=== PATIENT | male | born 1965 | race Hispanic/Latino ===

== ENCOUNTER 2017-01-17 19:46 | Inpatient (IN) | payer BC ==
[2017-01-17 19:47] VITALS: BMI 33.0
--- NOTE | 2017-01-17 20:19 | C.PDOC ---
History Of Present Illness <Jagdish Huertas - Last Filed: 01/18/17 00:45> <Andrey Toure - Last Filed: 01/18/17 03:50> 51 y/o male BIBA for homicidal and suicidal ideation. Patient states he threatened to kill his family and was asking his son to come over to shoot him in the head. Patient notes he finished a 21 day rehab 1 week ago and reports he started drinking immediately after. Patient states he has been drinking ever since. Currently presents to ER intoxicated. Denies any other complaints on arrival. (Jagdish Huertas) History Per: Patient History/Exam Limitations: no limitations Onset/Duration Of Symptoms: Days Current Symptoms Are (Timing): Still Present Modifying Factor(s): Alcohol Associated Symptoms: Suicidal Thoughts <Jagdish Huertas - Last Filed: 01/18/17 00:45> <Andrey Toure - Last Filed: 01/18/17 03:50> Time Seen by Provider: 01/17/17 19:47 Chief Complaint (Nursing): Substance Abuse Past Medical History Reviewed: Historical Data, Nursing Documentation, Vital Signs - Medical History PMH: Anxiety, Depression, Diabetes, HTN, Hypercholesterolemia Surgical History: Tonsillectomy (as a child) Family History: States: Unknown Family Hx - Social History Hx Tobacco Use: Yes Hx Alcohol Use: Yes Hx Substance Use: No - Immunization History Hx Tetanus Toxoid Vaccination: No Hx Influenza Vaccination: No Hx Pneumococcal Vaccination: No <Jagdish Huertas - Last Filed: 01/18/17 00:45> Vital Signs: Last Vital Signs Temp 98 F 01/18/17 00:49 Pulse 83 01/18/17 00:49 Resp 20 01/18/17 00:49 BP 110/69 01/18/17 00:49 Pulse Ox 96 01/18/17 00:49 - [facility] Procedures ALCOHOL DETOXIFICATION (10/07/13) DETOXIFICATION SERVICES FOR SUBSTANCE ABUSE TREATMENT (11/20/16) GROUP PSYCHOTHERAPY (11/20/16) INDIVIDUAL PSYCHOTHERAPY, SUPPORTIVE (11/20/16) MEDICATION MANAGEMENT (11/20/16) Review Of Systems Except As Marked, All Systems Reviewed And Found Negative. Constitutional: Negative for: Fever, Chills Cardiovascular: Negative for: Chest Pain Respiratory: Negative for: Shortness of Breath Gastrointestinal: Negative for: Vomiting, Abdominal Pain Skin: Negative for: Rash Psych: Positive for: Suicidal ideation, Other (Homicidal Ideation) <Jagdish Huertas - Last Filed: 01/18/17 00:45> Physical Exam - Physical Exam Appears: Non-toxic, No Acute Distress Skin: Normal Color, Warm, Dry Head: Atraumatic, Normacephalic Chest: Symmetrical Cardiovascular: Rhythm Regular Respiratory: Normal Breath Sounds, No Rales, No Rhonchi, No Wheezing Gastrointestinal/Abdominal: Soft, No Tenderness Back: Normal Inspection Extremity: Normal ROM, Capillary Refill (< 2 sec.) Neurological/Psych: Oriented x3, Normal Speech, Normal Cognition <Jagdish Huertas - Last Filed: 01/18/17 00:45> ED Course And Treatment - Laboratory Results Result Diagrams: 01/17/17 20:35 01/17/17 20:35 O2 Sat by Pulse Oximetry: 93 Pulse Ox Interpretation: Normal <Jagdish Huertas - Last Filed: 01/18/17 00:45> - Laboratory Results Result Diagrams: 01/17/17 20:35 01/17/17 20:35 <Andrey Toure R - Last Filed: 01/18/17 03:50> Medical Decision Making <Jagdish Huertas - Last Filed: 01/18/17 00:45> <Andrey Toure R - Last Filed: 01/18/17 03:50> Medical Decision Making: Plan: * Labs * EKG * Crisis eval * Reassess Progress: EKG: sinus rhythm 88 bpm, rightward axis (Jagdish Huertas) Disposition - Disposition Disposition Time: 01:00 <Jagdish Huertas - Last Filed: 01/18/17 00:45> Discussed With : Faith Reed Doctor Will See Patient In The: Hospital Counseled Patient/Family Regarding: Diagnosis - Disposition Disposition Time: 03:49 <Andrey Toure - Last Filed: 01/18/17 03:50> - Disposition Disposition: HOSPITALIZED Condition: STABLE - Clinical Impression Clinical Impression: Alcohol intoxication, Major depressive disorder, Alcohol use disorder - Scribe Statement The provider has reviewed the documentation as recorded by the Scribe <Jagdish Huertas - Last Filed: 01/18/17 00:45> <Andrey Toure - Last Filed: 01/18/17 03:50> - Scribe Statement Jim Guerrier (Jagdish Huertas) Provider Attestation: Provider Scribe Attestation: All medical record entries made by the Scribe were at my direction and personally dictated by me. I have reviewed the chart and agree that the record accurately reflects my personal performance of the history, physical exam, medical decision making, and the department course for this patient. I have also personally directed, reviewed, and agree with the discharge instructions and disposition. (Jagdish Huertas) Physician Patient Turnover Patient Signed Over To: Andrey Toure Handoff Comments: pending sobriety and psych recs <Jagdish Huertas - Last Filed: 01/18/17 00:45>
[2017-01-17 20:44] LABS: BASO % 0.4 % (0.0-2.0); EOS % 0.4 % (0.0-4.0); HEMATOCRIT 42.1 % (35.0-51.0); LYMPH # 2.2 K/uL (1.0-4.3); LYMPH % 42.7 % (20.0-40.0); MEAN CELL VOLUME 89.6 fL (80.0-94.0); MEAN CORPUSCULAR HEMOGLOBIN 29.8 pg (27.0-31.0); MEAN CORPUSCULAR HGB CONC 33.3 g/dL (33.0-37.0); MEAN PLATELET VOLUME 7.1 fL (7.2-11.7); MONO # 0.4 K/uL (0.0-0.8); MONO % 7.9 % (0.0-10.0); NRBC % 0.1 % (0.0-2.0); RED CELL DISTRIBUTION WIDTH 15.8 % (11.5-14.5); WHITE BLOOD COUNT 5.2 K/uL (4.8-10.8)
[2017-01-17 20:46] LABS: URINE BILIRUBIN NEGATIVE (NEGATIVE); URINE BLOOD NEGATIVE (NEGATIVE); URINE COLOR Straw (YELLOW); URINE GLUCOSE (UA) NORMAL (Normal); URINE KETONE TRACE mg/dL (NEGATIVE); URINE LEUKOCYTE ESTERASE NEG Leu/uL (Negative); URINE PROTEIN NEGATIVE (NEGATIVE); URINE UROBILINOGEN NORMAL mg/dL (0.2-1.0); WBC URINE < 1 /hpf (0-5)
[2017-01-17 20:56] LABS: CHLORIDE 95 mmol/L (98-107)
[2017-01-17 20:57] LABS: POTASSIUM 3.7 mmol/L (3.6-5.2); SODIUM 142 mmol/L (132-148)
[2017-01-17 20:59] LABS: ALB/GLOB RATIO 1.7 (1.0-2.1); ALKALINE PHOSPHATASE 58 U/L (38-126); ALT/SGPT 57 U/L (21-72); AST/SGOT 48 U/L (17-59); BILIRUBIN,TOTAL 0.1 mg/dL (0.2-1.3); BLOOD UREA NITROGEN 10 mg/dL (9-20); CARBON DIOXIDE 30 mmol/L (22-30); GFR AFRICAN-AMERICAN > 60; GLUCOSE,RANDOM 166 mg/dL (75-110); TOTAL PROTEIN 6.8 g/dL (6.3-8.3)
[2017-01-17 21:00] LABS: ALCOHOL SERUM 296 mg/dl (0-10); CALCIUM 9.3 mg/dl (8.6-10.4)
[2017-01-18 00:50] VITALS: O2SAT 96
[2017-01-18] MEDS: Pantoprazole 40 mg EC Tab PO SCH (11:13)
--- NOTE | 2017-01-18 16:23 | CARD ---
APPROVED REPORT EKG Measurement Heart [id number] <Conclusion> Normal sinus rhythm Rightward axis Borderline ECG
--- NOTE | 2017-01-18 23:06 | PCM.PSYCH ---
Initial Psychiatric Evaluation - Initial Psychiatric Evaluation Type of Admission: Voluntary Legal Status: Capacity Chief Complaint (in patient's own words): "I feel depressed" History of Present Illness and Precipitating Events: The pt is seen, chart reviewed, case discussed. He is known by the engineering writer from his previous admission. This is a 51 yo WM, and domiciled with his , unemployed. He reports depressive sxs, no psychosis and no brit He admitted that he had felt suicidal but out of desperation and w/o plan Drinks 3 pints a day but only for the last 5 days as he was in another facility until recently. Denies drugs Past psych hx: ne admission Family psych hx: Unknown Medical hx: Overweight, HTN, high cholesterol, DM Current Medications: Active Medications Generic Name Dose Route Start Last Admin Trade Name Freq PRN Reason Stop Dose Admin Amlodipine Besylate 5 mg 01/18/17 10:00 01/18/17 11:13 Norvasc PO 5 mg DAILY JOSE Administration Chlordiazepoxide 25 mg 01/18/17 06:00 01/18/17 17:00 Librium PO 01/22/17 05:59 25 mg Q6 JOSE Administration Taper Chlordiazepoxide 25 mg 01/18/17 14:10 01/18/17 21:39 Librium PO 25 mg Q4H PRN Administration Alcohol Withdrawal Clonidine HCl 0.1 mg 01/18/17 14:10 Catapres PO Q4H PRN Symptoms of alcohol withdrawl Diphenhydramine HCl 50 mg 01/18/17 04:58 01/18/17 11:12 Benadryl PO 50 mg Q6 PRN Administration Allergy symptoms Escitalopram Oxalate 10 mg 01/18/17 10:00 01/18/17 11:13 Lexapro PO 10 mg DAILY JOSE Administration Folic Acid 1 mg 01/18/17 14:15 Folic Acid PO DAILY JOSE Glipizide 5 mg 01/19/17 07:30 Glucotrol PO ACB JOSE Ibuprofen 600 mg 01/18/17 14:11 Motrin Tab PO Q6H PRN Pain, moderate (4-7) Metformin HCl 1,000 mg 01/18/17 08:00 01/18/17 17:00 Glucophage PO 1,000 mg BIDCC JOSE Administration Multivitamins 1 tab 01/18/17 14:15 Hexavitamin PO DAILY JOSE Pantoprazole Sodium 40 mg 01/18/17 10:00 01/18/17 11:13 Protonix Ec Tab PO 40 mg DAILY JOSE Administration Quetiapine Fumarate 300 mg 01/18/17 22:00 01/18/17 21:39 Seroquel PO 300 mg HS JOSE Administration Rosuvastatin Calcium 5 mg 01/18/17 22:00 01/18/17 21:21 Crestor PO 5 mg HS JOSE Administration Thiamine HCl 100 mg 01/18/17 14:15 Vitamin B1 Tab PO DAILY JOSE Trazodone HCl 50 mg 01/18/17 04:39 Desyrel PO HS PRN Sleep Past Psychiatric History - Past Psychiatric History Previous Treatment History: Inpatient Pertinent Medical Hx (Current Medical&Sleep Prob, Allergies): Allergies Allergy/AdvReac Type Severity Reaction Status Date / Time No Known Allergies Allergy Verified 11/20/16 15:06 Amlodipine Besylate [Norvasc] 10 mg PO DAILY 03/10/15 MetFORMIN [glucOPHAGE] 1,000 mg PO BID 03/10/15 Omeprazole [PrilOSEC] 40 mg PO DAILY 03/10/15 Quetiapine Fumarate [Seroquel] 25 mg PO HS 03/10/15 Simvastatin 20 mg PO HS 03/10/15 Escitalopram [Lexapro] 10 mg PO DAILY #30 tab 11/25/16 hydrOXYzine HCl [Atarax] 50 mg PO Q6H PRN #60 tab 11/25/16 Review of Systems - Psychiatric Psychiatric: Abnormal Sleep Pattern, Anhedonia, Anxiety, Change in Libido, Depression, Mood Swings. absent: Hallucinations, Homicidal Ideation, Paranoia, Suicidal Ideation Mental Status Examination - Personal Presentation Personal Presentation: Looks older than stated age - Affect Affect: Constricted - Motor Activity Motor Activity: Psychomotor Agitation - Reliability in Providing Information Reliability in Providing Information: Poor, due to altered mood - Speech Speech: Tangential - Mood Mood: Depressed, Anxious - Formal Thought Process Formal Thought Process: Circumstantial - Cognitive Functions Orientation: Person, Place, Situation, Time Sensorium: Alert Attention/Concentration: Easily distracted Judgement: Intact, as evidence by: Insight regarding need for hospitalization Memory: Recent intact, as evidence by: Ability to recall events of the day, Remote intact, as evidenced by: Abilit to recall sig. life events - Risk Risk: Diminished functioning - Strength & Assets Inventory Strength & Assets Inventory: Cooperative DSM 5 DX - DSM 5 DSM 5 Diagnosis: Major depression - recurrent / severe, not psychotic Alcohol use d/o Alcohl withdrawal - Recommended/Plan of Treatment Treatment Recommendations and Plan of Treatment: Ativan detox Zoloft Support and psychoed [place] and CBt Attend groups and activities Refer to IOP in [place] 33 min
[2017-01-19] MEDS: Pantoprazole 40 mg EC Tab PO SCH (09:46)
[2017-01-19] MEDS: Multiple Vitamins Tab PO SCH (09:47)
--- NOTE | 2017-01-19 13:03 | PCM.PYCHPN ---
Psychiatric Progress Note - Psychiatric Progress Note Patient seen today, length of contact: 20 min Patient Chief Complaint: "I don't feel well" Problems Identified/Issues Discussed: The patient is seen, chart reviewed and case discussed. He is somewhat worse than yesterday because he feels more depressed and anxious. He agreed to add gabapentin even though he doesn't believe it works well but he said he will try again. He also agreed to add Inderal as he is tachycardic and very anxious. Denies suicidal ideation or plan but he states he doesn't feel safe outside. No side effects from medications Detox is ongoing without major problems but has some breakthrough symptoms. [place] used support given Medication Change: Yes (see hpi) Medical Record Reviewed: Yes Mental Status Examination - Cognitive Function Orientation: Person, Place, Situation, Time Memory: Impaired Attention: Poor Concentration: Poor Association: WNL Fund of Knowledge: WNL - Mood Mood: Depressed, Anxious - Affect Affect: Constricted - Speech Speech: Appropriate - Formal Thought Process Formal Thought Process: No Impairment - Suicidal Ideation Suicidal Ideation: No - Homicidal Ideation Homicidal Ideation: No Goal/Treatment Plan - Goal/Treatment Plan Need for Continued Stay: Severe depression anxiety, Discharge may exacerbated symptoms, Severe functional impairment Progress Toward Problem(s) and Goals/Treatment Plan: Ativan detox Zoloft now 75 mg, will up to 100+ mg Add inderal Add gabapentin Support and psychoed [place] and CBt Attend groups and activities Refer to IOP in [place] Estimated Date of D/C: 01/21/17 - Smoking Cessation Smoking Cessation Initiated: Yes
[2017-01-20] MEDS: Multiple Vitamins Tab PO SCH (10:12)
[2017-01-20] MEDS: Pantoprazole 40 mg EC Tab PO SCH (10:14)
[2017-01-20 11:42] VITALS: RESP 19
--- NOTE | 2017-01-20 11:52 | PCM.PYCHPN ---
Psychiatric Progress Note - Psychiatric Progress Note Patient seen today, length of contact: 18 min Patient Chief Complaint: "I am a little better today" Problems Identified/Issues Discussed: The patient is seen, chart reviewed and case discussed. No side effects from medications Detox is ongoing without major problems but has some breakthrough symptoms and gets PRN meds. Detox is supposed to end tomorrow. [place] used support given, CBT used. Still very anxious and depressed and only better than yesterday. He does NOT contract for safety outside but "OK here." No concrete plans but he feels like if he leaves he will relapse and will feel suicidal again. Ways to deal with this discussed. Agrees with med increase Plan is to go to an IOP in [place], [facility] and plan B is going back to Dr. Longoria Medication Change: Yes (increase lexapro and gabapentin) Medical Record Reviewed: Yes Mental Status Examination - Cognitive Function Orientation: Person, Place, Situation, Time Memory: Impaired Attention: Poor Concentration: Poor Association: WNL Fund of Knowledge: WNL - Mood Mood: Depressed, Anxious - Affect Affect: Constricted - Speech Speech: Appropriate - Formal Thought Process Formal Thought Process: No Impairment - Suicidal Ideation Suicidal Ideation: No - Homicidal Ideation Homicidal Ideation: No Goal/Treatment Plan - Goal/Treatment Plan Need for Continued Stay: Severe depression anxiety, Discharge may exacerbated symptoms, Severe functional impairment Progress Toward Problem(s) and Goals/Treatment Plan: Ativan detox Lexapro is now 20 mg Added inderal Increase gabapentin to 400 tid Continue seroquel 100+300 Support and psychoed [place] and CBt Attend groups and activities Refer to IOP in [place] Estimated Date of D/C: 01/21/17
[2017-01-21 09:13] VITALS: BP 116/75; PULSE 103; TEMP 97.3
--- NOTE | 2017-01-21 09:49 | PCM.PYCHDC ---
Mental Status Examination - Mental Status Examination Orientation: Person, Place, Situation, Time Memory: Intact Mood: Anxious Affect: Constricted Speech: Appropriate Attention: WNL Concentration: WNL Association: WNL Fund of Knowledge: WNL Formal Thought Process: No Impairment Suicidal Ideation: No Current Homicidal Ideation?: No Discharge Summary - Discharge Note Reason for Hospitalization: Suicidal ideation Psychiatric History (includes Medical, Family, Personal Hx): Previous admissions for depression and alcoholism Laboratory Data: Abnormal Lab Results 01/20/17 01/20/17 01/21/17 11:45 16:31 07:36 POC Glucose (mg/dL) 199 H 188 H 179 H Consultations:: List each consultation separately and include: 1. Reason for request. 2. Findings. 3. Follow-up Summary of Hospital Course include:: 1. Description of specific treatment plan utilized for patients during their course of treatmen. 2. Summarize the time- course for resolution of acute symptoms and/or regressed behaviors. 3. Describe issues identified and worked on during hospitalization. 4. Describe medication utilized. 5. Describe medical problems identified and treated. 6. Reassessment of suicide risk Summary of Hospital Course: The pt is seen, chart reviewed, case discussed. On admission: He is known by the conventional underwriter from his previous admission. This is a 51 yo WM, and domiciled with his , unemployed. He reports depressive sxs, no psychosis and no brit He admitted that he had felt suicidal but out of desperation and w/o plan Drinks 3 pints a day but only for the last 5 days as he was in another facility until recently. Denies drugs Past psych hx: ne admission Family psych hx: Unknown Medical hx: Overweight, HTN, high cholesterol, DM Hospital course: The pt was admitted and started on treatment with psychotherapy, support, psychoeducation and medications. MN and CBT used. The pt attended groups and activities, as well as milieu therapy. All the risks and benefits of medications are discussed and the patient understood and agreed. After care discussed with the patient. He first wanted to go back to Dr. Longoria , then IOP in [place] called [facility], but when he heard he has a co-pay he said he would go to intake but would likely end up attending [facility] - where ( at [facility]) his works, which he did not tell us until the last minute. He was overall, anxious and depressed, threatened suicide but improved quickly. He was no longer suicidal, but future-oriented upon d/c. - Final Diagnosis (DSM 5) Condition upon Discharge: STABLE DSM 5: MDD - recurrent, severe. not psychotic Alcohol withdrawal Alcohol use d/o - severe DM HTN Obese Disposition: HOME/ ROUTINE Follow-up Treatment Plan: Continue below medications after discharge. Follow after care plan as discussed above. Use relapse prevention skills Return to ER or call 911 if suicidal, homicidal or symptoms relapse. Stay away from stress, alcohol and drugs. Prescriptions/Medication Reconciliation: traZODone [Desyrel] 50 mg PO HS PRN #30 tab PRN Reason: Sleep GlipiZIDE [Glucotrol] 5 mg PO ACB #30 tab Escitalopram [Lexapro] 20 mg PO DAILY #30 tab Gabapentin [Neurontin] 400 mg PO TID #90 cap amLODIPine [Norvasc] 10 mg PO DAILY #30 tab Pantoprazole [Protonix EC Tab] 40 mg PO DAILY #30 ect QUEtiapine [Seroquel] 100 mg PO DAILY #30 tab QUEtiapine [Seroquel] 300 mg PO HS #30 tab Topiramate [Topamax] 50 mg PO DAILY #30 tab metFORMIN [glucOPHAGE] 1,000 mg PO BIDCC #60 tab - Smoking Cessation Smoking Cessation Medication prescribed: No - Antipsychotic Medications Pt discharged on 2 or more routine antipsychotic medications: No
[2017-01-21] MEDS: Multiple Vitamins Tab PO SCH (09:51)
== END 2017-01-21 11:00 | disposition home or self-care (01) | DRG 885 ==
LOC: C.ER 19:46 → C.5E 01-18 03:51
PROVIDERS: ADMIT Psychiatry & Neurology Psychiatry; ATTEND Psychiatry & Neurology Psychiatry
PROC: GZ3ZZZZ Medication Management (ICD-10-PCS; principal; 2017-01-18)
PROC: HZ2ZZZZ Detoxification Services for Substance Abuse Treatment (ICD-10-PCS; 2017-01-18)
PROC: GZHZZZZ Group Psychotherapy (ICD-10-PCS; 2017-01-18)
PROC: GZ56ZZZ Individual Psychotherapy, Supportive (ICD-10-PCS; 2017-01-18)
DX: F33.2 Major depressive disorder, recurrent severe without psychotic features (principal); F10.220 Alcohol dependence with intoxication, uncomplicated; F10.230 Alcohol dependence with withdrawal, uncomplicated; R45.851 Suicidal ideations; R45.850 Homicidal ideations; Y90.8 Blood alcohol level of 240 mg/100 ml or more; I10 Essential (primary) hypertension; E11.9 Type 2 diabetes mellitus without complications; F17.210 Nicotine dependence, cigarettes, uncomplicated; E78.00 Pure hypercholesterolemia, unspecified; E66.3 Overweight; Z79.84 Long term (current) use of oral hypoglycemic drugs

== ENCOUNTER 2017-02-05 16:12 | Observation (INO) | payer BC ==
[2017-02-05 16:13] VITALS: BMI 33.0
[2017-02-05 17:15] LABS: ABG ALLEN TEST PO; DRAW SITE RR
[2017-02-05] MEDS ORDERED: Sodium Chloride 0.9% 1,000 ML IV ONE (17:17)
[2017-02-05] MEDS ORDERED: cefTRIAXone IV 1 gm in Dextros 50 ML IV ONE (17:18)
[2017-02-05] MEDS ORDERED: Azithromycin 500 MG in Sodium Chloride 0.9% 250 ML IV STA (17:18)
[2017-02-05 17:20] LABS: HEMATOCRIT 40.3 % (35.0-51.0); LYMPH # 1.2 K/uL (1.0-4.3); LYMPH % 15.6 % (20.0-40.0); MEAN CELL VOLUME 90.9 fL (80.0-94.0); MEAN CORPUSCULAR HEMOGLOBIN 30.3 pg (27.0-31.0); MEAN CORPUSCULAR HGB CONC 33.3 g/dL (33.0-37.0); MEAN PLATELET VOLUME 7.4 fL (7.2-11.7); MONO # 0.5 K/uL (0.0-0.8); MONO % 7.2 % (0.0-10.0); NRBC % 0.2 % (0.0-2.0); RED CELL DISTRIBUTION WIDTH 15.4 % (11.5-14.5); WHITE BLOOD COUNT 7.5 K/uL (4.8-10.8)
--- NOTE | 2017-02-05 17:31 | RAD ---
HISTORY: hypoxic COMPARISON: No prior. FINDINGS: LUNGS: Slightly diminished lung volumes likely due to incomplete inspiration with crowded bronchovascular markings and mild bibasilar atelectasis. Developing infiltrates could be excluded followup radiographs. PLEURA: No significant pleural effusion identified, no pneumothorax apparent. CARDIOVASCULAR: Normal. OSSEOUS STRUCTURES: Minor multilevel degenerative spondylosis of the thoracic spine. . VISUALIZED UPPER ABDOMEN: Normal. OTHER FINDINGS: None. IMPRESSION: Slightly diminished lung volumes likely due to incomplete inspiration with crowded bronchovascular markings and mild bibasilar atelectasis. Developing infiltrates could be excluded followup radiographs.
[2017-02-05 17:52] LABS: CHLORIDE 88 mmol/L (98-107)
[2017-02-05 17:53] LABS: POTASSIUM 4.7 mmol/L (3.6-5.2); SODIUM 131 mmol/L (132-148)
[2017-02-05 17:55] LABS: ALB/GLOB RATIO 1.6 (1.0-2.1); ALKALINE PHOSPHATASE 76 U/L (38-126); ALT/SGPT 55 U/L (21-72); AST/SGOT 54 U/L (17-59); BILIRUBIN,TOTAL 0.3 mg/dL (0.2-1.3); BLOOD UREA NITROGEN 14 mg/dL (9-20); CARBON DIOXIDE 24 mmol/L (22-30); GFR AFRICAN-AMERICAN > 60; GLUCOSE,RANDOM 172 mg/dL (75-110); TOTAL PROTEIN 7.4 g/dL (6.3-8.3)
--- NOTE | 2017-02-05 17:55 | C.PDOC ---
History Of Present Illness The patient, a 51 y/o male whose PMHx includes alcohol abuse and depression, presents to the ED requesting alcohol detox. Patient also reports suicidal ideation and states he recently been drinking around 4 pints liquor/day. Patient denies homicidal ideation/plan at this time. Time Seen by Provider: 02/05/17 16:47 Chief Complaint (Nursing): Substance Abuse History Per: Patient History/Exam Limitations: intoxication Onset/Duration Of Symptoms: Hrs Current Symptoms Are (Timing): Still Present Suicide/Self Injury Attempted (Context): None Modifying Factor(s): Alcohol Associated Symptoms: Suicidal Thoughts. denies: Suicidal Plan Involuntary Hold By: None Recent travel outside of the [place]: No Additional History Per: Patient Past Medical History Reviewed: Historical Data, Nursing Documentation, Vital Signs Vital Signs: Last Vital Signs Temp 98.7 F 02/05/17 17:35 Pulse 95 H 02/05/17 19:13 Resp 16 02/05/17 19:13 BP 121/72 02/05/17 19:13 Pulse Ox 91 L 02/05/17 19:13 - Medical History PMH: Anxiety, Depression, Diabetes, HTN, Hypercholesterolemia, Seizures (ETOH related), Sleep Apnea (uses CPAP at home) Denies: Hepatitis, HIV, Chronic Kidney Disease, Sexually Transmitted Disease Surgical History: Tonsillectomy (as a child) - [facility] Procedures ALCOHOL DETOXIFICATION (10/07/13) DETOXIFICATION SERVICES FOR SUBSTANCE ABUSE TREATMENT (01/18/17) GROUP PSYCHOTHERAPY (01/18/17) INDIVIDUAL PSYCHOTHERAPY, SUPPORTIVE (01/18/17) MEDICATION MANAGEMENT (01/18/17) Family History: States: Unknown Family Hx - Social History Hx Tobacco Use: Yes Hx Alcohol Use: Yes (1-2 pints vodka daily) Hx Substance Use: Yes - Immunization History Hx Tetanus Toxoid Vaccination: No Hx Influenza Vaccination: No Hx Pneumococcal Vaccination: No Review Of Systems Except As Marked, All Systems Reviewed And Found Negative. Constitutional: Positive for: Other (+ETOH intoxication ) Psych: Positive for: Suicidal ideation, Other (request for alcohol detox ) Physical Exam - Physical Exam Appears: No Acute Distress, Other (visibly intoxicated, stuperous, obese) Skin: Normal Color, Warm, Dry Head: Atraumatic, Normacephalic Eye(s): bilateral: Normal Inspection Oral Mucosa: Moist, Other (alcohol on breath ) Neck: Supple Chest: Symmetrical, No Deformity, No Tenderness Cardiovascular: Rhythm Regular Respiratory: Normal Breath Sounds Back: Normal Inspection Extremity: Normal ROM, Capillary Refill (less than 2 seconds ) Neurological/Psych: Other (arousable to touch and verbal stimuli ) Gait: Unsteady ED Course And Treatment - Laboratory Results Result Diagrams: 02/05/17 17:14 02/05/17 17:40 Lab Interpretation: Abnormal (ab.22/58/45/25/82% on 2LNC) O2 Sat by Pulse Oximetry: 96 Pulse Ox Interpretation: Normal - Other Rad CXR X-Ray: Interpreted by Me, Viewed By Me, Read By Radiologist Interpretation: IMPRESSION: Slightly diminished lung volumes likely due to incomplete inspiration with crowded bronchovascular markings and mild bibasilar atelectasis. Developing infiltrates could be excluded followup radiographs. Progress Note: labs and CXR ordered and reviewed. Patient received Zithromax IV , Rocephin IV, and IV Fluids. Reevaluation Time: 19:02 Reassessment Condition: Improved (repeat ABG and trial off BiPaP ordered) - Physician Consult Information Outcome Of Conversation: 1899: d/w Dr. Janine Bingham- Medicine [employer]- ok to Tele obs. Critical Care Time - Critical Care Note Total Time (in mins): 90 Documented critical care: time excludes all time spent performing seperately billable procedures. Medical Decision Making Medical Decision Making: chronic alcoholism, COPD exacerbation with CO2 retention, improved with fluids and BiPaP Alcohol abuse probably decreased respiratory drive, now improved. h/o 1ppd, probably has baseline 50/50 O2/CO2 Though initially presented for ETOH detox- pt should be stabilized on Medicine Floor while concurrently starting CIWA protocol then transfer to detox when appropriate. 2000: second ABG shows improvement of oxygenation, but no sig decreased C02 Clinically pt much improved and A&Ox3 Disposition Doctor Will See Patient In The: Hospital Counseled Patient/Family Regarding: Studies Performed, Diagnosis - Disposition Disposition: HOSPITALIZED Disposition Time: 19:05 Condition: FAIR - Clinical Impression Clinical Impression: Alcohol dependence, COPD (chronic obstructive pulmonary disease) - Scribe Statement The provider has reviewed the documentation as recorded by the Scribe (Yvonne Khan) Provider Attestation: All medical record entries made by the Scribe were at my direction and personally dictated by me. I have reviewed the chart and agree that the record accurately reflects my personal performance of the history, physical exam, medical decision making, and the department course for this patient. I have also personally directed, reviewed, and agree with the discharge instructions and disposition.
[2017-02-05 17:56] LABS: ALCOHOL SERUM 200 mg/dl (0-10)
[2017-02-05] MEDS ORDERED: cefTRIAXone IV 1 gm in Dextros 50 ML IVPB ONE (18:24)
[2017-02-05] MEDS ORDERED: Azithromycin 500mg/250ML NS 250 ML IVPB ONE (18:25)
[2017-02-05] MEDS ORDERED: Sodium Chloride 0.9% 1,000 ML ONE (18:25)
[2017-02-05] MEDS ORDERED: Albuterol-Ipratrop 3 mg / 0.5 (3 ml) UD INH STA (19:00)
[2017-02-05] MEDS ORDERED: Albuterol-Ipratrop 3 mg / 0.5 (3 ml) UD ONE (19:16)
[2017-02-05 19:46] LABS: ABG ALLEN TEST POS; DRAW SITE RRADIAL
[2017-02-05 20:01] LABS: RBC URINE < 1 /hpf (0-3); URINE BACTERIA RARE (<OCC); URINE BILIRUBIN NEGATIVE (NEGATIVE); URINE BLOOD NEGATIVE (NEGATIVE); URINE COLOR Straw (YELLOW); URINE GLUCOSE (UA) NORMAL (Normal); URINE KETONE NEGATIVE (NEGATIVE); URINE LEUKOCYTE ESTERASE NEG Leu/uL (Negative); URINE PROTEIN NEGATIVE (NEGATIVE); URINE UROBILINOGEN NORMAL mg/dL (0.2-1.0); WBC URINE < 1 /hpf (0-5)
[2017-02-05 23:14] VITALS: RESP 20
[2017-02-05] MEDS: Azithromycin 500 MG in Sodium Chloride 0.9% 250 ML IVPB SCH (23:41)
[2017-02-06 07:05] LABS: CHLORIDE 92 mmol/L (98-107); POTASSIUM 4.1 mmol/L (3.6-5.2); SODIUM 135 mmol/L (132-148)
[2017-02-06 07:08] LABS: CARBON DIOXIDE 33 mmol/L (22-30); GFR AFRICAN-AMERICAN > 60
[2017-02-06 07:09] LABS: BLOOD UREA NITROGEN 11 mg/dL (9-20); CALCIUM 7.8 mg/dl (8.6-10.4); GLUCOSE,RANDOM 159 mg/dL (75-110); MAGNESIUM 1.7 mg/dL (1.6-2.3); PHOSPHOROUS 2.6 mg/dL (2.5-4.5)
[2017-02-06 07:13] LABS: BASO % 0.2 % (0.0-2.0); EOS % 0.2 % (0.0-4.0); HEMATOCRIT 39.4 % (35.0-51.0); LYMPH # 0.9 K/uL (1.0-4.3); LYMPH % 18.4 % (20.0-40.0); MEAN CELL VOLUME 90.9 fL (80.0-94.0); MEAN CORPUSCULAR HEMOGLOBIN 30.2 pg (27.0-31.0); MEAN CORPUSCULAR HGB CONC 33.2 g/dL (33.0-37.0); MEAN PLATELET VOLUME 7.5 fL (7.2-11.7); MONO # 0.6 K/uL (0.0-0.8); MONO % 11.9 % (0.0-10.0); NRBC % 0.4 % (0.0-2.0); RED CELL DISTRIBUTION WIDTH 15.6 % (11.5-14.5); WHITE BLOOD COUNT 4.8 K/uL (4.8-10.8)
[2017-02-06] MEDS: Albuterol-Ipratrop 3 mg / 0.5 (3 ml) UD INH SCH ×3 (07:52→19:17)
[2017-02-06] MEDS: (Novolin R) Insulin Human Regular 100 units/ml vial SC SCH ×4 (07:58→22:03)
[2017-02-06] MEDS: GlipiZIDE 2.5 mg Tab PO SCH ×2 (09:57→17:38)
[2017-02-06] MEDS: Pantoprazole 40 mg EC Tab PO SCH (09:59)
--- NOTE | 2017-02-06 11:22 | CP.PCM.HP ---
History of Present Illness - History of Present Illness History of Present Illness: coughing sob alcoholic smoker and wants detox deprsion Present on Admission - Present on Admission Any Indicators Present on Admission: Yes Review of Systems - Review of Systems Systems not reviewed;Unavailable: Acuity of Condition, Respiratory Distress, Intoxicated - Constitutional Constitutional: Fatigue, Snoring - EENT Eyes: As Per HPI Nose/Mouth/Throat: As Per HPI - Cardiovascular Cardiovascular: Dyspnea, Dyspnea on Exertion, Orthopnea - Respiratory Respiratory: Dyspnea, Dyspnea on Exertion - Gastrointestinal Gastrointestinal: Constipation - Genitourinary Genitourinary: Urinary Frequency - Reproductive: Male Reproductive:Male: As Per HPI - Musculoskeletal Musculoskeletal: As Per HPI - Integumentary Integumentary: As Per HPI - Neurological Neurological: Tremor - Psychiatric Psychiatric: Abnormal Sleep Pattern, Depression - Endocrine Endocrine: Polydipsia, Polyphagia - Hematologic/Lymphatic Hematologic: As Per HPI Past Patient History - Infectious Disease Hx of Infectious Diseases: None - Past Medical History & Family History Past Medical History?: Yes - Past Social History Smoking Status: Heavy Smoker > 10 Cigarettes Daily - CARDIAC Hx Cardiac Disorders: Yes Hx Hypercholesterolemia: Yes Hx Hypertension: Yes - PULMONARY Hx Respiratory Disorders: Yes Hx Pneumonia: Yes Hx Sleep Apnea: Yes (uses CPAP at home) - NEUROLOGICAL Hx Neurological Disorder: Yes Hx Seizures: Yes (ETOH related) Other/Comment: HEAD ANEURYSM - HEENT Hx HEENT Problems: Yes Other/Comment: HAD SEPTAL SURGERY DUE TO DEVIATION - RENAL Hx Chronic Kidney Disease: No - ENDOCRINE/METABOLIC Hx Endocrine Disorders: Yes Hx Diabetes Mellitus Type 2: Yes (non insulin dependent) - HEMATOLOGICAL/ONCOLOGICAL Hx Blood Disorders: No Hx Human Immunodeficiency Virus (HIV): No - INTEGUMENTARY Hx Dermatological Problems: No - MUSCULOSKELETAL/RHEUMATOLOGICAL Hx Falls: No - GASTROINTESTINAL Hx Gastrointestinal Disorders: Yes Hx Gastritis: Yes - GENITOURINARY/GYNECOLOGICAL Hx Genitourinary Disorders: No Hx Sexually Transmitted Disorders: No - PSYCHIATRIC Hx Substance Use: No - SURGICAL HISTORY Hx Surgeries: Yes Hx Tonsillectomy: Yes (as a child) Other/Comment: NASAL SEPTUM SURGERY - ANESTHESIA Hx Anesthesia: Yes Hx Anesthesia Reactions: No Hx Malignant Hyperthermia: No Meds Allergies/Adverse Reactions: Allergies Allergy/AdvReac Type Severity Reaction Status Date / Time No Known Allergies Allergy Verified 02/05/17 16:32 Physical Exam - Constitutional Appears: In Acute Distress - Head Exam Head Exam: ATRAUMATIC - Eye Exam Eye Exam: Normal appearance Pupil Exam: PERRL - ENT Exam ENT Exam: Mucous Membranes Moist - Neck Exam Neck exam: Positive for: Full Rom - Respiratory Exam Respiratory Exam: Decreased Breath Sounds, Respiratory Distress - Cardiovascular Exam Cardiovascular Exam: REGULAR RHYTHM - GI/Abdominal Exam GI & Abdominal Exam: Normal Bowel Sounds - Rectal Exam Rectal Exam: NORMAL INSPECTION - Exam Exam: NORMAL INSPECTION - Extremities Exam Extremities exam: Positive for: normal inspection - Back Exam Back exam: NORMAL INSPECTION - Neurological Exam Neurological exam: Oriented x3 - Psychiatric Exam Psychiatric exam: Anxious - Skin Skin Exam: Normal Color Results - Vital Signs Recent Vital Signs: Last Vital Signs Temp 98.9 F 02/06/17 08:30 Pulse 88 02/06/17 08:30 Resp 20 02/06/17 08:30 BP 124/79 02/06/17 08:30 Pulse Ox 95 02/06/17 08:30 - Labs Result Diagrams: 02/06/17 06:28 02/06/17 06:28 Labs: Laboratory Results - last 24 hr 02/05/17 02/05/17 02/06/17 19:35 19:48 06:02 WBC RBC Hgb Hct MCV MCH MCHC RDW Plt Count MPV Neut % (Auto) Lymph % (Auto) [place] % (Auto) Eos % (Auto) Baso % (Auto) Neut # Lymph # [place] # Eos # Baso # APTT Puncture Site Rradial pCO2 58 H pO2 70 L HCO3 22.6 ABG pH 7.25 L ABG Total CO2 27.2 ABG O2 Saturation 95.5 ABG Base Excess -2.8 L Faisal Test Pos ABG Potassium 4.7 A-a O2 Difference 214.0 Respiratory Index 3.1 Sodium 133.0 Chloride 100.0 Glucose 171 H Lactate 3.1 H FiO2 50.0 Inspiratory BiPAP 20 Expiratory BiPAP 6 Potassium Carbon Dioxide Anion Gap BUN Creatinine Est GFR ( Amer) Est GFR (Non-Af Amer) POC Glucose (mg/dL) 173 H Random Glucose Calcium Phosphorus Magnesium Arterial Blood Potassium 4.7 Urine Color Straw Urine Clarity Clear Urine pH 6.0 Ur Specific [place] 1.006 Urine Protein Negative Urine Glucose (UA) Normal Urine Ketones Negative Urine Blood Negative Urine Nitrate Negative Urine Bilirubin Negative Urine Urobilinogen Normal Ur Leukocyte Esterase Neg Urine WBC (Auto) < 1 Urine RBC (Auto) < 1 Urine Bacteria Rare Urine Opiates Screen Negative Urine Methadone Screen Negative Ur Barbiturates Screen Negative Ur Phencyclidine Scrn Negative Ur Amphetamines Screen Negative U Benzodiazepines Scrn Positive U Oth Cocaine Metabols Positive U Cannabinoids Screen Negative 02/06/17 06:28 WBC 4.8 RBC 4.34 L Hgb 13.1 Hct 39.4 MCV 90.9 MCH 30.2 MCHC 33.2 RDW 15.6 H Plt Count 164 MPV 7.5 Neut % (Auto) 69.3 Lymph % (Auto) 18.4 L [place] % (Auto) 11.9 H Eos % (Auto) 0.2 Baso % (Auto) 0.2 Neut # 3.3 Lymph # 0.9 L [place] # 0.6 Eos # 0.0 Baso # 0.0 APTT 22 Puncture Site pCO2 pO2 HCO3 ABG pH ABG Total CO2 ABG O2 Saturation ABG Base Excess Faisal Test ABG Potassium A-a O2 Difference Respiratory Index Sodium 135 Chloride 92 L Glucose Lactate FiO2 Inspiratory BiPAP Expiratory BiPAP Potassium 4.1 Carbon Dioxide 33 H Anion Gap 14 BUN 11 Creatinine 0.7 L Est GFR ( Amer) > 60 Est GFR (Non-Af Amer) > 60 POC Glucose (mg/dL) Random Glucose 159 H Calcium 7.8 L Phosphorus 2.6 Magnesium 1.7 Arterial Blood Potassium Urine Color Urine Clarity Urine pH Ur Specific [place] Urine Protein Urine Glucose (UA) Urine Ketones Urine Blood Urine Nitrate Urine Bilirubin Urine Urobilinogen Ur Leukocyte Esterase Urine WBC (Auto) Urine RBC (Auto) Urine Bacteria Urine Opiates Screen Urine Methadone Screen Ur Barbiturates Screen Ur Phencyclidine Scrn Ur Amphetamines Screen U Benzodiazepines Scrn U Oth Cocaine Metabols U Cannabinoids Screen Assessment & Plan - Assessment and Plan (Free Text) Assessment: ac ex ofCOPD DM SLY ALC ABUSE SMOKER DEPRESION Plan: PER ORDERS - Date & Time Date: 02/06/17 Time: 11:27
[2017-02-06] MEDS: Multiple Vitamins Tab PO SCH (17:38)
--- NOTE | 2017-02-06 17:47 | CON ---
DATE: 02/06/2017 CHIEF COMPLAINT AND REASON FOR CONSULTATION: The patient referred by Dr. Bingham as the patient has a history of depression as well as history of alcohol and cocaine dependence. HISTORY OF PRESENT ILLNESS: This is the case of a 51-year-old male who lives with his with known history of alcohol dependence since his teens as well as history of cocaine dependence since his 30s. The patient admitted here requesting detoxification. The patient however, was admitted to medicine as he has been having problems breathing. The patient is admitted for exacerbation of chronic obstructive pulmonary disease. He did admit that he has been drinking 3-4 pints of liquor daily and also has been using 2 bags of cocaine off and on. The patient states that his is trying to make an arrangement for him to go to rehabilitation after this detox. He is also noted to become very restless as the patient is asking for some medication to calm his nerves, as he states he drinks heavily. Reports his longest period of sobriety is about 6 months and has been in at least 10 detoxes and 10 rehabs in the past. The patient is unable to maintain long periods of sobriety. He said he was sober for a few months, then relapsed. He states that he has been seeing a doctor, a psychiatrist, Dr. Carl, who prescribes him with Lexapro 10 mg daily , Seroquel 600 mg at bedtime as well as he was taking trazodone in the past and Topamax. The patient has history of seizure, was alcohol related. The patient reports he has been taking his meds. He said he has trouble sleeping, but the patient has been able to maintain periods of sobriety and continues to relapse despite taking psych medications. PAST PSYCHIATRIC HISTORY: As stated, history of depression, anxiety, polysubstance dependence. PAST MEDICAL HISTORY: Diabetes, hypertension, history of sleep apnea, has CPAP at home. History of alcohol-related seizures. PAST PSYCHIATRIC HISTORY: As stated, history of depression, anxiety and cocaine dependence as well as alcohol dependence. ALLERGIES: No known allergies. DRUG AND ALCOHOL HISTORY: As stated, started using alcohol at age 19, started using cocaine at age 35, has been drinking 3-4 pints of liquor daily, last drink was on his day of admission. The patient has history of alcohol-related seizure. Also, denies any history of any recent or remote legal history related to he is drinking. He denies any use of other drugs. Stated he has been in 10 detoxes and 10 rehabs in the past. He stated he will be going for rehab on after he has his admission. PSYCHOSOCIAL HISTORY: He lives with his . He has 2 children and used to do construction in the past. CURRENT MEDICATIONS: Include azithromycin, DuoNeb, Glucotrol, Lexapro 10 mg daily. The patient his Librium, detox protocol as well as Librium p.r.n. 50 q. 4 p.r.n., Norvasc, Novolin, the patient is on Seroquel 600 mg at bedtime, Protonix, patient was taking trazodone at home as well as Topamax. The patient is on high doses of Librium at this time. VITAL SIGNS: Temperature is 98.9, pulse rate is 88, blood pressure 124/79, respirations 20, oxygen sats 95%. REVIEW OF SYSTEMS: The patient seen in his room. He is sleeping with his CPAP machine. GENERAL: The patient is alert and oriented x 3, complaining of anxiety and restlessness as said that he cannot sleep and wants his Seroquel 600 mg at bedtime. SKIN: No diaphoresis. HEENT: No headache, no dizziness. NECK: Supple. RESPIRATORY: Mild to moderate dyspnea secondary to chronic obstructive pulmonary disease. The patient did admit that he has been using cocaine, but denies history of IVDA. GASTROINTESTINAL: No nausea, vomiting. EXTREMITIES: The patient is ambulatory. MUSCULOSKELETAL: feels weak NEUROLOGIC: Alert, oriented x 3. GENITOURINARY: No dysuria. MENTAL STATUS EXAMINATION: A bright looking male who is about 5 feet 11 inches , weighs 242 pounds. The patient is 1:1. The patient was earlier reported to be suicidal, but the patient denies any. I will discontinue the 1:1 watch as patient will be going for inpatient drug rehab after this. He claims he is not suicidal. Speech spontaneous. Affect is reactive. Mood is calm. Thought process coherent. Thought content: The patient wants to go for inpatient drug rehabilitation as arranged by his . No paranoia, no suicidal or homicidal ideations. No hallucinations. Attention and memory seem to be fair. Insight and judgment limited. Impulse control is fair at this time. IMPRESSION: History of depression as well as history of polysubstance dependence, alcohol withdrawal, alcohol dependence, cocaine dependence. PLAN AND RECOMMENDATION: The patient seen, meds reviewed. We will continue his psych meds; however, will change the dose of the Seroquel from 300 to 600 mg at bedtime, we put him on standing Librium protocol, Librium 50 mg q. 6 hours for 1 day, Librium 50 mg q. 8 x 1 daily, Librium 50 mg q. 12 times 1 day, then Librium 50 mg p.o. daily x 1 day, then discontinue. May have Librium 50 q. 4 p.r.n. for alcohol withdrawal. The patient may have thiamine supplement 100 mg b.i.d. and also MVI. Continue antibiotics as ordered. Also, will discontinue the 1:1 watch. The patient is not suicidal. The patient is medically stable. The patient's has arranged for patient to go for inpatient alcohol and drug rehab. Note, the patient has been in rehab 10 times. The patient needs to work more on his sobriety as he has been in detox 10 times and in rehab 10 times. His longest period of sobriety is only as stated here was 6 months, but needs to work to get a longer period of sobriety. Prognosis is guarded at this time. Jorge Garcia MD cc: [phone] TT: 02/06/2017 17:46:30 Confirmation # [id number] Dictation # [id number] SHIRA
[2017-02-06] MEDS: Azithromycin 500 MG in Sodium Chloride 0.9% 250 ML IVPB SCH (21:48)
[2017-02-07] MEDS: Albuterol-Ipratrop 3 mg / 0.5 (3 ml) UD INH SCH ×4 (01:24→21:18)
[2017-02-07] MEDS: (Novolin R) Insulin Human Regular 100 units/ml vial SC SCH (08:27)
[2017-02-07] MEDS ORDERED: Pneumococcal 23-Valent Vaccine IM ONE (10:00)
[2017-02-07] MEDS: Multiple Vitamins Tab PO SCH (10:37)
[2017-02-07] MEDS: Pantoprazole 40 mg EC Tab PO SCH (10:37)
[2017-02-07] MEDS: GlipiZIDE 2.5 mg Tab PO SCH ×2 (10:37→17:35)
--- NOTE | 2017-02-07 10:39 | CP.PCM.PN ---
Subjective - Date & Time of Evaluation Date of Evaluation: 02/07/17 Time of Evaluation: 10:37 - Subjective Subjective: pt less sob c/o of back pain Objective - Vital Signs/Intake and Output Vital Signs (last 24 hours): Temp Pulse Resp BP Pulse Ox 976 F H 109 H 20 169/105 H 96 02/07/17 08:44 02/07/17 08:44 02/07/17 08:44 02/07/17 08:44 02/07/17 08:44 - Medications Medications: Current Medications Albuterol/Ipratropium (Duoneb 3 Mg/0.5 Mg (3 Ml) Ud) 3 ml INH RQ6 [facility] Last Admin: 02/07/17 08:39 Dose: 3 ml Amlodipine Besylate (Norvasc) 10 mg PO DAILY [facility] Last Admin: 02/06/17 09:58 Dose: 10 mg Chlordiazepoxide (Librium) 50 mg PO Q6H [facility] Last Admin: 02/07/17 08:27 Dose: 50 mg Chlordiazepoxide (Librium) 50 mg PO Q4H PRN PRN Reason: Anxiety Last Admin: 02/06/17 17:38 Dose: 50 mg Escitalopram Oxalate (Lexapro) 10 mg PO DAILY [facility] Last Admin: 02/06/17 09:58 Dose: 10 mg Glipizide (Glucotrol) 2.5 mg PO BID [facility] Last Admin: 02/06/17 17:38 Dose: 2.5 mg Heparin Sodium (Porcine) (Heparin) 5,000 units SC Q12 [facility] Last Admin: 02/06/17 21:48 Dose: 5,000 units Azithromycin 500 mg/ Sodium (Chloride) 250 mls @ 250 mls/hr IVPB Q24H [facility] Last Admin: 02/06/17 21:48 Dose: 250 mls/hr Ceftriaxone Sodium 1 gm/ (Sodium Chloride) 100 mls @ 100 mls/hr IVPB Q24H [facility] Last Admin: 02/06/17 20:47 Dose: 100 mls/hr Multivitamins (Hexavitamin) 1 tab PO DAILY [facility] Last Admin: 02/06/17 17:38 Dose: 1 tab Pantoprazole Sodium (Protonix Ec Tab) 40 mg PO DAILY [facility] Last Admin: 02/06/17 09:59 Dose: 40 mg Quetiapine Fumarate (Seroquel) 600 mg PO HS [facility] Last Admin: 02/06/17 21:48 Dose: 600 mg Thiamine HCl (Vitamin B1 Tab) 100 mg PO BID [facility] Last Admin: 02/06/17 17:38 Dose: 100 mg - Labs Labs: 02/06/17 06:28 02/06/17 06:28 APTT 22 SECONDS (21-34) 02/06/17 06:28 - Constitutional Appears: Non-toxic - Head Exam Head Exam: NORMAL INSPECTION - Eye Exam Eye Exam: Normal appearance Pupil Exam: NORMAL ACCOMODATION - ENT Exam ENT Exam: Normal Exam - Neck Exam Neck Exam: Full ROM - Respiratory Exam Respiratory Exam: Clear to Ausculation Bilateral - Cardiovascular Exam Cardiovascular Exam: REGULAR RHYTHM - GI/Abdominal Exam GI & Abdominal Exam: Normal Bowel Sounds - Rectal Exam Rectal Exam: NORMAL INSPECTION - Exam External exam: NORMAL EXTERNAL EXAM - Extremities Exam Extremities Exam: Normal Capillary Refill - Back Exam Back Exam: CVA tenderness (L) - Neurological Exam Neurological Exam: Alert, Oriented x3 - Psychiatric Exam Psychiatric exam: Normal Affect - Skin Skin Exam: Normal Color Assessment and Plan - Assessment and Plan (Free Text) Assessment: s/p alc intoxication COPD EX DM CONT PER ORDERS
--- NOTE | 2017-02-07 15:55 | PN ---
DATE: 02/07/2017 SUBJECTIVE: The patient is seen. The patient is doing a little better, but still short of breath. The patient is expressing the desire that he wants to leave by Wednesday or because he is going for inpatient rehab, but the patient is not medically cleared at this time. The patient is currently on Librium detox as well as psych meds. He says that he slept better last night. The patient is also on Seroquel 600 mg at bedtime as well as Lexapro 10 mg daily. VITAL SIGNS: Temperature is 97.6, pulse rate is 109, blood pressure 169/105, respirations 20, oxygen saturation is 96% with BiPAP. REVIEW OF SYSTEMS: GENERAL: The patient is alert, verbal, resting in his room, using his BiPAP, complaining of shortness of breath, but doing a little better with Librium detox. SKIN: No diaphoresis. HEENT: No headache, no dizziness. NECK: Supple. RESPIRATORY: Has [id number] dyspnea and using BiPAP. CARDIOVASCULAR: No chest pain. GASTROINTESTINAL: eating better, no nausea or vomiting. EXTREMITIES: The patient is ambulatory but as some mild tremors. NEUROLOGIC: Alert and oriented x 3. GENITOURINARY: No dysuria. MENTAL STATUS EXAMINATION: A burly looking male, looks stated age, lying in bed , using his BiPAP. Mood is calmer. Affect is reactive. Speech spontaneous. Thought process coherent. Thought content: No psychosis. No suicidal or homicidal ideation. The patient is looking forward to go for inpatient alcohol and drug rehab once he is medically cleared, but the patient does want to go until his breathing problem will resolve. As stated, no suicidal or homicidal ideation. No psychosis. Attention and memory seems to be fair. Insight and judgment limited. Impulse control is fair at this time. IMPRESSION: History of depression, polysubstance dependence, history of alcohol withdrawal, alcohol dependence, cocaine dependence. PLAN AND RECOMMENDATION: The patient is seen, meds reviewed. Continue Librium detox as ordered. Continue treatment plan as outlined. The patient, once medically cleared, will try to go for inpatient alcohol and drug rehab as arranged by his family. Jorge A Garcia MD cc: [phone] TT: 02/07/2017 15:54:51 Confirmation # [id number] Dictation # [id number] bubba SILVA
[2017-02-07] MEDS: Azithromycin 500 MG in Sodium Chloride 0.9% 250 ML IVPB SCH (18:57)
[2017-02-08] MEDS: Albuterol-Ipratrop 3 mg / 0.5 (3 ml) UD INH SCH ×3 (01:14→15:10)
--- NOTE | 2017-02-08 07:12 | CON ---
DATE: 02/06/2017 The patient is a 51-year-old male in the hospital with chief complaint of weakness, fatigue, tirednes s, coughing. The patient has a history of smoking, history of alcohol use . The patient has been smoking despite multiple attempts to stop and multiple advice by his primary care doctor to stop smoking. PHYSICAL EXAMINATION: GENERAL: The patient is awake, alert, oriented, short of breath at rest. VITAL SIGNS: Temperature 98, pulse 90. HEENT: Within normal limits. CHEST: Decreased air entry bilaterally, wheezing bilaterally. HEART: Regular, distant sounds. ABDOMEN: Soft. EXTREMITIES: No edema. The patient suffers from exacerbation of chronic obstructive pulmonary disease, bronchitis, sleep rand maker ea. At this time, patient will get bedrest, supportive care, bronchodilator, . Fátima Saldaña MD cc: [id number] TT: 02/07/2017 08:53:24 Confirmation # [id number] Dictation # [id number] en
--- NOTE | 2017-02-08 07:23 | PN ---
DATE: 02/07/2017 The patient sleeping on the BiPAP machine. Supportive care, bronchodilators. Prognosis is guarded. Fátima Saldaña MD cc: [phone] TT: 02/07/2017 15:50:00 Confirmation # [id number] Dictation # [id number] en
[2017-02-08] MEDS: GlipiZIDE 2.5 mg Tab PO SCH ×2 (09:40→17:00)
[2017-02-08] MEDS: Multiple Vitamins Tab PO SCH (09:41)
[2017-02-08] MEDS: Pantoprazole 40 mg EC Tab PO SCH (09:42)
--- NOTE | 2017-02-08 12:46 | CARD ---
APPROVED REPORT EKG Measurement Heart [id number] SD [id number] [id number] <Conclusion> Normal sinus rhythm Rightward axis Borderline ECG
--- NOTE | 2017-02-08 13:46 | PN ---
DATE: 02/08/2017 SUBJECTIVE: The patient is seen. The patient is feeling a little better. He said he is sleeping much better. 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 His breathing is much easier. VITAL SIGNS: Temperature is 98, pulse rate 74, blood pressure 128/81, respirations 20, oxygen saturation is 94%. The patient is still using BiPAP. REVIEW OF SYSTEMS: GENERAL: He is alert and oriented x 3, resting comfortably in bed. He said he is interested to go for inpatient alcohol and drug rehab. SKIN: No diaphoresis. HEENT: No headache, no dizziness. NECK: Supple. RESPIRATORY: Breathing much easier. CARDIOVASCULAR: No chest pain. GASTROINTESTINAL: Eating better. EXTREMITIES: The patient moving extremities, no tremors. MUSCULOSKELETAL: Weakness, improving. NEUROLOGIC: Alert and oriented x 3. GENITOURINARY: No urinary problems. MENTAL STATUS EXAMINATION: A burly looking male, who looks stated age. Alert, oriented x 3. Mood is calmer. Affect is reactive. Speech spontaneous. Thought process coherent. Thought content: No psychosis. No suicidal or homicidal ideation. The patient states he is interested to go for inpatient drug and alcohol rehab once medically cleared. Attention and memory seems to be fair. Insight and judgment improving. Impulse control is fair. No si or hi. no psychosis. No suicidal or homicidal ideation. IMPRESSION: History of depression and polysubstance dependence, history of alcohol withdrawal, alcohol dependence, cocaine dependence. PLAN AND RECOMMENDATIONS: The patient seen, meds reviewed. Continue present management as outlined. The patient is awaiting medical clearance to go for inpatient alcohol and drug rehab. Jorge Garcia MD cc: [phone] TT: 02/08/2017 13:45:57 Confirmation # [id number] Dictation # [id number] SILVA
[2017-02-08 16:14] VITALS: BP 143/92; PULSE 90; TEMP 97.7; O2SAT 97
--- NOTE | 2017-02-08 18:16 | CP.PCM.PN ---
Subjective - Date & Time of Evaluation Date of Evaluation: 02/08/17 Time of Evaluation: 18:12 - Subjective Subjective: pt feels beter no distress breathing beter ambulatory wants to go to diferent place he knew for rehab Objective - Vital Signs/Intake and Output Vital Signs (last 24 hours): Temp Pulse Resp BP Pulse Ox 97.7 F 90 20 143/92 H 97 02/08/17 15:10 02/08/17 16:00 02/08/17 15:10 02/08/17 15:10 02/08/17 15:10 - Medications Medications: Current Medications Albuterol/Ipratropium (Duoneb 3 Mg/0.5 Mg (3 Ml) Ud) 3 ml INH RQ6 [facility] Last Admin: 02/08/17 15:10 Dose: Not Given Amlodipine Besylate (Norvasc) 10 mg PO DAILY [facility] Last Admin: 02/08/17 09:41 Dose: 10 mg Chlordiazepoxide (Librium) 50 mg PO Q4H PRN PRN Reason: Anxiety Last Admin: 02/06/17 17:38 Dose: 50 mg Chlordiazepoxide (Librium) 50 mg PO Q8H [facility] Last Admin: 02/08/17 16:59 Dose: 50 mg Escitalopram Oxalate (Lexapro) 10 mg PO DAILY [facility] Last Admin: 02/08/17 09:42 Dose: 10 mg Glipizide (Glucotrol Xl) 5 mg PO DAILY [facility] Heparin Sodium (Porcine) (Heparin) 5,000 units SC Q12 [facility] Last Admin: 02/08/17 09:41 Dose: 5,000 units Azithromycin 500 mg/ Sodium (Chloride) 250 mls @ 250 mls/hr IVPB Q24H [facility] Last Admin: 02/07/17 18:57 Dose: 250 mls/hr Ceftriaxone Sodium 1 gm/ (Sodium Chloride) 100 mls @ 100 mls/hr IVPB Q24H [facility] Last Admin: 02/07/17 18:57 Dose: 100 mls/hr Ibuprofen (Motrin Tab) 800 mg PO BID [facility] Last Admin: 02/08/17 17:00 Dose: 800 mg Multivitamins (Hexavitamin) 1 tab PO DAILY [facility] Last Admin: 02/08/17 09:41 Dose: 1 tab Pantoprazole Sodium (Protonix Ec Tab) 40 mg PO DAILY [facility] Last Admin: 02/08/17 09:42 Dose: 40 mg Quetiapine Fumarate (Seroquel) 600 mg PO HS [facility] Last Admin: 02/07/17 21:45 Dose: 600 mg Thiamine HCl (Vitamin B1 Tab) 100 mg PO BID [facility] Last Admin: 02/08/17 17:00 Dose: 100 mg - Labs Labs: 02/06/17 06:28 02/06/17 06:28 APTT 22 SECONDS (21-34) 02/06/17 06:28 - Constitutional Appears: Non-toxic - Head Exam Head Exam: NORMAL INSPECTION - Eye Exam Eye Exam: Normal appearance Pupil Exam: NORMAL ACCOMODATION - ENT Exam ENT Exam: Mucous Membranes Moist - Neck Exam Neck Exam: Full ROM - Respiratory Exam Respiratory Exam: Clear to Ausculation Bilateral - Cardiovascular Exam Cardiovascular Exam: REGULAR RHYTHM - GI/Abdominal Exam GI & Abdominal Exam: Normal Bowel Sounds - Rectal Exam Rectal Exam: Deferred - Exam Exam: NORMAL INSPECTION External exam: NORMAL EXTERNAL EXAM - Extremities Exam Extremities Exam: Normal Inspection - Neurological Exam Neurological Exam: Alert, Normal Gait, Oriented x3 - Psychiatric Exam Psychiatric exam: Normal Affect - Skin Skin Exam: Normal Color Assessment and Plan - Assessment and Plan (Free Text) Assessment: ac exacerbation COPD ALC ABUSE ALC WITHDRAWAL SLY OBESITY Plan: DIACHARGE HOME THEN REHAB ORDER NEB MACHINE
[2017-02-09] MEDS ORDERED: Pantoprazole 40 mg EC Tab PO SCH (10:00)
[2017-02-09] MEDS ORDERED: GlipiZIDE 5 mg SR Tab PO SCH (10:00)
--- NOTE | 2017-02-12 14:17 | CARD ---
APPROVED REPORT EKG Measurement Heart [id number] <Conclusion> Normal sinus rhythm Rightward axis Borderline ECG
--- NOTE | 2017-02-16 13:07 | DS ---
A 51-year-old male who presented to the Emergency Room with alcohol abuse and he was also having a hi story of depression and reports suicidal ideas in the past. He was seen for psych as well as for det ox. He was a little bit anxious. He has diabetes, hypertension, hypercholesterolemia, seizure and s leep apnea. He was using alcohol until the night before he comes. His blood work showed he has no a nemia; his hemoglobin was 13.4/40. He has a blood sugar 172. History of COPD, so he started also on medication for COPD. He was getting nebulizer treatment. He was getting albuterol, and he was gett ing amlodipine and Librium for detox, Lexapro for depression, glipizide for his sugar and Zithromax a nd ceftriaxone for cough and possible infection and pantoprazole and the thiamine. He improved and h e was having no signs of withdrawal. He was continued to be on the medications. He was very stable and comfortable, alert, oriented and he was having arrangement to go to some other place for detox, s o he was discharged on 02/08 after being examined; he was given the medications until he goes to the d etox place he has to go. FINAL DIAGNOSES: Alcohol abuse, depression, chronic obstructive pulmonary disease and diabetes. Janine Bingham MD cc: [phone] TT: 02/16/2017 13:06:41 an
== END 2017-02-08 19:10 | disposition home or self-care (01) ==
LOC: C.ER 16:12 → C.9E 18:59 → C.6T 20:22 → UNDODISOB 02-06 14:47
PROVIDERS: ADMIT Internal Medicine; ATTEND Internal Medicine
DX: J44.1 Chronic obstructive pulmonary disease with (acute) exacerbation (principal); F10.120 Alcohol abuse with intoxication, uncomplicated; F14.10 Cocaine abuse, uncomplicated; Y90.7 Blood alcohol level of 200-239 mg/100 ml; F19.10 Other psychoactive substance abuse, uncomplicated; E66.9 Obesity, unspecified; G47.33 Obstructive sleep apnea (adult) (pediatric); E78.00 Pure hypercholesterolemia, unspecified; E11.9 Type 2 diabetes mellitus without complications; F17.200 Nicotine dependence, unspecified, uncomplicated; I10 Essential (primary) hypertension; Z68.33 Body mass index [BMI] 33.0-33.9, adult; Z23 Encounter for immunization
CPT/HCPCS: 36415; 36600; 71010; 80048; 80053; 81001; 82803; 82948; 83735; 84100; 85025; 85730; 87040; 90732; 93005; 94640; 94660; 96361; 96365; 96366; 96367; 96372; 96374; 96376; 97116; 97162; 99285; G0009; G0378; G0480; G8978; G8979; J0456; J0696; J1644; J7040; J7050

== ENCOUNTER 2017-05-07 02:23 | Inpatient (IN) | payer BC ==
[2017-05-07 02:23] VITALS: BMI 33.0
--- NOTE | 2017-05-07 03:07 | C.PDOC ---
History Of Present Illness 51 y/o male presents to ED for evaluation of depression, and suicidal ideation. Patient reports overdosing on his blood pressure medication, Lisinopril 2mg, in an effort to harm himself. Patient also admits to drinking alcohol today. Otherwise, denies any physical complaints at this time. Time Seen by Provider: 05/07/17 03:06 Chief Complaint (Nursing): Psychiatric Evaluation History Per: Patient History/Exam Limitations: no limitations Onset/Duration Of Symptoms: Gradual Current Symptoms Are (Timing): Still Present Suicide/Self Injury Attempted (Context): Ingestion Modifying Factor(s): Alcohol Severity: None Pain Scale Rating Of: 0 Associated Symptoms: Depression, Suicidal Thoughts Involuntary Hold By: None Recent travel outside of the [place]: No Additional History Per: Patient Past Medical History Reviewed: Historical Data, Nursing Documentation, Vital Signs Vital Signs: Last Vital Signs Temp 98.3 F 05/07/17 02:42 Pulse 109 H 05/07/17 05:39 Resp 20 05/07/17 05:39 BP 109/62 05/07/17 05:39 Pulse Ox 99 05/07/17 05:39 - Medical History PMH: Anxiety, Depression, Diabetes, Gastritis, HTN, Hypercholesterolemia, Pneumonia, Seizures (ETOH related), Sleep Apnea (uses CPAP at home) Denies: Hepatitis, HIV, Chronic Kidney Disease, Sexually Transmitted Disease Surgical History: Tonsillectomy (as a child) - [facility] Procedures ALCOHOL DETOXIFICATION (10/07/13) DETOXIFICATION SERVICES FOR SUBSTANCE ABUSE TREATMENT (01/18/17) GROUP PSYCHOTHERAPY (01/18/17) INDIVIDUAL PSYCHOTHERAPY, SUPPORTIVE (01/18/17) MEDICATION MANAGEMENT (01/18/17) Family History: States: Unknown Family Hx - Social History Hx Tobacco Use: Yes Hx Alcohol Use: Yes Hx Substance Use: No - Immunization History Hx Tetanus Toxoid Vaccination: No Hx Influenza Vaccination: No Hx Pneumococcal Vaccination: No Review Of Systems Except As Marked, All Systems Reviewed And Found Negative. Constitutional: Negative for: Fever, Chills Cardiovascular: Negative for: Chest Pain, Palpitations, Light Headedness Respiratory: Negative for: Cough, Shortness of Breath Gastrointestinal: Negative for: Nausea, Vomiting, Abdominal Pain Skin: Negative for: Rash, Bruising Neurological: Negative for: Headache, Dizziness Psych: Positive for: Depression, Suicidal ideation Physical Exam - Physical Exam Appears: Non-toxic, No Acute Distress, Other (EtOH on breath) Skin: Normal Color, Warm, Dry Head: Atraumatic, Normacephalic Neck: Normal ROM, Supple Chest: Symmetrical Cardiovascular: Rhythm Regular, No Murmur Respiratory: Normal Breath Sounds, No Rales, No Rhonchi, No Wheezing Gastrointestinal/Abdominal: Soft, No Tenderness Extremity: Bilateral: Atraumatic, Normal ROM Neurological/Psych: Oriented x3, Normal Speech ED Course And Treatment - Laboratory Results Result Diagrams: 05/07/17 03:38 05/07/17 03:38 ECG: Interpreted By Me, Viewed By Me ECG Interpretation: No Acute Changes Interpretation Of ECG: LPFB Rate From EC (bpm) O2 Sat by Pulse Oximetry: 97 (on RA) Pulse Ox Interpretation: Normal Progress Note: Blood work, urinalysis, EKG ordered and reviewed. Patient was given IV fluids. Poison control contacted. Disposition - Disposition Disposition: HOSPITALIZED Disposition Time: 05:42 Condition: GUARDED - Clinical Impression Clinical Impression: Intentional drug overdose - Scribe Statement The provider has reviewed the documentation as recorded by the Scribyohana Khan All medical record entries made by the Scribe were at my direction and personally dictated by me. I have reviewed the chart and agree that the record accurately reflects my personal performance of the history, physical exam, medical decision making, and the department course for this patient. I have also personally directed, reviewed, and agree with the discharge instructions and disposition.
[2017-05-07] MEDS ORDERED: Sodium Chloride 0.9% 1,000 ML IV ONE ×3 (03:34→06:45)
[2017-05-07 03:41] LABS: BASO % 0.1 % (0.0-2.0); EOS % 0.3 % (0.0-4.0); HEMOGLOBIN 14.8 g/dL (12.0-18.0); LYMPH # 1.9 K/uL (1.0-4.3); LYMPH % 21.4 % (20.0-40.0); MEAN CELL VOLUME 89.5 fL (80.0-94.0); MEAN CORPUSCULAR HEMOGLOBIN 29.7 pg (27.0-31.0); MEAN CORPUSCULAR HGB CONC 33.2 g/dL (33.0-37.0); MEAN PLATELET VOLUME 7.6 fL (7.2-11.7); MONO # 0.7 K/uL (0.0-0.8); MONO % 8.2 % (0.0-10.0); NEUT # 6.1 K/uL (1.8-7.0); RBC 4.98 Mil/uL (4.40-5.90); WHITE BLOOD COUNT 8.7 K/uL (4.8-10.8)
[2017-05-07 03:53] LABS: GFR AFRICAN-AMERICAN > 60; GFR NON-AFRICAN AMERICAN > 60
[2017-05-07 03:54] LABS: ALB/GLOB RATIO 1.5 (1.0-2.1); ALT/SGPT 43 U/L (21-72); AST/SGOT 21 U/L (17-59); BLOOD UREA NITROGEN 13 mg/dL (9-20); CALCIUM 7.8 mg/dl (8.6-10.4)
[2017-05-07 03:55] LABS: SALICYLATE < 1.0 mg/dL 1
[2017-05-07 03:56] LABS: ACETAMINOPHEN < 10.0 ug/mL (10.0-30.0)
[2017-05-07 07:01] LABS: URINE BILIRUBIN NEGATIVE (NEGATIVE); URINE BLOOD NEGATIVE (NEGATIVE); URINE CLARITY Clear (Clear); URINE COLOR Yellow (YELLOW); URINE GLUCOSE (UA) NORMAL (Normal); URINE LEUKOCYTE ESTERASE NEG Leu/uL (Negative); URINE NITRATE NEGATIVE (NEGATIVE); URINE PROTEIN 1+ mg/dL (NEGATIVE); URINE UROBILINOGEN NORMAL mg/dL (0.2-1.0)
[2017-05-07 07:12] LABS: BENZODIAZEPINES, UR POSITIVE (NEGATIVE)
[2017-05-07 07:13] LABS: BARBITURATES, UR POSITIVE (NEGATIVE)
[2017-05-07 07:15] LABS: OPIATES, UR NEGATIVE (NEGATIVE)
[2017-05-07 07:16] LABS: PHENCYCLIDINE, UR NEGATIVE (NEGATIVE)
--- NOTE | 2017-05-07 09:44 | CP.PCM.HP ---
Past Patient History - Infectious Disease Hx of Infectious Diseases: None - Past Medical History & Family History Past Medical History?: Yes - Past Social History Smoking Status: Heavy Smoker > 10 Cigarettes Daily - CARDIAC Hx Hypercholesterolemia: Yes Hx Hypertension: Yes - PULMONARY Hx Pneumonia: Yes Hx Sleep Apnea: Yes (uses CPAP at home) - NEUROLOGICAL Hx Seizures: Yes (ETOH related) - HEENT Hx HEENT Problems: Yes Other/Comment: HAD SEPTAL SURGERY DUE TO DEVIATION - RENAL Hx Chronic Kidney Disease: No - ENDOCRINE/METABOLIC Hx Diabetes Mellitus Type 2: Yes - HEMATOLOGICAL/ONCOLOGICAL Hx Human Immunodeficiency Virus (HIV): No - INTEGUMENTARY Hx Dermatological Problems: No - MUSCULOSKELETAL/RHEUMATOLOGICAL Hx Falls: Yes - GASTROINTESTINAL Hx Gastritis: Yes - GENITOURINARY/GYNECOLOGICAL Hx Sexually Transmitted Disorders: No - PSYCHIATRIC Hx Substance Use: Yes - SURGICAL HISTORY Hx Tonsillectomy: Yes (as a child) - ANESTHESIA Hx Anesthesia: Yes Hx Anesthesia Reactions: No Hx Malignant Hyperthermia: No Meds Allergies/Adverse Reactions: Allergies Allergy/AdvReac Type Severity Reaction Status Date / Time No Known Allergies Allergy Verified 05/07/17 08:26 Physical Exam - Constitutional Appears: Well - Head Exam Head Exam: ATRAUMATIC, NORMAL INSPECTION, NORMOCEPHALIC - Eye Exam Eye Exam: EOMI, Normal appearance, PERRL Pupil Exam: NORMAL ACCOMODATION, PERRL - ENT Exam ENT Exam: Mucous Membranes Moist, Normal Exam - Neck Exam Neck exam: Positive for: Normal Inspection - Respiratory Exam Respiratory Exam: Decreased Breath Sounds - Cardiovascular Exam Cardiovascular Exam: REGULAR RHYTHM, +S1, +S2 - GI/Abdominal Exam GI & Abdominal Exam: Diminished Bowel Sounds, Soft - Rectal Exam Rectal Exam: Deferred Results - Vital Signs Recent Vital Signs: Last Vital Signs Temp 98.1 F 05/07/17 08:10 Pulse 98 H 05/07/17 08:10 Resp 19 05/07/17 08:10 BP 120/76 05/07/17 08:04 Pulse Ox 95 05/07/17 08:20 - Labs Result Diagrams: 05/07/17 03:38 05/07/17 03:38 Labs: Laboratory Results - last 24 hr 05/07/17 05/07/17 05/07/17 06:56 06:56 07:43 POC Glucose (mg/dL) 133 H Urine Color Yellow Urine Clarity Clear Urine pH 5.0 Ur Specific [place] 1.019 Urine Protein 1+ H Urine Glucose (UA) Normal Urine Ketones Trace Urine Blood Negative Urine Nitrate Negative Urine Bilirubin Negative Urine Urobilinogen Normal Ur Leukocyte Esterase Neg Urine WBC (Auto) 2 Urine Opiates Screen Negative Urine Methadone Screen Negative Ur Barbiturates Screen Positive Ur Phencyclidine Scrn Negative Ur Amphetamines Screen Negative U Benzodiazepines Scrn Positive U Oth Cocaine Metabols Negative U Cannabinoids Screen Negative
[2017-05-07] MEDS: Pantoprazole 40 mg EC Tab PO SCH (10:25)
--- NOTE | 2017-05-07 16:37 | PCM.PSYCH ---
Initial Psychiatric Evaluation - Initial Psychiatric Evaluation Type of Admission: Voluntary Legal Status: Capacity Chief Complaint (in patient's own words): 'I am feeling suicidal' History of Present Illness and Precipitating Events: Patient is a 51-year-old male, who lives with his and son, was brought to the ER for attempted suicide by overdosing on blood pressure pills and drinking alcohol. We were consulted due to the attempted suicide, and his depressed mood. Patient states that he was feeling depressed and anxious yesterday so he started drinking alcohol and tried to overdose on blood pressure pills. He states that his depressed mood was due to his back pain. Patient reports of drinking 2 pints of alcohol daily, and he drank more than 2 pints yesterday. He reports of tremors, and withdrawal symptoms including sweating, anxiety and headaches. Patient denies abusing any other substances. Patient denies any hallucinations, and delusions. Patient reports depressed mood, feelings of hopelessness and helplessness and poor sleep. He denies any previous psychiatric hospitalizations, but states that he was hospitalized for alcohol detox "couple of weeks ago." Past medical history HTN, DM Current Medications: Active Medications Generic Name Dose Route Start Last Admin Trade Name Freq PRN Reason Stop Dose Admin Escitalopram Oxalate 10 mg 05/07/17 10:00 05/07/17 10:25 Lexapro PO 10 mg DAILY JOSE Administration Metformin HCl 1,000 mg 05/07/17 09:15 05/07/17 09:35 Glucophage PO 1,000 mg BIDCC JOSE Administration Pantoprazole Sodium 40 mg 05/07/17 10:00 05/07/17 10:25 Protonix Ec Tab PO 40 mg DAILY JOSE Administration Quetiapine Fumarate 100 mg 05/07/17 10:00 05/07/17 10:25 Seroquel PO 100 mg DAILY JOSE Administration Quetiapine Fumarate 300 mg 05/07/17 22:00 Seroquel PO HS JOSE Rosuvastatin Calcium 5 mg 05/07/17 22:00 Crestor PO HS JOSE Past Psychiatric History - Past Psychiatric History Previous Treatment History: Inpatient Pertinent Medical Hx (Current Medical&Sleep Prob, Allergies): Allergies Allergy/AdvReac Type Severity Reaction Status Date / Time No Known Allergies Allergy Verified 05/07/17 08:26 Amlodipine Besylate [Norvasc] 10 mg PO DAILY 03/10/15 MetFORMIN [glucOPHAGE] 1,000 mg PO BID 03/10/15 Omeprazole [PrilOSEC] 40 mg PO DAILY 03/10/15 Quetiapine Fumarate [Seroquel] 25 mg PO HS 03/10/15 Simvastatin 20 mg PO HS 03/10/15 Escitalopram [Lexapro] 10 mg PO DAILY #30 tab 11/25/16 hydrOXYzine HCl [Atarax] 50 mg PO Q6H PRN #60 tab 11/25/16 Escitalopram [Lexapro] 20 mg PO DAILY #30 tab 01/21/17 Gabapentin [Neurontin] 400 mg PO TID #90 cap 01/21/17 GlipiZIDE [Glucotrol] 5 mg PO ACB #30 tab 01/21/17 Pantoprazole [Protonix EC Tab] 40 mg PO DAILY #30 ect 01/21/17 QUEtiapine [Seroquel] 100 mg PO DAILY #30 tab 01/21/17 QUEtiapine [Seroquel] 300 mg PO HS #30 tab 01/21/17 Topiramate [Topamax] 50 mg PO DAILY #30 tab 01/21/17 amLODIPine [Norvasc] 10 mg PO DAILY #30 tab 01/21/17 metFORMIN [glucOPHAGE] 1,000 mg PO BIDCC #60 tab 01/21/17 traZODone [Desyrel] 50 mg PO HS PRN #30 tab 01/21/17 Review of Systems - Psychiatric Psychiatric: Anxiety, Depression, Hopelessness, Suicidal Ideation Mental Status Examination - Personal Presentation Personal Presentation: Looks stated age - Affect Affect: Constricted, Blunted - Motor Activity Motor Activity: Calm - Reliability in Providing Information Reliability in Providing Information: Poor, due to altered mood - Speech Speech: Relevant - Mood Mood: Depressed, Anxious - Formal Thought Process Formal Thought Process: No Impairment - Cognitive Functions Orientation: Person, Place, Situation, Time Sensorium: Alert Attention/Concentration: Attentive Estimate of Intelligence: Average Judgement: Imparied, as evidence by: Poor judgement, Imparied, as evidence by: Lack of insight into illness - Risk Risk: Suicidal, Withdrawal DSM 5 DX - DSM 5 DSM 5 Diagnosis: Alcohol use disorder severe Alcohol withdrawal uncomplicated Major depressive disorder recurrent severe without psychotic features - Recommended/Plan of Treatment Treatment Recommendations and Plan of Treatment: Alcohol use disorder severe CBT Psychoeducation Supportive therapy, individual therapy Use LA for abstinence Alcohol withdrawal uncomplicated CBT Psychoeducation Supportive therapy, individual therapy Librium when necessary Start Librium taper Start folic acid/thiamine/multivitamin Major depressive disorder recurrent severe without psychotic features CBT Psychoeducation Supportive therapy, group therapy, individual therapy Lexapro 10 mg po daily Seroquel 100 mg PO QHS Remeron 15 mg pO QHS Trazodone 50 mg by mouth daily at bedtime - Smoking Cessation Smoking Cessation Initiated: No
[2017-05-07] MEDS ORDERED: Aluminum Hydroxide/Magnesium Hydroxide Susp (30 mL) PO PRN (18:10)
[2017-05-08] MEDS: Multiple Vitamins Tab PO SCH (10:47)
[2017-05-08] MEDS: Pantoprazole 40 mg EC Tab PO SCH (10:47)
--- NOTE | 2017-05-08 14:49 | CP.PCM.PN ---
Subjective - Date & Time of Evaluation Date of Evaluation: 05/08/17 Time of Evaluation: 13:40 - Subjective Subjective: clinically same Objective - Vital Signs/Intake and Output Vital Signs (last 24 hours): Temp Pulse Resp BP Pulse Ox 97.3 F L 82 15 151/87 H 95 05/08/17 12:00 05/08/17 11:21 05/08/17 11:21 05/08/17 12:00 05/08/17 12:00 Intake and Output: 05/08/17 05/08/17 06:59 18:59 Intake Total 200 720 Output Total 830 621 Balance -630 99 - Medications Medications: Current Medications Al Hydrox/Mg Hydrox/Simethicone (Maalox 30 Ml) 30 ml PO TID PRN PRN Reason: Indigestion / Heartburn Chlordiazepoxide (Librium) 25 mg PO Q4H PRN PRN Reason: Alcohol Withdrawal Chlordiazepoxide (Librium) 25 mg PO Q4H [facility] PRN Reason: Taper Stop: 05/12/17 18:29 Last Admin: 05/08/17 10:47 Dose: 25 mg Clonidine HCl (Catapres) 0.1 mg PO Q4H PRN PRN Reason: Symptoms of alcohol withdrawl Escitalopram Oxalate (Lexapro) 10 mg PO DAILY [facility] Last Admin: 05/08/17 10:57 Dose: 10 mg Folic Acid (Folic Acid) 1 mg PO DAILY [facility] Last Admin: 05/08/17 10:47 Dose: 1 mg Loperamide HCl (Imodium) 2 mg PO Q8 PRN PRN Reason: Diarrhea Metformin HCl (Glucophage) 1,000 mg PO BIDCC [facility] Last Admin: 05/08/17 08:23 Dose: 1,000 mg Mirtazapine (Remeron) 15 mg PO HS [facility] Last Admin: 05/07/17 21:43 Dose: 15 mg Multivitamins (Hexavitamin) 1 tab PO DAILY [facility] Last Admin: 05/08/17 10:47 Dose: 1 tab Ondansetron HCl (Zofran Tab) 4 mg PO Q8H PRN PRN Reason: Nausea/Vomiting Pantoprazole Sodium (Protonix Ec Tab) 40 mg PO DAILY [facility] Last Admin: 05/08/17 10:47 Dose: 40 mg Quetiapine Fumarate (Seroquel) 100 mg PO HS [facility] Last Admin: 05/07/17 21:44 Dose: 100 mg Rosuvastatin Calcium (Crestor) 5 mg PO HS JOSE Last Admin: 05/07/17 21:43 Dose: 5 mg Thiamine HCl (Vitamin B1 Tab) 100 mg PO DAILY JOSE Last Admin: 05/08/17 10:47 Dose: 100 mg Trazodone HCl (Desyrel) 50 mg PO HS PRN PRN Reason: Insomnia Last Admin: 05/07/17 21:44 Dose: 50 mg
[2017-05-09] MEDS: Multiple Vitamins Tab PO SCH (10:48)
[2017-05-09] MEDS: Pantoprazole 40 mg EC Tab PO SCH (10:48)
--- NOTE | 2017-05-09 12:59 | PCM.PYCHPN ---
Psychiatric Progress Note - Psychiatric Progress Note Patient seen today, length of contact: 16 min Patient Chief Complaint: 'I am feeling better Problems Identified/Issues Discussed: Patient seen and evaluated, chart reviewed and discussed with the nurse. Patient reports improvement in his mood and improvement in the feelings of hopelessness and helplessness. As per the staff patient remained isolated and withdrawn. Patient also reports improvement in the withdrawal symptoms but still reports nausea, anxiety, and headaches. He is tolerating the withdrawal medications and denies any side effects. Supportive therapy and psychoeducation were given. Medication Change: Yes (librium taper) Medical Record Reviewed: Yes Mental Status Examination - Cognitive Function Orientation: Person, Place, Situation, Time Memory: Intact Attention: WNL Concentration: Poor Association: WNL Fund of Knowledge: Poor - Mood Mood: Depressed, Anxious - Affect Affect: Constricted, Blunted - Speech Speech: Soft - Formal Thought Process Formal Thought Process: No Impairment - Suicidal Ideation Suicidal Ideation: No - Homicidal Ideation Homicidal Ideation: No Goal/Treatment Plan - Goal/Treatment Plan Need for Continued Stay: Discharge may exacerbated symptoms, Severe functional impairment Progress Toward Problem(s) and Goals/Treatment Plan: Alcohol use disorder severe CBT Psychoeducation Supportive therapy, individual therapy Use LA for abstinence Alcohol withdrawal uncomplicated CBT Psychoeducation Supportive therapy, individual therapy Librium when necessary Librium taper Folic acid/thiamine/multivitamin Major depressive disorder recurrent severe without psychotic features CBT Psychoeducation Supportive therapy, group therapy, individual therapy Lexapro 10 mg po daily Seroquel 100 mg PO QHS Remeron 15 mg pO QHS Trazodone 50 mg by mouth daily at bedtime - Smoking Cessation Smoking Cessation Initiated: No
[2017-05-09] MEDS: Divalproex 250 mg DR Tab PO SCH ×2 (13:10→18:44)
--- NOTE | 2017-05-09 21:31 | CP.PCM.PN ---
Subjective - Date & Time of Evaluation Date of Evaluation: 05/09/17 Time of Evaluation: 09:30 - Subjective Subjective: clinically same Objective - Vital Signs/Intake and Output Vital Signs (last 24 hours): Temp Pulse Resp BP Pulse Ox 97.6 F 83 17 136/88 97 05/09/17 20:00 05/09/17 20:00 05/09/17 20:00 05/09/17 20:00 05/09/17 20:00 Intake and Output: 05/09/17 05/10/17 18:59 06:59 Intake Total 820 Output Total 1171 Balance -351 - Medications Medications: Current Medications Al Hydrox/Mg Hydrox/Simethicone (Maalox 30 Ml) 30 ml PO TID PRN PRN Reason: Indigestion / Heartburn Chlordiazepoxide (Librium) 25 mg PO Q4H PRN PRN Reason: Alcohol Withdrawal Last Admin: 05/08/17 19:53 Dose: 25 mg Chlordiazepoxide (Librium) 25 mg PO Q6 [facility] PRN Reason: Taper Stop: 05/12/17 18:29 Last Admin: 05/09/17 18:45 Dose: 25 mg Clonidine HCl (Catapres) 0.1 mg PO Q4H PRN PRN Reason: Symptoms of alcohol withdrawl Divalproex Sodium (Depakote Dr) 250 mg PO BID [facility] Last Admin: 05/09/17 18:44 Dose: 250 mg Escitalopram Oxalate (Lexapro) 10 mg PO DAILY [facility] Last Admin: 05/09/17 10:50 Dose: 10 mg Folic Acid (Folic Acid) 1 mg PO DAILY [facility] Last Admin: 05/09/17 10:49 Dose: 1 mg Loperamide HCl (Imodium) 2 mg PO Q8 PRN PRN Reason: Diarrhea Metformin HCl (Glucophage) 1,000 mg PO BIDCC [facility] Last Admin: 05/09/17 17:58 Dose: 1,000 mg Mirtazapine (Remeron) 15 mg PO HS [facility] Last Admin: 05/08/17 22:13 Dose: 15 mg Multivitamins (Hexavitamin) 1 tab PO DAILY [facility] Last Admin: 05/09/17 10:48 Dose: 1 tab Ondansetron HCl (Zofran Tab) 4 mg PO Q8H PRN PRN Reason: Nausea/Vomiting Pantoprazole Sodium (Protonix Ec Tab) 40 mg PO DAILY [facility] Last Admin: 05/09/17 10:48 Dose: 40 mg Quetiapine Fumarate (Seroquel) 100 mg PO HS [facility] Last Admin: 05/08/17 22:13 Dose: 100 mg Rosuvastatin Calcium (Crestor) 5 mg PO HS [facility] Last Admin: 05/08/17 22:11 Dose: 5 mg Thiamine HCl (Vitamin B1 Tab) 100 mg PO DAILY [facility] Last Admin: 05/09/17 10:48 Dose: 100 mg Trazodone HCl (Desyrel) 50 mg PO HS PRN PRN Reason: Insomnia Last Admin: 05/08/17 22:13 Dose: 50 mg
[2017-05-10 08:09] VITALS: BP 118/44; PULSE 98; RESP 20; TEMP 98
[2017-05-10 08:52] VITALS: O2SAT 95
[2017-05-10] MEDS: Multiple Vitamins Tab PO SCH (09:10)
[2017-05-10] MEDS: Pantoprazole 40 mg EC Tab PO SCH (09:10)
[2017-05-10] MEDS: Divalproex 250 mg DR Tab PO SCH (09:12)
--- NOTE | 2017-05-10 10:17 | CP.PCM.PN ---
Subjective - Date & Time of Evaluation Date of Evaluation: 05/10/17 Time of Evaluation: 10:05 - Subjective Subjective: PGY3 House Doctor Note Called because patient is requesting to sign out AMA. Per nursing, Dr. Ansley Khan was notified and said the patient can sign out AMA. Patient was admitted for lisinopril overdose, alcohol intolxication and depressiong with suicidal ideation. Patient was taken off 1:[address] Menchaca per nursing. Patient standing, walking around, fully dressed saying he wants to leave. Patient is AAOx3. Patient made aware that the recommendation by the doctors is to stay in the hospital. Patient made aware of risks including but not limited to another overdose, depression, suicide, chemical intoxication, trauma, . Patient says he is aware and is following up with his doctor today. Patient signed AMA form. Objective - Vital Signs/Intake and Output Vital Signs (last 24 hours): Temp Pulse Resp BP Pulse Ox 98 F 98 H 20 118/44 L 95 05/10/17 08:00 05/10/17 08:00 05/10/17 08:00 05/10/17 08:00 05/10/17 08:00 Intake and Output: 05/10/17 05/10/17 06:59 18:59 Intake Total 500 Output Total 500 Balance 0 - Medications Medications: Current Medications Al Hydrox/Mg Hydrox/Simethicone (Maalox 30 Ml) 30 ml PO TID PRN PRN Reason: Indigestion / Heartburn Chlordiazepoxide (Librium) 25 mg PO Q4H PRN PRN Reason: Alcohol Withdrawal Last Admin: 05/08/17 19:53 Dose: 25 mg Chlordiazepoxide (Librium) 25 mg PO Q6 [facility] PRN Reason: Taper Stop: 05/12/17 18:29 Last Admin: 05/10/17 06:22 Dose: 25 mg Clonidine HCl (Catapres) 0.1 mg PO Q4H PRN PRN Reason: Symptoms of alcohol withdrawl Divalproex Sodium (Depakote Dr) 250 mg PO BID [facility] Last Admin: 05/10/17 09:12 Dose: 250 mg Escitalopram Oxalate (Lexapro) 10 mg PO DAILY [facility] Last Admin: 05/10/17 09:10 Dose: 10 mg Folic Acid (Folic Acid) 1 mg PO DAILY [facility] Last Admin: 05/10/17 09:11 Dose: 1 mg Loperamide HCl (Imodium) 2 mg PO Q8 PRN PRN Reason: Diarrhea Metformin HCl (Glucophage) 1,000 mg PO BIDCC [facility] Last Admin: 05/10/17 08:07 Dose: 1,000 mg Mirtazapine (Remeron) 15 mg PO HS [facility] Last Admin: 05/09/17 21:32 Dose: 15 mg Multivitamins (Hexavitamin) 1 tab PO DAILY [facility] Last Admin: 05/10/17 09:10 Dose: 1 tab Ondansetron HCl (Zofran Tab) 4 mg PO Q8H PRN PRN Reason: Nausea/Vomiting Pantoprazole Sodium (Protonix Ec Tab) 40 mg PO DAILY [facility] Last Admin: 05/10/17 09:10 Dose: 40 mg Quetiapine Fumarate (Seroquel) 100 mg PO HS [facility] Last Admin: 05/09/17 21:32 Dose: 100 mg Rosuvastatin Calcium (Crestor) 5 mg PO HS [facility] Last Admin: 05/09/17 21:32 Dose: 5 mg Thiamine HCl (Vitamin B1 Tab) 100 mg PO DAILY [facility] Last Admin: 05/10/17 09:10 Dose: 100 mg Trazodone HCl (Desyrel) 50 mg PO HS PRN PRN Reason: Insomnia Last Admin: 05/08/17 22:13 Dose: 50 mg
--- NOTE | 2017-05-10 11:54 | CP.PCM.PN ---
Subjective - Date & Time of Evaluation Date of Evaluation: 05/10/17 Time of Evaluation: 15:20 - Subjective Subjective: clinically same Objective - Vital Signs/Intake and Output Vital Signs (last 24 hours): Temp Pulse Resp BP Pulse Ox 98 F 98 H 20 118/44 L 95 05/10/17 08:00 05/10/17 08:00 05/10/17 08:00 05/10/17 08:00 05/10/17 08:00 Intake and Output: 05/10/17 05/10/17 06:59 18:59 Intake Total 500 Output Total 500 Balance 0 - Medications Medications: Current Medications Al Hydrox/Mg Hydrox/Simethicone (Maalox 30 Ml) 30 ml PO TID PRN PRN Reason: Indigestion / Heartburn Chlordiazepoxide (Librium) 25 mg PO Q4H PRN PRN Reason: Alcohol Withdrawal Last Admin: 05/08/17 19:53 Dose: 25 mg Chlordiazepoxide (Librium) 25 mg PO Q6 [facility] PRN Reason: Taper Stop: 05/12/17 18:29 Last Admin: 05/10/17 06:22 Dose: 25 mg Clonidine HCl (Catapres) 0.1 mg PO Q4H PRN PRN Reason: Symptoms of alcohol withdrawl Divalproex Sodium (Depakote Dr) 250 mg PO BID [facility] Last Admin: 05/10/17 09:12 Dose: 250 mg Escitalopram Oxalate (Lexapro) 10 mg PO DAILY [facility] Last Admin: 05/10/17 09:10 Dose: 10 mg Folic Acid (Folic Acid) 1 mg PO DAILY [facility] Last Admin: 05/10/17 09:11 Dose: 1 mg Loperamide HCl (Imodium) 2 mg PO Q8 PRN PRN Reason: Diarrhea Metformin HCl (Glucophage) 1,000 mg PO BIDCC [facility] Last Admin: 05/10/17 08:07 Dose: 1,000 mg Mirtazapine (Remeron) 15 mg PO HS [facility] Last Admin: 05/09/17 21:32 Dose: 15 mg Multivitamins (Hexavitamin) 1 tab PO DAILY [facility] Last Admin: 05/10/17 09:10 Dose: 1 tab Ondansetron HCl (Zofran Tab) 4 mg PO Q8H PRN PRN Reason: Nausea/Vomiting Pantoprazole Sodium (Protonix Ec Tab) 40 mg PO DAILY [facility] Last Admin: 05/10/17 09:10 Dose: 40 mg Quetiapine Fumarate (Seroquel) 100 mg PO [facility] Last Admin: 05/09/17 21:32 Dose: 100 mg Rosuvastatin Calcium (Crestor) 5 mg PO HS [facility] Last Admin: 05/09/17 21:32 Dose: 5 mg Thiamine HCl (Vitamin B1 Tab) 100 mg PO DAILY [facility] Last Admin: 05/10/17 09:10 Dose: 100 mg Trazodone HCl (Desyrel) 50 mg PO HS PRN PRN Reason: Insomnia Last Admin: 05/08/17 22:13 Dose: 50 mg - Constitutional Appears: Well - Head Exam Head Exam: ATRAUMATIC, NORMAL INSPECTION, NORMOCEPHALIC - Eye Exam Eye Exam: EOMI, Normal appearance, PERRL Pupil Exam: NORMAL ACCOMODATION, PERRL - ENT Exam ENT Exam: Mucous Membranes Moist, Normal Exam - Neck Exam Neck Exam: Full ROM, Normal Inspection. absent: Lymphadenopathy - Respiratory Exam Respiratory Exam: Decreased Breath Sounds - Cardiovascular Exam Cardiovascular Exam: REGULAR RHYTHM, +S1, +S2 - GI/Abdominal Exam GI & Abdominal Exam: Soft, Diminished Bowel Sounds - Rectal Exam Rectal Exam: Deferred
--- NOTE | 2017-05-10 12:56 | CARD ---
APPROVED REPORT EKG Measurement Heart [id number] <Conclusion> Sinus tachycardia with fusion complexes Left posterior fascicular block Abnormal ECG
== END 2017-05-10 10:10 | disposition left against medical advice (07) | DRG 918 ==
LOC: C.ER 02:23 → C.9E 05:43 → C.9I 07:22
PROVIDERS: ADMIT Internal Medicine Nephrology; ATTEND Internal Medicine Nephrology
DX: T46.4X2A Poisoning by angiotensin-converting-enzyme inhibitors, intentional self-harm, initial encounter (principal); F33.2 Major depressive disorder, recurrent severe without psychotic features; F10.230 Alcohol dependence with withdrawal, uncomplicated; F17.210 Nicotine dependence, cigarettes, uncomplicated; I10 Essential (primary) hypertension; E11.9 Type 2 diabetes mellitus without complications; E78.00 Pure hypercholesterolemia, unspecified; G47.30 Sleep apnea, unspecified; Z79.84 Long term (current) use of oral hypoglycemic drugs; Y92.009 Unspecified place in unspecified non-institutional (private) residence as the place of occurrence of the external cause

== ENCOUNTER 2017-08-14 12:47 | Inpatient (IN) | payer BC ==
[2017-08-14 12:48] VITALS: BMI 33.0
[2017-08-14 13:36] LABS: BASO % 0.3 % (0.0-2.0); EOS % 0.5 % (0.0-4.0); HEMATOCRIT 44.1 % (35.0-51.0); LYMPH # 2.8 K/uL (1.0-4.3); LYMPH % 31.8 % (20.0-40.0); MEAN CORPUSCULAR HEMOGLOBIN 31.4 pg (27.0-31.0); MEAN CORPUSCULAR HGB CONC 34.1 g/dL (33.0-37.0); MEAN PLATELET VOLUME 7.7 fL (7.2-11.7); MONO # 0.7 K/uL (0.0-0.8); MONO % 8.2 % (0.0-10.0); NRBC % 0.1 % (0.0-2.0); RED CELL DISTRIBUTION WIDTH 16.2 % (11.5-14.5); WHITE BLOOD COUNT 8.9 K/uL (4.8-10.8)
[2017-08-14 13:45] LABS: CHLORIDE 97 mmol/L (98-107); SODIUM 136 mmol/L (132-148)
[2017-08-14 13:48] LABS: ALB/GLOB RATIO 2.3 (1.0-2.1); ALKALINE PHOSPHATASE 57 U/L (38-126); ALT/SGPT 44 U/L (21-72); AST/SGOT 48 U/L (17-59); BILIRUBIN,TOTAL 0.7 mg/dL (0.2-1.3); BLOOD UREA NITROGEN 25 mg/dL (9-20); CALCIUM 8.6 mg/dl (8.6-10.4); CARBON DIOXIDE 19 mmol/L (22-30); GFR AFRICAN-AMERICAN > 60; GLUCOSE,RANDOM 118 mg/dL (75-110)
[2017-08-14 13:49] LABS: ALCOHOL SERUM 286 mg/dl (0-10)
--- NOTE | 2017-08-14 14:44 | C.PDOC ---
History Of Present Illness Patient BIBA for evaluation of left sided chest pain [facility] (ambulance called by patient's friend). Patient states he has had intermittent left sided chest pain for the past 2-3 weeks. CP radiates down left arm, and is not associated with SOB or nausea/diaphoresis. Patient arrives to ED appearing intoxicated, admits to drinking two large doss goose bottles today. As per EMS, they thought patient has possible ST elevations in lateral leads, ASA 324mg PO given in the field. Time Seen by Provider: 08/14/17 12:53 Chief Complaint (Nursing): Chest Pain History Per: EMS History/Exam Limitations: intoxication Current Symptoms Are (Timing): Still Present Past Medical History Reviewed: Historical Data, Nursing Documentation, Vital Signs Vital Signs: Last Vital Signs Temp 97.6 F 08/15/17 15:07 Pulse 94 H 08/15/17 23:21 Resp 20 08/15/17 15:07 BP 127/83 08/15/17 15:07 Pulse Ox 96 08/15/17 15:07 - Medical History PMH: Anxiety, COPD, Depression, Diabetes, Gastritis, HTN, Hypercholesterolemia, Pneumonia, Seizures (ETOH related), Sleep Apnea (uses CPAP at home) Surgical History: Tonsillectomy (as a child) - [facility] Procedures ALCOHOL DETOXIFICATION (10/07/13) DETOXIFICATION SERVICES FOR SUBSTANCE ABUSE TREATMENT (01/18/17) GROUP PSYCHOTHERAPY (01/18/17) INDIVIDUAL PSYCHOTHERAPY, SUPPORTIVE (01/18/17) MEDICATION MANAGEMENT (01/18/17) Family History: States: No Known Family Hx - Social History Hx Tobacco Use: Yes Hx Alcohol Use: Yes Hx Substance Use: Yes - Immunization History Hx Tetanus Toxoid Vaccination: No Hx Influenza Vaccination: No Hx Pneumococcal Vaccination: No Review Of Systems Except As Marked, All Systems Reviewed And Found Negative. Cardiovascular: Positive for: Chest Pain Respiratory: Negative for: Cough, Shortness of Breath Gastrointestinal: Negative for: Nausea, Vomiting, Abdominal Pain Psych: Positive for: Other (alcohol intoxication) Physical Exam - Physical Exam Appears: Non-toxic, Other (awake, alert, smells of ETOH) Skin: Normal Color, Warm, Dry Oral Mucosa: Moist Cardiovascular: Rhythm Regular Respiratory: Normal Breath Sounds, No Rales, No Rhonchi, No Wheezing Gastrointestinal/Abdominal: Normal Exam, Bowel Sounds, Soft, No Tenderness, Other (obese) Extremity: Normal ROM, No Pedal Edema, No Calf Tenderness Neurological/Psych: Other (awake, alert, moving all 4 extremities spontaneously) ED Course And Treatment - Laboratory Results Result Diagrams: 08/14/17 13:25 08/14/17 13:25 ECG: Interpreted By Me, Viewed By Me (NSR 79 bpm, normal axis, QTc 493ms, normal axis, no acute ST/T wave changes) ECG Interpretation: No Acute Changes O2 Sat by Pulse Oximetry: 94 (RA) Pulse Ox Interpretation: Normal - Radiology CXR: Interpreted by Me, Viewed By Me CXR Interpretation: Yes: No Acute Disease, Other (no effusions). No: Infiltrates Progress Note: Blood work, CXR, EKG ordered and reviewed. 3:10pm- Patient admits to feeling depressed recently, states his is admitted currently at [facility]. He has been feeling sadness and his drinking has increased. He is currently on Buspar, but states "benzos do not work for me". Denies SI/ HI. Patient to be admitted medically for chest pain, with psych consult. Reevaluation Time: 15:35 Reassessment Condition: Improved (Patient sleeping comfortably, arousable to verbal stimuli, has no current chest manzanares.) - Physician Consult Information Physician Contacted: Ravin Loyd Outcome Of Conversation: Discussed patient with Dr. Loyd, he agrees with telemetry admission for chest pain, alcohol dependence, depression. Disposition - Disposition Disposition: HOSPITALIZED Disposition Time: 15:53 Condition: STABLE - Clinical Impression Clinical Impression: Chest pain, Alcohol use disorder, Depression Decision To Admit - Pt Status Changed To: Hospital Disposition Of: Inpatient - Admit Certification Admit to Inpatient:: After my assessment, the patient will require hospitalization for at least two midnights. This is because of the severity of symptoms shown, intensity of services needed, and/or the medical risk in this patient being treated as an outpatient. - InPatient: Physician Admission Certification: I certify that this patient requires 2 or more midnights of care for the following reason:: see notes - . Bed Request Type: Telemetry Admitting Physician: Ravin Loyd Patient Diagnosis: Chest pain, Alcohol use disorder, Depression
[2017-08-14] MEDS ORDERED: Multivitamin (MVI) 10 ML, Thiamine 100 MG, Folic Acid 1 MG in Sodium Chloride 0.9% 1,00... IV ONE (15:16)
[2017-08-14 15:54] LABS: RBC URINE < 1 /hpf (0-3); URINE BILIRUBIN NEGATIVE (NEGATIVE); URINE BLOOD NEGATIVE (NEGATIVE); URINE COLOR Yellow (YELLOW); URINE GLUCOSE (UA) NORMAL (Normal); URINE KETONE TRACE mg/dL (NEGATIVE); URINE LEUKOCYTE ESTERASE NEG Leu/uL (Negative); URINE PROTEIN NEGATIVE (NEGATIVE); URINE UROBILINOGEN NORMAL mg/dL (0.2-1.0); WBC URINE < 1 /hpf (0-5)
--- NOTE | 2017-08-14 17:57 | RAD ---
PROCEDURE: CHEST RADIOGRAPH, 1 VIEW HISTORY: cp COMPARISON: Comparison made with chest radiograph dated 02/05/2017 FINDINGS: LUNGS: Poor inspiration with low lung volumes, crowded bronchovascular markings and mild bibasilar atelectasis. PLEURA: No pneumothorax or pleural fluid seen. CARDIOVASCULAR: Cardiomegaly. OSSEOUS STRUCTURES: No significant abnormalities. VISUALIZED UPPER ABDOMEN: Normal. OTHER FINDINGS: None. IMPRESSION: Poor inspiration with low lung volumes, crowded bronchovascular markings and mild bibasilar atelectasis.
[2017-08-14] MEDS: (Novolog) Insulin Aspart, Recombinant 100 u/ml 10 ml vial SC SCH (22:02)
--- NOTE | 2017-08-14 22:56 | CP.PCM.HP ---
History of Present Illness - History of Present Illness History of Present Illness: CC: Chest pain HPI: Patient is a 51 year old white male, who is well known hypertensive, diabetic, alcoholic BIBA for evaluation of left sided chest pain [facility] (ambulance called by patient's friend). Patient states he has had intermittent left sided chest pain for the past 2-3 weeks. CP radiates down left arm, and is not associated with SOB or nausea/diaphoresis. Patient arrives to ED appearing intoxicated, admits to drinking two large doss goose bottles today. As per EMS , they thought patient has possible ST elevations in lateral leads, ASA 324mg PO given in the field.according to pt no association with diaphoresis, nausea, vomitting, pt said he is stressed due to his illness and he drink alcohol to cope, he is not able to give much details as he is toxic Present on Admission - Present on Admission Any Indicators Present on Admission: Yes Review of Systems - Review of Systems Systems not reviewed;Unavailable: Unstable Vital Signs - Constitutional Constitutional: Weakness - EENT Eyes: absent: As Per HPI, Blind Spots, Blurred Vision, Change in Vision, Decreased Night Vision, Diplopia, Discharge, Dry Eye, Exophthalmos, Floaters, Irritation, Itchy Eyes, Loss of Peripheral Vision, Pain, Photophobia, Requires Corrective Lenses, Sees Flashes, Spots in Vision, Tunnel Vision, Other Visual Disturbances, Loss of Vision, Other Ears: Dizziness Nose/Mouth/Throat: absent: As Per HPI, Epistaxis, Nasal Congestion, Nasal Discharge, Nasal Obstruction, Nasal Trauma, Nose Pain, Post Nasal Drip, Sinus Pain, Sinus Pressure, Bleeding Gums, Change in Voice, Dental Pain, Dry Mouth, Dysphagia, Halitosis, Hoarsness, Lip Swelling, Mouth Lesions, Mouth Pain, Odynophagia, Sore Throat, Throat Swelling, Tongue Swelling, Facial Pain, Neck Pain, Neck Mass, Other - Cardiovascular Cardiovascular: Chest Pain, Dyspnea, Irregular Heart Rhythm, Palpitations. absent: As Per HPI, Acrocyanosis, Chest Pain at Rest, Chest Pain with Activity, Claudication, Diaphoresis, Dyspnea on Exertion, Edema, Pain Radiating to Arm/ Neck/Jaw, Leg Edema, Leg Ulcers, Lightheadedness, Orthopnea, Paroxysmal Nocturnal Dyspnea, Pedal Edema, Radiating Pain, Rapid Heart Rate, Slow Heart Rate, Syncope, Other - Respiratory Respiratory: absent: As Per HPI, Cough, Dyspnea, Hemoptysis, Dyspnea on Exertion , Wheezing, Snoring, Stridor, Pain on Inspiration, Chest Congestion, Excessive Mucous Production, Change in Mucous Color, Pain with Coughing, Other - Gastrointestinal Gastrointestinal: Dyspepsia. absent: As Per HPI, Abdominal Pain, Belching, Bloating, Change in Bowel Habits, Change in Stool Character, Coffee Ground Emesis, Constipation, Cramping, Diarrhea, Dysphagia, Early Satiety, Excessive Flatus, Fecal Incontinence, Heartburn, Hematemesis, Hematochezia, Loose Stools, Melena, Nausea, Odynophagia, Temesmus, Vomiting, Other - Genitourinary Genitourinary: absent: As Per HPI, Change in Urinary Stream, Difficulty Urinating, Dysuria, Flank Pain, Hematuria, Pyuria, Nocturia, Urinary Incontinence, Urinary Frequency, Urinary Hesitance, Urinary Urgency, Voiding Freq/Small Amts, Freq UTI, Hx Renal/Bladder Calculi, Hx /Renal Surgery, Bladder Distension, Other - Neurological Neurological: Abnormal Gait, Confusion - Psychiatric Psychiatric: absent: As Per HPI, Abnormal Sleep Pattern, Anhedonia, Anxiety, Auditory Hallucinations, Behavioral Changes, Change in Appetite, Change in Libido, Confusion, Depression, Difficulty Concentrating, Hallucinations, Homicidal Ideation, Hopelessness, Irritability, Memory Loss, Mood Swings, Panic Attacks, Paranoia, Suicidal Ideation, Visual Hallucinations, Tactile Hallucinations, Other Past Patient History - Infectious Disease Hx of Infectious Diseases: None - Past Medical History & Family History Past Medical History?: Yes - Past Social History Smoking Status: Current Some Days Smoker - CARDIAC Hx Hypercholesterolemia: Yes Hx Hypertension: Yes - PULMONARY Hx Chronic Obstructive Pulmonary Disease (COPD): Yes Hx Pneumonia: Yes Hx Sleep Apnea: Yes (uses CPAP at home) - NEUROLOGICAL Hx Seizures: Yes (ETOH related) - HEENT Hx HEENT Problems: Yes Other/Comment: HAD SEPTAL SURGERY DUE TO DEVIATION - RENAL Hx Chronic Kidney Disease: No - ENDOCRINE/METABOLIC Hx Diabetes Mellitus Type 2: Yes - HEMATOLOGICAL/ONCOLOGICAL Hx Human Immunodeficiency Virus (HIV): No - INTEGUMENTARY Hx Dermatological Problems: No - MUSCULOSKELETAL/RHEUMATOLOGICAL Hx Falls: Yes - GASTROINTESTINAL Hx Gastritis: Yes - GENITOURINARY/GYNECOLOGICAL Hx Sexually Transmitted Disorders: No - PSYCHIATRIC Hx Anxiety: Yes Hx Depression: Yes Hx Substance Use: Yes (cocaine) - SURGICAL HISTORY Hx Tonsillectomy: Yes (as a child) - ANESTHESIA Hx Anesthesia: Yes Hx Anesthesia Reactions: No Hx Malignant Hyperthermia: No Meds Allergies/Adverse Reactions: Allergies Allergy/AdvReac Type Severity Reaction Status Date / Time No Known Allergies Allergy Verified 08/14/17 13:05 Physical Exam - Constitutional Appears: Toxic - Eye Exam Eye Exam: EOMI, Normal appearance, PERRL Pupil Exam: NORMAL ACCOMODATION, PERRL - Respiratory Exam Respiratory Exam: Clear to Auscultation Bilateral, NORMAL BREATHING PATTERN - Cardiovascular Exam Cardiovascular Exam: REGULAR RHYTHM, +S1, +S2 - GI/Abdominal Exam GI & Abdominal Exam: Normal Bowel Sounds, Soft. absent: Tenderness - Rectal Exam Rectal Exam: Deferred - Neurological Exam Neurological exam: Alert, CN II-XII Intact, Normal Gait, Oriented x3, Reflexes Normal Additional comments: positive tremors - Psychiatric Exam Psychiatric exam: Anxious - Skin Skin Exam: Dry, Intact, Normal Color, Warm Results - Vital Signs Recent Vital Signs: Last Vital Signs Temp 97.5 F L 08/14/17 17:32 Pulse 98 H 08/14/17 18:49 Resp 20 08/14/17 21:42 BP 101/61 08/14/17 17:32 Pulse Ox 96 08/14/17 17:32 - Labs Result Diagrams: 08/14/17 13:25 08/14/17 13:25 Labs: Laboratory Results - last 24 hr 08/14/17 08/14/17 08/14/17 13:25 13:25 15:46 WBC 8.9 RBC 4.80 Hgb 15.0 Hct 44.1 MCV 92.0 D MCH 31.4 H MCHC 34.1 RDW 16.2 H Plt Count 265 MPV 7.7 Neut % (Auto) 59.2 Lymph % (Auto) 31.8 Tama % (Auto) 8.2 Eos % (Auto) 0.5 Baso % (Auto) 0.3 Neut # 5.2 Lymph # 2.8 Tama # 0.7 Eos # 0.0 Baso # 0.0 Sodium 136 Potassium 4.0 Chloride 97 L Carbon Dioxide 19 L Anion Gap 24 H BUN 25 H Creatinine 0.9 Est GFR ( Amer) > 60 Est GFR (Non-Af Amer) > 60 POC Glucose (mg/dL) Random Glucose 118 H Calcium 8.6 Total Bilirubin 0.7 AST 48 ALT 44 Alkaline Phosphatase 57 Total Creatine Kinase 368 H CK-MB (Mass) 4.10 H Troponin I < 0.0120 Troponin I, Quant Total Protein 7.0 Albumin 4.9 Globulin 2.1 L Albumin/Globulin Ratio 2.3 H Urine Color Yellow Urine Clarity Clear Urine pH 5.0 Ur Specific [place] 1.012 Urine Protein Negative Urine Glucose (UA) Normal Urine Ketones Trace Urine Blood Negative Urine Nitrate Negative Urine Bilirubin Negative Urine Urobilinogen Normal Ur Leukocyte Esterase Neg Urine WBC (Auto) < 1 Urine RBC (Auto) < 1 Urine Opiates Screen Urine Methadone Screen Ur Barbiturates Screen Ur Phencyclidine Scrn Ur Amphetamines Screen U Benzodiazepines Scrn U Oth Cocaine Metabols U Cannabinoids Screen Alcohol, Quantitative 286 H 08/14/17 08/14/17 08/14/17 15:46 19:51 21:48 WBC RBC Hgb Hct MCV MCH MCHC RDW Plt Count MPV Neut % (Auto) Lymph % (Auto) [place] % (Auto) Eos % (Auto) Baso % (Auto) Neut # Lymph # [place]ama # Eos # Baso # Sodium Potassium Chloride Carbon Dioxide Anion Gap BUN Creatinine Est GFR ( Amer) Est GFR (Non-Af Amer) POC Glucose (mg/dL) 180 H Random Glucose Calcium Total Bilirubin AST ALT Alkaline Phosphatase Total Creatine Kinase 356 H CK-MB (Mass) 3.65 H Troponin I Troponin I, Quant < 0.0120 Total Protein Albumin Globulin Albumin/Globulin Ratio Urine Color Urine Clarity Urine pH Ur Specific [place] Urine Protein Urine Glucose (UA) Urine Ketones Urine Blood Urine Nitrate Urine Bilirubin Urine Urobilinogen Ur Leukocyte Esterase Urine WBC (Auto) Urine RBC (Auto) Urine Opiates Screen Negative Urine Methadone Screen Negative Ur Barbiturates Screen Negative Ur Phencyclidine Scrn Negative Ur Amphetamines Screen Negative U Benzodiazepines Scrn Positive U Oth Cocaine Metabols Positive U Cannabinoids Screen Negative Alcohol, Quantitative Assessment & Plan (1) Chest pain Assessment and Plan: admit, cardiac enzymes follow up Status: Acute (2) Alcohol abuse Status: Acute
[2017-08-15] MEDS: (Novolog) Insulin Aspart, Recombinant 100 u/ml 10 ml vial SC SCH ×4 (07:30→21:49)
[2017-08-15] MEDS: Enoxaparin 40 mg Syringe SC SCH (09:57)
[2017-08-15] MEDS: Multivitamin (MVI) 10 ML, Thiamine 100 MG, Folic Acid 1 MG in Sodium Chloride 0.9% 1,00... IV SCH (10:07)
--- NOTE | 2017-08-15 21:08 | CP.PCM.PN ---
Subjective - Date & Time of Evaluation Date of Evaluation: 08/15/17 Time of Evaluation: 17:15 - Subjective Subjective: Pt seen and evalauted at bedside, still delerious,. Cardiac enzym es x 3 neg shaking, tacycardic [place] has been ruled out, he is alcohol withdrawal Objective - Vital Signs/Intake and Output Vital Signs (last 24 hours): Temp Pulse Resp BP Pulse Ox 97.6 F 84 20 127/83 96 08/15/17 15:07 08/15/17 15:55 08/15/17 15:07 08/15/17 15:07 08/15/17 15:07 Intake and Output: 08/15/17 08/16/17 18:59 06:59 Intake Total 1120 Balance 1120 - Medications Medications: Current Medications Amlodipine Besylate (Norvasc) 10 mg PO DAILY [facility] Last Admin: 08/15/17 09:57 Dose: 10 mg Aspirin (Aspirin Chewable) 81 mg PO DAILY [facility] Last Admin: 08/15/17 09:56 Dose: 81 mg Chlordiazepoxide (Librium) 25 mg PO Q4 PRN PRN Reason: Agitation Last Admin: 08/15/17 09:56 Dose: 25 mg Enoxaparin Sodium (Lovenox) 40 mg SC DAILY [facility] Last Admin: 08/15/17 09:57 Dose: 40 mg Gabapentin (Neurontin) 400 mg PO TID [facility] Last Admin: 08/15/17 19:03 Dose: 400 mg Multivitamins/Vitamin C 10 ml/Thiamine HCl 100 mg/ Folic Acid 1 mg/ Sodium Chloride 1,011.2 mls @ 80 mls/hr IV DAILY [facility] Last Admin: 08/15/17 10:07 Dose: 80 mls/hr Insulin Aspart (Novolog) 0 unit SC ACHS [facility] PRN Reason: Protocol Last Admin: 08/15/17 17:35 Dose: 1 unit Metformin HCl (Glucophage) 1,000 mg PO BIDCC [facility] Last Admin: 08/15/17 17:34 Dose: 1,000 mg Quetiapine Fumarate (Seroquel) 300 mg PO Q12 [facility] Last Admin: 08/15/17 09:56 Dose: 300 mg Rosuvastatin Calcium (Crestor) 5 mg PO HS [facility] Last Admin: 08/14/17 21:38 Dose: 5 mg Topiramate (Topamax) 50 mg PO DAILY [facility] Last Admin: 08/15/17 09:57 Dose: 50 mg - Labs Labs: 08/14/17 13:25 08/14/17 13:25 - Constitutional Appears: Toxic, No Acute Distress - Head Exam Head Exam: ATRAUMATIC, NORMAL INSPECTION, NORMOCEPHALIC - Eye Exam Eye Exam: EOMI, Normal appearance, PERRL Pupil Exam: NORMAL ACCOMODATION, PERRL - Respiratory Exam Respiratory Exam: Clear to Ausculation Bilateral, NORMAL BREATHING PATTERN - Cardiovascular Exam Cardiovascular Exam: Tachycardia, +S1, +S2. absent: Murmur - GI/Abdominal Exam GI & Abdominal Exam: Soft, Normal Bowel Sounds. absent: Tenderness - Neurological Exam Neurological Exam: Alert, Awake, CN II-XII Intact, Normal Gait, Oriented x3 - Psychiatric Exam Psychiatric exam: Normal Affect, Normal Mood Assessment and Plan (1) Chest pain Status: Acute (2) Alcohol abuse Status: Acute
--- NOTE | 2017-08-15 21:10 | CP.PCM.CON ---
History of Present Illness - History of Present Illness History of Present Illness: CC: Chest Pain Patient presented for chest pain. Patient states he has had intermittent left sided chest pain for the past 2-3 weeks. CP radiates down left arm, and is not associated with SOB or nausea/diaphoresis. Patient arrives to ED appearing intoxicated, admits to drinking two large doss goose bottles today. As per EMS , they thought patient has possible ST elevations in lateral leads, ASA 324mg PO given in the field. Chief Complaint (Nursing): Chest Pain History Per: EMS History/Exam Limitations: intoxication Current Symptoms Are (Timing): Still Present Past Medical History Reviewed: Historical Data, Nursing Documentation, Vital Signs - Medical History PMH: Anxiety, COPD, Depression, Diabetes, Gastritis, HTN, Hypercholesterolemia, Pneumonia, Seizures (ETOH related), Sleep Apnea (uses CPAP at home) Surgical History: Tonsillectomy (as a child) - [facility] Procedures ALCOHOL DETOXIFICATION (10/07/13) DETOXIFICATION SERVICES FOR SUBSTANCE ABUSE TREATMENT (01/18/17) GROUP PSYCHOTHERAPY (01/18/17) INDIVIDUAL PSYCHOTHERAPY, SUPPORTIVE (01/18/17) MEDICATION MANAGEMENT (01/18/17) Family History: States: No Known Family Hx - Social History Hx Tobacco Use: Yes Hx Alcohol Use: Yes Hx Substance Use: Yes - Immunization History Hx Tetanus Toxoid Vaccination: No Hx Influenza Vaccination: No Hx Pneumococcal Vaccination: No Review Of Systems Except As Marked, All Systems Reviewed And Found Negative. Cardiovascular: Positive for: Chest Pain Respiratory: Negative for: Cough, Shortness of Breath Gastrointestinal: Negative for: Nausea, Vomiting, Abdominal Pain Psych: Positive for: Other (alcohol intoxication) Physical Exam - Physical Exam Appears: Non-toxic, Other (awake, alert, smells of ETOH) Skin: Normal Color, Warm, Dry Oral Mucosa: Moist Cardiovascular: Rhythm Regular Respiratory: Normal Breath Sounds, No Rales, No Rhonchi, No Wheezing Gastrointestinal/Abdominal: Normal Exam, Bowel Sounds, Soft, No Tenderness, Other (obese) Extremity: Normal ROM, No Pedal Edema, No Calf Tenderness Neurological/Psych: Other (awake, alert, moving all 4 extremities spontaneously) Past Patient History - Infectious Disease Hx of Infectious Diseases: None - Past Medical History & Family History Past Medical History?: Yes - Past Social History Smoking Status: Current Some Days Smoker - CARDIAC Hx Hypercholesterolemia: Yes Hx Hypertension: Yes - PULMONARY Hx Chronic Obstructive Pulmonary Disease (COPD): Yes Hx Pneumonia: Yes Hx Sleep Apnea: Yes (uses CPAP at home) - NEUROLOGICAL Hx Seizures: Yes (ETOH related) - HEENT Hx HEENT Problems: Yes Other/Comment: HAD SEPTAL SURGERY DUE TO DEVIATION - RENAL Hx Chronic Kidney Disease: No - ENDOCRINE/METABOLIC Hx Diabetes Mellitus Type 2: Yes - HEMATOLOGICAL/ONCOLOGICAL Hx Human Immunodeficiency Virus (HIV): No - INTEGUMENTARY Hx Dermatological Problems: No - MUSCULOSKELETAL/RHEUMATOLOGICAL Hx Falls: Yes - GASTROINTESTINAL Hx Gastritis: Yes - GENITOURINARY/GYNECOLOGICAL Hx Sexually Transmitted Disorders: No - PSYCHIATRIC Hx Anxiety: Yes Hx Depression: Yes Hx Substance Use: Yes (cocaine) - SURGICAL HISTORY Hx Tonsillectomy: Yes (as a child) - ANESTHESIA Hx Anesthesia: Yes Hx Anesthesia Reactions: No Hx Malignant Hyperthermia: No Meds Allergies/Adverse Reactions: Allergies Allergy/AdvReac Type Severity Reaction Status Date / Time No Known Allergies Allergy Verified 08/14/17 13:05 - Medications Medications: Current Medications Amlodipine Besylate (Norvasc) 10 mg PO DAILY [facility] Last Admin: 08/15/17 09:57 Dose: 10 mg Aspirin (Aspirin Chewable) 81 mg PO DAILY [facility] Last Admin: 08/15/17 09:56 Dose: 81 mg Chlordiazepoxide (Librium) 25 mg PO Q4 PRN PRN Reason: Agitation Last Admin: 08/15/17 09:56 Dose: 25 mg Enoxaparin Sodium (Lovenox) 40 mg SC DAILY [facility] Last Admin: 08/15/17 09:57 Dose: 40 mg Gabapentin (Neurontin) 400 mg PO TID [facility] Last Admin: 08/15/17 19:03 Dose: 400 mg Multivitamins/Vitamin C 10 ml/Thiamine HCl 100 mg/ Folic Acid 1 mg/ Sodium Chloride 1,011.2 mls @ 80 mls/hr IV DAILY [facility] Last Admin: 08/15/17 10:07 Dose: 80 mls/hr Insulin Aspart (Novolog) 0 unit SC ACHS [facility] PRN Reason: Protocol Last Admin: 08/15/17 17:35 Dose: 1 unit Metformin HCl (Glucophage) 1,000 mg PO BIDCC [facility] Last Admin: 08/15/17 17:34 Dose: 1,000 mg Quetiapine Fumarate (Seroquel) 300 mg PO Q12 [facility] Last Admin: 10/22/17 09:56 Dose: 300 mg Rosuvastatin Calcium (Crestor) 5 mg PO HS [facility] Last Admin: 08/14/17 21:38 Dose: 5 mg Topiramate (Topamax) 50 mg PO DAILY [facility] Last Admin: 08/15/17 09:57 Dose: 50 mg Results - Vital Signs Recent Vital Signs: Last Vital Signs Temp 97.6 F 08/15/17 15:07 Pulse 84 08/15/17 15:55 Resp 20 08/15/17 15:07 BP 127/83 08/15/17 15:07 Pulse Ox 96 08/15/17 15:07 - Labs Result Diagrams: 08/14/17 13:25 08/14/17 13:25 Labs: Laboratory Results - last 24 hr 08/14/17 08/15/17 08/15/17 21:48 00:51 06:20 POC Glucose (mg/dL) 180 H 113 H Total Creatine Kinase 287 H CK-MB (Mass) 3.27 Troponin I, Quant < 0.0120 08/15/17 08/15/17 11:38 16:38 POC Glucose (mg/dL) 183 H 187 H Total Creatine Kinase CK-MB (Mass) Troponin I, Quant Assessment & Plan - Assessment and Plan (Free Text) Assessment: Chest Pain Stress test in am ECHO Hypertension Losartan Diabetes mellitus Metformin COPD Advair 250/50 1 puff inhaled Q 12hours
[2017-08-16 07:27] LABS: HEMATOCRIT 40.9 % (35.0-51.0); MEAN CELL VOLUME 91.5 fL (80.0-94.0); MEAN CORPUSCULAR HEMOGLOBIN 31.2 pg (27.0-31.0); MEAN CORPUSCULAR HGB CONC 34.1 g/dL (33.0-37.0); MEAN PLATELET VOLUME 7.6 fL (7.2-11.7); RED CELL DISTRIBUTION WIDTH 15.7 % (11.5-14.5); WHITE BLOOD COUNT 4.6 K/uL (4.8-10.8)
[2017-08-16] MEDS ORDERED: Aminophylline 25 mg/ml Inj ONE (07:31)
[2017-08-16] MEDS: (Novolog) Insulin Aspart, Recombinant 100 u/ml 10 ml vial SC SCH ×4 (07:45→22:00)
[2017-08-16 08:20] LABS: CHLORIDE 99 mmol/L (98-107)
[2017-08-16 08:21] LABS: POTASSIUM 3.8 mmol/L (3.6-5.2); SODIUM 134 mmol/L (132-148)
[2017-08-16 08:24] LABS: ALKALINE PHOSPHATASE 69 U/L (38-126); ALT/SGPT 33 U/L (21-72); AST/SGOT 20 U/L (17-59); BILIRUBIN,TOTAL 0.6 mg/dL (0.2-1.3); BLOOD UREA NITROGEN 16 mg/dL (9-20); CALCIUM 8.5 mg/dl (8.6-10.4); CARBON DIOXIDE 25 mmol/L (22-30); GFR AFRICAN-AMERICAN > 60; GLUCOSE,RANDOM 162 mg/dL (75-110); TOTAL PROTEIN 5.9 g/dL (6.3-8.3)
--- NOTE | 2017-08-16 12:53 | CARD ---
APPROVED REPORT EKG Measurement Heart [id number] <Conclusion> Normal sinus rhythm Prolonged QT Abnormal ECG
[2017-08-16] MEDS: Multivitamin (MVI) 10 ML, Thiamine 100 MG, Folic Acid 1 MG in Sodium Chloride 0.9% 1,00... IV SCH (14:47)
[2017-08-16] MEDS: Enoxaparin 40 mg Syringe SC SCH (14:47)
[2017-08-16 15:49] VITALS: RESP 20
--- NOTE | 2017-08-16 22:24 | CARD ---
APPROVED REPORT Protocol: LEXISCAN Test Type: LEXISCAN STRESS Test Indications: CP Target HR: 169 bpm Resting ECG: normal Resting Heart Rate: 82 bpm Resting Blood Pressure: 148/80mmHg submaximum (85%): 144 bpm TEST SUMMARY [id number]/80.0. INFUSIONDOSE 100:300.00.01.084/.0. [id number]/80.0. PROCEDURE Pharmacologic stress testing was performed using 0.4mg per 5ml of regadenoson given intravenously over 7-10 seconds. POST EXERCISE Reason for Termination: Lexiscan protocol completed Target HR: No Max HR: 84 bpm 56% of Maximum Predicted HR: 169 bpm Exercise duration: 00:30 min:sec, 0 Stage Exercise capacity: 1.0METs Max Blood Pressure: 148/80mmHg Blood Pressure response to exercise: normal resting BP - appropriate response Heart Rate response to exercise: appropriate Chest Pain: No, none Angina index: 0 Arrhythmia: No, none ST Change: No, none Deviation: 0 mm INTERPRETATION Stress EKG Conclusion: Nuclear report to follow EXAM: Myocardial Perfusion REST/STRESS Imaging Protocol The imaging protocol used to acquire images was Rest Tc-99m/stress Tc-99m 1 day Rest Spect myocardial perfusion imaging was performed in supine position 40 minutes following the injection of 13.2 mCi of Tc-99 Myoview. Gated Stress Spect was performed 43 minutes after intravenous 32.7 mCi Tc-99 Myoview injection. The images were gated to evaluate regional wall motion and calculate ventricular ejection fraction.Images were reconstructed using backfilter projection method in short horizontal and verticle long axis. Spect slices were generated. RESTING DATA EDV56.06ryNQ5.70L/min ESV12.00mlMyocardial Mass98.00g Av. Heart Rate84.00bpm EF79.00% STRESS DATA EDV74.15knZY2.60L/min ESV24.00mlMyocardial Suwp411.00g EF68.00% Regional WT score at stress:0.00 Regional WM score at stress:0.00 Summed WT score at stress:6.00 Av. Heart Rate93.00bpmSummed WM score at stress:9.00 LV Perf. Quant 17 Seg. SSS1.00 17 Seg. SRS2.00 17 Seg. SDS1.00 Stress Defect Extent (% LAD)0.00Rest Defect Extent (% LAD)0.00Rev. Defect Extent (% LAD)0.00 Stress Defect Extent (% LCX)17.50Rest Defect Extent (% LCX)16.30Rev. Defect Extent (% LCX)6.30 Stress Defect Extent (% RCA)0.00Rest Defect Extent (% RCA)4.40Rev. Defect Extent (% RCA)0.00 Stress Defect Extent (% AMANDA)3.50Rest Defect Extent (% AMANDA)4.30Rev. Defect Extent (% AMANDA)1.50 Other Information Quality:Good IMPRESSION Normal Myocardial Perfusion exercise stress study Left Ventricle LV Function:Left ventricle systolic function is normal. The Ejection Fraction is >55%. Metabolism/Perfusion There are no perfusion/metabolism defects. Conclusion 1. Normal Lexiscan Nuclear stress test. Normal EF.
--- NOTE | 2017-08-16 22:27 | CP.PCM.PN ---
Subjective - Date & Time of Evaluation Date of Evaluation: 08/16/17 Time of Evaluation: 18:30 - Subjective Subjective: Patient s/p Stress test and ECHO Normal EF Normal stress test Medical management for HTN and DM 2 F/U Dr. Mittal for cardiology as out patient Objective - Vital Signs/Intake and Output Vital Signs (last 24 hours): Temp Pulse Resp BP Pulse Ox 97.8 F 80 20 155/90 H 97 08/16/17 15:48 08/16/17 15:48 08/16/17 15:48 08/16/17 15:48 08/16/17 15:48 Intake and Output: 08/16/17 08/17/17 18:59 06:59 Intake Total 560 Balance 560 - Medications Medications: Current Medications Amlodipine Besylate (Norvasc) 10 mg PO DAILY [facility] Last Admin: 08/16/17 14:46 Dose: 10 mg Aspirin (Aspirin Chewable) 81 mg PO DAILY [facility] Last Admin: 08/16/17 14:47 Dose: 81 mg Chlordiazepoxide (Librium) 25 mg PO Q4 PRN PRN Reason: Agitation Last Admin: 08/15/17 09:56 Dose: 25 mg Enoxaparin Sodium (Lovenox) 40 mg SC DAILY [facility] Last Admin: 08/16/17 14:47 Dose: 40 mg Gabapentin (Neurontin) 400 mg PO TID [facility] Last Admin: 08/16/17 17:31 Dose: 400 mg Multivitamins/Vitamin C 10 ml/Thiamine HCl 100 mg/ Folic Acid 1 mg/ Sodium Chloride 1,011.2 mls @ 80 mls/hr IV DAILY [facility] Last Admin: 08/16/17 14:47 Dose: 80 mls/hr Insulin Aspart (Novolog) 0 unit SC ACHS [facility] PRN Reason: Protocol Last Admin: 08/16/17 16:50 Dose: 2 unit Metformin HCl (Glucophage) 1,000 mg PO BIDCC [facility] Last Admin: 08/16/17 16:50 Dose: 1,000 mg Quetiapine Fumarate (Seroquel) 300 mg PO Q12 [facility] Last Admin: 08/16/17 21:04 Dose: 300 mg Rosuvastatin Calcium (Crestor) 5 mg PO HS [facility] Last Admin: 08/16/17 21:04 Dose: 5 mg Topiramate (Topamax) 50 mg PO DAILY [facility] Last Admin: 08/16/17 14:46 Dose: 50 mg - Labs Labs: 08/16/17 07:16 08/16/17 07:16
--- NOTE | 2017-08-16 22:44 | CARD ---
APPROVED REPORT EXAM: Two-dimensional and M-mode echocardiogram with Doppler and color Doppler. Other Information Quality : GoodRhythm : NSR INDICATION Chest Pain COPD M-Mode DIMENSIONS RVDd1.91 (2.1-3.2cm)Left Atrium (MM)3.79 (2.5-4.0cm) IVSd1.13 (0.7-1.1cm)Aortic Root3.36 (2.2-3.7cm) LVDd5.27 (4.0-5.6cm)Aortic Cusp Exc.2.07 (1.5-2.0cm) PWd1.21 (0.7-1.1cm)FS (%) 33 % LVDs3.55 (2.0-3.8cm)LVEF (%)61 (>50%) Aortic Valve AoV Peak Cffrumnn623.8cm/Kiera Peak GR.7mmHg Mitral Valve MV E Wnigplsw75.5cm/sMV A Jrmpxrmo01.7cm/sE/A ratio0.8 TDI E/Lateral E'0.0E/Medial E'0.0 Tricuspid Valve TR Peak Rfxznbzx464el/sTR Peak Gr.82bnGvBHVZ92luVp LEFT VENTRICLE The left ventricle is normal size. There is mild concentric left ventricular hypertrophy. Left ventricle systolic function is normal. The Ejection Fraction is 60-65%. There is normal LV segmental wall motion. Tissue Doppler imaging reveals abnormal left ventricular diastolic dysfunction. RIGHT VENTRICLE The right ventricle is normal size. There is normal right ventricular wall thickness. The right ventricular systolic function is normal. ATRIA The left atrium size is normal. The right atrium size is normal. The interatrial septum is intact with no evidence for an atrial septal defect. AORTIC VALVE The aortic valve is normal in structure. No aortic regurgitation is present. There is no aortic valvular stenosis. There is no aortic valvular vegetation. MITRAL VALVE The mitral valve is normal in structure. There is no evidence of mitral valve prolapse. There is no mitral valve stenosis. There is no mitral valve regurgitation noted. TRICUSPID VALVE The tricuspid valve is normal in structure. There is trace tricuspid regurgitation. Right ventricular systolic pressure is estimated at less than 30 mmHg. There is no pulmonary hypertension. PULMONIC VALVE The pulmonic valve is not well visualized. There is no pulmonic valvular regurgitation. GREAT VESSELS The aortic root is normal in size. PERICARDIAL EFFUSION There is no significant pericardial effusion. <Conclusion> Left ventricle systolic function is normal. The Ejection Fraction is 60-65%. Hypertensive heart disease. Diastolic dysfunction. No aortic regurgitation is present. There is no mitral valve regurgitation noted. There is trace tricuspid regurgitation. There is no pulmonary hypertension. There is no pulmonic valvular regurgitation.
--- NOTE | 2017-08-16 23:07 | CP.PCM.PN ---
Subjective - Date & Time of Evaluation Date of Evaluation: 08/16/17 Time of Evaluation: 19:20 - Subjective Subjective: PT SEEN & EXAMINED AT BEDSIDE Objective - Vital Signs/Intake and Output Vital Signs (last 24 hours): Temp Pulse Resp BP Pulse Ox 97.8 F 80 20 155/90 H 97 08/16/17 15:48 08/16/17 15:48 08/16/17 15:48 08/16/17 15:48 08/16/17 15:48 Intake and Output: 08/16/17 08/17/17 18:59 06:59 Intake Total 560 Balance 560 - Medications Medications: Current Medications Amlodipine Besylate (Norvasc) 10 mg PO DAILY [facility] Last Admin: 08/16/17 14:46 Dose: 10 mg Aspirin (Aspirin Chewable) 81 mg PO DAILY [facility] Last Admin: 08/16/17 14:47 Dose: 81 mg Chlordiazepoxide (Librium) 25 mg PO Q4 PRN PRN Reason: Agitation Last Admin: 08/15/17 09:56 Dose: 25 mg Enoxaparin Sodium (Lovenox) 40 mg SC DAILY [facility] Last Admin: 08/16/17 14:47 Dose: 40 mg Gabapentin (Neurontin) 400 mg PO TID [facility] Last Admin: 08/16/17 17:31 Dose: 400 mg Multivitamins/Vitamin C 10 ml/Thiamine HCl 100 mg/ Folic Acid 1 mg/ Sodium Chloride 1,011.2 mls @ 80 mls/hr IV DAILY [facility] Last Admin: 08/16/17 14:47 Dose: 80 mls/hr Insulin Aspart (Novolog) 0 unit SC ACHS [facility] PRN Reason: Protocol Last Admin: 08/16/17 16:50 Dose: 2 unit Metformin HCl (Glucophage) 1,000 mg PO BIDCC [facility] Last Admin: 08/16/17 16:50 Dose: 1,000 mg Quetiapine Fumarate (Seroquel) 300 mg PO Q12 [facility] Last Admin: 08/16/17 21:04 Dose: 300 mg Rosuvastatin Calcium (Crestor) 5 mg PO HS [facility] Last Admin: 08/16/17 21:04 Dose: 5 mg Topiramate (Topamax) 50 mg PO DAILY [facility] Last Admin: 08/16/17 14:46 Dose: 50 mg - Labs Labs: 08/16/17 07:16 08/16/17 07:16 Assessment and Plan (1) Chest pain Status: Acute (2) Alcohol abuse Status: Acute
[2017-08-17] MEDS: (Novolog) Insulin Aspart, Recombinant 100 u/ml 10 ml vial SC SCH (08:15)
[2017-08-17 08:18] VITALS: BP 124/79; TEMP 97.6; O2SAT 95
[2017-08-17] MEDS: Enoxaparin 40 mg Syringe SC SCH (09:08)
[2017-08-17 11:24] VITALS: PULSE 87
--- NOTE | 2017-08-17 11:27 | CP.PCM.PN ---
Subjective - Date & Time of Evaluation Date of Evaluation: 08/17/17 Time of Evaluation: 11:25 - Subjective Subjective: PT REQUESTING TO BE D/C EARLY AND PER HIM HE WAS TOLD HE WOULD BE D/C TODAY. BRASS BUFFER REVIEWED LABS AND CHART. PT WAS CLEARED BY DR. GARCIA LAST NIGHT FOR D/C AND WILL F/U WITH HIS RESP THER DR. LUIS WITHIN 1-[address] CASANOVAOD AWARE AND ALSO IN AGREEMENT WITH D/C. PT TO F/U WITH PMD IN 1 WEEK. RX FOR ASA 81 MG PO QD GIVEN. SEROQUEL ALSO ADJUSTED BASED ON RECS MADE WHILE IN HOSPITAL. DISCUSSED ALL D/C AND MEDS W PT AND HE IS IN AGREEMENT. NO FURTHER ORDERS. Objective - Vital Signs/Intake and Output Vital Signs (last 24 hours): Temp Pulse Resp BP Pulse Ox 97.6 F 87 20 124/79 95 08/17/17 07:10 08/17/17 08:00 08/17/17 07:10 08/17/17 07:10 08/17/17 07:10 Intake and Output: 08/17/17 08/17/17 06:59 18:59 Intake Total 990 Output Total 700 Balance 290 - Medications Medications: Current Medications Amlodipine Besylate (Norvasc) 10 mg PO DAILY [facility] Last Admin: 08/17/17 09:08 Dose: 10 mg Aspirin (Aspirin Chewable) 81 mg PO DAILY [facility] Last Admin: 08/17/17 09:08 Dose: 81 mg Chlordiazepoxide (Librium) 25 mg PO Q4 PRN PRN Reason: Agitation Last Admin: 08/15/17 09:56 Dose: 25 mg Enoxaparin Sodium (Lovenox) 40 mg SC DAILY [facility] Last Admin: 08/17/17 09:08 Dose: 40 mg Gabapentin (Neurontin) 400 mg PO TID [facility] Last Admin: 08/17/17 09:09 Dose: 400 mg Multivitamins/Vitamin C 10 ml/Thiamine HCl 100 mg/ Folic Acid 1 mg/ Sodium Chloride 1,011.2 mls @ 80 mls/hr IV DAILY [facility] Last Admin: 08/16/17 14:47 Dose: 80 mls/hr Insulin Aspart (Novolog) 0 unit SC ACHS [facility] PRN Reason: Protocol Last Admin: 08/17/17 08:15 Dose: 1 unit Metformin HCl (Glucophage) 1,000 mg PO BIDCC [facility] Last Admin: 08/17/17 08:14 Dose: 1,000 mg Quetiapine Fumarate (Seroquel) 300 mg PO Q12 [facility] Last Admin: 08/17/17 09:08 Dose: 300 mg Rosuvastatin Calcium (Crestor) 5 mg PO HS [facility] Last Admin: 08/16/17 21:04 Dose: 5 mg Topiramate (Topamax) 50 mg PO DAILY [facility] Last Admin: 08/17/17 09:09 Dose: 50 mg - Labs Labs: 08/16/17 07:16 08/16/17 07:16
--- NOTE | 2017-08-17 12:28 | CP.PCM.PCO ---
Physician Communication Note - Physician Communication Note Physician Communication Note: [employer] Sales Consultant was made aware today. Saw him briefly, cleared for d/c.
--- NOTE | 2017-08-17 22:58 | CP.PCM.DIS ---
Provider - Provider Date of Admission: 08/14/17 15:53 Attending physician: Ravin Loyd MD Time Spent in preparation of Discharge (in minutes): 34 Diagnosis - Discharge Diagnosis (1) Chest pain Status: Acute (2) Alcohol abuse Status: Acute Hospital Course - Lab Results Lab Results: Most Recent Lab Values WBC 4.6 K/uL (4.8-10.8) L 08/16/17 07:16 RBC 4.48 Mil/uL (4.40-5.90) 08/16/17 07:16 Hgb 14.0 g/dL (12.0-18.0) 08/16/17 07:16 Hct 40.9 % (35.0-51.0) 08/16/17 07:16 MCV 91.5 fL (80.0-94.0) 08/16/17 07:16 MCH 31.2 pg (27.0-31.0) H 08/16/17 07:16 MCHC 34.1 g/dL (33.0-37.0) 08/16/17 07:16 RDW 15.7 % (11.5-14.5) H 08/16/17 07:16 Plt Count 189 K/uL (130-400) 08/16/17 07:16 MPV 7.6 fL (7.2-11.7) 08/16/17 07:16 Neut % (Auto) 59.2 % (50.0-75.0) 08/14/17 13:25 Lymph % (Auto) 31.8 % (20.0-40.0) 08/14/17 13:25 [place] % (Auto) 8.2 % (0.0-10.0) 08/14/17 13:25 Eos % (Auto) 0.5 % (0.0-4.0) 08/14/17 13:25 Baso % (Auto) 0.3 % (0.0-2.0) 08/14/17 13:25 Neut # 5.2 K/uL (1.8-7.0) 08/14/17 13:25 Lymph # 2.8 K/uL (1.0-4.3) 08/14/17 13:25 [place] # 0.7 K/uL (0.0-0.8) 08/14/17 13:25 Eos # 0.0 K/uL (0.0-0.7) 08/14/17 13:25 Baso # 0.0 K/uL (0.0-0.2) 08/14/17 13:25 Sodium 134 mmol/L (132-148) 08/16/17 07:16 Potassium 3.8 mmol/L (3.6-5.2) 08/16/17 07:16 Chloride 99 mmol/L (98-107) 08/16/17 07:16 Carbon Dioxide 25 mmol/L (22-30) 08/16/17 07:16 Anion Gap 14 (10-20) 08/16/17 07:16 BUN 16 mg/dL (9-20) 08/16/17 07:16 Creatinine 0.9 mg/dL (0.8-1.5) 08/16/17 07:16 Est GFR ( Amer) > 60 08/16/17 07:16 Est GFR (Non-Af Amer) > 60 08/16/17 07:16 POC Glucose (mg/dL) 156 mg/dL (65-110) H 08/17/17 07:02 Random Glucose 162 mg/dL (75-110) H 08/16/17 07:16 Hemoglobin A1c 7.6 % (4.2-6.5) H 08/15/17 07:12 Calcium 8.5 mg/dl (8.6-10.4) L 08/16/17 07:16 Total Bilirubin 0.6 mg/dL (0.2-1.3) 08/16/17 07:16 AST 20 U/L (17-59) 08/16/17 07:16 ALT 33 U/L (21-72) 08/16/17 07:16 Alkaline Phosphatase 69 U/L (38-126) 08/16/17 07:16 Total Creatine Kinase 287 U/L (55-170) H 08/15/17 00:51 CK-MB (Mass) 3.27 ng/mL (0.0-3.38) 08/15/17 00:51 Troponin I < 0.0120 ng/mL (0.00-0.120) 08/14/17 13:25 Troponin I, Quant < 0.0120 ng/mL (0.00-0.120) 08/15/17 00:51 Total Protein 5.9 g/dL (6.3-8.3) L 08/16/17 07:16 Albumin 3.9 g/dL (3.5-5.0) 08/16/17 07:16 Globulin 2.0 gm/dL (2.2-3.9) L 08/16/17 07:16 Albumin/Globulin Ratio 2.0 (1.0-2.1) 08/16/17 07:16 Urine Color Yellow (YELLOW) 08/14/17 15:46 Urine Clarity Clear (Clear) 08/14/17 15:46 Urine pH 5.0 (5.0-8.0) 08/14/17 15:46 Ur Specific [place] 1.012 (1.003-1.030) 08/14/17 15:46 Urine Protein Negative mg/dL (NEGATIVE) 08/14/17 15:46 Urine Glucose (UA) Normal mg/dL (Normal) 08/14/17 15:46 Urine Ketones Trace mg/dL (NEGATIVE) 08/14/17 15:46 Urine Blood Negative (NEGATIVE) 08/14/17 15:46 Urine Nitrate Negative (NEGATIVE) 08/14/17 15:46 Urine Bilirubin Negative (NEGATIVE) 08/14/17 15:46 Urine Urobilinogen Normal mg/dL (0.2-1.0) 08/14/17 15:46 Ur Leukocyte Esterase Neg Bessy/uL (Negative) 08/14/17 15:46 Urine WBC (Auto) < 1 /hpf (0-5) 08/14/17 15:46 Urine RBC (Auto) < 1 /hpf (0-3) 08/14/17 15:46 Urine Opiates Screen Negative (NEGATIVE) 08/14/17 15:46 Urine Methadone Screen Negative (NEGATIVE) 08/14/17 15:46 Ur Barbiturates Screen Negative (NEGATIVE) 08/14/17 15:46 Ur Phencyclidine Scrn Negative (NEGATIVE) 08/14/17 15:46 Ur Amphetamines Screen Negative (NEGATIVE) 08/14/17 15:46 U Benzodiazepines Scrn Positive (NEGATIVE) 08/14/17 15:46 U Oth Cocaine Metabols Positive (NEGATIVE) 08/14/17 15:46 U Cannabinoids Screen Negative (NEGATIVE) 08/14/17 15:46 Alcohol, Quantitative 286 mg/dl (0-10) H 08/14/17 13:25 Discharge Exam - Head Exam Head Exam: ATRAUMATIC, NORMAL INSPECTION, NORMOCEPHALIC Discharge Plan - Discharge Medications Prescriptions: Aspirin [Aspirin Chewable] 81 mg PO DAILY #30 chew - Follow Up Plan Condition: STABLE Disposition: HOME/ ROUTINE Instructions: Aspirin (By mouth), Chest Pain (DC), Heart Healthy Diet (DC), Alcohol Intoxication (DC), Abuse of Alcohol (DC), Alcohol Withdrawal (DC) Additional Instructions: FOLLOW UP WITH YOUR PRIMARY DOCTOR IN THE OFFICE IN 1 WEEK. FOLLOW UP WITH DR. LUIS IN THE OFFICE IN 1-2 WEEKS. TAKE ALL MEDICATIONS AT HOME USUAL. MEDICATION CHANGES: SEROQUEL TAKE 300 MG BY MOUTH EVERY 12 HOURS (MORNING AND EVENING); ASPIRIN 81 MG BY MOUTH ONCE A DAY FOR YOUR HEART. FOR ANY OTHER QUESTIONS, CONTACT DR. JOHNSTON OR DR. LOYD. Referrals: Kirna Johnston MD [Staff Provider] - Alfnozo Luis MD [Staff Provider] - Ravin Loyd MD [Staff Provider] -
== END 2017-08-17 11:35 | disposition home or self-care (01) | DRG 313 ==
LOC: C.ER 12:47 → C.9E 15:53 → C.6T 16:22
PROVIDERS: ADMIT Internal Medicine; ATTEND Internal Medicine
DX: R07.89 Other chest pain (principal); F10.129 Alcohol abuse with intoxication, unspecified; I10 Essential (primary) hypertension; G47.30 Sleep apnea, unspecified; J44.9 Chronic obstructive pulmonary disease, unspecified; F32.9 Major depressive disorder, single episode, unspecified; F17.200 Nicotine dependence, unspecified, uncomplicated; E78.00 Pure hypercholesterolemia, unspecified; E11.9 Type 2 diabetes mellitus without complications; Z87.01 Personal history of pneumonia (recurrent); Z79.82 Long term (current) use of aspirin

== ENCOUNTER 2017-11-03 05:43 | Inpatient (IN) | payer BC ==
[2017-11-03 05:44] VITALS: BMI 33.5
--- NOTE | 2017-11-03 06:12 | C.PDOC ---
History Of Present Illness <Jagdish Huertas - Last Filed: 11/03/17 06:31> <Manuela Gutiérrez - Last Filed: 11/03/17 07:55> 52 y/o male presents to ED with c/o panic attack, chest pain, and suicidal ideation that started few hours ago tonight while watching TV. Denies any physical complaints. He admits to alcohol and cocaine intake this evening. States suicidal thought are recurrent and long standing. Although patient reports that he attempted suicide by over dose twice in the past, he states he has no plan this time. Chest pain is currently resolved. (Jagdish Huertas) History Per: Patient History/Exam Limitations: no limitations Onset/Duration Of Symptoms: Hrs Current Symptoms Are (Timing): Still Present Suicide/Self Injury Attempted (Context): None Modifying Factor(s): Alcohol, Cocaine Associated Symptoms: Suicidal Thoughts. denies: Suicidal Plan Involuntary Hold By: None Recent travel outside of the [place]: No <Jagdish Huertas - Last Filed: 11/03/17 06:31> <Manuela Gutiérrez - Last Filed: 11/03/17 07:55> Time Seen by Provider: 11/03/17 05:51 Chief Complaint (Nursing): Psychiatric Evaluation Past Medical History Reviewed: Historical Data, Nursing Documentation, Vital Signs - Medical History PMH: Anxiety, COPD, Depression, Diabetes, Gastritis, HTN, Hypercholesterolemia, Pneumonia, Seizures (ETOH related), Sleep Apnea (uses CPAP at home) Surgical History: Tonsillectomy (as a child) Family History: States: No Known Family Hx - Social History Hx Tobacco Use: Yes Hx Alcohol Use: Yes Hx Substance Use: Yes - Immunization History Hx Tetanus Toxoid Vaccination: No Hx Influenza Vaccination: No Hx Pneumococcal Vaccination: No <Jagdish Huertas - Last Filed: 11/03/17 06:31> Vital Signs: Last Vital Signs Temp 98.8 F 11/03/17 07:32 Pulse 75 11/03/17 07:32 Resp 16 11/03/17 07:32 BP 110/59 L 11/03/17 07:32 Pulse Ox 100 11/03/17 07:32 - [facility] ALCOHOL DETOXIFICATION (10/07/13) DETOXIFICATION SERVICES FOR SUBSTANCE ABUSE TREATMENT (10/01/17) EXCISION OF LARGE INTESTINE, ENDO, DIAGN (09/01/17) EXCISION OF SMALL INTESTINE, ENDO, DIAGN (09/01/17) GROUP PSYCHOTHERAPY (01/18/17) INDIVIDUAL PSYCHOTHERAPY, SUPPORTIVE (01/18/17) MEDICATION MANAGEMENT (01/18/17) Review Of Systems Constitutional: Negative for: Fever Cardiovascular: Positive for: Chest Pain Gastrointestinal: Negative for: Nausea, Vomiting, Abdominal Pain, Diarrhea Neurological: Negative for: Weakness, Numbness Psych: Positive for: Suicidal ideation, Other (Panic attack) <Jagdish Huertas - Last Filed: 11/03/17 06:31> Physical Exam - Physical Exam Appears: Well, Non-toxic, Other (Intoxicated) Skin: Warm, Dry Head: Atraumatic Eye(s): bilateral: Normal Inspection Oral Mucosa: Moist Neck: Supple Chest: Symmetrical, No Tenderness Cardiovascular: Rhythm Regular Respiratory: No Decreased Breath Sounds, No Accessory Muscle Use, No Rales, No Wheezing Gastrointestinal/Abdominal: Soft, No Tenderness, No Distention Neurological/Psych: Oriented x3, Other (no focal deficits) <Jagdish Huertas - Last Filed: 11/03/17 06:31> ED Course And Treatment O2 Sat by Pulse Oximetry: 95 (Room air) Pulse Ox Interpretation: Normal <Jagdish Huertas - Last Filed: 11/03/17 06:31> - Laboratory Results Result Diagrams: 11/03/17 06:34 11/03/17 06:34 <Manuela Gutiérrez - Last Filed: 11/03/17 07:55> Medical Decision Making <Jagdish Huertas - Last Filed: 11/03/17 06:31> <Manuela Gutiérrez - Last Filed: 11/03/17 07:55> Medical Decision Making: EKG: Sinus rhythm at 94bpm, normal axis, no acute ischemia. (Jagdish Huertas) Disposition - Disposition Disposition Time: 07:00 <Jagdish Huertas - Last Filed: 11/03/17 06:31> <Manuela Gutiérrez - Last Filed: 11/03/17 07:55> - Disposition Condition: STABLE Forms: [facility] (Monegasque) - Clinical Impression Clinical Impression: Chest pain, Depression, Alcohol abuse, Cocaine abuse - Scribe Statement The provider has reviewed the documentation as recorded by the Scribe <Jagdish Huertas - Last Filed: 11/03/17 06:31> <Manuela Gutiérrez - Last Filed: 11/03/17 07:55> - Scribe Statement Gail Lam All medical record entries made by the Scribe were at my direction and personally dictated by me. I have reviewed the chart and agree that the record accurately reflects my personal performance of the history, physical exam, medical decision making, and the department course for this patient. I have also personally directed, reviewed, and agree with the discharge instructions and disposition. (Jagdish Huertas) Physician Patient Turnover Patient Signed Over To: Manuela Gutiérrez Handoff Comments: pending wrkup, psych recs, dispo <Jagdish Huertas - Last Filed: 11/03/17 06:31> Addendum <Jagdish Huertas - Last Filed: 11/03/17 06:31> <Manuela Gutiérrez - Last Filed: 11/03/17 07:55> Addendum: 11/03/17 07:53 Patient endorsed to me by Dr. Huertas at the end of his shift. Patient c/o relapsing back on alcohol, feeling suicidal. Patient briefly c/o chest pin. EKG NSR, no ST elevations/depressions. On exam obease, chest clear, abdomen soft. Seen by crisis. Pending dispo. C/O feeling anxious. (Manuela Gutiérrez)
[2017-11-03 06:40] LABS: BASO % 0.3 % (0.0-2.0); EOS % 0.4 % (0.0-4.0); HEMOGLOBIN 13.8 g/dL (12.0-18.0); LYMPH # 1.2 K/uL (1.0-4.3); LYMPH % 15.9 % (20.0-40.0); MEAN CELL VOLUME 92.4 fL (80.0-94.0); MEAN CORPUSCULAR HEMOGLOBIN 31.7 pg (27.0-31.0); MEAN CORPUSCULAR HGB CONC 34.3 g/dL (33.0-37.0); MEAN PLATELET VOLUME 7.8 fL (7.2-11.7); MONO # 0.4 K/uL (0.0-0.8); MONO % 4.8 % (0.0-10.0); NEUT % 78.6 % (50.0-75.0); RBC 4.35 Mil/uL (4.40-5.90); RED CELL DISTRIBUTION WIDTH 13.8 % (11.5-14.5); WHITE BLOOD COUNT 7.7 K/uL (4.8-10.8)
[2017-11-03 06:50] LABS: SQUAMOUS EPITHIAL < 1 /hpf (0-5); URINE BILIRUBIN NEGATIVE (NEGATIVE); URINE BLOOD NEGATIVE (NEGATIVE); URINE CLARITY Clear (Clear); URINE COLOR Straw (YELLOW); URINE GLUCOSE (UA) NORMAL (Normal); URINE LEUKOCYTE ESTERASE NEG Leu/uL (Negative); URINE NITRATE NEGATIVE (NEGATIVE); URINE PROTEIN NEGATIVE (NEGATIVE); URINE UROBILINOGEN NORMAL mg/dL (0.2-1.0)
[2017-11-03 06:56] LABS: ALB/GLOB RATIO 1.5 (1.0-2.1); ALBUMIN 4.1 g/dL (3.5-5.0); ALT/SGPT 34 U/L (21-72); AST/SGOT 27 U/L (17-59); BLOOD UREA NITROGEN 15 mg/dL (9-20); CALCIUM 8.2 mg/dl (8.6-10.4); GFR AFRICAN-AMERICAN > 60; GFR NON-AFRICAN AMERICAN > 60
[2017-11-03 07:31] LABS: ACETAMINOPHEN < 10.0 ug/mL (10.0-30.0); SALICYLATE < 1.0 mg/dL 1
[2017-11-03 08:46] LABS: BARBITURATES, UR NEGATIVE (NEGATIVE); BENZODIAZEPINES, UR NEGATIVE (NEGATIVE); OPIATES, UR NEGATIVE (NEGATIVE); PHENCYCLIDINE, UR NEGATIVE (NEGATIVE)
[2017-11-03 09:40] VITALS: O2SAT 96
--- NOTE | 2017-11-03 10:25 | RAD ---
HISTORY: cp COMPARISON: Chest x-ray performed 08/14/17 TECHNIQUE: Chest, one view. FINDINGS: Examination limited by habitus and hypoinflation. LUNGS: No focal consolidation. Please note that chest x-ray has limited sensitivity for the detection of pulmonary masses. PLEURA: No significant pleural effusion identified. No definite pneumothorax . CARDIOVASCULAR: The cardiomediastinal silhouette appears within normal limits of size. OSSEOUS STRUCTURES: No acute osseous abnormality identified. VISUALIZED UPPER ABDOMEN: Unremarkable. OTHER FINDINGS: None. IMPRESSION: No focal consolidation, significant pleural effusion, or definite pneumothorax identified.
--- NOTE | 2017-11-03 11:44 | PCM.BM ---
<Marion Vang - Last Filed: 11/03/17 11:43> Treatment Plan Problems - Problems identified on initial assessmt Depression Date Initiated: 11/03/17 Time Initiated: 11:43 Assessment reference: NA Status: Active Suicidal Ideation Date Initiated: 11/03/17 Time Initiated: 11:44 Assessment reference: NA Status: Monitor Treatment assets and liabiliti Patient Assests: good support system, financial stabiity, cooperative, self- reliant, ADL independent Patient Liabilities: substance abuse - Milieu Protocol Maintain good personal hygiene: every shift Encourage regular showers, every shift Remind patient to perform daily oral care, every shift Assist patient to perform ADL's Maintain personal safety: every shift Educate patient to report safety concerns to staff, every shift Monitor environment for contraband/sharps Medication safety: Monitor for expected outcome, potential side effects: every shift, Assess barriers to learning: every shift, Assess readiness for medication education: every shift <Celia Griffin - Last Filed: 11/05/17 11:22> Family Contact Family involvement: Family/SO is involved Family contact: Patient agrees to contact Family contact name: Tasia Meza- Family contacted how many times per week?: 2 Family contact comment: "Brian needs to go to rehab." - Goals for Treatment Patient goals for treatment: "I want to go to [facility]." Patient's family/SO goals for treatment: "Brian needs to go to rehab." Discharge/Continuing Care - Education Needs Education Needs: Patient Medication, Patient Coping Skills, Patient Placement options, Patient Community resources - Discharge Discharge Criteria: Tolerates medication w/o severe side effects, Free of Suicidal thoughts, No longer exhibiting s/s of withdrawal, Reduction of target symptoms Discharge to:: Substance Abuse Rehab - Treatment Team Participation Discussed with Family/SO: Yes ("I agree with this plan.") Was Patient/Family/SO present at Treatment Team Meeting: No <Moisés Menchaca - Last Filed: 11/05/17 11:25> - Diagnosis (1) Manic bipolar I disorder Status: Acute Interventions: 11/05/17 11:24 * Assess/adjust medications daily and /or as needed * See patient on an individual basis 7x/week to assess level of manic behaviors and stability * Discuss risks, benefits, side effects and alternatives of medications * (2) Alcohol abuse Status: Acute Interventions: 11/05/17 11:25 * Assess 7x/week regarding severity of withdrawal * Educate regarding risks, benefits, side effects and alternatives of medications * Use Motivational Interviewing for abstinence * Use CBT for relapse prevention * Medication management for withdrawal symptoms * Encourage medication assisted treatment *
--- NOTE | 2017-11-03 13:50 | PCM.PSYCH ---
Initial Psychiatric Evaluation - Initial Psychiatric Evaluation Type of Admission: Voluntary Legal Status: Capacity Chief Complaint (in patient's own words): I ma feeling irritable and suicidal.' History of Present Illness and Precipitating Events: This is a 52 years old male, who lives with his , came to the ED with depression and suicidal ideation. Medical Records Director is familiar with this patient. Patient has a long history of drinking and bipolar disorder. Patient was just discharged from [facility] last month. As per the patient he remained sober from drinking, however he relapsed 4 days ago and started drinking 1-2 pints daily. He also mentions that he was partially compliant with his medications. Yesterday he consumed more than a pint , became increasingly depressed and developed suicidal ideation and so he came to the hospital to get help. He reports depressed mood, and feelings of hopelessness and helplessness. He also reports poor sleep and poor appetite. Patient reports withdrawal symptoms including nausea, sweating and anxiety. He also reports irritability, agitation and racing thoughts. However he denies any auditory or visual hallucinations or any delusions. Medical history HTN, Hypercholesterolemia, CAD, DM Current Medications: Active Medications Generic Name Dose Route Start Last Admin Trade Name Freq PRN Reason Stop Dose Admin Chlordiazepoxide 25 mg 11/03/17 13:45 Librium PO Q4H PRN Alcohol Withdrawal Clonidine HCl 0.1 mg 11/03/17 13:45 Catapres PO Q4H PRN Symptoms of alcohol withdrawl Folic Acid 1 mg 11/03/17 13:45 Folic Acid PO DAILY [facility] Multivitamins 1 tab 11/03/17 13:45 Hexavitamin PO DAILY JOSE Thiamine HCl 100 mg 11/03/17 13:45 Vitamin B1 Tab PO DAILY JOSE Trazodone HCl 50 mg 11/03/17 13:45 Desyrel PO HS PRN Insomnia Past Psychiatric History - Past Psychiatric History Previous Treatment History: Inpatient Pertinent Medical Hx (Current Medical&Sleep Prob, Allergies): Allergies Allergy/AdvReac Type Severity Reaction Status Date / Time No Known Allergies Allergy Verified 08/30/17 12:55 MetFORMIN [glucoPHAGE] 1,000 mg PO BID 03/10/15 Gabapentin [Neurontin] 400 mg PO TID #90 cap 01/21/17 Pantoprazole [Protonix EC Tab] 40 mg PO DAILY #30 ect 01/21/17 busPIRone [Buspar] 30 mg PO BID 08/16/17 Aspirin [Aspirin Chewable] 81 mg PO DAILY #30 chew 08/17/17 QUEtiapine [Seroquel] 300 mg PO Q12 tab 08/17/17 Atenolol 50 mg PO BID 08/30/17 GlipiZIDE [Glucotrol] 10 mg PO DAILY 08/30/17 Pristiq PO DAILY 08/30/17 Simvastatin 20 mg PO HS 08/30/17 Dicyclomine [Dicyclomine HCl] 10 mg PO BIDAC #14 cap 09/02/17 Hydrocortisone 2.5% (Rectal) [Anusol-HC] 30 applic MT BID #1 tube 09/02/17 Atenolol 50 mg PO BID 10/01/17 Buspar 30 mg PO DAILY 10/01/17 GlipiZIDE 10 mg PO DAILY 10/01/17 Lantus 30 unit SQ HS 10/01/17 Protonix 40 mg PO DAILY 10/01/17 Simvastatin 10 mg PO HS 10/01/17 metFORMIN 1 gm PO BID 10/01/17 Gabapentin [Neurontin] 400 mg PO TID #90 cap 10/04/17 QUEtiapine [Seroquel] 300 mg PO HS #30 tab 10/04/17 busPIRone [Buspar] 30 mg PO BID #60 tab 10/04/17 Review of Systems - Review of Systems All systems: reviewed and no additional remarkable complaints except - Psychiatric Psychiatric: Anxiety, Irritability, Mood Swings, Suicidal Ideation Mental Status Examination - Personal Presentation Personal Presentation: Looks stated age - Affect Affect: Broad - Motor Activity Motor Activity: Psychomotor Agitation - Reliability in Providing Information Reliability in Providing Information: Poor, due to altered mood - Speech Speech: Organized - Mood Mood: Anxious - Formal Thought Process Formal Thought Process: Flight of ideas - Obsessions/Compulsions Obsessions: No Compulsions: No - Cognitive Functions Orientation: Person, Place, Situation, Time Sensorium: Alert Attention/Concentration: Attentive Abstract Thinking: [place] Estimate of Intelligence: Below average Judgement: Imparied, as evidence by: Poor judgement, Imparied, as evidence by: Lack of insight into illness - Risk Risk: Suicidal, Withdrawal, Diminished functioning - Strength & Assets Inventory Strength & Assets Inventory: Family support DSM 5 DX - DSM 5 DSM 5 Diagnosis: Bipolar disorder most recent episode mixed severe without features Alcohol use disorder severe - Recommended/Plan of Treatment Treatment Recommendations and Plan of Treatment: Bipolar disorder most recent episode mixed severe without features -CBT -Psychoeducation -Supportive therapy, individual therapy -Start Neurontin 100 mg by mouth 3 times a day -Start Trazodone 50 mg PO Q HS -Seroquel 100 mg PO QHS Alcohol use disorder severe -CBT -Psychoeducation -Supportive therapy, individual therapy -Use [place] for abstinence -Librium when necessary DM -Continue prescribed medications -Monitor for signs and symptoms Hypertension -Continue prescribed medications -Monitor for signs and symptoms CAD -Continue prescribed medications -Monitor for signs and symptoms - Smoking Cessation Smoking Cessation Initiated: No
[2017-11-03] MEDS: Multiple Vitamins Tab PO SCH (20:21)
[2017-11-03] MEDS: (Lantus) Insulin Glargine, Recombinant SC SCH (21:25)
--- NOTE | 2017-11-04 01:20 | CARD ---
APPROVED REPORT EKG Measurement Heart [id number] <Conclusion> Normal sinus rhythm Prolonged QT Abnormal ECG
[2017-11-04] MEDS: Multiple Vitamins Tab PO SCH (10:24)
[2017-11-04] MEDS: (Lantus) Insulin Glargine, Recombinant SC SCH (21:33)
[2017-11-05] MEDS: Multiple Vitamins Tab PO SCH (09:54)
--- NOTE | 2017-11-05 11:21 | PCM.PYCHPN ---
Psychiatric Progress Note - Psychiatric Progress Note Patient seen today, length of contact: 15 min Patient Chief Complaint: I'm still feeling anxious.' Problems Identified/Issues Discussed: Patient seen and evaluated, chart reviewed and discussed with the nurse. Patient reports some improvement in his sleep but still reports racing thoughts , irritability and agitation. He remained isolated and withdrawn. He still pacing back and forth but denies any auditory or visual hallucinations. He is taking medications and denies any side effects. He needs more time for Stabilization. Supportive therapy and psychoeducation were given Medication Change: Yes (Increase Neurontin, start Prolixin) Medical Record Reviewed: Yes Mental Status Examination - Cognitive Function Orientation: Person, Place, Situation, Time Memory: Intact Attention: WNL Concentration: Poor Association: WNL Fund of Knowledge: Poor - Mood Mood: Anxious - Affect Affect: Broad - Speech Speech: Loud - Formal Thought Process Formal Thought Process: Circumstantial - Suicidal Ideation Suicidal Ideation: No - Homicidal Ideation Homicidal Ideation: No Goal/Treatment Plan - Goal/Treatment Plan Need for Continued Stay: Severe depression anxiety, Severe functional impairment Progress Toward Problem(s) and Goals/Treatment Plan: Bipolar disorder most recent episode mixed severe without features -CBT -Psychoeducation -Supportive therapy, individual therapy -Neurontin 300 mg by mouth 3 times a day -Trazodone 50 mg PO Q HS -Seroquel 100 mg PO QHS -Buspar 15 mg by mouth twice a day -Prolixin 5 mg by mouth twice a day Alcohol use disorder severe -CBT -Psychoeducation -Supportive therapy, individual therapy -Use [place] for abstinence -Librium when necessary DM -Continue prescribed medications -Monitor for signs and symptoms Hypertension -Continue prescribed medications -Monitor for signs and symptoms CAD -Continue prescribed medications -Monitor for signs and symptoms
--- NOTE | 2017-11-05 11:24 | PCM.PYCHPN ---
Psychiatric Progress Note - Psychiatric Progress Note Patient seen today, length of contact: 15 min Patient Chief Complaint: I'm still feeling anxious.' Problems Identified/Issues Discussed: Patient seen and evaluated, chart reviewed and discussed with the nurse. Patient reports irritability and agitation. He reports poor sleep and still reports racing thoughts. He remained isolated and withdrawn, however he denies any auditory or visual hallucinations. He is taking medications and denies any side effects. He is still circumstantial and complaining about a lot of anxiety and agitation. He needs more time for Stabilization. Supportive therapy and psychoeducation were given Medication Change: Yes (Start Buspar) Medical Record Reviewed: Yes Mental Status Examination - Cognitive Function Orientation: Person, Place, Situation, Time Memory: Intact Attention: WNL Concentration: Poor Association: WNL Fund of Knowledge: Poor - Mood Mood: Anxious - Affect Affect: Broad - Speech Speech: Loud - Formal Thought Process Formal Thought Process: Circumstantial - Suicidal Ideation Suicidal Ideation: No - Homicidal Ideation Homicidal Ideation: No Goal/Treatment Plan - Goal/Treatment Plan Need for Continued Stay: Severe depression anxiety, Severe functional impairment Progress Toward Problem(s) and Goals/Treatment Plan: Bipolar disorder most recent episode mixed severe without features -CBT -Psychoeducation -Supportive therapy, individual therapy -Neurontin 100 mg by mouth 3 times a day -Trazodone 50 mg PO Q HS -Seroquel 100 mg PO QHS -Buspar 15 mg by mouth twice a day Alcohol use disorder severe -CBT -Psychoeducation -Supportive therapy, individual therapy -Use [place] for abstinence -Librium when necessary DM -Continue prescribed medications -Monitor for signs and symptoms Hypertension -Continue prescribed medications -Monitor for signs and symptoms CAD -Continue prescribed medications -Monitor for signs and symptoms - Smoking Cessation Smoking Cessation Initiated: No
[2017-11-05] MEDS ORDERED: Home Med 1 UNIT (Metformin [Glucophage] 1,000 MG) PO SCH (11:30)
[2017-11-05] MEDS: (Lantus) Insulin Glargine, Recombinant SC SCH (21:31)
[2017-11-05] MEDS ORDERED: (Lantus) Insulin Glargine, Recombinant SC SCH (22:00)
[2017-11-06] MEDS: Multiple Vitamins Tab PO SCH (10:03)
[2017-11-06] MEDS: Pantoprazole 40 mg EC Tab PO SCH (10:04)
[2017-11-06] MEDS: (Lantus) Insulin Glargine, Recombinant SC SCH (22:07)
[2017-11-07] MEDS: Multiple Vitamins Tab PO SCH (10:17)
[2017-11-07] MEDS: Pantoprazole 40 mg EC Tab PO SCH (10:19)
--- NOTE | 2017-11-07 13:37 | PCM.PYCHPN ---
Psychiatric Progress Note - Psychiatric Progress Note Patient seen today, length of contact: 15 min Patient Chief Complaint: I'm feeling anxious.' Problems Identified/Issues Discussed: Patient seen and evaluated, chart reviewed and discussed with the nurse. Patient remained anxious and irritable. He still reporting irritability and agitation and still reports racing of thoughts. As per staff is calm and cooperative and easily redirectable. He remained isolated and withdrawn, however he denies any auditory or visual hallucinations. He is taking medications and denies any side effects. He needs more time for Stabilization. Supportive therapy and psychoeducation were given Medication Change: Yes (Increase Seroquel, increase Prolixin) Medical Record Reviewed: Yes Mental Status Examination - Cognitive Function Orientation: Person, Place, Situation, Time Memory: Intact Attention: WNL Concentration: Poor Association: WNL Fund of Knowledge: Poor - Mood Mood: Anxious - Affect Affect: Broad - Speech Speech: Appropriate - Formal Thought Process Formal Thought Process: Circumstantial - Suicidal Ideation Suicidal Ideation: No - Homicidal Ideation Homicidal Ideation: No Goal/Treatment Plan - Goal/Treatment Plan Need for Continued Stay: Severe depression anxiety, Severe functional impairment Progress Toward Problem(s) and Goals/Treatment Plan: Bipolar disorder most recent episode mixed severe without features -CBT -Psychoeducation -Supportive therapy, individual therapy -Neurontin 300 mg by mouth 3 times a day -Trazodone 50 mg PO Q HS -Seroquel 200 mg PO QHS -Buspar 15 mg by mouth twice a day -Prolixin 10 mg by mouth twice a day Alcohol use disorder severe -CBT -Psychoeducation -Supportive therapy, individual therapy -Use [place] for abstinence -Librium when necessary DM -Continue prescribed medications -Monitor for signs and symptoms Hypertension -Continue prescribed medications -Monitor for signs and symptoms CAD -Continue prescribed medications -Monitor for signs and symptoms - Smoking Cessation Smoking Cessation Initiated: No
--- NOTE | 2017-11-07 13:38 | PCM.PYCHPN ---
Psychiatric Progress Note - Psychiatric Progress Note Patient seen today, length of contact: 15 min Patient Chief Complaint: I'm feeling little better Problems Identified/Issues Discussed: Patient seen and evaluated, chart reviewed and discussed with the nurse. Patient reports some improvement in his irritability. He also reports some improvement in his sleep and appetite. However he is still complaining about agitation and racing thoughts. He remained isolative and withdrawn. However he is taking medications and denies any side effects. Symptoms are improving but he needs more time for Stabilization. Supportive therapy and psychoeducation were given Medication Change: Yes (increase Prolixin, increase [place]) Medical Record Reviewed: Yes Mental Status Examination - Cognitive Function Orientation: Person, Place, Situation, Time Memory: Intact Attention: WNL Concentration: Poor Association: WNL Fund of Knowledge: Poor - Mood Mood: Anxious - Affect Affect: Constricted - Speech Speech: Pressured - Formal Thought Process Formal Thought Process: Circumstantial - Suicidal Ideation Suicidal Ideation: No - Homicidal Ideation Homicidal Ideation: No Goal/Treatment Plan - Goal/Treatment Plan Need for Continued Stay: Remain at risks for inpatient hospitalization, Severe functional impairment Progress Toward Problem(s) and Goals/Treatment Plan: Bipolar disorder most recent episode mixed severe without features -CBT -Psychoeducation -Supportive therapy, individual therapy -Neurontin 300 mg by mouth 3 times a day -Trazodone 50 mg PO Q HS -Seroquel 200 mg PO QHS -Buspar 15 mg by mouth twice a day -Prolixin 10 mg by mouth twice a day -[place] 300 mg by mouth 3 times a day Alcohol use disorder severe -CBT -Psychoeducation -Supportive therapy, individual therapy -Use [place] for abstinence -Librium when necessary DM -Continue prescribed medications -Monitor for signs and symptoms Hypertension -Continue prescribed medications -Monitor for signs and symptoms CAD -Continue prescribed medications -Monitor for signs and symptoms
[2017-11-07] MEDS ORDERED: Magnesium Hydroxide Susp 30 ml UD PO PRN (15:07)
[2017-11-07] MEDS: (Lantus) Insulin Glargine, Recombinant SC SCH (21:40)
[2017-11-08 06:52] VITALS: RESP 18
[2017-11-08] MEDS: Multiple Vitamins Tab PO SCH (10:19)
[2017-11-08] MEDS: Pantoprazole 40 mg EC Tab PO SCH (10:19)
--- NOTE | 2017-11-08 10:22 | PCM.PYCHPN ---
Psychiatric Progress Note - Psychiatric Progress Note Patient seen today, length of contact: 15 min Patient Chief Complaint: I'm feeling little better Problems Identified/Issues Discussed: Patient seen and evaluated, chart reviewed and discussed with the nurse. Patient reports he is doing better than before and reports improvement in the anxiety, mood, and irritability. However, he remained isolative and withdrawn. He reports some improvement in his sleep and appetite. He is taking medications and denies any side effects. Symptoms are improving but he needs more time for Stabilization. Supportive therapy and psychoeducation were given Medication Change: Yes (increase Prolixin, increase [place]) Medical Record Reviewed: Yes Mental Status Examination - Cognitive Function Orientation: Person, Place, Situation, Time Memory: Intact Attention: WNL Concentration: Poor Association: WNL Fund of Knowledge: Poor - Mood Mood: Anxious - Affect Affect: Constricted - Speech Speech: Soft - Formal Thought Process Formal Thought Process: No Impairment - Suicidal Ideation Suicidal Ideation: No - Homicidal Ideation Homicidal Ideation: No Goal/Treatment Plan - Goal/Treatment Plan Need for Continued Stay: Remain at risks for inpatient hospitalization, Severe functional impairment Progress Toward Problem(s) and Goals/Treatment Plan: Bipolar disorder most recent episode mixed severe without features -CBT -Psychoeducation -Supportive therapy, individual therapy -Neurontin 300 mg by mouth 3 times a day -Trazodone 50 mg PO Q HS -Seroquel 200 mg PO QHS -Buspar 15 mg by mouth twice a day -Prolixin 10 mg by mouth twice a day -[place] 600 mg by mouth BID Alcohol use disorder severe -CBT -Psychoeducation -Supportive therapy, individual therapy -Use MD for abstinence -Librium when necessary DM -Continue prescribed medications -Monitor for signs and symptoms Hypertension -Continue prescribed medications -Monitor for signs and symptoms CAD -Continue prescribed medications -Monitor for signs and symptoms - Smoking Cessation Smoking Cessation Initiated: No
[2017-11-08] MEDS ORDERED: Magnesium Citrate Oral SOL (300 ml) PO PRN (16:30)
[2017-11-08] MEDS: (Lantus) Insulin Glargine, Recombinant SC SCH (21:20)
[2017-11-09 06:50] VITALS: BP 125/73; PULSE 68; TEMP 97.4
[2017-11-09] MEDS: Multiple Vitamins Tab PO SCH (09:40)
[2017-11-09] MEDS: Pantoprazole 40 mg EC Tab PO SCH (09:43)
--- NOTE | 2017-11-09 10:13 | PCM.PYCHDC ---
Mental Status Examination - Mental Status Examination Orientation: Person, Place, Situation, Time Memory: Intact Mood: Neutral Affect: Constricted Speech: Soft Attention: WNL Concentration: WNL Association: WNL Fund of Knowledge: WNL Formal Thought Process: No Impairment Description of patient's judgement and insight: good, fair Psychotic Thoughts and Behaviors: denies any AVH Suicidal Ideation: No Current Homicidal Ideation?: No Discharge Summary - Discharge Note Reason for Hospitalization: This is a 52 years old male, who lives with his , came to the ED with depression and suicidal ideation. Pelletizer Tender is familiar with this patient. Patient has a long history of drinking and bipolar disorder. Patient was just discharged from [facility] last month. As per the patient he remained sober from drinking, however he relapsed 4 days ago and started drinking 1-2 pints daily. He also mentions that he was partially compliant with his medications. Yesterday he consumed more than a pint , became increasingly depressed and developed suicidal ideation and so he came to the hospital to get help. He reports depressed mood, and feelings of hopelessness and helplessness. He also reports poor sleep and poor appetite. Patient reports withdrawal symptoms including nausea, sweating and anxiety. He also reports irritability, agitation and racing thoughts. However he denies any auditory or visual hallucinations or any delusions. Laboratory Data: Abnormal Lab Results 11/08/17 11/08/17 11/09/17 16:10 16:54 07:47 POC Glucose (mg/dL) 180 H 168 H [place] 0.4 L Consultations:: List each consultation separately and include: 1. Reason for request. 2. Findings. 3. Follow-up Summary of Hospital Course include:: 1. Description of specific treatment plan utilized for patients during their course of treatmen. 2. Summarize the time- course for resolution of acute symptoms and/or regressed behaviors. 3. Describe issues identified and worked on during hospitalization. 4. Describe medication utilized. 5. Describe medical problems identified and treated. 6. Reassessment of suicide risk Summary of Hospital Course: During the course of his stay, patient (pt) started progressively improving and he no longer remained irritable, depressed, paranoid and suicidal. His mood and anxiety symptoms were improved and he started attending groups and meetings and started socializing. Patient denied any feelings of hopelessness, helplessness, and worthlessness, denied any problem with the sleep or appetite, denied suicidal ideation or homicidal ideation. Pt denied any auditory or visual hallucinations. Some changes were made in his current medications and patient was discharged on following medications. He tolerated these medications very well and denied any side effects. Pt is to attend rehab at [facility] today. SW spoke to pt's , as well, as she is in agreement with this plan. - Diagnosis (1) Manic bipolar I disorder Status: Acute (2) Alcohol abuse Status: Acute - Final Diagnosis (DSM 5) Condition upon Discharge: STABLE DSM 5: Bipolar disorder most recent episode mixed severe without features Alcohol use disorder severe Disposition: HOME/ ROUTINE Follow-up Treatment Plan: Education: Pt was educated and counseled about the risks and benefits of taking and not taking medications. Pt was educated and counseled about the risks of drinking and abusing drugs. Pt was educated and counseled to go to the ER or call 911 if pt develop suicidal ideation or homicidal ideation, worsening of symptoms or severe side effects of the meds. Prescriptions/Medication Reconciliation: busPIRone [Buspar] 15 mg PO BID #60 tab fluPHENAZine [Prolixin] 10 mg PO BID #60 tab Gabapentin [Neurontin] 300 mg PO TID #90 cap [place] Carbonate [[place] Carbonate 300MG] 600 mg PO BID #60 cap QUEtiapine [SEROquel] 200 mg PO HS #30 tab traZODone [Desyrel] 50 mg PO HS PRN #30 tab PRN Reason: Insomnia - Smoking Cessation Smoking Cessation Medication prescribed: No - Antipsychotic Medications Pt discharged on 2 or more routine antipsychotic medications: No
== END 2017-11-09 11:30 | disposition home or self-care (01) | DRG 895 ==
LOC: C.ER 05:43 → C.5E 09:06
PROVIDERS: ADMIT Psychiatry & Neurology Psychiatry; ATTEND Psychiatry & Neurology Psychiatry
PROC: HZ2ZZZZ Detoxification Services for Substance Abuse Treatment (ICD-10-PCS; principal; 2017-11-03)
PROC: HZ52ZZZ Individual Psychotherapy for Substance Abuse Treatment, Cognitive-Behavioral (ICD-10-PCS; 2017-11-03)
PROC: HZ42ZZZ Group Counseling for Substance Abuse Treatment, Cognitive-Behavioral (ICD-10-PCS; 2017-11-03)
PROC: HZ59ZZZ Individual Psychotherapy for Substance Abuse Treatment, Supportive (ICD-10-PCS; 2017-11-03)
PROC: HZ56ZZZ Individual Psychotherapy for Substance Abuse Treatment, Psychoeducation (ICD-10-PCS; 2017-11-03)
PROC: HZ46ZZZ Group Counseling for Substance Abuse Treatment, Psychoeducation (ICD-10-PCS; 2017-11-03)
DX: F10.230 Alcohol dependence with withdrawal, uncomplicated (principal); R45.851 Suicidal ideations; F31.63 Bipolar disorder, current episode mixed, severe, without psychotic features; E11.9 Type 2 diabetes mellitus without complications; I10 Essential (primary) hypertension; Y90.5 Blood alcohol level of 100-119 mg/100 ml; I25.10 Atherosclerotic heart disease of native coronary artery without angina pectoris; F41.9 Anxiety disorder, unspecified

== ENCOUNTER → 2017-11-29 19:00 | Emergency (ER) | payer BC ==
[2017-11-29 19:01] VITALS: BMI 33.5
== END | disposition left against medical advice (07) ==
LOC: C.ER 19:00
DX: Z02.89 Encounter for other administrative examinations (principal); F10.10 Alcohol abuse, uncomplicated

== ENCOUNTER 2018-02-04 20:19 | Emergency (ER) | payer BC ==
[2018-02-04 20:20] VITALS: BMI 33.5
--- NOTE | 2018-02-04 20:43 | C.PDOC ---
History Of Present Illness Patient presents to ED with complaints of being depressed and alcohol abuse. Patient initially denies SI, HI. Crisis notified. Time Seen by Provider: 02/04/18 20:41 Chief Complaint (Nursing): Psychiatric Evaluation History Per: Patient History/Exam Limitations: no limitations Onset/Duration Of Symptoms: Hrs Current Symptoms Are (Timing): Still Present Suicide/Self Injury Attempted (Context): None Modifying Factor(s): Alcohol Associated Symptoms: Depression. denies: Suicidal Thoughts, Suicidal Plan Involuntary Hold By: None Recent travel outside of the [place]: No Past Medical History Reviewed: Historical Data, Nursing Documentation, Vital Signs Vital Signs: Last Vital Signs Temp 98.2 F 02/05/18 06:17 Pulse 80 02/05/18 06:17 Resp 20 02/05/18 06:17 BP 128/67 02/05/18 06:17 Pulse Ox 94 L 02/05/18 06:17 - Medical History PMH: Anxiety, COPD, Depression, Diabetes, Gastritis, HTN, Hypercholesterolemia, Pneumonia, Seizures (ETOH related), Sleep Apnea (uses CPAP at home) Surgical History: Tonsillectomy (as a child) - [facility] Procedures ALCOHOL DETOXIFICATION (10/07/13) DETOXIFICATION SERVICES FOR SUBSTANCE ABUSE TREATMENT (11/03/17) EXCISION OF LARGE INTESTINE, ENDO, DIAGN (09/01/17) EXCISION OF SMALL INTESTINE, ENDO, DIAGN (09/01/17) GROUP MORTGAGE LOAN SPECIALIST FOR SUBSTANCE ABUSE TREATMENT, PSYCHOEDUCATION (11/03/17) GROUP MORTGAGE LOAN SPECIALIST FOR SUBSTANCE ABUSE, COGNITIVE BEHAVIORAL (11/03/17) GROUP PSYCHOTHERAPY (01/18/17) INDIV PSYCHOTHERAPY FOR SUBSTANCE ABUSE TREATMENT, SUPPORT (11/03/17) INDIV PSYCHOTHERAPY FOR SUBSTANCE ABUSE, COGNITIV BEHAVIORAL (11/03/17) INDIV PSYCHOTHERAPY FOR SUBSTANCE ABUSE, PSYCHOEDUCATION (11/03/17) INDIVIDUAL PSYCHOTHERAPY, SUPPORTIVE (01/18/17) MEDICATION MANAGEMENT (01/18/17) Family History: States: No Known Family Hx - Social History Hx Tobacco Use: Yes Hx Alcohol Use: Yes ("every other day") Hx Substance Use: Yes - Immunization History Hx Tetanus Toxoid Vaccination: No Hx Influenza Vaccination: No Hx Pneumococcal Vaccination: No Review Of Systems Constitutional: Negative for: Fever, Chills Respiratory: Negative for: Shortness of Breath Gastrointestinal: Negative for: Nausea, Vomiting, Diarrhea Skin: Negative for: Rash Neurological: Negative for: Weakness, Numbness Psych: Positive for: Depression. Negative for: Suicidal ideation Physical Exam - Physical Exam Appears: Non-toxic, No Acute Distress Skin: Warm Head: Normacephalic Eye(s): bilateral: Normal Inspection Oral Mucosa: Moist Neck: Supple Chest: Symmetrical, No Tenderness Cardiovascular: Rhythm Regular Respiratory: No Decreased Breath Sounds, No Rales, No Rhonchi, No Wheezing Gastrointestinal/Abdominal: Soft, No Tenderness, No Distention Extremity: Normal ROM, No Deformity Extremity: Bilateral: Normal Color And Temperature, Normal ROM Neurological/Psych: Oriented x3 (Awake and alert), Normal Speech, Normal Cognition ED Course And Treatment - Laboratory Results Result Diagrams: 02/04/18 20:57 02/04/18 20:57 ECG: Interpreted By Me, Viewed By Me ECG Rhythm: Sinus Rhythm (86), Nonspecific Changes O2 Sat by Pulse Oximetry: 95 (RA) Pulse Ox Interpretation: Normal - Radiology CXR: Interpreted by Me, Viewed By Me CXR Interpretation: No: Infiltrates, Fracture, Pnemothorax Progress Note: Ordered blood work and urinalysis. Crisis notified. Pt is medically cleared for transfer . Disposition Counseled Patient/Family Regarding: Studies Performed, Diagnosis - Disposition Disposition Time: 20:41 Condition: FAIR Forms: [facility] (Welsh) - Clinical Impression Clinical Impression: Alcohol dependence, Alcohol intoxication, Depression, Cocaine abuse - Scribe Statement The provider has reviewed the documentation as recorded by the Scribe Gail Lam All medical record entries made by the Scribe were at my direction and personally dictated by me. I have reviewed the chart and agree that the record accurately reflects my personal performance of the history, physical exam, medical decision making, and the department course for this patient. I have also personally directed, reviewed, and agree with the discharge instructions and disposition. Physician Patient Turnover Patient Signed Over To: Martin Ervin Jr. Handoff Comments: peding transfer to [facility]
[2018-02-04 21:01] LABS: BASO % 0.3 % (0.0-2.0); HEMOGLOBIN 14.4 g/dL (12.0-18.0); LYMPH # 1.7 K/uL (1.0-4.3); LYMPH % 40.4 % (20.0-40.0); MEAN CELL VOLUME 91.4 fL (80.0-94.0); MEAN CORPUSCULAR HEMOGLOBIN 31.5 pg (27.0-31.0); MEAN CORPUSCULAR HGB CONC 34.5 g/dL (33.0-37.0); MEAN PLATELET VOLUME 6.9 fL (7.2-11.7); MONO # 0.5 K/uL (0.0-0.8); MONO % 13.2 % (0.0-10.0); NEUT # 1.9 K/uL (1.8-7.0); NEUT % 45.1 % (50.0-75.0); RBC 4.57 Mil/uL (4.40-5.90); RED CELL DISTRIBUTION WIDTH 14.9 % (11.5-14.5); WHITE BLOOD COUNT 4.2 K/uL (4.8-10.8)
[2018-02-04 21:04] LABS: URINE BILIRUBIN NEGATIVE (NEGATIVE); URINE BLOOD NEGATIVE (NEGATIVE); URINE CLARITY Clear (Clear); URINE COLOR Colorless (YELLOW); URINE GLUCOSE (UA) NORMAL (Normal); URINE LEUKOCYTE ESTERASE NEG Leu/uL (Negative); URINE PROTEIN NEGATIVE (NEGATIVE); URINE UROBILINOGEN NORMAL mg/dL (0.2-1.0)
[2018-02-04 21:34] LABS: ALB/GLOB RATIO 1.5 (1.0-2.1); ALBUMIN 4.2 g/dL (3.5-5.0); ALT/SGPT 39 U/L (21-72); AST/SGOT 27 U/L (17-59); BLOOD UREA NITROGEN 12 mg/dL (9-20); CALCIUM 9.1 mg/dl (8.6-10.4); GFR AFRICAN-AMERICAN > 60; GFR NON-AFRICAN AMERICAN > 60
[2018-02-04 21:44] LABS: BENZODIAZEPINES, UR NEGATIVE (NEGATIVE); OPIATES, UR NEGATIVE (NEGATIVE); PHENCYCLIDINE, UR NEGATIVE (NEGATIVE)
[2018-02-04 22:01] LABS: BARBITURATES, UR POSITIVE (NEGATIVE)
[2018-02-05 09:37] VITALS: RESP 20
[2018-02-05] MEDS ORDERED: Albuterol-Ipratrop 3 mg / 0.5 (3 ml) UD INH STA (11:32)
[2018-02-05] MEDS ORDERED: Albuterol-Ipratrop 3 mg / 0.5 (3 ml) UD ONE (11:49)
[2018-02-05 12:47] VITALS: BP 149/76; PULSE 82; TEMP 97.6; O2SAT 95
--- NOTE | 2018-02-05 15:09 | RAD ---
PROCEDURE: CHEST RADIOGRAPH, 1 VIEW HISTORY: psych clearance COMPARISON: Comparison is made to 11/03/2017 FINDINGS: LUNGS: No evidence of new infiltrate or consolidation in the lungs. PLEURA: No pneumothorax or pleural fluid seen. CARDIOVASCULAR: Normal. OSSEOUS STRUCTURES: No significant abnormalities. VISUALIZED UPPER ABDOMEN: Normal. OTHER FINDINGS: None. IMPRESSION: No active disease.
== END 2018-02-05 12:50 | disposition short-term general hospital (02) ==
LOC: C.ER 20:19
DX: F32.9 Major depressive disorder, single episode, unspecified (principal); F10.229 Alcohol dependence with intoxication, unspecified; F14.10 Cocaine abuse, uncomplicated; Y90.8 Blood alcohol level of 240 mg/100 ml or more
CPT/HCPCS: 71045; 80053; 81001; 82948; 85025; 99285; G0480

== ENCOUNTER 2018-05-20 19:08 | Inpatient (IN) | payer BC ==
[2018-05-20 19:09] VITALS: BMI 33.5
--- NOTE | 2018-05-20 20:23 | C.PDOC ---
History Of Present Illness Patient presents to the ER with a complaint of feeling depressed. Patient states he has a plan to overdose on pills but has not taken anything. Patient also reports he has stopped taking his meds. Denies physical complaints at this time. Time Seen by Provider: 05/20/18 19:57 Chief Complaint (Nursing): Psychiatric Evaluation History Per: Patient History/Exam Limitations: no limitations Onset/Duration Of Symptoms: Days Current Symptoms Are (Timing): Still Present Suicide/Self Injury Attempted (Context): None Severity: None Pain Scale Rating Of: 0 Associated Symptoms: Depression, Suicidal Thoughts Involuntary Hold By: None Recent travel outside of the [place]: No Past Medical History Reviewed: Historical Data, Nursing Documentation, Vital Signs Vital Signs: Last Vital Signs Temp 98 F 05/20/18 19:36 Pulse 76 05/20/18 19:36 Resp 14 05/20/18 19:36 BP 126/78 05/20/18 19:36 Pulse Ox 96 05/20/18 20:48 - Medical History PMH: Anxiety, Bipolar Disorder, COPD, Depression, Diabetes, Fractures (right great toe), Gastritis, HTN, Hypercholesterolemia, Pneumonia, Seizures (ETOH related), Sleep Apnea (uses CPAP at home) Denies: Hepatitis, HIV, Chronic Kidney Disease, Sexually Transmitted Disease Surgical History: Tonsillectomy (as a child) - [facility] Procedures ALCOHOL DETOXIFICATION (10/07/13) DETOXIFICATION SERVICES FOR SUBSTANCE ABUSE TREATMENT (11/03/17) EXCISION OF LARGE INTESTINE, ENDO, DIAGN (09/01/17) EXCISION OF SMALL INTESTINE, ENDO, DIAGN (09/01/17) GROUP LAUNDRY HOUSEKEEPER FOR SUBSTANCE ABUSE TREATMENT, PSYCHOEDUCATION (11/03/17) GROUP LAUNDRY HOUSEKEEPER FOR SUBSTANCE ABUSE, COGNITIVE BEHAVIORAL (11/03/17) GROUP PSYCHOTHERAPY (02/05/18) INDIV PSYCHOTHERAPY FOR SUBSTANCE ABUSE TREATMENT, SUPPORT (11/03/17) INDIV PSYCHOTHERAPY FOR SUBSTANCE ABUSE, COGNITIV BEHAVIORAL (11/03/17) INDIV PSYCHOTHERAPY FOR SUBSTANCE ABUSE, PSYCHOEDUCATION (02/05/18) INDIVIDUAL PSYCHOTHERAPY, SUPPORTIVE (01/18/17) MEDICATION MANAGEMENT (01/18/17) Family History: States: No Known Family Hx - Social History Hx Tobacco Use: Yes Hx Alcohol Use: Yes (Vodka, 2 pints daily) Hx Substance Use: Yes (cocaine) - Immunization History Hx Tetanus Toxoid Vaccination: No Hx Influenza Vaccination: No Hx Pneumococcal Vaccination: No Review Of Systems Constitutional: Negative for: Fever, Chills Cardiovascular: Negative for: Chest Pain, Palpitations Respiratory: Negative for: Cough, Shortness of Breath Gastrointestinal: Negative for: Nausea, Vomiting Psych: Positive for: Depression, Suicidal ideation Physical Exam - Physical Exam Appears: Non-toxic Skin: Warm, Dry Head: Normacephalic Oral Mucosa: Moist Chest: Symmetrical, No Tenderness Cardiovascular: Rhythm Regular Respiratory: No Rales, No Rhonchi, No Wheezing Gastrointestinal/Abdominal: Soft, No Tenderness, Other (Obese) Neurological/Psych: Oriented x3 ED Course And Treatment - Laboratory Results Result Diagrams: 05/20/18 20:23 05/20/18 20:23 ECG: Interpreted By Me, Viewed By Me ECG Rhythm: Sinus Rhythm (95), Nonspecific Changes O2 Sat by Pulse Oximetry: 96 Pulse Ox Interpretation: Normal - Radiology CXR: Interpreted by Me, Viewed By Me CXR Interpretation: Yes: Other (unchanged from 02/05/18). No: Infiltrates, Fracture, Pnemothorax Progress Note: EKG, blood work, CXR, and urinalysis ordered. Crisis notified. Disposition Discussed With : Rox Pacheco Comment: accepted the p ton her service and took over the care at 4:54 AM Doctor Will See Patient In The: Hospital Counseled Patient/Family Regarding: Studies Performed, Diagnosis - Disposition Disposition: HOSPITALIZED Disposition Time: 19:55 Condition: FAIR Forms: [facility] (Czech) - POA Present On Arrival: Poor Glycemic Control - Clinical Impression Clinical Impression: Alcohol abuse, Cocaine abuse, Depression - Scribe Statement The provider has reviewed the documentation as recorded by the Scribyohana Abdullahi All medical record entries made by the Everibyohana were at my direction and personally dictated by me. I have reviewed the chart and agree that the record accurately reflects my personal performance of the history, physical exam, medical decision making, and the department course for this patient. I have also personally directed, reviewed, and agree with the discharge instructions and disposition. Decision To Admit - Pt Status Changed To: Hospital Disposition Of: Inpatient - Admit Certification Admit to Inpatient:: After my assessment, the patient will require hospitalization for at least two midnights. This is because of the severity of symptoms shown, intensity of services needed, and/or the medical risk in this patient being treated as an outpatient. - InPatient: Physician Admission Certification: I certify that this patient requires 2 or more midnights of care for the following reason:: After my assessment, the patient will require hospitalization for at least two midnights. This is because of the severity of symptoms shown, intensity of services needed, and/or the medical risk in this patient being treated as an outpatient. - . Bed Request Type: Psychiatry Admitting Physician: Rox Pacheco Patient Diagnosis: Alcohol abuse, Cocaine abuse, Depression
[2018-05-20 20:29] LABS: LYMPH # 2.2 K/uL (1.0-4.3); MONO # 0.8 K/uL (0.0-0.8)
[2018-05-20 20:34] LABS: BASO % 0.2 % (0.0-2.0); EOS % 0.5 % (0.0-4.0); HEMOGLOBIN 15.1 g/dL (12.0-18.0); LYMPH % 21.5 % (20.0-40.0); MEAN CELL VOLUME 88.3 fL (80.0-94.0); MEAN CORPUSCULAR HEMOGLOBIN 30.6 pg (27.0-31.0); MEAN CORPUSCULAR HGB CONC 34.6 g/dL (33.0-37.0); MEAN PLATELET VOLUME 7.4 fL (7.2-11.7); NEUT % 69.8 % (50.0-75.0); NRBC % 0.2 % (0.0-2.0); RBC 4.94 Mil/uL (4.40-5.90); RED CELL DISTRIBUTION WIDTH 13.9 % (11.5-14.5); WHITE BLOOD COUNT 10.1 K/uL (4.8-10.8)
[2018-05-20 20:40] LABS: ALBUMIN 4.7 g/dL (3.5-5.0); ALT/SGPT 38 U/L (21-72); AST/SGOT 17 U/L (17-59); BLOOD UREA NITROGEN 15 mg/dL (9-20); CALCIUM 8.9 mg/dl (8.6-10.4); GFR AFRICAN-AMERICAN > 60; GFR NON-AFRICAN AMERICAN > 60
[2018-05-20 20:47] LABS: ACETAMINOPHEN < 10.0 ug/mL (10.0-30.0); SALICYLATE < 1.0 mg/dL 1
[2018-05-20 20:52] LABS: URINE BILIRUBIN NEGATIVE (NEGATIVE); URINE BLOOD NEGATIVE (NEGATIVE); URINE CLARITY Clear (Clear); URINE COLOR Colorless (YELLOW); URINE GLUCOSE (UA) NORMAL (Normal); URINE LEUKOCYTE ESTERASE NEG Leu/uL (Negative); URINE PROTEIN NEGATIVE (NEGATIVE); URINE UROBILINOGEN NORMAL mg/dL (0.2-1.0)
[2018-05-20 21:00] LABS: BARBITURATES, UR NEGATIVE (NEGATIVE); BENZODIAZEPINES, UR NEGATIVE (NEGATIVE); OPIATES, UR NEGATIVE (NEGATIVE); PHENCYCLIDINE, UR NEGATIVE (NEGATIVE)
[2018-05-21 05:17] VITALS: O2SAT 95
--- NOTE | 2018-05-21 05:25 | PCM.BM ---
<Rachele Rosario - Last Filed: 05/21/18 05:26> Treatment Plan Problems - Problems identified on initial assessmt Depression Date Initiated: 05/21/18 Time Initiated: 06:00 Date resolved: 05/21/18 Assessment reference: NA Status: Active Anxiety Date Initiated: 05/21/18 Time Initiated: 06:00 Date resolved: 05/21/18 Assessment reference: NA Status: Active Treatment assets and liabiliti Patient Assests: good support system, financial stabiity, cooperative, self- reliant, ADL independent Patient Liabilities: poor support system, substance abuse (alcohol and cocaine) - Milieu Protocol Maintain good personal hygiene: daily Encourage regular showers, every shift Remind patient to perform daily oral care, every shift Assist patient to perform ADL's Medication safety: Monitor for expected outcome, potential side effects: every shift, Assess barriers to learning: every shift, Assess readiness for medication education: every shift <Ruchi Lee - Last Filed: 05/23/18 16:05> Family Contact Family involvement: Family/SO is involved Family contact: Patient agrees to contact - Goals for Treatment Patient goals for treatment: "I do not know what type of treatment I want at this time." Discharge/Continuing Care - Education Needs Education Needs: Patient Medication, Patient Diagnosis/Disease Process, Patient Coping Skills, Patient Placement options, Patient Community resources - Discharge Discharge Criteria: Normal sleep pattern, Ability to care for self, No longer exhibiting s/s of withdrawal, Reduction of target symptoms Discharge to:: Home, With Family - Treatment Team Participation Discussed with Family/SO: No Was Patient/Family/SO present at Treatment Team Meeting: Yes
--- NOTE | 2018-05-21 08:31 | CT ---
Date of service: 05/20/2018 PROCEDURE: CT HEAD WITHOUT CONTRAST. HISTORY: headache COMPARISON: Comparison is made with 11/20/2016 TECHNIQUE: Axial computed tomography images were obtained through the head/brain without intravenous contrast. Radiation dose: Total exam DLP = 851.53 mGy-cm. This CT exam was performed using one or more of the following dose reduction techniques: Automated exposure control, adjustment of the mA and/or kV according to patient size, and/or use of iterative reconstruction technique. FINDINGS: HEMORRHAGE: No intracranial hemorrhage. BRAIN: No mass effect or edema. Again seen is hyperattenuation extra-axial dural base 1 x 0.6 centimeter lesion at the right temporal convexity likely represent meningioma. Mild volume loss is again noted. VENTRICLES: Unremarkable. No hydrocephalus. CALVARIUM: Unremarkable. PARANASAL SINUSES: Unremarkable as visualized. No significant inflammatory changes. MASTOID AIR CELLS: Unremarkable as visualized. No inflammatory changes. OTHER FINDINGS: None. IMPRESSION: No evidence of acute intracranial hemorrhage intracranial collection mass effect or midline shift. No significant interval change noted since the previous exam. Preliminary report was submitted by virtual Radiology.
[2018-05-21] MEDS: Multiple Vitamins Tab PO SCH (09:40)
--- NOTE | 2018-05-21 11:35 | RAD ---
Date of service: 05/20/2018 PROCEDURE: CHEST RADIOGRAPH, 1 VIEW HISTORY: Detox/Psy COMPARISON: Comparison is made with 02/05/2018 FINDINGS: LUNGS: No evidence of new infiltrate or consolidation in the lungs PLEURA: No pneumothorax or pleural fluid seen. CARDIOVASCULAR: Normal. OSSEOUS STRUCTURES: No significant abnormalities. VISUALIZED UPPER ABDOMEN: Normal. OTHER FINDINGS: None. IMPRESSION: No active disease.
--- NOTE | 2018-05-21 16:11 | PCM.PSYCH ---
Initial Psychiatric Evaluation - Initial Psychiatric Evaluation Type of Admission: Voluntary Legal Status: Capacity Chief Complaint (in patient's own words): "I have drinking alcohol problem." History of Present Illness and Precipitating Events: Pt is a 52 year old male admitted for worsening of depression and etoh drinking problem. Pt has psychiatric diagnosis of Bipolar disorder, ? dementia. Pt has medical history of COPD, sleep apnea, high cholesterol, gastritis, hx of pneumonia. However, he denied using CPAP machine. Pt has a significant history of psychiatric admissions to multiple facilities with last being at [facility] on their yong unit from 02/05/18-02/09/18 for depression, S/ I and alcohol abuse. Pt's BAL of 360. Pt is poor historian and minimize his etoh and substance abuse problem. Pt reports he is currently suicidal with a plan to overdose on pills. Pt reports three prior suicide attempts with most recent being an overdose. Pt's was concerned about pt's drinking habit. He stated that he drinks Vodka 2-3 pint daily for many days. +ve CAGE questionnaire. Pt stated he had alcohol withdrawal symptoms ranging from nausea , headache, hot and cold flashes, seizure, anxiety, denied AH, VH. Pt could not elaborate on the last time a seizure has occurred. In the ER he had thoughts of wanting to hurt himself with a plan. Pt reports to this leader writer having been very anxious and in order to alleviate his anxiety pt kept drinking. Pt reports having been to detox at [place] and [facility] and per [facility] notes pt also was in rehab at [facility]. Pt also postive for cocaine in which pt states last use being 2 days ago. Pt minimizes cocaine use stating he uses it "every now and then" and that his friend turned him onto it. Pt reports depressed mood, insomnia, low appetite. Per , pt was diagnosed with dementia a year ago and is concerned over his safety as he will leave the stove on. Pt also tends to answer questions with " I dont know". Pt denies current outpt tx but would like to f/u with psychiatrist Dr. Ellis. Pt has been compliant with meds: neurontin 400mg po tid, seroquel 300mg po hs and old prescription of prolixin 10mg po HS Current Medications: Active Medications Generic Name Dose Route Start Last Admin Trade Name Freq PRN Reason Stop Dose Admin Chlordiazepoxide 25 mg 05/21/18 05:12 05/21/18 13:17 Librium PO 25 mg Q4H PRN Administration Alcohol Withdrawal Clonidine HCl 0.1 mg 05/21/18 05:12 05/21/18 10:16 Catapres PO 0.1 mg Q4H PRN Administration Symptoms of alcohol withdrawl Folic Acid 1 mg 05/21/18 10:00 05/21/18 09:40 Folic Acid PO 1 mg DAILY JOSE Administration Metformin HCl 500 mg 05/21/18 18:00 Glucophage PO BID JOSE Multivitamins 1 tab 05/21/18 10:00 05/21/18 09:40 Hexavitamin PO 1 tab DAILY JOSE Administration Pneumococcal Polyvalent Vaccine 0.5 ml 05/23/18 10:00 Pneumovax 23 Vaccine IM 05/23/18 10:01 .ONCE ONE Quetiapine Fumarate 100 mg 05/21/18 13:30 05/21/18 14:30 Seroquel PO Not Given Q12 JOSE Thiamine HCl 100 mg 05/21/18 10:00 05/21/18 09:40 Vitamin B1 Tab PO 100 mg DAILY JOSE Administration Trazodone HCl 50 mg 05/21/18 05:12 Desyrel PO HS PRN Insomnia Past Psychiatric History - Past Psychiatric History Previous Treatment History: Inpatient At [facility]: [facility] Nature of Treatment: multiple admission Explanation of prior treatment: medication management History of Abuse: denied History of Family Illness: denied Pertinent Medical Hx (Current Medical&Sleep Prob, Allergies): Allergies Allergy/AdvReac Type Severity Reaction Status Date / Time No Known Allergies Allergy Verified 02/05/18 13:10 Review of Systems - Review of Systems All systems: reviewed and no additional remarkable complaints except (please see HPI) Mental Status Examination - Personal Presentation Personal Presentation: Looks stated age, Dressed appropriate to season - Affect Affect: Constricted - Motor Activity Motor Activity: Psychomotor Agitation - Reliability in Providing Information Reliability in Providing Information: Fair - Speech Speech: Organized - Mood Mood: Depressed, Anxious - Formal Thought Process Formal Thought Process: Paranoia - Hallucinations/Delusions Hallucinations: Other (denied) - Obsessions/Compulsions Obsessions: None Compulsions: None - Cognitive Functions Orientation: Person, Place, Situation, Time Sensorium: Alert Attention/Concentration: Easily distracted Abstract Thinking: [place] Estimate of Intelligence: Average Judgement: Imparied, as evidence by: Lack of insight into illness, Intact, as evidence by: Good judgement Memory: Recent intact, as evidence by: Ability to recall events of the day - Risk Risk: Suicidal, Withdrawal - Strength & Assets Inventory Strength & Assets Inventory: Family support, Cooperative - Limitations Limitations: Other (chronic mental illness and etoh drinking) DSM 5 DX - DSM 5 DSM 5 Diagnosis: Bipolar disorder mre depressed mood Alcohol use disorder, severe, dependence Alcohol withdrawal DM - Recommended/Plan of Treatment Treatment Recommendations and Plan of Treatment: Start Librium detox Start Prolixin 10 mg po HS Start prn meds Metformin for DM Multivitamin, folic acid, and Thiamine prn meds Supportive therapy Psychoeducation Individual and group therapy. Projected ELOS: 5-6 days Discharge Plan and Discharge Criteria: please see after care plan - Smoking Cessation Smoking Cessation Initiated: Yes
[2018-05-22] MEDS: Multiple Vitamins Tab PO SCH (09:35)
[2018-05-22] MEDS ORDERED: Glucagon Recombinant 1 mg Inj IM PRN (09:44)
[2018-05-22] MEDS ORDERED: Dextrose 50% SYRINGE Inj (50 ml) IV PRN (09:44)
--- NOTE | 2018-05-22 14:19 | PCM.PYCHPN ---
Psychiatric Progress Note - Psychiatric Progress Note Patient seen today, length of contact: 15 minutes Patient Chief Complaint: "I have etoh withdrawal symptoms" Problems Identified/Issues Discussed: Pt was seen and evaluated. Chart reviewed and nurse input received. Pt has medication seeking behavior. He stated that he had panic attacks and medication is not helping him and needs more medication. His symptoms are improving. However, he needs more time to stabilized. Pt is compliant with meds and denied s/e. He slept well and eating good. Medication Change: Yes Medical Record Reviewed: Yes Mental Status Examination - Cognitive Function Orientation: Person, Place, Situation, Time Decription of patient's judgement and insights: limited/limited - Mood Mood: Depressed, Anxious - Affect Affect: Constricted - Speech Speech: Appropriate, Loud - Formal Thought Process Formal Thought Process: Paranoia - Suicidal Ideation Suicidal Ideation: No Plan: denied - Homicidal Ideation Homicidal Ideation: No Plan: denied Goal/Treatment Plan - Goal/Treatment Plan Need for Continued Stay: Severe depression anxiety, Discharge may exacerbated symptoms Progress Toward Problem(s) and Goals/Treatment Plan: Continue Librium detox Prolixin 10 mg po HS prn meds Metformin for DM Multivitamin, folic acid, and Thiamine prn meds Supportive therapy Psychoeducation Individual and group therapy. - Smoking Cessation Smoking Cessation Initiated: Yes
[2018-05-22] MEDS: Pantoprazole 40 mg EC Tab PO SCH (16:43)
[2018-05-22] MEDS: (Lantus) Insulin Glargine, Recombinant SC SCH (21:08)
[2018-05-23] MEDS: Pantoprazole 40 mg EC Tab PO SCH (09:41)
[2018-05-23] MEDS: Multiple Vitamins Tab PO SCH (09:41)
[2018-05-23] MEDS ORDERED: Pneumococcal 23-Valent Vaccine IM ONE (10:00)
--- NOTE | 2018-05-23 14:22 | PCM.PYCHPN ---
Psychiatric Progress Note - Psychiatric Progress Note Patient seen today, length of contact: 15 minutes Patient Chief Complaint: " I feel anxious" Problems Identified/Issues Discussed: Patient seen and evaluated at bedside. Chart reviewed and case discussed with staff. Patient is compliant with medication with no adverse side effects. He states he still feels anxious. Symptoms are improving, however patient needs more time to stabilize. He is sleeping and eating well. As per nurse, patient only comes out of room for meals. Medication Change: Yes Medical Record Reviewed: Yes Mental Status Examination - Cognitive Function Orientation: Person, Place, Situation, Time - Mood Mood: Depressed, Anxious - Affect Affect: Constricted - Speech Speech: Appropriate, Loud - Formal Thought Process Formal Thought Process: No Impairment - Suicidal Ideation Suicidal Ideation: No Plan: denied - Homicidal Ideation Homicidal Ideation: No Goal/Treatment Plan - Goal/Treatment Plan Need for Continued Stay: Severe depression anxiety, Discharge may exacerbated symptoms Progress Toward Problem(s) and Goals/Treatment Plan: Bipolar disorder, depressed mood Atarax 25mg PO Q6 PRN Trazadone 50mg PO HS PRN Neurontin 300mg PO BID Alcohol use disorder Alcohol withdrawal Thiamine 100mg PO daily Multivitamin 1 tab PO daily Folic acid 1mg PO daily Librium 25mg PO Q6 Clonidine 0.1mg PO Q4 PRN DM Metformin 1000mg PO BID Lantus 40 units SC HS Case discussed with Dr. Nikolai Barragan, PGY1
[2018-05-23] MEDS ORDERED: Vitamins A & D Oint UD Foilpak TOP PRN (17:03)
[2018-05-23] MEDS: (Lantus) Insulin Glargine, Recombinant SC SCH (21:36)
[2018-05-24 06:37] VITALS: RESP 18
[2018-05-24] MEDS: Pantoprazole 40 mg EC Tab PO SCH (09:54)
[2018-05-24] MEDS: Multiple Vitamins Tab PO SCH (09:54)
--- NOTE | 2018-05-24 11:52 | PCM.PYCHPN ---
Psychiatric Progress Note - Psychiatric Progress Note Patient seen today, length of contact: 15 minutes Patient Chief Complaint: " I didn't sleep well last night" Problems Identified/Issues Discussed: Patient seen and evaluated at bedside. Chart reviewed and case discussed with staff. Patient is compliant with medication with no adverse side effects. He states he still feels anxious and depressed overall. He is unable to tell me what is making him anxious or depressed. He admits to having racing thoughts at [facility] about his life. He states he got very little sleep last night. He states he has a good appetite. He denies auditory or visual hallucinations. He denies current plan of harming self, but states he has had plans to harm himself in the past, including taking pills and jumping in front of a truck. He denies any plan to harm others. As per nursing staff, patient mostly remains in his room except for meals. Symptoms are improving, however patient needs more time to stabilize. Medication Change: Yes Medical Record Reviewed: Yes Mental Status Examination - Cognitive Function Orientation: Person, Place, Situation, Time - Mood Mood: Depressed, Anxious - Affect Affect: Constricted - Speech Speech: Appropriate, Loud - Formal Thought Process Formal Thought Process: No Impairment - Suicidal Ideation Suicidal Ideation: No Plan: has had plans in the past - by overdosing on pills and jumping in front of truck - Homicidal Ideation Homicidal Ideation: No Goal/Treatment Plan - Goal/Treatment Plan Need for Continued Stay: Severe depression anxiety, Discharge may exacerbated symptoms Progress Toward Problem(s) and Goals/Treatment Plan: Bipolar disorder, depressed mood Atarax 25mg PO Q6 PRN Trazadone 50mg PO HS PRN Neurontin 300mg PO BID Seroquel 100mg PO HS Alcohol use disorder Alcohol withdrawal Thiamine 100mg PO daily Multivitamin 1 tab PO daily Folic acid 1mg PO daily Librium 25mg PO Q8 JOSE Librium 25mg Q4 PRN Clonidine 0.1mg PO Q4 PRN DM Metformin 1000mg PO BID Lantus 40 units SC HS Case discussed with Dr. Nikolai Barragan, PGY1
--- NOTE | 2018-05-24 15:16 | CARD ---
APPROVED REPORT Date of service: 05/20/2018 EKG Measurement Heart [id number] <Conclusion> Normal sinus rhythm Inferior infarct, age undetermined Possible Anterior infarct, age undetermined Abnormal ECG
[2018-05-24] MEDS ORDERED: TRIFLUOPERAZINE 1 MG PO STA (20:53)
[2018-05-24] MEDS: (Lantus) Insulin Glargine, Recombinant SC SCH (21:26)
[2018-05-25] MEDS: Multiple Vitamins Tab PO SCH (10:09)
[2018-05-25] MEDS: Pantoprazole 40 mg EC Tab PO SCH (10:10)
--- NOTE | 2018-05-25 11:48 | PCM.PYCHPN ---
Psychiatric Progress Note - Psychiatric Progress Note Patient seen today, length of contact: 15 minutes Patient Chief Complaint: " I'm feeling a little better" Problems Identified/Issues Discussed: Patient seen and evaluated at bedside. Chart reviewed and case discussed with nursing staff. He states he still feels a little anxious and depressed. He states that he usually stays up until 10pm and then goes to bed. He states he has not slept well but has been eating well without any issues. Patient is compliant with medications, without adverse side effects. He denies hearing any voices or seeing strange things. He denies any thoughts of harming himself or harming others. He states he has taken Stelazine in the past, which has helped him. Patient was made aware that Stelazine was not available in the hospital. Patient 's symptoms continue to improve, however patient needs more time to stabilize. Medication Change: Yes Medical Record Reviewed: Yes Mental Status Examination - Cognitive Function Orientation: Person, Place, Situation, Time Memory: Intact Attention: WNL Concentration: WNL Association: WNL - Mood Mood: Depressed, Anxious - Affect Affect: Constricted - Speech Speech: Appropriate - Formal Thought Process Formal Thought Process: No Impairment - Suicidal Ideation Suicidal Ideation: No - Homicidal Ideation Homicidal Ideation: No Goal/Treatment Plan - Goal/Treatment Plan Need for Continued Stay: Severe depression anxiety, Discharge may exacerbated symptoms Progress Toward Problem(s) and Goals/Treatment Plan: Bipolar disorder, depressed mood Atarax 25mg PO Q6 PRN Trazadone 50mg PO HS PRN Neurontin 300mg PO BID Seroquel 100mg PO HS Prolixin 5mg PO BID Alcohol use disorder Alcohol withdrawal Thiamine 100mg PO daily Multivitamin 1 tab PO daily Folic acid 1mg PO daily Librium 25mg PO Q8 JOSE Librium 25mg Q4 PRN Clonidine 0.1mg PO Q4 PRN DM Metformin 1000mg PO BID Lantus 40 units SC HS Case discussed with Dr. Nikolai Barragan, PGY1
[2018-05-25] MEDS: (Lantus) Insulin Glargine, Recombinant SC SCH (22:07)
[2018-05-26] MEDS: Pantoprazole 40 mg EC Tab PO SCH (09:58)
[2018-05-26] MEDS: Multiple Vitamins Tab PO SCH (09:59)
--- NOTE | 2018-05-26 16:57 | CP.PCM.PCO ---
Physician Communication Note - Physician Communication Note Physician Communication Note: Pt POC today in AM was 412 mg/dl
[2018-05-26] MEDS: (Lantus) Insulin Glargine, Recombinant SC SCH (21:40)
--- NOTE | 2018-05-27 01:05 | PCM.PYCHPN ---
Psychiatric Progress Note - Psychiatric Progress Note Patient seen today, length of contact: 15 minutes Patient Chief Complaint: i m feeling little better Medication Change: Yes Medical Record Reviewed: Yes Mental Status Examination - Cognitive Function Orientation: Person, Place, Situation, Time Memory: Intact Attention: WNL Concentration: WNL Association: WNL - Mood Mood: Depressed, Anxious - Affect Affect: Constricted - Speech Speech: Appropriate - Formal Thought Process Formal Thought Process: No Impairment - Suicidal Ideation Suicidal Ideation: No - Homicidal Ideation Homicidal Ideation: No Goal/Treatment Plan - Goal/Treatment Plan Need for Continued Stay: Severe depression anxiety, Discharge may exacerbated symptoms
[2018-05-27 06:35] VITALS: BP 100/71; PULSE 81; TEMP 97.7
[2018-05-27] MEDS: Multiple Vitamins Tab PO SCH (09:45)
[2018-05-27] MEDS: Pantoprazole 40 mg EC Tab PO SCH (09:46)
--- NOTE | 2018-05-27 10:43 | PCM.PYCHDC ---
Mental Status Examination - Mental Status Examination Orientation: Person, Place, Situation, Time Memory: Intact Mood: Neutral Affect: Constricted Speech: Soft Attention: WNL Concentration: WNL Association: WNL Fund of Knowledge: WNL Formal Thought Process: No Impairment Description of patient's judgement and insight: good, fair Psychotic Thoughts and Behaviors: denies any AVH Suicidal Ideation: No Current Homicidal Ideation?: No Discharge Summary - Discharge Note Reason for Hospitalization: Pt is a 52 year old male admitted for worsening of depression and etoh drinking problem. Pt has psychiatric diagnosis of Bipolar disorder, ? dementia. Pt has medical history of COPD, sleep apnea, high cholesterol, gastritis, hx of pneumonia. However, he denied using CPAP machine. Pt has a significant history of psychiatric admissions to multiple facilities with last being at [facility] on their yong unit from 02/05/18-02/09/18 for depression, S/ I and alcohol abuse. Pt's BAL of 360. Pt is poor historian and minimize his etoh and substance abuse problem. Pt reports he is currently suicidal with a plan to overdose on pills. Pt reports three prior suicide attempts with most recent being an overdose. Pt's was concerned about pt's drinking habit. He stated that he drinks Vodka 2-3 pint daily for many days. +ve CAGE questionnaire. Pt stated he had alcohol withdrawal symptoms ranging from nausea , headache, hot and cold flashes, seizure, anxiety, denied AH, VH. Pt could not elaborate on the last time a seizure has occurred. In the ER he had thoughts of wanting to hurt himself with a plan. Pt reports to this bond underwriter having been very anxious and in order to alleviate his anxiety pt kept drinking. Pt reports having been to detox at [place] and [facility] and per [facility] notes pt also was in rehab at [facility]. Pt also postive for cocaine in which pt states last use being 2 days ago. Pt minimizes cocaine use stating he uses it "every now and then" and that his friend turned him onto it. Pt reports depressed mood, insomnia, low appetite. Per , pt was diagnosed with dementia a year ago and is concerned over his safety as he will leave the stove on. Pt also tends to answer questions with " I dont know". Pt denies current outpt tx but would like to f/u with psychiatrist Dr. Ellis. Pt has been compliant with meds: neurontin 400mg po tid, seroquel 300mg po hs and old prescription of prolixin 10mg po HS Psychiatric History (includes Medical, Family, Personal Hx): multiple admission Laboratory Data: Abnormal Lab Results 05/26/18 05/26/18 05/26/18 07:36 11:26 16:04 POC Glucose (mg/dL) 272 H 412 H* 231 H 05/26/18 05/27/18 20:03 07:36 POC Glucose (mg/dL) 332 H 378 H Consultations:: List each consultation separately and include: 1. Reason for request. 2. Findings. 3. Follow-up Summary of Hospital Course include:: 1. Description of specific treatment plan utilized for patients during their course of treatmen. 2. Summarize the time- course for resolution of acute symptoms and/or regressed behaviors. 3. Describe issues identified and worked on during hospitalization. 4. Describe medication utilized. 5. Describe medical problems identified and treated. 6. Reassessment of suicide risk - Final Diagnosis (DSM 5) Condition upon Discharge: FAIR DSM 5: Bipolar disorder mre depressed mood Alcohol use disorder, severe, dependence Alcohol withdrawal Disposition: HOME/ ROUTINE Prescriptions/Medication Reconciliation: Gabapentin [Neurontin] 300 mg PO BID #60 cap QUEtiapine [SEROquel] 200 mg PO HS #30 tab traZODone [Desyrel] 50 mg PO HS PRN #30 tab PRN Reason: Insomnia Ziprasidone [Geodon Cap] 40 mg PO BID #60 cap
== END 2018-05-27 12:10 | disposition home or self-care (01) | DRG 885 ==
LOC: C.ER 19:08 → C.5E 05-21 05:03 → UNDOADMIN 05-21 05:03
PROVIDERS: ADMIT Psychiatry & Neurology Psychiatry; ATTEND Psychiatry & Neurology Psychiatry
PROC: GZHZZZZ Group Psychotherapy (ICD-10-PCS; principal; 2018-05-21)
PROC: GZ56ZZZ Individual Psychotherapy, Supportive (ICD-10-PCS; 2018-05-21)
DX: F31.9 Bipolar disorder, unspecified (principal); F10.230 Alcohol dependence with withdrawal, uncomplicated; F10.220 Alcohol dependence with intoxication, uncomplicated; F14.10 Cocaine abuse, uncomplicated; Y90.8 Blood alcohol level of 240 mg/100 ml or more; F03.90 Unspecified dementia, unspecified severity, without behavioral disturbance, psychotic disturbance, mood disturbance, and anxiety; F17.200 Nicotine dependence, unspecified, uncomplicated; F41.0 Panic disorder [episodic paroxysmal anxiety]; G47.00 Insomnia, unspecified; G47.30 Sleep apnea, unspecified; E11.9 Type 2 diabetes mellitus without complications; I10 Essential (primary) hypertension; J44.9 Chronic obstructive pulmonary disease, unspecified; Z79.4 Long term (current) use of insulin

== ENCOUNTER 2018-07-19 21:36 | Emergency (ER) | payer BC ==
[2018-07-19 21:36] VITALS: BMI 33.5
--- NOTE | 2018-07-19 22:09 | C.PDOC ---
History Of Present Illness Patient presents to the ER stating he has been drinking all night and is requesting a place to spend the night. Patient now denies chest pain, palpitations, or SOB. Time Seen by Provider: 07/19/18 22:08 Chief Complaint (Nursing): Chest Pain History Per: Patient History/Exam Limitations: no limitations Onset/Duration Of Symptoms: Hrs Current Symptoms Are (Timing): Still Present Severity: None Pain Scale Rating Of: 0 Recent travel outside of the [place]: No Past Medical History Reviewed: Historical Data, Nursing Documentation, Vital Signs Vital Signs: Last Vital Signs Temp 98.3 F 07/19/18 21:48 Pulse 89 07/20/18 04:45 Resp 17 07/20/18 04:45 BP 118/66 07/20/18 04:45 Pulse Ox 96 07/20/18 04:45 - Medical History PMH: Anxiety, Bipolar Disorder, COPD, Depression, Diabetes, Fractures, Gastritis, HTN, Hypercholesterolemia, Pneumonia, Seizures (ETOH related), Sleep Apnea (uses CPAP at home) Denies: Hepatitis, HIV, Chronic Kidney Disease, Sexually Transmitted Disease Surgical History: Tonsillect[facility] (as a child) [facility] Procedures ALCOHOL DETOXIFICATION (10/07/13) DETOXIFICATION SERVICES FOR SUBSTANCE ABUSE TREATMENT (07/11/18) EXCISION OF LARGE INTESTINE, ENDO, DIAGN (09/01/17) EXCISION OF SMALL INTESTINE, ENDO, DIAGN (09/01/17) GROUP CERTIFIED COURT/MEDICAL INTERPRETER FOR SUBSTANCE ABUSE TREATMENT, PSYCHOEDUCATION (11/03/17) GROUP CERTIFIED COURT/MEDICAL INTERPRETER FOR SUBSTANCE ABUSE, COGNITIVE BEHAVIORAL (11/03/17) GROUP PSYCHOTHERAPY (05/21/18) INDIV PSYCHOTHERAPY FOR SUBSTANCE ABUSE TREATMENT, SUPPORT (11/03/17) INDIV PSYCHOTHERAPY FOR SUBSTANCE ABUSE, COGNITIV BEHAVIORAL (11/03/17) INDIV PSYCHOTHERAPY FOR SUBSTANCE ABUSE, PSYCHOEDUCATION (02/05/18) INDIVIDUAL PSYCHOTHERAPY, SUPPORTIVE (05/21/18) MEDICATION MANAGEMENT (01/18/17) Family History: States: No Known Family Hx - Social History Hx Tobacco Use: Yes Hx Alcohol Use: Yes (daily use of ETOH) Hx Substance Use: No - Immunization History Hx Tetanus Toxoid Vaccination: No Hx Influenza Vaccination: No Hx Pneumococcal Vaccination: No Review Of Systems Constitutional: Negative for: Fever, Chills Cardiovascular: Negative for: Chest Pain, Palpitations Respiratory: Negative for: Cough, Shortness of Breath Gastrointestinal: Negative for: Nausea, Vomiting Neurological: Negative for: Weakness, Numbness Physical Exam - Physical Exam Appears: Non-toxic, Other (Obese, no sign of injury) Skin: Warm, Dry Head: Normacephalic Oral Mucosa: Moist Chest: Symmetrical, No Tenderness Cardiovascular: Rhythm Regular Respiratory: No Rales, No Rhonchi, No Wheezing Gastrointestinal/Abdominal: Bowel Sounds (Active), Soft, No Tenderness Extremity: Other (Peeling skin to left leg) Neurological/Psych: Oriented x3 ED Course And Treatment O2 Sat by Pulse Oximetry: 98 (Room air) Pulse Ox Interpretation: Normal Reevaluation Time: 05:22 Reassessment Condition: Improved Disposition Counseled Patient/Family Regarding: Studies Performed, Diagnosis, Need For Followup - Disposition Referrals: Dewey Abdullahi MD [IM] - Disposition: HOME/ ROUTINE Disposition Time: 22:09 Condition: FAIR Instructions: Alcohol Abuse and Alcoholism (DC) Forms: [facility] [facility] (Romansh) - Clinical Impression Clinical Impression: Alcohol dependence, Alcohol intoxication - Scribe Statement The provider has reviewed the documentation as recorded by the Scribyohana Abdullahi All medical record entries made by the Scribe were at my direction and personally dictated by me. I have reviewed the chart and agree that the record accurately reflects my personal performance of the history, physical exam, medical decision making, and the department course for this patient. I have also personally directed, reviewed, and agree with the discharge instructions and disposition.
[2018-07-20 04:45] VITALS: RESP 17
[2018-07-20 05:40] VITALS: BP 107/69; PULSE 88; TEMP 98.1; O2SAT 96
--- NOTE | 2018-07-20 11:38 | CARD ---
APPROVED REPORT Date of service: 07/19/2018 EKG Measurement Heart [id number] <Conclusion> Normal sinus rhythm Cannot rule out Anterior infarct, age undetermined Abnormal ECG
== END 2018-07-20 05:49 | disposition home or self-care (01) ==
LOC: C.ER 21:36
DX: F10.229 Alcohol dependence with intoxication, unspecified (principal); Y90.9 Presence of alcohol in blood, level not specified

== ENCOUNTER 2018-07-27 11:11 | Inpatient (IN) | payer BC ==
[2018-07-27 11:11] VITALS: BMI 33.5
--- NOTE | 2018-07-27 11:39 | C.PDOC ---
History Of Present Illness 52-year-old male presents to the emergency department with complaints of feeling depressed and suicidal without specific plan. He also admits to drinking alcohol- drank half-pint of Vodka this morning. Patient denies any physical complaints. Time Seen by Provider: 07/27/18 11:21 Chief Complaint (Nursing): Psychiatric Evaluation History Per: Patient History/Exam Limitations: other (rambling, has difficulty focusing) Onset/Duration Of Symptoms: Unknown Modifying Factor(s): Alcohol Severity: Moderate Past Medical History Reviewed: Historical Data, Nursing Documentation, Vital Signs Vital Signs: Last Vital Signs Temp 98.5 F 07/27/18 11:14 Pulse 90 07/27/18 11:14 Resp 20 07/27/18 11:14 BP 112/72 07/27/18 11:14 Pulse Ox 98 07/27/18 11:14 - Medical History PMH: Anxiety, Bipolar Disorder, COPD, Depression, Diabetes, Fractures, Gastritis, HTN, Hypercholesterolemia, Pneumonia, Seizures (ETOH related), Sleep Apnea (uses CPAP at home) Denies: Sexually Transmitted Disease Surgical History: Tonsillectomy (as a child) - [facility] Procedures ALCOHOL DETOXIFICATION (10/07/13) DETOXIFICATION SERVICES FOR SUBSTANCE ABUSE TREATMENT (07/11/18) EXCISION OF LARGE INTESTINE, ENDO, DIAGN (09/01/17) EXCISION OF SMALL INTESTINE, ENDO, DIAGN (09/01/17) GROUP CONTROL SYSTEMS DESIGNER FOR SUBSTANCE ABUSE TREATMENT, PSYCHOEDUCATION (11/03/17) GROUP CONTROL SYSTEMS DESIGNER FOR SUBSTANCE ABUSE, COGNITIVE BEHAVIORAL (11/03/17) GROUP PSYCHOTHERAPY (05/21/18) INDIV PSYCHOTHERAPY FOR SUBSTANCE ABUSE TREATMENT, SUPPORT (11/03/17) INDIV PSYCHOTHERAPY FOR SUBSTANCE ABUSE, COGNITIV BEHAVIORAL (11/03/17) INDIV PSYCHOTHERAPY FOR SUBSTANCE ABUSE, PSYCHOEDUCATION (02/05/18) INDIVIDUAL PSYCHOTHERAPY, SUPPORTIVE (05/21/18) MEDICATION MANAGEMENT (01/18/17) Family History: States: No Known Family Hx - Social History Hx Tobacco Use: Yes Hx Alcohol Use: Yes (daily use of ETOH) Hx Substance Use: No - Immunization History Hx Tetanus Toxoid Vaccination: No Hx Influenza Vaccination: No Hx Pneumococcal Vaccination: No Review Of Systems Constitutional: Negative for: Fever, Chills Cardiovascular: Negative for: Chest Pain Respiratory: Negative for: Shortness of Breath Gastrointestinal: Negative for: Nausea, Vomiting, Abdominal Pain Psych: Positive for: Depression, Suicidal ideation, Other (alcohol intoxication). Negative for: Psychosis Physical Exam - Physical Exam Appears: Well, Non-toxic, Other (appears intoxicarted, mildly agitated, difficulty focusing) Skin: Normal Color, Warm, Dry, No Rash Head: Atraumatic, Normacephalic Eye(s): bilateral: Normal Inspection Oral Mucosa: Moist Cardiovascular: Rhythm Regular Respiratory: Normal Breath Sounds, No Rales, No Rhonchi, No Wheezing Gastrointestinal/Abdominal: Normal Exam, Bowel Sounds, Soft, No Tenderness Extremity: Normal ROM Neurological/Psych: Other (intoxicated, moving all 4 extremities spontaneously) ED Course And Treatment - Laboratory Results Result Diagrams: 07/27/18 11:57 07/27/18 11:57 O2 Sat by Pulse Oximetry: 98 (RA) Pulse Ox Interpretation: Normal Progress Note: Bloodwork , UA, UDS ordered and reviewed. ETOH 206 at 11:57. Patient pending sobriety. Disposition - Disposition Disposition: HOME/ ROUTINE Disposition Time: 13:00 Condition: STABLE Forms: [employer] [facility] (Japanese) - Clinical Impression Clinical Impression: Depression, Alcohol intoxication - Scribe Statement The provider has reviewed the documentation as recorded by the Scribe (Asad Berry) All medical record entries made by the Scribe were at my direction and personally dictated by me. I have reviewed the chart and agree that the record accurately reflects my personal performance of the history, physical exam, medical decision making, and the department course for this patient. I have also personally directed, reviewed, and agree with the discharge instructions and disposition. Physician Patient Turnover Patient Signed Over To: Lala Sepulveda Handoff Comments: pending sobriety, crisis eval
[2018-07-27 12:02] LABS: BASO % 0.4 % (0.0-2.0); EOS # 0.1 K/uL (0.0-0.7); EOS % 0.7 % (0.0-4.0); HEMOGLOBIN 14.9 g/dL (12.0-18.0); LYMPH # 1.7 K/uL (1.0-4.3); LYMPH % 24.7 % (20.0-40.0); MEAN CELL VOLUME 91.5 fL (80.0-94.0); MEAN CORPUSCULAR HEMOGLOBIN 30.9 pg (27.0-31.0); MEAN CORPUSCULAR HGB CONC 33.8 g/dL (33.0-37.0); MEAN PLATELET VOLUME 8.3 fL (7.2-11.7); MONO # 0.7 K/uL (0.0-0.8); MONO % 9.7 % (0.0-10.0); NEUT # 4.5 K/uL (1.8-7.0); NEUT % 64.5 % (50.0-75.0); RBC 4.82 Mil/uL (4.40-5.90); RED CELL DISTRIBUTION WIDTH 15.4 % (11.5-14.5); WHITE BLOOD COUNT 6.9 K/uL (4.8-10.8)
[2018-07-27 12:18] LABS: URINE BILIRUBIN NEGATIVE (NEGATIVE); URINE BLOOD NEGATIVE (NEGATIVE); URINE CLARITY Clear (Clear); URINE COLOR Colorless (YELLOW); URINE GLUCOSE (UA) NORMAL (Normal); URINE LEUKOCYTE ESTERASE NEG Leu/uL (Negative); URINE PROTEIN NEGATIVE (NEGATIVE); URINE UROBILINOGEN NORMAL mg/dL (0.2-1.0)
[2018-07-27 12:21] LABS: ALB/GLOB RATIO 1.7 (1.0-2.1); ALBUMIN 4.5 g/dL (3.5-5.0); ALT/SGPT 87 U/L (21-72); AST/SGOT 54 U/L (17-59); BLOOD UREA NITROGEN 15 mg/dL (9-20); CALCIUM 9.9 mg/dl (8.6-10.4); GFR NON-AFRICAN AMERICAN > 60
[2018-07-27 12:40] LABS: BARBITURATES, UR NEGATIVE (NEGATIVE); BENZODIAZEPINES, UR NEGATIVE (NEGATIVE); OPIATES, UR NEGATIVE (NEGATIVE); PHENCYCLIDINE, UR NEGATIVE (NEGATIVE)
[2018-07-27] MEDS ORDERED: Aluminum Hydroxide/Magnesium Hydroxide Susp (30 mL) PO STA (17:38)
[2018-07-27] MEDS ORDERED: Aluminum Hydroxide/Magnesium Hydroxide Susp (30 mL) ONE (17:43)
--- NOTE | 2018-07-27 17:53 | PCM.BM ---
<Sav Nguyễn - Last Filed: 07/27/18 17:51> Treatment Plan Problems - Problems identified on initial assessmt Depression Date Initiated: 07/27/18 Time Initiated: 17:51 Assessment reference: NA Status: Active Substance Abuse Date Initiated: 07/27/18 Time Initiated: 17:51 Assessment reference: NA Status: Active Treatment assets and liabiliti Patient Assests: good support system, financial stabiity, cooperative, self- reliant, ADL independent Patient Liabilities: dietary restrictions (HTN, Diabetic), substance abuse (Alcohol, Cocaine), medical problems (HTN, Diabetes), imparied memory (Dementia) - Milieu Protocol Maintain good personal hygiene: daily Encourage regular showers, daily Remind patient to perform daily oral care, every shift Assist patient to perform ADL's Conduct patient checks and document Observation sheet: Q15 minutes (For safety) Maintain personal safety: every shift Educate patient to report safety concerns to staff, every shift Monitor environment for contraband/sharps Medication safety: Monitor for expected outcome, potential side effects: every shift, Assess barriers to learning: every shift, Assess readiness for medication education: every shift <Moisés Menchaca - Last Filed: 07/29/18 11:10> - Diagnosis (1) Schizo affective schizophrenia Status: Acute Interventions: 07/29/18 11:10 * Assess/adjust medications daily and /or as needed * See patient on an individual basis 7x/week to assess level of manic behaviors and stability * Discuss risks, benefits, side effects and alternatives of medications * (2) Alcohol dependence Status: Acute Interventions: 07/29/18 11:10 * Assess 7x/week regarding severity of withdrawal * Educate regarding risks, benefits, side effects and alternatives of medication s * Use Motivational Interviewing for abstinence * Use CBT for relapse prevention * Medication management for withdrawal symptoms * Encourage medication assisted treatment * <Ruchi Lee - Last Filed: 07/29/18 15:23> Family Contact Family involvement: Family/SO is involved Family contact: Patient agrees to contact, Family has been contacted by patient - Goals for Treatment Patient goals for treatment: "I want to go to [facility] for ECT." Discharge/Continuing Care - Education Needs Education Needs: Patient Medication, Patient Diagnosis/Disease Process, Patient Coping Skills, Patient Placement options, Patient Community resources - Discharge Discharge Criteria: Free of Suicidal thoughts, Free of agitation, Normal sleep pattern, Ability to care for self, No longer exhibiting s/s of withdrawal, Reduction of target symptoms Discharge to:: Home, With Family - Treatment Team Participation Discussed with Family/SO: No Was Patient/Family/SO present at Treatment Team Meeting: Yes
[2018-07-27] MEDS: (Lantus) Insulin Glargine, Recombinant SC SCH (21:36)
[2018-07-28 06:54] VITALS: O2SAT 95
--- NOTE | 2018-07-28 14:34 | PCM.PSYCH ---
Addendum entered and electronically signed by Moisés Menchaca MD 07/29/18 06:34: Pt seen and evaluated. Agree with the findings of the resident. Dx: Schizoaffective disorder Bipolar type Original Note: Initial Psychiatric Evaluation - Initial Psychiatric Evaluation Type of Admission: Voluntary Legal Status: Capacity Chief Complaint (in patient's own words): "I need this program." History of Present Illness and Precipitating Events: Patient seen, chart reviewed, case discussed. He is well known us from previous admissions. Patient is a 52 year old male who presented to [facility] today for an intentional OD of taking his Atenolol pills and drinking 2 pts of vodka in his home today. Pt reported of being dx with depression and anxiety and takes Seroquel 300mg and another psych med he does not know. Pt has a hx of S/I and has a hx of being admitted for inpatient psych. As per [place] [facility], "Pt has medical and psych hx with us, he was admitted last year March for Alcohol and Cocaine induced with Schizoaffective Bipolar, he was admitted in January 2018 for S/I through mobile crisis, he was referred by his and JC, he was displaying aggressive behavior towards his and stated he wanted to punch the marble coper in his face, he had a long dye box operator knife by the kitchen table, he has a hx of depression; pt was admitted invol also in January of this year and was d/c in February, he was admitted again in March for the same presenting problems and admitted again later in March through mobile crisis; pt was then seen in our ER for medical. Pt reported of currently having suicidal thoughts. Pt denied H/I and AVT hallucinations. Pt reported of not going to his OP appointments and stated he will call to see him. Pt reported of drinking 1 to 2 pts of vodka on a daily, pt denies any other substances. Pt has a hx of seizures, alcohol induced. Pt reported of having HTN, diabetes and high cholesterol, pt reported of taking his meds and seeing his PCP on a regular, pt does not remember the name of his meds. Pt denies any hx of abuse and reported his dad being an alcoholic. Pt reported of his son being his support system. Pt was cooperative; affect was appropriate and was alert. Current Medications: Active Medications Generic Name Dose Route Start Last Admin Trade Name Freq PRN Reason Stop Dose Admin Chlordiazepoxide 50 mg 07/27/18 20:26 Librium PO Q6 PRN Symptoms of alcohol withdrawl Gabapentin 300 mg 07/28/18 10:00 07/28/18 11:23 Neurontin PO 300 mg BID JOSE Administration Glipizide 10 mg 07/28/18 10:00 07/28/18 11:21 Glucotrol PO 10 mg DAILY JOSE Administration Influenza Virus Vaccine 60 mcg 07/29/18 10:00 Fluzone Quad [id number] IM 07/29/18 10:01 .ONCE ONE Insulin Glargine 40 unit 07/27/18 22:00 07/27/18 21:36 Lantus SC 40 units HS JOSE Administration Metformin HCl 1,000 mg 07/28/18 10:00 07/28/18 11:21 Glucophage PO 1,000 mg BID JOSE Administration Quetiapine Fumarate 300 mg 07/27/18 22:00 07/27/18 21:36 Seroquel PO 300 mg HS JOSE Administration Past Psychiatric History - Past Psychiatric History Pertinent Medical Hx (Current Medical&Sleep Prob, Allergies): Allergies Allergy/AdvReac Type Severity Reaction Status Date / Time No Known Allergies Allergy Verified 07/27/18 11:15 Atenolol 10 mg PO BID 07/11/18 Lantus 45 units SQ DAILY 07/11/18 MetFORMIN 1,000 mg PO BID 07/11/18 Simvastatin 40 mg PO DAILY 07/11/18 QUEtiapine [Seroquel] 300 mg PO HS #30 tab 07/15/18 Ziprasidone [Geodon Cap] 80 mg PO BID #60 cap 07/15/18 Review of Systems - Psychiatric Psychiatric: Abnormal Sleep Pattern, Confusion, Depression, Hopelessness, Paranoia, Suicidal Ideation. absent: Auditory Hallucinations, Hallucinations, Homicidal Ideation, Visual Hallucinations Mental Status Examination - Personal Presentation Personal Presentation: Looks older than stated age - Affect Affect: Constricted, Blunted - Motor Activity Motor Activity: Calm - Reliability in Providing Information Reliability in Providing Information: Fair - Speech Speech: Disorganized - Mood Mood: Depressed, Anxious - Formal Thought Process Formal Thought Process: No Impairment - Cognitive Functions Orientation: Person, Place, Situation, Time Sensorium: Alert Attention/Concentration: Easily distracted Abstract Thinking: [place]in Estimate of Intelligence: Average Judgement: Intact, as evidence by: Insight regarding need for hospitalization Memory: Recent impaired, as evidence by: Inability to recall events of the day, Remote impaired as evidenced by: Inability to recall sig life events - Risk Risk: Suicidal, Withdrawal DSM 5 DX - DSM 5 DSM 5 Diagnosis: Bipolar disorder, depressive type Alcohol use disorder - severe Alcohol withdrawal - Recommended/Plan of Treatment Treatment Recommendations and Plan of Treatment: Librium detox Seroquel Start prn meds Metformin for DM Multivitamin, folic acid, and Thiamine Supportive therapy Psychoeducation Individual and group therapy. 34 min Projected ELOS: 5 days - Smoking Cessation Smoking Cessation Initiated: No
[2018-07-28] MEDS: Pantoprazole 40 mg EC Tab PO SCH (19:16)
[2018-07-28] MEDS: (Lantus) Insulin Glargine, Recombinant SC SCH (21:48)
[2018-07-29] MEDS ORDERED: Influenza Vaccine 60 MCG/0.5 ML SYR (3 yr & up) IM ONE (10:00)
[2018-07-29] MEDS ORDERED: Pneumococcal 23-Valent Vaccine IM ONE (10:00)
[2018-07-29] MEDS: Pantoprazole 40 mg EC Tab PO SCH (10:27)
[2018-07-29] MEDS: Multiple Vitamins Tab PO SCH (10:34)
--- NOTE | 2018-07-29 11:09 | PCM.PYCHPN ---
Psychiatric Progress Note - Psychiatric Progress Note Patient seen today, length of contact: 15 min Patient Chief Complaint: I am feeling depressed.' Problems Identified/Issues Discussed: Patient seen and evaluated, chart reviewed and discussed with the nurse. Pt reports depressed mood, and reports feelings of hopelessness and helplessness. He still reports irritability and agitation. Pt remained disorganized and internally preoccupied. He remained isolated and withdrawn, and confined to his room. He reports auditory hallucinations, and paranoia. Patient is compliant with medications and denies any side effects. Symptoms are improving but pt needs more time to stabilize. Support and psychoeducation given. Medication Change: Yes Medical Record Reviewed: Yes Mental Status Examination - Cognitive Function Orientation: Person, Place, Situation, Time Memory: Intact Attention: WNL Concentration: Poor Association: WNL Fund of Knowledge: Poor - Mood Mood: Depressed, Anxious - Affect Affect: Constricted, Blunted - Speech Speech: Soft - Formal Thought Process Formal Thought Process: No Impairment - Suicidal Ideation Suicidal Ideation: No - Homicidal Ideation Homicidal Ideation: No Goal/Treatment Plan - Goal/Treatment Plan Need for Continued Stay: Severe depression anxiety, Severe functional impairment Progress Toward Problem(s) and Goals/Treatment Plan: Bipolar disorder, depressive type Alcohol use disorder - severe Alcohol withdrawal Librium detox Seroquel Start prn meds Metformin for DM Multivitamin, folic acid, and Thiamine Supportive therapy Psychoeducation Individual and group therapy. - Smoking Cessation Smoking Cessation Initiated: No
[2018-07-29] MEDS: (Lantus) Insulin Glargine, Recombinant SC SCH (21:05)
[2018-07-30] MEDS: Pantoprazole 40 mg EC Tab PO SCH (09:51)
[2018-07-30] MEDS: Multiple Vitamins Tab PO SCH (09:51)
[2018-07-30] MEDS: (Lantus) Insulin Glargine, Recombinant SC SCH (21:55)
[2018-07-31] MEDS: Pantoprazole 40 mg EC Tab PO SCH (10:26)
[2018-07-31] MEDS: Multiple Vitamins Tab PO SCH (10:26)
[2018-07-31] MEDS: (Lantus) Insulin Glargine, Recombinant SC SCH (22:27)
[2018-08-01] MEDS: Multiple Vitamins Tab PO SCH (10:32)
[2018-08-01] MEDS: Pantoprazole 40 mg EC Tab PO SCH (10:32)
--- NOTE | 2018-08-01 21:38 | PCM.PYCHPN ---
Psychiatric Progress Note - Psychiatric Progress Note Patient seen today, length of contact: 15 min Patient Chief Complaint: I am feeling depressed.' Problems Identified/Issues Discussed: Patient seen and evaluated, chart reviewed and discussed with the nurse. Pt repo rts depressed mood, and reports feelings of hopelessness and helplessness. He still reports irritability and agitation. Pt remained disorganized and internally preoccupied. He remained isolated and withdrawn, and confined to his room. Patient reports of withdrawal symptoms including abdominal cramps, anxiety, headaches and sweating. He reports auditory hallucinations, and paranoia. Patient is compliant with medications and denies any side effects. Symptoms are improving but pt needs more time to stabilize. Support and psychoeducation given. Medication Change: Yes Medical Record Reviewed: Yes Mental Status Examination - Cognitive Function Orientation: Person, Place, Situation, Time Memory: Intact Attention: WNL Concentration: Poor Association: WNL Fund of Knowledge: Poor - Mood Mood: Depressed, Anxious - Affect Affect: Constricted, Blunted - Speech Speech: Soft - Formal Thought Process Formal Thought Process: No Impairment - Suicidal Ideation Suicidal Ideation: No - Homicidal Ideation Homicidal Ideation: No Goal/Treatment Plan - Goal/Treatment Plan Need for Continued Stay: Severe depression anxiety, Severe functional impairment Progress Toward Problem(s) and Goals/Treatment Plan: Bipolar disorder, depressive type Alcohol use disorder - severe Alcohol withdrawal Ativan detox Seroquel Start Geodon prn meds Metformin for DM Multivitamin, folic acid, and Thiamine Supportive therapy Psychoeducation Individual and group therapy. - Smoking Cessation Smoking Cessation Initiated: No
--- NOTE | 2018-08-01 21:40 | PCM.PYCHPN ---
Psychiatric Progress Note - Psychiatric Progress Note Patient seen today, length of contact: 15 min Patient Chief Complaint: I am feeling depressed.' Problems Identified/Issues Discussed: Patient seen and evaluated, chart reviewed and discussed with the nurse. Per staff, he reports irritability and agitation. He appears somewhat more organized but remained internally preoccupied. He reports depressed mood, and reports feelings of hopelessness and helplessness. He remained isolated and withdrawn, and confined to his room. Patient reports of withdrawal symptoms including abdominal cramps, anxiety, headaches and sweating. He reports auditory hallucinations, and paranoia. Patient is compliant with medications and denies any side effects. Symptoms are improving but pt needs more time to stabilize. Support and psychoeducation given. Medication Change: Yes Medical Record Reviewed: Yes Mental Status Examination - Cognitive Function Orientation: Person, Place, Situation, Time Memory: Intact Attention: WNL Concentration: Poor Association: WNL Fund of Knowledge: Poor - Mood Mood: Depressed, Anxious - Affect Affect: Constricted, Blunted - Speech Speech: Soft - Formal Thought Process Formal Thought Process: No Impairment - Suicidal Ideation Suicidal Ideation: No - Homicidal Ideation Homicidal Ideation: No Goal/Treatment Plan - Goal/Treatment Plan Need for Continued Stay: Severe depression anxiety, Severe functional impairment Progress Toward Problem(s) and Goals/Treatment Plan: Bipolar disorder, depressive type Alcohol use disorder - severe Alcohol withdrawal Ativan detox Seroquel Start Geodon prn meds Metformin for DM Multivitamin, folic acid, and Thiamine Supportive therapy Psychoeducation Individual and group therapy.
[2018-08-01] MEDS: (Lantus) Insulin Glargine, Recombinant SC SCH (22:17)
--- NOTE | 2018-08-01 22:22 | PCM.PYCHPN ---
Psychiatric Progress Note - Psychiatric Progress Note Patient seen today, length of contact: 15 min Patient Chief Complaint: I am not feeling much better. I tried many treatments but failed. I want to go for ECT. Problems Identified/Issues Discussed: Patient seen, chart reviewed, case discussed with the staff. Issues related to illness and treatment were discussed with the patient and staff. Reported compliant with treatment with no adverse affects. Tolerating treatment very well. Patient reported feeling little better with the treatment.Patient reported he tried many treatments in the past but none worked for him. Patient wants to go for ECT this time. Discussed with patient about benefits and adverse effects of ECT including memory problems. Patient understood but still wants to go for ECT even it can cause memory problems. According to patient he is aware of all these things related to ECT but still he wants to have ECT. Calm and cooperative. Awake, alert and oriented 3. No psychomotor activity, good eye contact, memory intact. Aftercare discussed with the patient. Denied any delusions, auditory or visual hallucinations, suicidal ideations or homicidal ideations at the time of evaluation. Medical Problems: Diabetes mellitus Hypercholesterolemia Diagnostic Results: Reviewed DSM 5 Symptoms Update: Little improvement with treatment Medication Change: No Medical Record Reviewed: Yes Mental Status Examination - Cognitive Function Orientation: Person, Place, Situation, Time Memory: Intact Attention: WNL Concentration: WNL Association: WNL Fund of Knowledge: [facility] Decription of patient's judgement and insights: Fair - Mood Mood: Depressed - Affect Affect: Depressed - Speech Speech: Appropriate - Formal Thought Process Formal Thought Process: No Impairment Psychotic Thoughts and Behaviors: None - Suicidal Ideation Suicidal Ideation: No - Homicidal Ideation Homicidal Ideation: No Goal/Treatment Plan - Goal/Treatment Plan Need for Continued Stay: Remain at risks for inpatient hospitalization, Discharge may exacerbated symptoms, Severe functional impairment Progress Toward Problem(s) and Goals/Treatment Plan: Patient education. Supportive therapy. Continue treatment as before. Will refer for ECT. Estimated Date of D/C: 08/03/18 - Smoking Cessation Smoking Cessation Initiated: No
[2018-08-02 08:46] LABS: FREE T4 0.9 ng/dL (0.78-2.19)
[2018-08-02] MEDS: Multiple Vitamins Tab PO SCH (09:20)
[2018-08-02] MEDS: Pantoprazole 40 mg EC Tab PO SCH (09:20)
--- NOTE | 2018-08-02 14:40 | PCM.PYCHPN ---
Psychiatric Progress Note - Psychiatric Progress Note Patient seen today, length of contact: 15 min Patient Chief Complaint: I'm feeling better. Problems Identified/Issues Discussed: Patient seen, chart reviewed, case discussed with the staff. Issues related to illness and treatment were discussed with the patient and staff. Reported compliant with treatment with no adverse affects. Tolerating treatment very well. Patient reported feeling little better with the treatment. We will send necessary papers required for approval for ECT. Calm and cooperative. Awake, alert and oriented 3. No psychomotor activity, good eye contact, memory intact. Aftercare discussed with the patient. Denied any delusions, auditory or visual hallucinations, suicidal ideations or homicidal ideations at the time of evaluation. Medical Problems: Diabetes mellitus Hypercholesterolemia Diagnostic Results: Reviewed DSM 5 Symptoms Update: Feeling little better Medication Change: No Medical Record Reviewed: Yes Mental Status Examination - Cognitive Function Orientation: Person, Place, Situation, Time Memory: Intact Attention: WNL Concentration: WNL Association: WN Fund of Knowledge: [facility] Decription of patient's judgement and insights: Fair - Mood Mood: Depressed - Affect Affect: Depressed - Speech Speech: Appropriate - Formal Thought Process Formal Thought Process: No Impairment Psychotic Thoughts and Behaviors: None - Suicidal Ideation Suicidal Ideation: No - Homicidal Ideation Homicidal Ideation: No Goal/Treatment Plan - Goal/Treatment Plan Need for Continued Stay: Remain at risks for inpatient hospitalization, Discharge may exacerbated symptoms, Severe functional impairment Progress Toward Problem(s) and Goals/Treatment Plan: Patient education. Supportive therapy. Continue treatment as before. Will refer for ECT. Estimated Date of D/C: 08/03/18 - Smoking Cessation Smoking Cessation Initiated: No
[2018-08-02] MEDS: (Lantus) Insulin Glargine, Recombinant SC SCH (21:41)
[2018-08-03 06:44] VITALS: BP 117/76; PULSE 74; RESP 18; TEMP 97.8
[2018-08-03] MEDS: Multiple Vitamins Tab PO SCH (09:00)
[2018-08-03] MEDS: Pantoprazole 40 mg EC Tab PO SCH (09:00)
--- NOTE | 2018-08-03 16:23 | CARD ---
APPROVED REPORT Date of service: 08/02/2018 EKG Measurement Heart [id number] <Conclusion> Normal sinus rhythm Low voltage in precordial leads Borderline EKG
--- NOTE | 2018-08-03 18:26 | PCM.PYCHDC ---
Mental Status Examination - Mental Status Examination Orientation: Person, Place, Situation, Time Memory: Intact Mood: Neutral Affect: Other (Appropriate) Speech: Appropriate Attention: WNL Concentration: WNL Association: WNL Fund of Knowledge: WNL Formal Thought Process: No Impairment Description of patient's judgement and insight: Fair Psychotic Thoughts and Behaviors: None Suicidal Ideation: No Current Homicidal Ideation?: No Discharge Summary - Discharge Note Reason for Hospitalization: Bipolar 1 disorder depressed Alcohol use disorder severe Laboratory Data: Abnormal Lab Results 08/02/18 08/03/18 20:03 07:22 POC Glucose (mg/dL) 259 H 220 H Consultations:: List each consultation separately and include: 1. Reason for request. 2. Findings. 3. Follow-up Summary of Hospital Course include:: 1. Description of specific treatment plan utilized for patients during their course of treatmen. 2. Summarize the time- course for resolution of acute symptoms and/or regressed behaviors. 3. Describe issues identified and worked on during hospitalization. 4. Describe medication utilized. 5. Describe medical problems identified and treated. 6. Reassessment of suicide risk Summary of Hospital Course: Patient seen, chart reviewed, case discussed. He is well known us from previous admissions. Patient is a 52 year old male who presented to [facility] today for an intentional OD of taking his Atenolol pills and drinking 2 pts of vodka in his home today. Pt reported of being dx with depression and anxiety and takes Seroquel 300mg and another psych med he does not know. Pt has a hx of S/I and has a hx of being admitted for inpatient psych. As per Marimar [place] [facility] [place] stating, "Pt has medical and psych hx with us, he was admitted last year March for Alcohol and Cocaine induced with Schizoaffective Bipolar, he was admitted in January 2018 for S/I through mobile crisis, he was referred by his and JC, he was displaying aggressive behavior towards his and stated he wanted to punch the flight engineer helicopter in his face, he had a long internet systems administrator knife by the kitchen table, he has a hx of depression; pt was admitted invol also in January of this year and was d/c in February, he was admitted again in March for the same presenting problems and admitted again later in March through mobile crisis; pt was then seen in our ER for medical. Pt reported of currently having suicidal thoughts. Pt denied H/I and AVT hallucinations. Pt reported of not going to his OP appointments and stated he will call to see him. Pt reported of drinking 1 to 2 pts of vodka on a daily, pt denies any other substances. Pt has a hx of seizures, alcohol induced. Pt reported of having HTN, diabetes and high cholesterol, pt reported of taking his meds and seeing his PCP on a regular, pt does not remember the name of his meds. Pt denies any hx of abuse and reported his dad being an alcoholic. Pt reported of his son being his support system. Pt was cooperative; affect was appropriate and was alert. During his stay in the hospital patient was treated with Ativan for alcohol withdrawal symptoms he was also started on Seroquel and gabapentin plus medication for his diabetes and hypertension. Patient was also started on other when necessary medications. With the above treatment patient started feeling little better. Patient wants to go for ECT due to frequent failed treatment attempts with antidepressive. Risk and benefits of ECT were discussed with the patient including memory issues. Patient understood and agreed but still wants to go for ECT. All the necessity papers were sent for approval for ECT. Patient was stable. Was discharged from the hospital and will have follow-up for ECT. Next History came for evaluation and discharge, patient was awake alert oriented 3, was calm and cooperative, had no delusions, no auditory or visual hallucinations, no suicidal ideations or homicidal ideations. Patient was discharged in stable condition. Patient was also educated to control his diabetes. - Final Diagnosis (DSM 5) Condition upon Discharge: STABLE Disposition: HOME/ ROUTINE Follow-up Treatment Plan: Will refer for ECT at [facility]. Prescriptions/Medication Reconciliation: Gabapentin [Neurontin] 300 mg PO BID #60 cap QUEtiapine [Seroquel] 300 mg PO HS #30 tab - Smoking Cessation Smoking Cessation Medication prescribed: No - Antipsychotic Medications Pt discharged on 2 or more routine antipsychotic medications: No
== END 2018-08-03 12:00 | disposition home or self-care (01) | DRG 918 ==
LOC: C.ER 11:11 → C.5E 17:15
PROVIDERS: ADMIT Psychiatry & Neurology Psychiatry; ATTEND Psychiatry & Neurology Psychiatry
PROC: GZHZZZZ Group Psychotherapy (ICD-10-PCS; principal; 2018-07-27)
PROC: GZ56ZZZ Individual Psychotherapy, Supportive (ICD-10-PCS; 2018-07-27)
DX: T44.7X2A Poisoning by beta-adrenoreceptor antagonists, intentional self-harm, initial encounter (principal); F10.230 Alcohol dependence with withdrawal, uncomplicated; Y90.7 Blood alcohol level of 200-239 mg/100 ml; F25.0 Schizoaffective disorder, bipolar type; F41.9 Anxiety disorder, unspecified; G47.30 Sleep apnea, unspecified; I10 Essential (primary) hypertension; J44.9 Chronic obstructive pulmonary disease, unspecified; Z87.891 Personal history of nicotine dependence; Y92.009 Unspecified place in unspecified non-institutional (private) residence as the place of occurrence of the external cause; E78.00 Pure hypercholesterolemia, unspecified; E11.9 Type 2 diabetes mellitus without complications; F10.220 Alcohol dependence with intoxication, uncomplicated

== ENCOUNTER 2018-10-17 15:25 | Inpatient (IN) | payer BC ==
[2018-10-17 15:39] VITALS: BMI 33.2
--- NOTE | 2018-10-17 16:13 | C.PDOC ---
History Of Present Illness 53 year old male with PMHx of alcohol abuse, drug abuse, COPD, diabetes, schizophrenia and HTN presents to the ED complaining of suicidal ideation and being unable to sleep for one week. Reports he has 3 panic attacks each day associated with hallucination and suicidal ideation with no specific plan. He attempted to commit suicide previously with his HTN medications. Reports he was in rehabilitation for alcohol for 10 days a few weeks ago and he has been drinking alcohol since he was released. Complains of abdominal pain due to increased alcohol intake. Denies any nausea, vomiting, diarrhea, constipation, urinary symptoms, chest pain, SOB, fever, or chills. Time Seen by Provider: 10/17/18 15:31 Chief Complaint (Nursing): Psychiatric Evaluation History Per: Patient History/Exam Limitations: no limitations Onset/Duration Of Symptoms: Days Current Symptoms Are (Timing): Still Present Suicide/Self Injury Attempted (Context): Ingestion Modifying Factor(s): Alcohol Associated Symptoms: Anxiety, Suicidal Thoughts. denies: Suicidal Plan Additional History Per: Prior Records Past Medical History Reviewed: Historical Data, Nursing Documentation, Vital Signs Vital Signs: Last Vital Signs Temp 98.0 F 10/17/18 15:31 Pulse 96 H 10/17/18 15:31 Resp 19 10/17/18 15:31 BP 132/90 10/17/18 15:31 Pulse Ox 96 10/17/18 15:31 - Medical History PMH: Anxiety, Bipolar Disorder, COPD, Depression, Diabetes, Fractures, Gastrit is, HTN, Hypercholesterolemia, Pneumonia, Seizures (ETOH related), Sleep Apnea (uses CPAP at home) Denies: Hepatitis (Patient denied), HIV (Patient denied), Chronic Kidney Disease, Sexually Transmitted Disease Surgical History: Tonsillectomy (as a child) - [facility] Procedures ALCOHOL DETOXIFICATION (10/07/13) DETOXIFICATION SERVICES FOR SUBSTANCE ABUSE TREATMENT (07/11/18) EXCISION OF LARGE INTESTINE, ENDO, DIAGN (09/01/17) EXCISION OF SMALL INTESTINE, ENDO, DIAGN (09/01/17) GROUP TERRITORY ACCOUNT REPRESENTATIVE FOR SUBSTANCE ABUSE TREATMENT, PSYCHOEDUCATION (11/03/17) GROUP TERRITORY ACCOUNT REPRESENTATIVE FOR SUBSTANCE ABUSE, COGNITIVE BEHAVIORAL (11/03/17) GROUP PSYCHOTHERAPY (07/27/18) INDIV PSYCHOTHERAPY FOR SUBSTANCE ABUSE TREATMENT, SUPPORT (11/03/17) INDIV PSYCHOTHERAPY FOR SUBSTANCE ABUSE, COGNITIV BEHAVIORAL (11/03/17) INDIV PSYCHOTHERAPY FOR SUBSTANCE ABUSE, PSYCHOEDUCATION (02/05/18) INDIVIDUAL PSYCHOTHERAPY, SUPPORTIVE (07/27/18) MEDICATION MANAGEMENT (01/18/17) OTHER ELECTROCONVULSIVE THERAPY (08/09/18) Family History: States: No Known Family Hx - Social History Hx Tobacco Use: Yes Hx Alcohol Use: Yes Hx Substance Use: Yes - Immunization History Hx Tetanus Toxoid Vaccination: No Hx Influenza Vaccination: Yes Hx Pneumococcal Vaccination: Yes Review Of Systems Except As Marked, All Systems Reviewed And Found Negative. Constitutional: Positive for: Fever, Chills Cardiovascular: Negative for: Chest Pain Respiratory: Negative for: Shortness of Breath Gastrointestinal: Positive for: Nausea, Vomiting, Abdominal Pain, Diarrhea Genitourinary: Negative for: Dysuria, Hematuria Psych: Positive for: Anxiety, Suicidal ideation, Other (panic attacks, hallucinations ) Physical Exam - Physical Exam Additional Physical Exam Comments: General- Well appearing, Non-toxic, No acute distress Head- Normocephalic, Atraumatic Eyes- PERRL, EOMI, Conjunctiva clear Mucosa- Dry Chest- Symmetrical Cardiovascular: Rhythm Regular, No murmur, Other (Normal S1, S2) Resp- no wheezing, rales, or rhonchi, Good air movement, Lungs CTA bilaterally Abd- Soft. Nontender. No distension. No guarding, no rebound. Obese Ext: Bilateral (atraumatic, normal color and temperature, no cyanosis or edema) DP pulses 2+ Neuro: alert, awake, does not have depressed affect, speech pressured. Gait: steady ED Course And Treatment - Laboratory Results Result Diagrams: 10/17/18 16:24 10/17/18 19:28 O2 Sat by Pulse Oximetry: 96 (RA) Pulse Ox Interpretation: Normal Medical Decision Making Medical Decision Making: Plan - Bloodwork - UA - Crisis Eval - 1:1 Observation - Insulin - IV fluids 1950 Patient is medically cleared for detoxification. 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 No response. 2049 Spoke with Crisis. Patient will be admitted under Dr. eMnchaca's service for alcohol abuse and depression. Disposition Counseled Patient/Family Regarding: Studies Performed, Diagnosis - Disposition Disposition: HOSPITALIZED Disposition Time: 21:10 Condition: STABLE - Clinical Impression Clinical Impression: Alcohol abuse, Alcohol use disorder, Alcohol intoxication, Depression - Scribe Statement The provider has reviewed the documentation as recorded by the Scribe Daphney Annaeque All medical record entries made by the Everibyohana were at my direction and personally dictated by me. I have reviewed the chart and agree that the record accurately reflects my personal performance of the history, physical exam, medical decision making, and the department course for this patient. I have also personally directed, reviewed, and agree with the discharge instructions and disposition.
[2018-10-17 16:27] LABS: BASO # 0.1 K/uL (0.0-0.2); BASO % 0.8 % (0.0-2.0); EOS % 0.6 % (0.0-4.0); HEMOGLOBIN 15.5 g/dL (12.0-18.0); LYMPH % 27.1 % (20.0-40.0); MEAN CORPUSCULAR HGB CONC 33.3 g/dL (33.0-37.0); MEAN PLATELET VOLUME 7.2 fL (7.2-11.7); MONO # 0.4 K/uL (0.0-0.8); MONO % 5.4 % (0.0-10.0); NEUT # 4.8 K/uL (1.8-7.0); NEUT % 66.1 % (50.0-75.0); NRBC % 0.2 % (0.0-2.0); RED CELL DISTRIBUTION WIDTH 15.8 % (11.5-14.5); WHITE BLOOD COUNT 7.3 K/uL (4.8-10.8)
[2018-10-17 16:42] LABS: ACETAMINOPHEN < 10.0 ug/mL (10.0-30.0); ALB/GLOB RATIO 1.8 (1.0-2.1); ALBUMIN 4.7 g/dL (3.5-5.0); ALT/SGPT 51 U/L (21-72); AST/SGOT 41 U/L (17-59); BLOOD UREA NITROGEN 10 mg/dL (9-20); GFR NON-AFRICAN AMERICAN > 60; SALICYLATE < 1.0 mg/dL 1
[2018-10-17 17:36] LABS: SQUAMOUS EPITHIAL < 1 /hpf (0-5); URINE BILIRUBIN NEGATIVE (NEGATIVE); URINE BLOOD NEGATIVE (NEGATIVE); URINE CLARITY Clear (Clear); URINE COLOR Yellow (YELLOW); URINE GLUCOSE (UA) 1+ mg/dL (Normal); URINE LEUKOCYTE ESTERASE NEG Leu/uL (Negative); URINE PROTEIN 2+ mg/dL (NEGATIVE); URINE UROBILINOGEN NORMAL mg/dL (0.2-1.0)
[2018-10-17] MEDS ORDERED: Sodium Chloride 0.9% 1,000 ML IV ONE (17:39)
[2018-10-17] MEDS ORDERED: (Novolin R) Insulin Human Regular 100 units/ml vial IVP ONE (17:39)
[2018-10-17] MEDS ORDERED: (Novolin R) Insulin Human Regular 100 units/ml vial ONE (17:45)
[2018-10-17] MEDS ORDERED: Sodium Chloride 0.9% 1,000 ML ONE (17:45)
[2018-10-17 17:47] LABS: BARBITURATES, UR NEGATIVE (NEGATIVE); OPIATES, UR NEGATIVE (NEGATIVE); PHENCYCLIDINE, UR NEGATIVE (NEGATIVE)
[2018-10-17 17:55] LABS: BENZODIAZEPINES, UR POSITIVE (NEGATIVE)
[2018-10-17 19:46] LABS: BLOOD UREA NITROGEN 10 mg/dL (9-20); CALCIUM 8.7 mg/dl (8.6-10.4); GFR NON-AFRICAN AMERICAN > 60
[2018-10-17] MEDS ORDERED: guaiFENesin DM 200 mg-20 mg/10 ml UD PO STA (20:44)
[2018-10-17] MEDS ORDERED: guaiFENesin DM 200 mg-20 mg/10 ml UD ONE (20:50)
[2018-10-17] MEDS ORDERED: Albuterol HFA 90 mcg/actuation (8 g) INH PRN (22:18)
[2018-10-17] MEDS ORDERED: Glucagon Recombinant 1 mg Inj IM PRN (22:18)
[2018-10-17] MEDS ORDERED: Dextrose 50% SYRINGE Inj (50 ml) IV PRN (22:18)
[2018-10-17] MEDS ORDERED: Pantoprazole 40 mg EC Tab PO ONE (22:46)
[2018-10-17] MEDS: Fluticasone-Vilanterol 200/25mcg Diskus INH SCH (22:56)
--- NOTE | 2018-10-18 00:06 | PCM.BM ---
<Elise Marinelli - Last Filed: 10/18/18 00:05> Treatment Plan Problems - Problems identified on initial assessmt Depression Date Initiated: 10/17/18 Time Initiated: 21:45 Assessment reference: NA Status: Active Alcohol Abuse Date Initiated: 10/17/18 Time Initiated: 21:45 Assessment reference: NA Status: Active Treatment assets and liabiliti Patient Assests: good support system, financial stabiity, cognitively intact, cooperative, self-reliant, ADL independent Patient Liabilities: poor support system, substance abuse (Alcohol, ), medical problems - Milieu Protocol Maintain good personal hygiene: daily Encourage regular showers, daily Remind patient to perform daily oral care, every shift Assist patient to perform ADL's Conduct patient checks and document Observation sheet: Q15 minutes Maintain personal safety: every shift Educate patient to report safety concerns to staff, every shift Monitor environment for contraband/sharps Medication safety: Monitor for expected outcome, potential side effects: every shift, Assess barriers to learning: every shift, Assess readiness for medication education: every shift <Moisés Menchaca - Last Filed: 10/19/18 10:57> - Diagnosis (1) Schizo affective schizophrenia Status: Acute Interventions: 10/19/18 10:57 * Assess/adjust medications daily and /or as needed * See patient on an individual basis 7x/week to assess status of hallucinations * Discuss risks, benefits, side effects and alternatives of medications * (2) Alcohol use disorder Status: Acute Interventions: 10/19/18 10:58 * Assess 7x/week regarding severity of withdrawal * Educate regarding risks, benefits, side effects and alternatives of medications * Use Motivational Interviewing for abstinence * Use CBT for relapse prevention * Medication management for withdrawal symptoms * Encourage medication assisted treatment * <Ruchi Lee - Last Filed: 10/19/18 11:30> Family Contact Family involvement: Family/SO is involved Family contact: Patient agrees to contact, Family has been contacted by patient - Goals for Treatment Patient goals for treatment: " I do not know what I want." Discharge/Continuing Care - Education Needs Education Needs: Patient Medication, Patient Diagnosis/Disease Process, Patient Coping Skills, Patient Placement options, Patient Community resources - Discharge Discharge Criteria: Free of Suicidal thoughts, Normal sleep pattern, Ability to care for self, No longer exhibiting s/s of withdrawal, Reduction of target symptoms Discharge to:: Home, With Family - Treatment Team Participation Discussed with Family/SO: No Was Patient/Family/SO present at Treatment Team Meeting: Yes
[2018-10-18] MEDS: Fluticasone-Vilanterol 200/25mcg Diskus INH SCH (08:16)
[2018-10-18] MEDS: Multiple Vitamins Tab PO SCH (09:20)
[2018-10-18] MEDS: Pantoprazole 40 mg EC Tab PO SCH (09:20)
--- NOTE | 2018-10-18 11:14 | PCM.PSYCH ---
Initial Psychiatric Evaluation - Initial Psychiatric Evaluation Type of Admission: Voluntary Legal Status: Capacity Chief Complaint (in patient's own words): I was feeling anxious and suicidal History of Present Illness and Precipitating Events: This is a 53 years old male, , unemployed to the ED with depressed and anxious mood, panic attacks and suicidal ideation with plan to overdose on medications. Patient has a long history of schizoaffective disorder. He has been admitted to psychiatric hospitals multiple times. He was last discharged from [facility] more than 2 months ago. As per the patient, he relapsed on drinking and started consuming increasing amount of liquor and beer. He reports that he has panic attacks and only drinking can reduce the panic attacks. Yesterday he developed panic attacks and suicidal ideation so he came to the hospital to get help. Patient appeared disorganized and internally preoccupied. He remained a poor historian. He reports that he is receiving ECT therapy from [facility]. He reports that he was feeling little better but then he relapsed on drinking and started becoming anxious and depressed. Patient reports depressed mood, at times feelings of hopelessness and helplessness, poor sleep and poor appetite. He also reports anxiety and panic attacks. He reports at times irritability, agitation and racing thoughts. He appears paranoid and delusional. However he denies any auditory or visual hallucinations. He reports withdrawal symptoms from drinking including anxiety, sweating, headaches, shakes. Past medical history Hypertension, diabetes mellitus. Current Medications: Active Medications Generic Name Dose Route Start Last Admin Trade Name Freq PRN Reason Stop Dose Admin Albuterol 1 puff 10/17/18 22:18 Ventolin Hfa 90 Mcg/Actuation (8 G) INH RQ6 PRN Shortness of Breath Atenolol 50 mg 10/18/18 10:00 10/18/18 09:20 Tenormin PO 50 mg BID JOSE Administration Chlordiazepoxide 25 mg 10/18/18 00:00 10/18/18 06:55 Librium PO 10/21/18 23:59 Not Given Q6 JOSE Taper Chlordiazepoxide 25 mg 10/17/18 22:17 10/18/18 09:14 Librium PO 25 mg Q6H PRN Administration alcohol withdrawal Dextrose 0 ml 10/17/18 22:18 Dextrose 50% Inj IV STAT PRN Hypoglycemia Protocol Protocol Dextrose 0 gm 10/17/18 22:18 Glutose 15 PO ONCE PRN Hypoglycemia Protocol Protocol Fluticasone/Vilanterol 1 puff 10/18/18 08:00 10/18/18 08:16 Breo Ellipta 200-25 Mcg Inh INH 1 puff RQD JOSE Administration Folic Acid 1 mg 10/18/18 10:00 10/18/18 09:20 Folic Acid PO 1 mg DAILY JOSE Administration Glipizide 10 mg 10/18/18 07:30 10/18/18 08:17 Glucotrol PO 10 mg ACB JOSE Administration Glucagon 0 mg 10/17/18 22:18 Glucagen Diagnostic Kit IM STAT PRN Hypoglycemia Protocol Protocol Hydroxyzine HCl 25 mg 10/18/18 03:16 Atarax PO Q6H PRN Anxiety Dextrose 1,000 mls @ 0 mls/hr 10/17/18 22:18 Dextrose 5% In Water 1000 Ml IV .Q0M PRN Hypoglycemia Protocol Protocol Per Protocol Influenza Virus Vaccine 60 mcg 10/20/18 10:00 Fluzone Quad [id number] IM 10/20/18 10:01 .ONCE ONE Insulin Glargine 40 unit 10/18/18 22:00 Lantus SC HS JOSE Metformin HCl 1,000 mg 10/17/18 22:30 10/18/18 09:14 Glucophage PO 1,000 mg BID JOSE Administration Multivitamins 1 tab 10/18/18 10:00 10/18/18 09:20 Hexavitamin PO 1 tab DAILY JOSE Administration Pantoprazole Sodium 40 mg 10/18/18 10:00 10/18/18 09:20 Protonix Ec Tab PO 40 mg DAILY JOSE Administration Quetiapine Fumarate 200 mg 10/17/18 22:30 10/17/18 23:00 Seroquel PO 200 mg HS JOSE Administration Thiamine HCl 50 mg 10/18/18 10:00 10/18/18 09:20 Vitamin B1 Tab PO 50 mg DAILY JOSE Administration Ziprasidone 20 mg 10/17/18 22:30 10/17/18 22:58 Geodon Cap PO 20 mg HS JOSE Administration Past Psychiatric History - Past Psychiatric History Previous Treatment History: Inpatient Pertinent Medical Hx (Current Medical&Sleep Prob, Allergies): Allergies Allergy/AdvReac Type Severity Reaction Status Date / Time amitriptyline [From [facility]] AdvReac ITCHING Verified 10/17/18 15:29 Simvastatin 40 mg PO DAILY 07/11/18 Insulin Glargine, Recombina [Lantus] 40 unit SC HS unit 08/03/18 Pantoprazole [Protonix EC Tab] 40 mg PO DAILY ect 08/03/18 QUEtiapine [Seroquel] 300 mg PO HS #30 tab 08/03/18 metFORMIN [glucOPHAGE] 1,000 mg PO BID tab 08/03/18 Atenolol [Tenormin] 50 mg PO DAILY #7 tab 08/24/18 Fluticasone/Salmeterol 500/50 [Advair Diskus 500/50] 1 puff INH Q12 #1 puff 08/24/18 Gabapentin [Neurontin] 600 mg PO TID #45 tab 08/24/18 GlipiZIDE [Glucotrol] 10 mg PO DAILY #7 tab 08/24/18 Multivitamin Therapeutic Tab [Thera Tab] 1 tab PO 0800 #14 tab 08/24/18 Zaleplon [Sonata] 10 mg PO HS #14 cap 08/24/18 traZODone [Desyrel] 200 mg PO HS #30 tab 08/24/18 Januvia 10/17/18 Review of Systems - Review of Systems All systems: reviewed and no additional remarkable complaints except - Psychiatric Psychiatric: Anxiety, Irritability, Suicidal Ideation Mental Status Examination - Personal Presentation Personal Presentation: Looks stated age - Affect Affect: Broad - Motor Activity Motor Activity: Psychomotor Agitation - Reliability in Providing Information Reliability in Providing Information: Good - Speech Speech: Disorganized - Mood Mood: Depressed, Anxious - Formal Thought Process Formal Thought Process: Paranoia - Obsessions/Compulsions Obsessions: No Compulsions: No - Cognitive Functions Orientation: Person, Place, Situation, Time Sensorium: Alert Attention/Concentration: Attentive Abstract Thinking: Buna Estimate of Intelligence: Below average Judgement: Imparied, as evidence by: Poor judgement, Imparied, as evidence by: Lack of insight into illness DSM 5 DX - DSM 5 DSM 5 Diagnosis: Schizoaffective disorder bipolar type Alcohol use disorder severe Alcohol withdrawal - Recommended/Plan of Treatment Treatment Recommendations and Plan of Treatment: Schizoaffective disorder bipolar type Alcohol use disorder severe Alcohol withdrawal CBT Psychoeducation supportive therapy Medical therapy Seroquel 200 mg p.o. nightly Geodon 20 mg p.o. twice daily Hydroxyzine 25 mg p.o. every 6 hours as needed Librium taper - Smoking Cessation Smoking Cessation Initiated: No
[2018-10-18] MEDS: (Lantus) Insulin Glargine, Recombinant SC SCH (21:43)
[2018-10-18] MEDS ORDERED: Pantoprazole 40 mg EC Tab PO ONE (22:32)
[2018-10-19] MEDS ORDERED: QUEtiapine 200 mg XR Tab PO SCH (02:25)
[2018-10-19] MEDS: Fluticasone-Vilanterol 200/25mcg Diskus INH SCH (09:56)
--- NOTE | 2018-10-19 10:03 | PCM.PYCHPN ---
Psychiatric Progress Note - Psychiatric Progress Note Patient seen today, length of contact: 15 min Patient Chief Complaint: I m feeling depressed and anxious Problems Identified/Issues Discussed: Patient was seen in neurology, chart reviewed and discussed with the staff. Patient reports anxiety, panic attacks and agitation. He reports that his eyes are tearing and itchy. History reports depressed mood, feelings of hopelessness and helplessness and suicidal ideation. He appears paranoid and delusional denies any auditory hallucinations. He is loud and have pressured speech. He is taking medication but denies any side effects. Supportive therapy was given Medication Change: Yes Medical Record Reviewed: Yes Mental Status Examination - Cognitive Function Orientation: Person, Place, Situation, Time Memory: Intact Attention: WNL Concentration: Poor Association: WNL Fund of Knowledge: Poor - Mood Mood: Depressed, Anxious - Affect Affect: Broad - Speech Speech: Soft - Formal Thought Process Formal Thought Process: Delusions, Paranoia, Loosening of associations - Suicidal Ideation Suicidal Ideation: No - Homicidal Ideation Homicidal Ideation: No Goal/Treatment Plan - Goal/Treatment Plan Need for Continued Stay: Severe functional impairment Progress Toward Problem(s) and Goals/Treatment Plan: Schizoaffective disorder bipolar type Alcohol use disorder severe Alcohol withdrawal CBT Psychoeducation supportive therapy Medical therapy Seroquel 200 mg p.o. nightly Geodon 20 mg p.o. twice daily Hydroxyzine 25 mg p.o. every 6 hours as needed Librium taper Prolixin 5 mg p.o. twice daily - Smoking Cessation Smoking Cessation Initiated: No
[2018-10-19] MEDS: Multiple Vitamins Tab PO SCH (10:08)
[2018-10-19] MEDS: Pantoprazole 40 mg EC Tab PO SCH (10:09)
[2018-10-19] MEDS: Aritificial Tears (15ml) OU PRN (17:18)
[2018-10-19] MEDS: (Lantus) Insulin Glargine, Recombinant SC SCH (21:40)
[2018-10-20] MEDS: Fluticasone-Vilanterol 200/25mcg Diskus INH SCH (09:31)
[2018-10-20] MEDS: Multiple Vitamins Tab PO SCH (09:38)
[2018-10-20] MEDS ORDERED: Pneumococcal 23-Valent Vaccine IM ONE (10:00)
[2018-10-20] MEDS ORDERED: Influenza Vaccine 60 MCG/0.5 ML SYR (3 yr & up) IM ONE (10:00)
[2018-10-20] MEDS: Aritificial Tears (15ml) OU PRN (10:19)
[2018-10-20] MEDS: Pantoprazole 40 mg EC Tab PO SCH (11:00)
[2018-10-20] MEDS ORDERED: Magnesium Hydroxide Susp 30 ml UD PO ONE (19:33)
[2018-10-20] MEDS: (Lantus) Insulin Glargine, Recombinant SC SCH (21:42)
[2018-10-21] MEDS: Fluticasone-Vilanterol 200/25mcg Diskus INH SCH (08:37)
[2018-10-21] MEDS: Pantoprazole 40 mg EC Tab PO SCH (10:03)
[2018-10-21] MEDS: Multiple Vitamins Tab PO SCH (10:04)
[2018-10-21] MEDS ORDERED: Magnesium Hydroxide Susp 30 ml UD PO PRN (11:37)
[2018-10-21] MEDS: (Lantus) Insulin Glargine, Recombinant SC SCH (21:33)
[2018-10-22] MEDS: Fluticasone-Vilanterol 200/25mcg Diskus INH SCH (08:03)
[2018-10-22 09:09] VITALS: RESP 20
[2018-10-22] MEDS: Pantoprazole 40 mg EC Tab PO SCH (09:34)
[2018-10-22] MEDS: Multiple Vitamins Tab PO SCH (09:34)
[2018-10-22] MEDS: Aritificial Tears (15ml) OU PRN (12:01)
[2018-10-22] MEDS: Naphazoline-Pheniramine Ophth Soln OP PRN (17:05)
[2018-10-22] MEDS: (Lantus) Insulin Glargine, Recombinant SC SCH (21:24)
[2018-10-23 06:34] VITALS: TEMP 97.4; O2SAT 97
[2018-10-23] MEDS: Fluticasone-Vilanterol 200/25mcg Diskus INH SCH (08:12)
[2018-10-23] MEDS: Naphazoline-Pheniramine Ophth Soln OP PRN ×3 (08:12→19:48)
[2018-10-23] MEDS: Multiple Vitamins Tab PO SCH (09:49)
[2018-10-23] MEDS: Pantoprazole 40 mg EC Tab PO SCH (09:50)
[2018-10-23 15:45] VITALS: PULSE 70
[2018-10-23] MEDS: (Lantus) Insulin Glargine, Recombinant SC SCH (21:24)
[2018-10-24 06:33] VITALS: BP 134/78
[2018-10-24] MEDS: Fluticasone-Vilanterol 200/25mcg Diskus INH SCH (07:57)
[2018-10-24] MEDS: Multiple Vitamins Tab PO SCH (10:00)
[2018-10-24] MEDS: Pantoprazole 40 mg EC Tab PO SCH (10:00)
[2018-10-24] MEDS: Aritificial Tears (15ml) OU PRN (10:05)
--- NOTE | 2018-10-24 10:45 | PCM.PYCHDC ---
Mental Status Examination - Mental Status Examination Orientation: Person, Place, Situation, Time Memory: Intact Mood: Neutral Affect: Constricted Speech: Soft Attention: WNL Concentration: WNL Association: WNL Fund of Knowledge: WNL Formal Thought Process: No Impairment Description of patient's judgement and insight: good, fair Psychotic Thoughts and Behaviors: denies any AVH Suicidal Ideation: No Current Homicidal Ideation?: No Discharge Summary - Discharge Note Reason for Hospitalization: This is a 53 years old male, , unemployed to the ED with depressed and anxious mood, panic attacks and suicidal ideation with plan to overdose on medications. Patient has a long history of schizoaffective disorder. He has been admitted to psychiatric hospitals multiple times. He was last discharged from [facility] more than 2 months ago. As per the patient, he relapsed on drinking and started consuming increasing amount of liquor and beer. He reports that he has panic attacks and only drinking can reduce the panic attacks. Yesterday he developed panic attacks and suicidal ideation so he came to the hospital to get help. Patient appeared disorganized and internally preoccupied. He remained a poor historian. He reports that he is receiving ECT therapy from [facility]. He reports that he was feeling little better but then he relapsed on drinking and started becoming anxious and depressed. Patient reports depressed mood, at times feelings of hopelessness and helplessness, poor sleep and poor appetite. He also reports anxiety and panic attacks. He reports at times irritability, agitation and racing thoughts. He appears paranoid and delusional. However he denies any auditory or visual hallucinations. He reports withdrawal symptoms from drinking including anxiety, sweating, headaches, shakes. Laboratory Data: Abnormal Lab Results 10/23/18 10/23/18 10/23/18 11:28 16:53 19:51 POC Glucose (mg/dL) 250 H 163 H 259 H 10/24/18 07:31 POC Glucose (mg/dL) 215 H Consultations:: List each consultation separately and include: 1. Reason for request. 2. Findings. 3. Follow-up Summary of Hospital Course include:: 1. Description of specific treatment plan utilized for patients during their course of treatmen. 2. Summarize the time- course for resolution of acute symptoms and/or regressed behaviors. 3. Describe issues identified and worked on during hospitalization. 4. Describe medication utilized. 5. Describe medical problems identified and treated. 6. Reassessment of suicide risk Summary of Hospital Course: This is a 53 years old male, , unemployed to the ED with depressed and anxious mood, panic attacks and suicidal ideation with plan to overdose on medications. Patient has a long history of schizoaffective disorder. He has been admitted to psychiatric hospitals multiple times. He was last discharged from [facility] more than 2 months ago. As per the patient, he relapsed on drinking and started consuming increasing amount of liquor and beer. He reports that he has panic attacks and only drinking can reduce the panic attacks. Yesterday he developed panic attacks and suicidal ideation so he came to the hospital to get help. Patient appeared disorganized and internally preoccupied. He remained a poor historian. He reports that he is receiving ECT therapy from [facility]. He reports that he was feeling little better but then he relapsed on drinking and started becoming anxious and depressed. Patient reports depressed mood, at times feelings of hopelessness and helplessness, poor sleep and poor appetite. He also reports anxiety and panic attacks. He reports at times irritability, agitation and racing thoughts. He appears paranoid and delusional. However he denies any auditory or visual hallucinations. He reports withdrawal symptoms from drinking including anxiety, sweating, headaches, shakes. Past medical history Hypertension, diabetes mellitus. - Diagnosis (1) Schizo affective schizophrenia Current Visit: No Status: Acute (2) Alcohol use disorder Current Visit: Yes Status: Acute - Final Diagnosis (DSM 5) Condition upon Discharge: STABLE DSM 5: Schizoaffective disorder bipolar type Alcohol use disorder severe Alcohol withdrawal Disposition: HOME/ ROUTINE Prescriptions/Medication Reconciliation: fluPHENAZine [Prolixin] 5 mg PO Q12 #60 tab hydrOXYzine HCl [Atarax] 25 mg PO BID PRN #60 tab PRN Reason: Anxiety QUEtiapine [SEROquel] 200 mg PO HS #30 tab Ziprasidone [Geodon Cap] 40 mg PO Q12 #60 cap - Smoking Cessation Smoking Cessation Medication prescribed: No - Antipsychotic Medications Pt discharged on 2 or more routine antipsychotic medications: No
== END 2018-10-24 11:15 | disposition home or self-care (01) | DRG 885 ==
LOC: C.ER 15:25 → C.5E 21:12
PROVIDERS: ADMIT Psychiatry & Neurology Psychiatry; ATTEND Psychiatry & Neurology Psychiatry
PROC: GZ3ZZZZ Medication Management (ICD-10-PCS; principal; 2018-10-17)
PROC: GZHZZZZ Group Psychotherapy (ICD-10-PCS; 2018-10-17)
PROC: GZ56ZZZ Individual Psychotherapy, Supportive (ICD-10-PCS; 2018-10-17)
PROC: HZ2ZZZZ Detoxification Services for Substance Abuse Treatment (ICD-10-PCS; 2018-10-17)
DX: F25.0 Schizoaffective disorder, bipolar type (principal); R45.851 Suicidal ideations; F10.239 Alcohol dependence with withdrawal, unspecified; F10.229 Alcohol dependence with intoxication, unspecified; F41.0 Panic disorder [episodic paroxysmal anxiety]; F17.210 Nicotine dependence, cigarettes, uncomplicated; E11.9 Type 2 diabetes mellitus without complications; I10 Essential (primary) hypertension; J44.9 Chronic obstructive pulmonary disease, unspecified; G47.30 Sleep apnea, unspecified; E78.00 Pure hypercholesterolemia, unspecified

== ENCOUNTER 2018-11-17 20:03 | Inpatient (IN) | payer BC ==
[2018-11-17 20:03] VITALS: BMI 33.5
[2018-11-17] MEDS ORDERED: Albuterol-Ipratrop 3 mg / 0.5 (3 ml) UD ONE ×2 (20:19→20:32)
--- NOTE | 2018-11-17 20:27 | C.PDOC ---
History Of Present Illness 53yo male, with history of COPD, HTN, HCH, DM, not on home O2 here with complaints of shortness of breath. Patient states this presentation is similar to his prior episodes of COPD exacerbation. He also admits to drinking beer and states he has suicidal ideation and plan to overdose on his medications. He notes he did not overdose on his medications today. Patient otherwise denies any fever, chills, night sweats, chest pain, abdominal pain, weakness or numbness. He denies any falls or trauma. Time Seen by Provider: 11/17/18 20:23 Chief Complaint (Nursing): Shortness Of Breath History Per: Patient History/Exam Limitations: no limitations Current Symptoms Are (Timing): Still Present Associated Symptoms: denies: Fever, Chills, Sweating, Chest Pain Past Medical History Reviewed: Historical Data, Nursing Documentation, Vital Signs Vital Signs: Last Vital Signs Temp 98.3 F 11/17/18 20:10 Pulse 110 H 11/17/18 20:10 Resp 18 11/17/18 20:10 BP 127/80 11/17/18 20:10 Pulse Ox 92 L 11/17/18 20:10 - Medical History PMH: Anxiety, Bipolar Disorder, COPD, Depression, Diabetes, Fractures, Gastritis, HTN, Hypercholesterolemia, Pneumonia, Seizures (ETOH related), Sleep Apnea (uses CPAP at home) Denies: Hepatitis (Patient denied), HIV (Patient denied), Chronic Kidney Disease, Sexually Transmitted Disease Surgical History: Tonsillectomy (as a child) - [facility] ALCOHOL DETOXIFICATION (10/07/13) DETOXIFICATION SERVICES FOR SUBSTANCE ABUSE TREATMENT (10/17/18) EXCISION OF LARGE INTESTINE, ENDO, DIAGN (09/01/17) EXCISION OF SMALL INTESTINE, ENDO, DIAGN (09/01/17) GROUP CURATORIAL SPECIALIST FOR SUBSTANCE ABUSE TREATMENT, PSYCHOEDUCATION (11/03/17) GROUP CURATORIAL SPECIALIST FOR SUBSTANCE ABUSE, COGNITIVE BEHAVIORAL (11/03/17) GROUP PSYCHOTHERAPY (10/17/18) INDIV PSYCHOTHERAPY FOR SUBSTANCE ABUSE TREATMENT, SUPPORT (11/03/17) INDIV PSYCHOTHERAPY FOR SUBSTANCE ABUSE, COGNITIV BEHAVIORAL (11/03/17) INDIV PSYCHOTHERAPY FOR SUBSTANCE ABUSE, PSYCHOEDUCATION (02/05/18) INDIVIDUAL PSYCHOTHERAPY, SUPPORTIVE (10/17/18) MEDICATION MANAGEMENT (10/17/18) OTHER ELECTROCONVULSIVE THERAPY (08/09/18) Family History: States: Unknown Family Hx - Social History Hx Tobacco Use: Yes Hx Alcohol Use: Yes Hx Substance Use: Yes - Immunization History Hx Tetanus Toxoid Vaccination: No Hx Influenza Vaccination: Yes Hx Pneumococcal Vaccination: Yes Review Of Systems Except As Marked, All Systems Reviewed And Found Negative. Constitutional: Negative for: Fever, Chills, Sweats Eyes: Negative for: Pain, Vision Change ENT: Negative for: Ear Pain, Ear Discharge, Nose Congestion Cardiovascular: Negative for: Chest Pain, Palpitations, Orthopnea, Edema Respiratory: Positive for: Shortness of Breath. Negative for: Cough Gastrointestinal: Negative for: Nausea, Vomiting, Abdominal Pain, Constipation, Melena Genitourinary: Negative for: Dysuria, Frequency, Hematuria Musculoskeletal: Negative for: Neck Pain, Shoulder Pain Skin: Negative for: Rash Neurological: Negative for: Weakness, Numbness Physical Exam - Physical Exam Appears: Non-toxic, No Acute Distress Skin: Normal Color Head: Atraumatic, Normacephalic Eye(s): bilateral: Normal Inspection Neck: Supple Chest: Symmetrical Cardiovascular: Rhythm Regular Respiratory: Wheezing (diffuse), Other (speaking in full sentences; no retractions) Gastrointestinal/Abdominal: Normal Exam, Soft Back: Normal Inspection Extremity: Normal ROM, No Pedal Edema Neurological/Psych: Oriented x3 ED Course And Treatment - Laboratory Results Result Diagrams: 11/17/18 20:39 11/17/18 20:39 ECG: Interpreted By Me, Viewed By Me ECG Rhythm: Sinus Tachycardia Interpretation Of ECG: no STEMI Rate From EC O2 Sat by Pulse Oximetry: 92 Medical Decision Making Medical Decision Makinyo male with history of COPD, comes in complaining of shortness of breath Patient also reporting suicidal ideation with a plan to OD. Did not OD today. No meningeal signs on exam. Normal neuro exam. Diffuse wheezes on exam. No fever noted. Likely COPD exacerbation w/ SI. (+) Smoker EKG 107, sinus tachy, no stemi Plan: -- Labs -- CXR -- Duoneb 3ml INH x 3 -- Solumedrol 125mg IVP -- Urinalysis -- crisis evaluation 1240 labs resulted: largely unremarkable. Xray largely unremarkable. Lungs improved: mild wheezes, pt speaking in full sentences. pt in NAD, agreeable to plan. appreciate consult w/ Dr. Liberty Khan: to admit to his service. Disposition - Disposition Referrals: Dewey Abdullahi MD [Primary Care Provider] - Disposition Time: 00:38 Condition: GOOD Forms: [facility] (Indonesian) - Clinical Impression Clinical Impression: COPD (chronic obstructive pulmonary disease), Suicidal ideation - Scribe Statement The provider has reviewed the documentation as recorded by the Ridge Mcpherson Provider Attestation: All medical record entries made by the Everibyohana were at my direction and personally dictated by me. I have reviewed the chart and agree that the record accurately reflects my personal performance of the history, physical exam, medical decision making, and the department course for this patient. I have also personally directed, reviewed, and agree with the discharge instructions and disposition.
[2018-11-17] MEDS ORDERED: Albuterol-Ipratrop 3 mg / 0.5 (3 ml) UD INH STA (20:44)
[2018-11-17 20:45] LABS: BASO # 0.1 K/uL (0.0-0.2); BASO % 1.7 % (0.0-2.0); EOS # 0.2 K/uL (0.0-0.7); EOS % 2.9 % (0.0-4.0); LYMPH # 0.7 K/uL (1.0-4.3); LYMPH % 13.5 % (20.0-40.0); MEAN CELL VOLUME 93.1 fL (80.0-94.0); MEAN CORPUSCULAR HEMOGLOBIN 31.3 pg (27.0-31.0); MEAN CORPUSCULAR HGB CONC 33.6 g/dL (33.0-37.0); MEAN PLATELET VOLUME 7.6 fL (7.2-11.7); MONO # 0.6 K/uL (0.0-0.8); MONO % 10.6 % (0.0-10.0); NEUT % 71.3 % (50.0-75.0); NRBC % 0.3 % (0.0-2.0); RBC 4.49 Mil/uL (4.40-5.90); RED CELL DISTRIBUTION WIDTH 15.8 % (11.5-14.5); WHITE BLOOD COUNT 5.5 K/uL (4.8-10.8)
[2018-11-17] MEDS ORDERED: MethylPREDNISolone 40 mg Vial IVP STA (20:45)
[2018-11-17 20:53] LABS: ACETAMINOPHEN < 10.0 ug/mL (10.0-30.0); SALICYLATE < 1.0 mg/dL 1
[2018-11-17 20:55] LABS: ALB/GLOB RATIO 2.1 (1.0-2.1); ALBUMIN 4.8 g/dL (3.5-5.0); ALT/SGPT 64 U/L (21-72); AST/SGOT 75 U/L (17-59); BLOOD UREA NITROGEN 9 mg/dL (9-20); CALCIUM 8.5 mg/dl (8.6-10.4); GFR NON-AFRICAN AMERICAN > 60
[2018-11-17 22:27] LABS: SQUAMOUS EPITHIAL < 1 /hpf (0-5); URINE BILIRUBIN NEGATIVE (NEGATIVE); URINE BLOOD NEGATIVE (NEGATIVE); URINE CLARITY Clear (Clear); URINE COLOR Yellow (YELLOW); URINE GLUCOSE (UA) 1+ mg/dL (Normal); URINE LEUKOCYTE ESTERASE NEG Leu/uL (Negative); URINE PROTEIN 2+ mg/dL (NEGATIVE); URINE UROBILINOGEN NORMAL mg/dL (0.2-1.0)
[2018-11-17 22:33] LABS: BARBITURATES, UR NEGATIVE (NEGATIVE); OPIATES, UR NEGATIVE (NEGATIVE); PHENCYCLIDINE, UR NEGATIVE (NEGATIVE)
[2018-11-17 22:44] LABS: BENZODIAZEPINES, UR POSITIVE (NEGATIVE)
[2018-11-18] MEDS ORDERED: Fluticasone-Vilanterol 200/25mcg Diskus INH SCH (08:00)
--- NOTE | 2018-11-18 08:53 | RAD ---
HISTORY: Detox/Psy COMPARISON: Chest x-ray performed 07/11/18 TECHNIQUE: Chest PA and lateral FINDINGS: LUNGS: No focal consolidation. Please note that chest x-ray has limited sensitivity for the detection of pulmonary masses. PLEURA: No significant pleural effusion identified. No definite pneumothorax . CARDIOVASCULAR: Cardiomegaly. No atherosclerotic calcification present. OSSEOUS STRUCTURES: Degenerative changes including confluent anterior osteophyte formation.. VISUALIZED UPPER ABDOMEN: Unremarkable. OTHER FINDINGS: None. IMPRESSION: No focal consolidation. Cardiomegaly.
[2018-11-18] MEDS ORDERED: (Novolog) Insulin Aspart, Recombinant 100 u/ml 10 ml vial ONE ×2 (09:08→12:51)
[2018-11-18] MEDS ORDERED: Enoxaparin 40 mg Syringe ONE (09:13)
[2018-11-18] MEDS ORDERED: Pantoprazole 40 mg EC Tab PO ONE (09:14)
[2018-11-18] MEDS: Albuterol-Ipratrop 3 mg / 0.5 (3 ml) UD INH SCH (09:15)
[2018-11-18] MEDS: (Novolog) Insulin Aspart, Recombinant 100 u/ml 10 ml vial SC SCH ×4 (09:26→22:03)
[2018-11-18] MEDS: Pantoprazole 40 mg EC Tab PO SCH (09:27)
[2018-11-18] MEDS: Enoxaparin 40 mg Syringe SC SCH (09:27)
[2018-11-18] MEDS ORDERED: Multivitamin (MVI) 10 ML, Thiamine 100 MG, Folic Acid 1 MG in Sodium Chloride 0.9% 1,00... IV ONE (10:00)
[2018-11-18] MEDS ORDERED: Albuterol-Ipratrop 3 mg / 0.5 (3 ml) UD ONE (10:07)
[2018-11-18] MEDS: Azithromycin 500 MG in Sodium Chloride 0.9% 250 ML IVPB SCH (10:27)
[2018-11-18] MEDS ORDERED: Azithromycin 500mg/250ML NS 500 MG/250 ML BAG IVPB ONE (10:29)
[2018-11-18] MEDS ORDERED: MethylPREDNISolone 40 mg Vial ONE (12:53)
[2018-11-18] MEDS: MethylPREDNISolone 40 mg Vial IV SCH ×2 (13:24→21:24)
--- NOTE | 2018-11-18 17:57 | CP.PCM.PN ---
Subjective - Date & Time of Evaluation Date of Evaluation: 11/18/18 Time of Evaluation: 17:53 - Subjective Subjective: 53yo male, with history of COPD, HTN, HCH, DM, not on home O2 here with complaints of shortness of breath. Patient states this presentation is similar to his prior episodes of COPD exacerbation. He also admits to drinking beer and states he has suicidal ideation and plan to overdose on his medications. He notes he did not overdose on his medications today. Patient otherwise denies any fever, chills, night sweats, chest pain, abdominal pain, weakness or numbness. He denies any falls or trauma. Objective - Vital Signs/Intake and Output Vital Signs (last 24 hours): Temp Pulse Resp BP Pulse Ox 97.4 F L 87 20 149/89 95 11/18/18 15:02 11/18/18 16:00 11/18/18 15:02 11/18/18 15:02 11/18/18 15:02 Intake and Output: 11/18/18 11/18/18 06:59 18:59 Intake Total 300 Balance 300 - Medications Medications: Current Medications Albuterol/Ipratropium (Duoneb 3 Mg/0.5 Mg (3 Ml) Ud) 3 ml INH RQ6 [facility] Last Admin: 11/18/18 09:15 Dose: 3 ml Chlordiazepoxide (Librium) 25 mg PO Q8 PRN PRN Reason: Other Last Admin: 11/18/18 10:28 Dose: 25 mg Enoxaparin Sodium (Lovenox) 40 mg SC DAILY [facility] Last Admin: 11/18/18 09:27 Dose: 40 mg Fluphenazine HCl (Prolixin) 5 mg PO Q12 [facility] Last Admin: 11/18/18 10:27 Dose: 5 mg Fluticasone/Vilanterol (Breo Ellipta 200-25 Mcg Inh) 1 puff INH RQ24 [facility] Last Admin: 11/18/18 11:02 Dose: Not Given Gabapentin (Neurontin) 600 mg PO TID [facility] Last Admin: 11/18/18 17:09 Dose: 600 mg Glipizide (Glucotrol) 10 mg PO BRK [facility] Last Admin: 11/18/18 09:26 Dose: 10 mg Hydroxyzine HCl (Atarax) 25 mg PO BID PRN PRN Reason: Anxiety Azithromycin 500 mg/ Sodium (Chloride) 250 mls @ 250 mls/hr IVPB DAILY [facility]; Protocol Last Admin: 11/18/18 10:27 Dose: 250 mls/hr Multivitamins/Vitamin C 10 ml/Thiamine HCl 100 mg/ Folic Acid 1 mg/ Sodium Chloride 1,011.2 mls @ 50 mls/hr IV Q24H ONE Stop: 11/19/18 06:13 Last Admin: 11/18/18 10:27 Dose: 50 mls/hr Ceftriaxone Sodium 1 gm/ (Sodium Chloride) 100 mls @ 100 mls/hr IVPB 0900 [facility]; Protocol Insulin Aspart (Novolog) 0 unit SC ACHS [facility]; Protocol Last Admin: 11/18/18 17:08 Dose: 4 unit Insulin Glargine (Lantus) 40 unit SC HS [facility] Metformin HCl (Glucophage) 1,000 mg PO BIDCC [facility] Last Admin: 11/18/18 17:08 Dose: 1,000 mg Methylprednisolone (Solu-Medrol) 40 mg IV Q8 [facility] Last Admin: 11/18/18 13:24 Dose: 40 mg Montelukast Sodium (Singulair) 10 mg PO HS JOSE Pantoprazole Sodium (Protonix Ec Tab) 40 mg PO DAILY [facility] Last Admin: 11/18/18 09:27 Dose: 40 mg Quetiapine Fumarate (Seroquel) 300 mg PO HS JOSE Rosuvastatin Calcium (Crestor) 10 mg PO HS JOSE Temazepam (Restoril) 15 mg PO HS PRN PRN Reason: Insomnia Ziprasidone (Geodon Cap) 40 mg PO Q12 [facility] - Labs Labs: 11/17/18 20:39 11/17/18 20:39 - Head Exam Head Exam: NORMAL INSPECTION - Eye Exam Eye Exam: Normal appearance - ENT Exam ENT Exam: Mucous Membranes Moist - Respiratory Exam Respiratory Exam: Prolonged Expiratory Phase, Wheezes - Cardiovascular Exam Cardiovascular Exam: REGULAR RHYTHM, +S1, +S2 - GI/Abdominal Exam GI & Abdominal Exam: Soft, Normal Bowel Sounds - Extremities Exam Extremities Exam: Normal Inspection - Neurological Exam Neurological Exam: Alert - Psychiatric Exam Psychiatric exam: Normal Affect, Normal Mood - Skin Skin Exam: Normal Color Assessment and Plan (1) Suicidal ideation Status: Acute (2) COPD (chronic obstructive pulmonary disease) Status: Chronic (3) Alcohol abuse Status: Acute (4) DM2 (diabetes mellitus, type 2) Status: Chronic (5) HTN (hypertension) Status: Chronic - Assessment and Plan (Free Text) Plan: Continue Solumedrol for now Breo Ellipta Bronchodilators Singulair Observe for alcohol withdrawal In 1:1 observation due to suicidal ideation O2 supplementation Accucheck Insulin coverage DVT/GI prophalaxis
--- NOTE | 2018-11-18 18:46 | CP.PCM.CON ---
History of Present Illness - History of Present Illness History of Present Illness: 53 y/o presents with worsening SOB and usual COPD exacerbation sx's No Angina No volume overload suspicious for CHF NO LE edema, fevers, chills N/V/D PMHX: Heavy ETOH abuse, + smoker, hx of cocaine 1 year ago, COPD, HTN chronic labile, DM uncontrolled, Lipids chronic, Depression/anxiety Review of Systems - Review of Systems All systems: reviewed and no additional remarkable complaints except Past Patient History - Infectious Disease Hx of Infectious Diseases: None - Past Medical History & Family History Past Medical History?: Yes - Past Social History Smoking Status: Heavy Smoker > 10 Cigarettes Daily - CARDIAC Hx Hypercholesterolemia: Yes Hx Hypertension: Yes - PULMONARY Hx Chronic Obstructive Pulmonary Disease (COPD): Yes Hx Pneumonia: Yes Hx Sleep Apnea: Yes (uses CPAP at home) - NEUROLOGICAL Hx Seizures: Yes (ETOH related) - HEENT Hx HEENT Problems: Yes Other/Comment: HAD SEPTAL SURGERY DUE TO DEVIATION - RENAL Hx Chronic Kidney Disease: No - ENDOCRINE/METABOLIC Hx Endocrine Disorders: Yes Hx Diabetes Mellitus Type 2: Yes - HEMATOLOGICAL/ONCOLOGICAL Hx Human Immunodeficiency Virus (HIV): No (Patient denied) - INTEGUMENTARY Hx Dermatological Problems: No - MUSCULOSKELETAL/RHEUMATOLOGICAL Hx Falls: Yes - GASTROINTESTINAL Hx Gastritis: Yes - GENITOURINARY/GYNECOLOGICAL Hx Sexually Transmitted Disorders: No - PSYCHIATRIC Hx Substance Use: No - SURGICAL HISTORY Hx Tonsillectomy: Yes (as a child) - ANESTHESIA Hx Anesthesia: Yes Hx Anesthesia Reactions: No Hx Malignant Hyperthermia: No Meds Allergies/Adverse Reactions: Allergies Allergy/AdvReac Type Severity Reaction Status Date / Time amitriptyline [From [facility]] AdvReac ITCHING Verified 11/17/18 20:09 - Medications Medications: Current Medications Albuterol/Ipratropium (Duoneb 3 Mg/0.5 Mg (3 Ml) Ud) 3 ml INH RQ6 [facility] Last Admin: 11/18/18 09:15 Dose: 3 ml Chlordiazepoxide (Librium) 25 mg PO Q8 PRN PRN Reason: Other Last Admin: 11/18/18 10:28 Dose: 25 mg Enoxaparin Sodium (Lovenox) 40 mg SC DAILY [facility] Last Admin: 11/18/18 09:27 Dose: 40 mg Fluphenazine HCl (Prolixin) 5 mg PO Q12 [facility] Last Admin: 11/18/18 10:27 Dose: 5 mg Fluticasone/Vilanterol (Breo Ellipta 200-25 Mcg Inh) 1 puff INH RQ24 [facility] Last Admin: 11/18/18 11:02 Dose: Not Given Gabapentin (Neurontin) 600 mg PO TID [facility] Last Admin: 11/18/18 17:09 Dose: 600 mg Glipizide (Glucotrol) 10 mg PO BRK [facility] Last Admin: 11/18/18 09:26 Dose: 10 mg Hydroxyzine HCl (Atarax) 25 mg PO BID PRN PRN Reason: Anxiety Azithromycin 500 mg/ Sodium (Chloride) 250 mls @ 250 mls/hr IVPB DAILY [facility]; Protocol Last Admin: 11/18/18 10:27 Dose: 250 mls/hr Multivitamins/Vitamin C 10 ml/Thiamine HCl 100 mg/ Folic Acid 1 mg/ Sodium Chloride 1,011.2 mls @ 50 mls/hr IV Q24H ONE Stop: 11/19/18 06:13 Last Admin: 11/18/18 10:27 Dose: 50 mls/hr Ceftriaxone Sodium 1 gm/ (Sodium Chloride) 100 mls @ 100 mls/hr IVPB 0900 [facility]; Protocol Insulin Aspart (Novolog) 0 unit SC ACHS [facility]; Protocol Last Admin: 11/18/18 17:08 Dose: 4 unit Insulin Glargine (Lantus) 40 unit SC HS [facility] Metformin HCl (Glucophage) 1,000 mg PO BIDCC [facility] Last Admin: 11/18/18 17:08 Dose: 1,000 mg Methylprednisolone (Solu-Medrol) 40 mg IV Q8 [facility] Last Admin: 11/18/18 13:24 Dose: 40 mg Montelukast Sodium (Singulair) 10 mg PO HS JOSE Pantoprazole Sodium (Protonix Ec Tab) 40 mg PO DAILY [facility] Last Admin: 11/18/18 09:27 Dose: 40 mg Quetiapine Fumarate (Seroquel) 300 mg PO HS JOSE Rosuvastatin Calcium (Crestor) 10 mg PO HS JOSE Temazepam (Restoril) 15 mg PO HS PRN PRN Reason: Insomnia Ziprasidone (Geodon Cap) 40 mg PO Q12 [facility] Physical Exam - Constitutional Appears: No Acute Distress - Head Exam Head Exam: ATRAUMATIC, NORMAL INSPECTION, NORMOCEPHALIC - Eye Exam Eye Exam: EOMI, Normal appearance. absent: Scleral icterus - ENT Exam ENT Exam: Mucous Membranes Moist, Normal Exam - Neck Exam Neck exam: Positive for: Normal Inspection - Respiratory Exam Respiratory Exam: Wheezes, NORMAL BREATHING PATTERN. absent: Rales, Rhonchi - Cardiovascular Exam Cardiovascular Exam: REGULAR RHYTHM, +S1, +S2. absent: Systolic Murmur - GI/Abdominal Exam GI & Abdominal Exam: Normal Bowel Sounds, Soft. absent: Tenderness - Extremities Exam Extremities exam: Positive for: normal inspection. Negative for: calf tender ness, pedal edema - Neurological Exam Neurological exam: Alert, CN II-XII Intact, Oriented x3 - Psychiatric Exam Psychiatric exam: Normal Affect, Normal Mood - Skin Skin Exam: Intact, Normal Color, Warm Results - Vital Signs Recent Vital Signs: Last Vital Signs Temp 97.4 F L 11/18/18 15:02 Pulse 87 11/18/18 16:00 Resp 20 11/18/18 15:02 BP 149/89 11/18/18 15:02 Pulse Ox 95 11/18/18 15:02 - Labs Result Diagrams: 11/17/18 20:39 11/17/18 20:39 Labs: Laboratory Results - last 24 hr 11/17/18 11/17/18 11/17/18 20:39 20:39 20:39 WBC 5.5 RBC 4.49 Hgb 14.0 Hct 41.8 MCV 93.1 MCH 31.3 H MCHC 33.6 RDW 15.8 H Plt Count 195 D MPV 7.6 Neut % (Auto) 71.3 Lymph % (Auto) 13.5 L [place] % (Auto) 10.6 H Eos % (Auto) 2.9 Baso % (Auto) 1.7 Neut # (Auto) 4.0 Lymph # (Auto) 0.7 L [place] # (Auto) 0.6 Eos # (Auto) 0.2 Baso # (Auto) 0.1 Sodium 139 Potassium 4.2 Chloride 100 Carbon Dioxide 23 Anion Gap 20 BUN 9 Creatinine 0.8 Est GFR ( Amer) > 60 Est GFR (Non-Af Amer) > 60 POC Glucose (mg/dL) Random Glucose 227 H D Calcium 8.5 L Phosphorus 3.3 Magnesium 1.5 L Total Bilirubin 0.3 AST 75 H D ALT 64 Alkaline Phosphatase 76 Troponin I < 0.0120 Total Protein 7.1 Albumin 4.8 Globulin 2.3 Albumin/Globulin Ratio 2.1 Urine Color Urine Clarity Urine pH Ur Specific [place] Urine Protein Urine Glucose (UA) Urine Ketones Urine Blood Urine Nitrate Urine Bilirubin Urine Urobilinogen Ur Leukocyte Esterase Urine WBC (Auto) Urine RBC (Auto) Ur Squamous Epith Cells Hyaline Casts Salicylates < 1.0 Urine Opiates Screen Urine Methadone Screen Acetaminophen < 10.0 L Ur Barbiturates Screen Ur Phencyclidine Scrn Ur Amphetamines Screen U Benzodiazepines Scrn U Oth Cocaine Metabols U Cannabinoids Screen Alcohol, Quantitative 241 H 11/17/18 11/17/18 11/18/18 22:03 22:03 07:12 WBC RBC Hgb Hct MCV MCH MCHC RDW Plt Count MPV Neut % (Auto) Lymph % (Auto) [place] % (Auto) Eos % (Auto) Baso % (Auto) Neut # (Auto) Lymph # (Auto) [place] # (Auto) Eos # (Auto) Baso # (Auto) Sodium Potassium Chloride Carbon Dioxide Anion Gap BUN Creatinine Est GFR ( Amer) Est GFR (Non-Af Amer) POC Glucose (mg/dL) 334 H Random Glucose Calcium Phosphorus Magnesium Total Bilirubin AST ALT Alkaline Phosphatase Troponin I Total Protein Albumin Globulin Albumin/Globulin Ratio Urine Color Yellow Urine Clarity Clear Urine pH 5.0 Ur Specific [place] 1.023 Urine Protein 2+ H Urine Glucose (UA) 1+ H Urine Ketones 1+ H Urine Blood Negative Urine Nitrate Negative Urine Bilirubin Negative Urine Urobilinogen Normal Ur Leukocyte Esterase Neg Urine WBC (Auto) < 1 Urine RBC (Auto) < 1 Ur Squamous Epith Cells < 1 Hyaline Casts 3-5 H Salicylates Urine Opiates Screen Negative Urine Methadone Screen Negative Acetaminophen Ur Barbiturates Screen Negative Ur Phencyclidine Scrn Negative Ur Amphetamines Screen Negative U Benzodiazepines Scrn Positive U Oth Cocaine Metabols Negative U Cannabinoids Screen Negative Alcohol, Quantitative 11/18/18 11/18/18 11:05 16:44 WBC RBC Hgb Hct MCV MCH MCHC RDW Plt Count MPV Neut % (Auto) Lymph % (Auto) [place] % (Auto) Eos % (Auto) Baso % (Auto) Neut # (Auto) Lymph # (Auto) [place] # (Auto) Eos # (Auto) Baso # (Auto) Sodium Potassium Chloride Carbon Dioxide Anion Gap BUN Creatinine Est GFR ( Amer) Est GFR (Non-Af Amer) POC Glucose (mg/dL) 319 H 326 H Random Glucose Calcium Phosphorus Magnesium Total Bilirubin AST ALT Alkaline Phosphatase Troponin I Total Protein Albumin Globulin Albumin/Globulin Ratio Urine Color Urine Clarity Urine pH Ur Specific [place] Urine Protein Urine Glucose (UA) Urine Ketones Urine Blood Urine Nitrate Urine Bilirubin Urine Urobilinogen Ur Leukocyte Esterase Urine WBC (Auto) Urine RBC (Auto) Ur Squamous Epith Cells Hyaline Casts Salicylates Urine Opiates Screen Urine Methadone Screen Acetaminophen Ur Barbiturates Screen Ur Phencyclidine Scrn Ur Amphetamines Screen U Benzodiazepines Scrn U Oth Cocaine Metabols U Cannabinoids Screen Alcohol, Quantitative - EKG Data EKG Interpreted by: Myself (NSR, Left post fascicular block, no acute ischemic changes) Assessment & Plan - Assessment and Plan (Free Text) Assessment: 53 old man admitted for shortness of breath. The following images were directly visualized by me: EKG, x-ray EKG Other than mild sinus tachycardiaDoes not show any acute ischemic changes Chest x-ray is without focal consolidation, Effusion or infiltrate Problems: COPD There's no suspicion For decompensated CHF Symptoms are consistent with COPD exacerbation Continue supportive care Smoking cessation has been advised Hypertension Suggest Norvasc 5 mg or lisinopril 10 low salt diet + protein- urine Lipids agree with crestor 10 daily AST/ALT is mild : c/w hx of etoh DM Uncontrolled DM diet, weight loss and adjust RX to optimize control Anxiety/depression + ETOH levels increased Suggest DT precautions Vitamins and supportive care CAD risk factors Currently the patient does not show any signs of decompensated CHF or advanced coronary artery disease Continue medical therapy There are no high-risk findings to suggest any additional cardiovascular testing at present Suggest outpatient follow-up with us
--- NOTE | 2018-11-18 20:13 | CP.PCM.HP ---
Past Patient History - Infectious Disease Hx of Infectious Diseases: None - Past Medical History & Family History Past Medical History?: Yes - Past Social History Smoking Status: Heavy Smoker > 10 Cigarettes Daily - CARDIAC Hx Hypercholesterolemia: Yes Hx Hypertension: Yes - PULMONARY Hx Chronic Obstructive Pulmonary Disease (COPD): Yes Hx Pneumonia: Yes Hx Sleep Apnea: Yes (uses CPAP at home) - NEUROLOGICAL Hx Seizures: Yes (ETOH related) - HEENT Hx HEENT Problems: Yes Other/Comment: HAD SEPTAL SURGERY DUE TO DEVIATION - RENAL Hx Chronic Kidney Disease: No - ENDOCRINE/METABOLIC Hx Endocrine Disorders: Yes Hx Diabetes Mellitus Type 2: Yes - HEMATOLOGICAL/ONCOLOGICAL Hx Human Immunodeficiency Virus (HIV): No (Patient denied) - INTEGUMENTARY Hx Dermatological Problems: No - MUSCULOSKELETAL/RHEUMATOLOGICAL Hx Falls: Yes - GASTROINTESTINAL Hx Gastritis: Yes - GENITOURINARY/GYNECOLOGICAL Hx Sexually Transmitted Disorders: No - PSYCHIATRIC Hx Substance Use: No - SURGICAL HISTORY Hx Tonsillectomy: Yes (as a child) - ANESTHESIA Hx Anesthesia: Yes Hx Anesthesia Reactions: No Hx Malignant Hyperthermia: No Meds Allergies/Adverse Reactions: Allergies Allergy/AdvReac Type Severity Reaction Status Date / Time amitriptyline [From Elavil] AdvReac ITCHING Verified 11/17/18 20:09 Physical Exam - Constitutional Appears: Well - Head Exam Head Exam: ATRAUMATIC, NORMAL INSPECTION, NORMOCEPHALIC - Eye Exam Eye Exam: EOMI, Normal appearance, PERRL Pupil Exam: NORMAL ACCOMODATION, PERRL - ENT Exam ENT Exam: Mucous Membranes Moist, Normal Exam - Neck Exam Neck exam: Positive for: Normal Inspection - Respiratory Exam Respiratory Exam: Decreased Breath Sounds - Cardiovascular Exam Cardiovascular Exam: REGULAR RHYTHM, +S1, +S2 - GI/Abdominal Exam GI & Abdominal Exam: Diminished Bowel Sounds, Soft - Rectal Exam Rectal Exam: Deferred Results - Vital Signs Recent Vital Signs: Last Vital Signs Temp 97.4 F L 11/18/18 15:02 Pulse 87 11/18/18 16:00 Resp 20 11/18/18 15:02 BP 149/89 11/18/18 15:02 Pulse Ox 95 11/18/18 15:02 - Labs Result Diagrams: 11/17/18 20:39 11/17/18 20:39 Labs: Laboratory Results - last 24 hr 11/17/18 11/17/18 11/17/18 20:39 20:39 20:39 WBC 5.5 RBC 4.49 Hgb 14.0 Hct 41.8 MCV 93.1 MCH 31.3 H MCHC 33.6 RDW 15.8 H Plt Count 195 D MPV 7.6 Neut % (Auto) 71.3 Lymph % (Auto) 13.5 L [place] % (Auto) 10.6 H Eos % (Auto) 2.9 Baso % (Auto) 1.7 Neut # (Auto) 4.0 Lymph # (Auto) 0.7 L [place] # (Auto) 0.6 Eos # (Auto) 0.2 Baso # (Auto) 0.1 Sodium 139 Potassium 4.2 Chloride 100 Carbon Dioxide 23 Anion Gap 20 BUN 9 Creatinine 0.8 Est GFR ( Amer) > 60 Est GFR (Non-Af Amer) > 60 POC Glucose (mg/dL) Random Glucose 227 H D Calcium 8.5 L Phosphorus 3.3 Magnesium 1.5 L Total Bilirubin 0.3 AST 75 H D ALT 64 Alkaline Phosphatase 76 Troponin I < 0.0120 Total Protein 7.1 Albumin 4.8 Globulin 2.3 Albumin/Globulin Ratio 2.1 Urine Color Urine Clarity Urine pH Ur Specific [place] Urine Protein Urine Glucose (UA) Urine Ketones Urine Blood Urine Nitrate Urine Bilirubin Urine Urobilinogen Ur Leukocyte Esterase Urine WBC (Auto) Urine RBC (Auto) Ur Squamous Epith Cells Hyaline Casts Salicylates < 1.0 Urine Opiates Screen Urine Methadone Screen Acetaminophen < 10.0 L Ur Barbiturates Screen Ur Phencyclidine Scrn Ur Amphetamines Screen U Benzodiazepines Scrn U Oth Cocaine Metabols U Cannabinoids Screen Alcohol, Quantitative 241 H 11/17/18 11/17/18 11/18/18 22:03 22:03 07:12 WBC RBC Hgb Hct MCV MCH MCHC RDW Plt Count MPV Neut % (Auto) Lymph % (Auto) [place] % (Auto) Eos % (Auto) Baso % (Auto) Neut # (Auto) Lymph # (Auto) [place] # (Auto) Eos # (Auto) Baso # (Auto) Sodium Potassium Chloride Carbon Dioxide Anion Gap BUN Creatinine Est GFR ( Amer) Est GFR (Non-Af Amer) POC Glucose (mg/dL) 334 H Random Glucose Calcium Phosphorus Magnesium Total Bilirubin AST ALT Alkaline Phosphatase Troponin I Total Protein Albumin Globulin Albumin/Globulin Ratio Urine Color Yellow Urine Clarity Clear Urine pH 5.0 Ur Specific [place] 1.023 Urine Protein 2+ H Urine Glucose (UA) 1+ H Urine Ketones 1+ H Urine Blood Negative Urine Nitrate Negative Urine Bilirubin Negative Urine Urobilinogen Normal Ur Leukocyte Esterase Neg Urine WBC (Auto) < 1 Urine RBC (Auto) < 1 Ur Squamous Epith Cells < 1 Hyaline Casts 3-5 H Salicylates Urine Opiates Screen Negative Urine Methadone Screen Negative Acetaminophen Ur Barbiturates Screen Negative Ur Phencyclidine Scrn Negative Ur Amphetamines Screen Negative U Benzodiazepines Scrn Positive U Oth Cocaine Metabols Negative U Cannabinoids Screen Negative Alcohol, Quantitative 11/18/18 11/18/18 11:05 16:44 WBC RBC Hgb Hct MCV MCH MCHC RDW Plt Count MPV Neut % (Auto) Lymph % (Auto) [place] % (Auto) Eos % (Auto) Baso % (Auto) Neut # (Auto) Lymph # (Auto) [place] # (Auto) Eos # (Auto) Baso # (Auto) Sodium Potassium Chloride Carbon Dioxide Anion Gap BUN Creatinine Est GFR ( Amer) Est GFR (Non-Af Amer) POC Glucose (mg/dL) 319 H 326 H Random Glucose Calcium Phosphorus Magnesium Total Bilirubin AST ALT Alkaline Phosphatase Troponin I Total Protein Albumin Globulin Albumin/Globulin Ratio Urine Color Urine Clarity Urine pH Ur Specific [place] Urine Protein Urine Glucose (UA) Urine Ketones Urine Blood Urine Nitrate Urine Bilirubin Urine Urobilinogen Ur Leukocyte Esterase Urine WBC (Auto) Urine RBC (Auto) Ur Squamous Epith Cells Hyaline Casts Salicylates Urine Opiates Screen Urine Methadone Screen Acetaminophen Ur Barbiturates Screen Ur Phencyclidine Scrn Ur Amphetamines Screen U Benzodiazepines Scrn U Oth Cocaine Metabols U Cannabinoids Screen Alcohol, Quantitative
[2018-11-18] MEDS: (Lantus) Insulin Glargine, Recombinant SC SCH (21:25)
--- NOTE | 2018-11-19 00:23 | PCM.PSYCH ---
Initial Psychiatric Evaluation - Initial Psychiatric Evaluation Type of Admission: Voluntary Legal Status: Capacity Chief Complaint (in patient's own words): I relapsed on drinking History of Present Illness and Precipitating Events: 53yo male, with history of COPD, HTN, HCH, DM, not on home O2 here with complaints of shortness of breath. Today patient was consulted by psychiatry Campus Security Officer is familiar with this patient. Patient has history of multiple inpatient psychiatric hospitalizations. He was just discharged from [facility] 5 E. last month. As per the patient he is taking medications and is compliant with follow-up however he relapsed on drinking and started drinking again amount of liquor. His reporting withdrawal symptoms including cramps, joint pains, nausea, shakes, anxiety and sweating. He reports anxiety irritability and agitation however he denies any suicidal ideation or any homicidal ideation. He reports paranoia, voices but denies any visual hallucinations. Current Medications: Active Medications Generic Name Dose Route Start Last Admin Trade Name Freq PRN Reason Stop Dose Admin Albuterol/Ipratropium 3 ml 11/18/18 08:00 11/18/18 09:15 Duoneb 3 Mg/0.5 Mg (3 Ml) Ud INH 3 ml RQ6 JOSE Administration Chlordiazepoxide 25 mg 11/18/18 09:46 11/18/18 10:28 Librium PO 25 mg Q8 PRN Administration Other Enoxaparin Sodium 40 mg 11/18/18 10:00 11/18/18 09:27 Lovenox SC 40 mg DAILY JOSE Administration Fluphenazine HCl 5 mg 11/18/18 10:00 11/18/18 21:26 Prolixin PO 5 mg Q12 JOSE Administration Fluticasone/Vilanterol 1 puff 11/18/18 08:00 11/18/18 11:02 Breo Ellipta 200-25 Mcg Inh INH Not Given RQ24 JOSE Gabapentin 600 mg 11/18/18 10:00 11/18/18 17:09 Neurontin PO 600 mg TID JOSE Administration Glipizide 10 mg 11/18/18 08:00 11/18/18 09:26 Glucotrol PO 10 mg BRK JOSE Administration Hydroxyzine HCl 25 mg 11/18/18 07:28 Atarax PO BID PRN Anxiety Azithromycin 500 mg/ Sodium 250 mls @ 250 mls/hr 11/18/18 10:00 11/18/18 10:27 Chloride IVPB 250 mls/hr DAILY JOSE Administration Protocol Multivitamins/Vitamin C 10 ml/ 1,011.2 mls @ 50 mls/hr 11/18/18 10:00 11/18/18 10:27 Thiamine HCl 100 mg/ Folic IV 11/19/18 06:13 50 mls/hr Acid 1 mg/ Sodium Chloride Q24H ONE Administration Ceftriaxone Sodium 1 gm/ 100 mls @ 100 mls/hr 11/19/18 09:00 Sodium Chloride IVPB 0900 JOSE Protocol Insulin Aspart 0 unit 11/18/18 07:30 11/18/18 22:03 Novolog SC 2 unit ACHS JSOE Administration Protocol Insulin Glargine 40 unit 11/18/18 22:00 11/18/18 21:25 Lantus SC 40 units HS JOSE Administration Metformin HCl 1,000 mg 11/18/18 10:00 11/18/18 17:08 Glucophage PO 1,000 mg BIDCC JOSE Administration Methylprednisolone 40 mg 11/18/18 14:00 11/18/18 21:24 Solu-Medrol IV 40 mg Q8 JOSE Administration Montelukast Sodium 10 mg 11/18/18 22:00 11/18/18 21:25 Singulair PO 10 mg HS JOSE Administration Pantoprazole Sodium 40 mg 11/18/18 10:00 11/18/18 09:27 Protonix Ec Tab PO 40 mg DAILY JOSE Administration Quetiapine Fumarate 300 mg 11/18/18 22:00 11/18/18 21:25 Seroquel PO 300 mg HS JOSE Administration Rosuvastatin Calcium 10 mg 11/18/18 22:00 11/18/18 21:25 Crestor PO 10 mg HS JOSE Administration Temazepam 15 mg 11/18/18 22:00 Restoril PO HS PRN Insomnia Ziprasidone 40 mg 11/18/18 22:00 11/18/18 21:25 Geodon Cap PO 40 mg Q12 JOSE Administration Past Psychiatric History - Past Psychiatric History Previous Treatment History: Inpatient Pertinent Medical Hx (Current Medical&Sleep Prob, Allergies): Allergies Allergy/AdvReac Type Severity Reaction Status Date / Time amitriptyline [From Elavil] AdvReac ITCHING Verified 11/17/18 20:09 Simvastatin 40 mg PO DAILY 07/11/18 Insulin Glargine, Recombina [Lantus] 40 unit SC HS unit 08/03/18 Pantoprazole [Protonix EC Tab] 40 mg PO DAILY ect 08/03/18 QUEtiapine [Seroquel] 300 mg PO HS #30 tab 08/03/18 metFORMIN [glucOPHAGE] 1,000 mg PO BID tab 08/03/18 Atenolol [Tenormin] 50 mg PO DAILY #7 tab 08/24/18 Fluticasone/Salmeterol 500/50 [Advair Diskus 500/50] 1 puff INH Q12 #1 puff 08/24/18 Gabapentin [Neurontin] 600 mg PO TID #45 tab 08/24/18 GlipiZIDE [Glucotrol] 10 mg PO DAILY #7 tab 08/24/18 Zaleplon [Sonata] 10 mg PO HS #14 cap 08/24/18 Ziprasidone [Geodon Cap] 40 mg PO Q12 #60 cap 10/24/18 fluPHENAZine [Prolixin] 5 mg PO Q12 #60 tab 10/24/18 hydrOXYzine HCl [Atarax] 25 mg PO BID PRN #60 tab 10/24/18 Review of Systems - Review of Systems All systems: reviewed and no additional remarkable complaints except - Psychiatric Psychiatric: Anxiety, Auditory Hallucinations, Depression, Hopelessness, Irritability Mental Status Examination - Personal Presentation Personal Presentation: Looks stated age - Affect Affect: Broad - Motor Activity Motor Activity: Psychomotor Agitation - Reliability in Providing Information Reliability in Providing Information: Poor, due to alteration in thoughts, Poor, due to altered mood - Speech Speech: Disorganized - Mood Mood: Anxious - Formal Thought Process Formal Thought Process: Hallucinations, Delusions, Paranoia, Loosening of associations - Hallucinations/Delusions Hallucinations: Auditory Delusions: Persecution - Obsessions/Compulsions Obsessions: No Compulsions: No - Cognitive Functions Orientation: Person, Place, Situation, Time Sensorium: Alert Attention/Concentration: Attentive Abstract Thinking: [place] Estimate of Intelligence: Below average Judgement: Imparied, as evidence by: Poor judgement, Imparied, as evidence by: Lack of insight into illness - Risk Risk: Withdrawal, Diminished functioning - Strength & Assets Inventory Strength & Assets Inventory: Family support DSM 5 DX - DSM 5 DSM 5 Diagnosis: Schizoaffective disorder bipolar type Alcohol use disorder severe Alcohol withdrawal - Recommended/Plan of Treatment Treatment Recommendations and Plan of Treatment: Pt to admit to psych after medical clearance. - Smoking Cessation Smoking Cessation Initiated: No
[2018-11-19] MEDS: Albuterol-Ipratrop 3 mg / 0.5 (3 ml) UD INH SCH ×4 (02:00→19:45)
[2018-11-19] MEDS: MethylPREDNISolone 40 mg Vial IV SCH ×3 (05:45→21:49)
--- NOTE | 2018-11-19 08:33 | CP.PCM.PN ---
Subjective - Date & Time of Evaluation Date of Evaluation: 11/19/18 Time of Evaluation: 08:31 - Subjective Subjective: Events reviewed. Objective - Vital Signs/Intake and Output Vital Signs (last 24 hours): Temp Pulse Resp BP Pulse Ox 97.4 F L 82 20 127/78 95 11/19/18 07:30 11/19/18 07:30 11/19/18 07:30 11/19/18 07:30 11/19/18 07:30 Intake and Output: 11/19/18 11/19/18 06:59 18:59 Intake Total 880 Output Total 800 Balance 80 - Medications Medications: Current Medications Albuterol/Ipratropium (Duoneb 3 Mg/0.5 Mg (3 Ml) Ud) 3 ml INH RQ6 [facility] Last Admin: 11/19/18 07:51 Dose: Not Given Chlordiazepoxide (Librium) 25 mg PO Q8 PRN PRN Reason: Other Last Admin: 11/18/18 10:28 Dose: 25 mg Chlordiazepoxide (Librium) 25 mg PO Q6 [facility]; Taper Stop: 11/23/18 05:59 Last Admin: 11/19/18 05:46 Dose: 25 mg Clonidine HCl (Catapres) 0.1 mg PO Q4H PRN PRN Reason: Symptoms of alcohol withdrawl Enoxaparin Sodium (Lovenox) 40 mg SC DAILY [facility] Last Admin: 11/18/18 09:27 Dose: 40 mg Fluphenazine HCl (Prolixin) 5 mg PO Q12 [facility] Last Admin: 11/18/18 21:26 Dose: 5 mg Fluticasone/Vilanterol (Breo Ellipta 200-25 Mcg Inh) 1 puff INH RQ24 [facility] Last Admin: 11/18/18 11:02 Dose: Not Given Folic Acid (Folic Acid) 1 mg PO DAILY [facility] Gabapentin (Neurontin) 600 mg PO TID [facility] Last Admin: 11/18/18 17:09 Dose: 600 mg Glipizide (Glucotrol) 10 mg PO BRK [facility] Last Admin: 11/18/18 09:26 Dose: 10 mg Hydroxyzine HCl (Atarax) 25 mg PO BID PRN PRN Reason: Anxiety Azithromycin 500 mg/ Sodium (Chloride) 250 mls @ 250 mls/hr IVPB DAILY [facility]; Protocol Last Admin: 11/18/18 10:27 Dose: 250 mls/hr Ceftriaxone Sodium 1 gm/ (Sodium Chloride) 100 mls @ 100 mls/hr IVPB 0900 [facility]; Protocol Insulin Aspart (Novolog) 0 unit SC ACHS [facility]; Protocol Last Admin: 11/18/18 22:03 Dose: 2 unit Insulin Glargine (Lantus) 40 unit SC HS [facility] Last Admin: 11/18/18 21:25 Dose: 40 units Metformin HCl (Glucophage) 1,000 mg PO BIDCC [facility] Last Admin: 11/18/18 17:08 Dose: 1,000 mg Methylprednisolone (Solu-Medrol) 40 mg IV Q8 [facility] Last Admin: 11/19/18 05:45 Dose: 40 mg Montelukast Sodium (Singulair) 10 mg PO HS [facility] Last Admin: 11/18/18 21:25 Dose: 10 mg Multivitamins (Hexavitamin) 1 tab PO DAILY [facility] Pantoprazole Sodium (Protonix Ec Tab) 40 mg PO DAILY [facility] Last Admin: 11/18/18 09:27 Dose: 40 mg Quetiapine Fumarate (Seroquel) 300 mg PO HS [facility] Last Admin: 11/18/18 21:25 Dose: 300 mg Rosuvastatin Calcium (Crestor) 10 mg PO HS [facility] Last Admin: 11/18/18 21:25 Dose: 10 mg Temazepam (Restoril) 15 mg PO HS PRN PRN Reason: Insomnia Thiamine HCl (Vitamin B1 Tab) 100 mg PO DAILY [facility] Ziprasidone (Geodon Cap) 40 mg PO Q12 [facility] Last Admin: 11/18/18 21:25 Dose: 40 mg - Labs Labs: 11/17/18 20:39 11/17/18 20:39 Assessment and Plan - Assessment and Plan (Free Text) Assessment: Physical Exam - Constitutional Appears: No Acute Distress - Head Exam Head Exam: ATRAUMATIC, NORMAL INSPECTION, NORMOCEPHALIC - Eye Exam Eye Exam: EOMI, Normal appearance. absent: Scleral icterus - ENT Exam ENT Exam: Mucous Membranes Moist, Normal Exam - Neck Exam Neck exam: Positive for: Normal Inspection - Respiratory Exam Respiratory Exam: Wheezes, NORMAL BREATHING PATTERN. absent: Rales, Rhonchi - Cardiovascular Exam Cardiovascular Exam: REGULAR RHYTHM, +S1, +S2. absent: Systolic Murmur - GI/Abdominal Exam GI & Abdominal Exam: Normal Bowel Sounds, Soft. absent: Tenderness - Extremities Exam Extremities exam: Positive for: normal inspection. Negative for: calf tenderness, pedal edema - Neurological Exam Neurological exam: Alert, CN II-XII Intact, Oriented x3 - Psychiatric Exam Psychiatric exam: Normal Affect, Normal Mood - Skin Skin Exam: Intact, Normal Color, Warm - EKG Data EKG Interpreted by: Myself (NSR, Left post fascicular block, no acute ischemic changes) Assessment & Plan - Assessment and Plan (Free Text) Assessment: 53 old man admitted for shortness of breath. The following images were directly visualized by me: EKG, x-ray EKG Other than mild sinus tachycardia Does not show any acute ischemic changes Chest x-ray is without focal consolidation, Effusion or infiltrate Problems: COPD There's no suspicion For decompensated CHF Symptoms are consistent with COPD exacerbation Continue supportive care Smoking cessation has been advised Hypertension Chronic and stable on clonidine Lipids Chronic and stable on crestor DM Chronic Uncontrolled Insulin sliding scale Anxiety/depression + ETOH levels increased Suggest DT precautions Vitamins and supportive care CAD risk factors Currently the patient does not show any signs of decompensated CHF or advanced coronary artery disease Continue medical therapy There are no high-risk findings to suggest any additional cardiovascular testing at present Suggest outpatient follow-up with us
[2018-11-19] MEDS: (Novolog) Insulin Aspart, Recombinant 100 u/ml 10 ml vial SC SCH ×6 (08:45→21:50)
[2018-11-19] MEDS: Enoxaparin 40 mg Syringe SC SCH (10:37)
[2018-11-19] MEDS: Multiple Vitamins Tab PO SCH (10:38)
[2018-11-19] MEDS: Pantoprazole 40 mg EC Tab PO SCH (10:38)
[2018-11-19 11:13] LABS: BASO % 0.1 % (0.0-2.0); HEMOGLOBIN 14.2 g/dL (12.0-18.0); LYMPH # 0.5 K/uL (1.0-4.3); LYMPH % 7.2 % (20.0-40.0); MEAN CELL VOLUME 93.4 fL (80.0-94.0); MEAN CORPUSCULAR HEMOGLOBIN 31.2 pg (27.0-31.0); MEAN CORPUSCULAR HGB CONC 33.5 g/dL (33.0-37.0); MONO # 0.2 K/uL (0.0-0.8); MONO % 2.9 % (0.0-10.0); NEUT # 5.6 K/uL (1.8-7.0); NEUT % 89.8 % (50.0-75.0); PLATELET COUNT 209 K/uL (130-400); RBC 4.55 Mil/uL (4.40-5.90); RED CELL DISTRIBUTION WIDTH 16.1 % (11.5-14.5); WHITE BLOOD COUNT 6.2 K/uL (4.8-10.8)
[2018-11-19 11:23] LABS: ALB/GLOB RATIO 1.8 (1.0-2.1); ALBUMIN 4.5 g/dL (3.5-5.0); ALT/SGPT 50 U/L (21-72); AST/SGOT 28 U/L (17-59); BLOOD UREA NITROGEN 20 mg/dL (9-20); CALCIUM 9.5 mg/dl (8.6-10.4); GFR NON-AFRICAN AMERICAN > 60
[2018-11-19 11:42] LABS: ANISOCYTOSIS SLIGHT; LYMPHOCYTE 7 % (20-40); MONOCYTE 5 % (0-10); NEUTROPHIL 88 % (50-75); PLATELET ESTIMATE NORMAL (NORMAL); TOTAL CELLS COUNTED 100
[2018-11-19 11:43] LABS: POLYCHROMIC SLIGHT
[2018-11-19] MEDS: Azithromycin 500 MG in Sodium Chloride 0.9% 250 ML IVPB SCH (12:37)
--- NOTE | 2018-11-19 19:34 | CP.PCM.PN ---
Subjective - Date & Time of Evaluation Date of Evaluation: 11/19/18 Time of Evaluation: 19:33 - Subjective Subjective: Patient is seen and examined Reports improved dyspnea Objective - Vital Signs/Intake and Output Vital Signs (last 24 hours): Temp Pulse Resp BP Pulse Ox 97.4 F L 82 20 127/78 95 11/19/18 07:30 11/19/18 07:30 11/19/18 07:30 11/19/18 07:30 11/19/18 07:30 - Medications Medications: Current Medications Albuterol/Ipratropium (Duoneb 3 Mg/0.5 Mg (3 Ml) Ud) 3 ml INH RQ6 [facility] Last Admin: 11/19/18 13:29 Dose: 3 ml Chlordiazepoxide (Librium) 25 mg PO Q8 PRN PRN Reason: Other Last Admin: 11/18/18 10:28 Dose: 25 mg Chlordiazepoxide (Librium) 25 mg PO Q6 [facility]; Taper Stop: 11/23/18 05:59 Last Admin: 11/19/18 17:28 Dose: 25 mg Clonidine HCl (Catapres) 0.1 mg PO Q4H PRN PRN Reason: Symptoms of alcohol withdrawl Enoxaparin Sodium (Lovenox) 40 mg SC DAILY [facility] Last Admin: 11/19/18 10:37 Dose: 40 mg Fluphenazine HCl (Prolixin) 5 mg PO Q12 [facility] Last Admin: 11/19/18 11:34 Dose: 5 mg Fluticasone/Vilanterol (Breo Ellipta 200-25 Mcg Inh) 1 puff INH RQ24 [facility] Last Admin: 11/18/18 11:02 Dose: Not Given Folic Acid (Folic Acid) 1 mg PO DAILY [facility] Last Admin: 11/19/18 10:39 Dose: 1 mg Gabapentin (Neurontin) 600 mg PO TID [facility] Last Admin: 11/19/18 17:28 Dose: 600 mg Glipizide (Glucotrol) 10 mg PO BRK [facility] Last Admin: 11/19/18 08:46 Dose: 10 mg Hydroxyzine HCl (Atarax) 25 mg PO BID PRN PRN Reason: Anxiety Azithromycin 500 mg/ Sodium (Chloride) 250 mls @ 250 mls/hr IVPB DAILY [facility]; Protocol Last Admin: 11/19/18 12:37 Dose: 250 mls/hr Ceftriaxone Sodium 1 gm/ (Sodium Chloride) 100 mls @ 100 mls/hr IVPB 0900 [facility]; Protocol Last Admin: 11/19/18 10:46 Dose: 100 mls/hr Insulin Aspart (Novolog) 0 unit SC [facility]; Protocol Last Admin: 11/19/18 17:26 Dose: 5 unit Insulin Aspart (Novolog) [address] [facility]; Protocol Last Admin: 11/19/18 17:29 Dose: Not Given Insulin Glargine (Lantus) 40 unit SC [facility] Last Admin: 11/18/18 21:25 Dose: 40 units Metformin HCl (Glucophage) 1,000 mg PO BIDCC [facility] Last Admin: 11/19/18 17:27 Dose: 1,000 mg Methylprednisolone (Solu-Medrol) 40 mg IV Q8 [facility] Last Admin: 11/19/18 14:01 Dose: 40 mg Montelukast Sodium (Singulair) 10 mg PO [facility] Last Admin: 11/18/18 21:25 Dose: 10 mg Multivitamins (Hexavitamin) 1 tab PO DAILY [facility] Last Admin: 11/19/18 10:38 Dose: 1 tab Pantoprazole Sodium (Protonix Ec Tab) 40 mg PO DAILY [facility] Last Admin: 11/19/18 10:38 Dose: 40 mg Quetiapine Fumarate (Seroquel) 300 mg PO [facility] Last Admin: 11/18/18 21:25 Dose: 300 mg Rosuvastatin Calcium (Crestor) 10 mg PO HS [facility] Last Admin: 11/18/18 21:25 Dose: 10 mg Temazepam (Restoril) 15 mg PO HS PRN PRN Reason: Insomnia Thiamine HCl (Vitamin B1 Tab) 100 mg PO DAILY [facility] Last Admin: 11/19/18 10:38 Dose: 100 mg Ziprasidone (Geodon Cap) 40 mg PO Q12 [facility] Last Admin: 11/19/18 10:38 Dose: 40 mg - Labs Labs: 11/19/18 10:56 11/19/18 10:56 - Head Exam Head Exam: NORMAL INSPECTION - Eye Exam Eye Exam: Normal appearance - ENT Exam ENT Exam: Mucous Membranes Moist - Respiratory Exam Respiratory Exam: Decreased Breath Sounds - Cardiovascular Exam Cardiovascular Exam: REGULAR RHYTHM, +S1, +S2 - GI/Abdominal Exam GI & Abdominal Exam: Soft, Normal Bowel Sounds - Extremities Exam Extremities Exam: Normal Inspection - Neurological Exam Neurological Exam: Alert, Oriented x3 - Psychiatric Exam Psychiatric exam: Normal Affect, Normal Mood Assessment and Plan (1) Suicidal ideation Status: Acute (2) COPD (chronic obstructive pulmonary disease) Status: Chronic (3) Alcohol abuse Status: Acute (4) DM2 (diabetes mellitus, type 2) Status: Chronic (5) HTN (hypertension) Status: Chronic - Assessment and Plan (Free Text) Plan: Taper Solu-Medrol off Breo Ellipta Bronchodilators Singulair Observe for alcohol withdrawal O2 supplementation Accucheck Insulin coverage DVT/GI prophalaxis
--- NOTE | 2018-11-19 20:59 | CP.PCM.PN ---
Subjective - Date & Time of Evaluation Date of Evaluation: 11/19/18 Time of Evaluation: 10:30 - Subjective Subjective: clinically same Objective - Vital Signs/Intake and Output Vital Signs (last 24 hours): Temp Pulse Resp BP Pulse Ox 97.4 F L 82 20 127/78 95 11/19/18 07:30 11/19/18 07:30 11/19/18 07:30 11/19/18 07:30 11/19/18 07:30 - Medications Medications: Current Medications Albuterol/Ipratropium (Duoneb 3 Mg/0.5 Mg (3 Ml) Ud) 3 ml INH RQ6 [facility] Last Admin: 11/19/18 19:45 Dose: 3 ml Chlordiazepoxide (Librium) 25 mg PO Q8 PRN PRN Reason: Other Last Admin: 11/18/18 10:28 Dose: 25 mg Chlordiazepoxide (Librium) 25 mg PO Q6 [facility]; Taper Stop: 11/23/18 05:59 Last Admin: 11/19/18 17:28 Dose: 25 mg Clonidine HCl (Catapres) 0.1 mg PO Q4H PRN PRN Reason: Symptoms of alcohol withdrawl Enoxaparin Sodium (Lovenox) 40 mg SC DAILY [facility] Last Admin: 11/19/18 10:37 Dose: 40 mg Fluphenazine HCl (Prolixin) 5 mg PO Q12 [facility] Last Admin: 11/19/18 11:34 Dose: 5 mg Fluticasone/Vilanterol (Breo Ellipta 200-25 Mcg Inh) 1 puff INH RQ24 [facility] Last Admin: 11/18/18 11:02 Dose: Not Given Folic Acid (Folic Acid) 1 mg PO DAILY [facility] Last Admin: 11/19/18 10:39 Dose: 1 mg Gabapentin (Neurontin) 600 mg PO TID [facility] Last Admin: 11/19/18 17:28 Dose: 600 mg Glipizide (Glucotrol) 10 mg PO BRK [facility] Last Admin: 11/19/18 08:46 Dose: 10 mg Hydroxyzine HCl (Atarax) 25 mg PO BID PRN PRN Reason: Anxiety Azithromycin 500 mg/ Sodium (Chloride) 250 mls @ 250 mls/hr IVPB DAILY [facility]; Protocol Last Admin: 11/19/18 12:37 Dose: 250 mls/hr Ceftriaxone Sodium 1 gm/ (Sodium Chloride) 100 mls @ 100 mls/hr IVPB 0900 [facility]; Protocol Last Admin: 11/19/18 10:46 Dose: 100 mls/hr Insulin Aspart (Novolog) 0 unit SC [facility]; Protocol Last Admin: 11/19/18 17:26 Dose: 5 unit Insulin Aspart (Novolog) 0 unit SC [facility]; Protocol Last Admin: 11/19/18 17:29 Dose: Not Given Insulin Glargine (Lantus) 40 unit SC [facility] Last Admin: 11/18/18 21:25 Dose: 40 units Metformin HCl (Glucophage) 1,000 mg PO BIDCC [facility] Last Admin: 11/19/18 17:27 Dose: 1,000 mg Methylprednisolone (Solu-Medrol) 40 mg IV Q8 [facility] Last Admin: 11/19/18 14:01 Dose: 40 mg Montelukast Sodium (Singulair) 10 mg PO [facility] Last Admin: 11/18/18 21:25 Dose: 10 mg Multivitamins (Hexavitamin) 1 tab PO DAILY [facility] Last Admin: 11/19/18 10:38 Dose: 1 tab Pantoprazole Sodium (Protonix Ec Tab) 40 mg PO DAILY [facility] Last Admin: 11/19/18 10:38 Dose: 40 mg Quetiapine Fumarate (Seroquel) 300 mg PO HS [facility] Last Admin: 11/18/18 21:25 Dose: 300 mg Rosuvastatin Calcium (Crestor) 10 mg PO HS [facility] Last Admin: 11/18/18 21:25 Dose: 10 mg Temazepam (Restoril) 15 mg PO HS PRN PRN Reason: Insomnia Thiamine HCl (Vitamin B1 Tab) 100 mg PO DAILY [facility] Last Admin: 11/19/18 10:38 Dose: 100 mg Ziprasidone (Geodon Cap) 40 mg PO Q12 [facility] Last Admin: 11/19/18 10:38 Dose: 40 mg - Labs Labs: 11/19/18 10:56 11/19/18 10:56 - Constitutional Appears: Well - Head Exam Head Exam: ATRAUMATIC, NORMAL INSPECTION, NORMOCEPHALIC - Eye Exam Eye Exam: EOMI, Normal appearance, PERRL Pupil Exam: NORMAL ACCOMODATION, PERRL - ENT Exam ENT Exam: Mucous Membranes Moist, Normal Exam - Neck Exam Neck Exam: Full ROM, Normal Inspection. absent: Lymphadenopathy - Respiratory Exam Respiratory Exam: Decreased Breath Sounds - Cardiovascular Exam Cardiovascular Exam: REGULAR RHYTHM, +S1, +S2 - GI/Abdominal Exam GI & Abdominal Exam: Soft, Diminished Bowel Sounds - Rectal Exam Rectal Exam: Deferred
[2018-11-19] MEDS: (Lantus) Insulin Glargine, Recombinant SC SCH (21:48)
[2018-11-20] MEDS: Albuterol-Ipratrop 3 mg / 0.5 (3 ml) UD INH SCH ×4 (01:05→19:43)
[2018-11-20] MEDS: MethylPREDNISolone 40 mg Vial IV SCH ×3 (05:05→22:00)
[2018-11-20] MEDS: (Novolog) Insulin Aspart, Recombinant 100 u/ml 10 ml vial SC SCH ×4 (08:57→21:59)
[2018-11-20] MEDS: Enoxaparin 40 mg Syringe SC SCH (09:01)
[2018-11-20] MEDS: Pantoprazole 40 mg EC Tab PO SCH (09:04)
[2018-11-20] MEDS: Multiple Vitamins Tab PO SCH (09:05)
[2018-11-20] MEDS: Azithromycin 500 MG in Sodium Chloride 0.9% 250 ML IVPB SCH (10:33)
--- NOTE | 2018-11-20 14:16 | CP.PCM.PN ---
Subjective - Date & Time of Evaluation Date of Evaluation: 11/20/18 Time of Evaluation: 10:15 - Subjective Subjective: clinically same Objective - Vital Signs/Intake and Output Vital Signs (last 24 hours): Temp Pulse Resp BP Pulse Ox 98.0 F 84 20 155/90 H 94 L 11/20/18 07:25 11/20/18 07:25 11/20/18 07:25 11/20/18 07:25 11/20/18 07:25 - Medications Medications: Current Medications Albuterol/Ipratropium (Duoneb 3 Mg/0.5 Mg (3 Ml) Ud) 3 ml INH RQ6 [facility] Last Admin: 11/20/18 14:11 Dose: 3 ml Chlordiazepoxide (Librium) 25 mg PO Q8 PRN PRN Reason: Other Last Admin: 11/18/18 10:28 Dose: 25 mg Chlordiazepoxide (Librium) 25 mg PO TID [facility]; Taper Stop: 11/23/18 05:59 Last Admin: 11/20/18 09:06 Dose: 25 mg Clonidine HCl (Catapres) 0.1 mg PO Q4H PRN PRN Reason: Symptoms of alcohol withdrawl Enoxaparin Sodium (Lovenox) 40 mg SC DAILY [facility] Last Admin: 11/20/18 09:01 Dose: 40 mg Fluphenazine HCl (Prolixin) 5 mg PO Q12 [facility] Last Admin: 11/20/18 11:12 Dose: 5 mg Fluticasone/Vilanterol (Breo Ellipta 200-25 Mcg Inh) 1 puff INH RQ24 [facility] Last Admin: 11/18/18 11:02 Dose: Not Given Folic Acid (Folic Acid) 1 mg PO DAILY [facility] Last Admin: 11/20/18 09:04 Dose: 1 mg Gabapentin (Neurontin) 600 mg PO TID [facility] Last Admin: 11/20/18 13:29 Dose: 600 mg Glipizide (Glucotrol) 10 mg PO BRK [facility] Last Admin: 11/20/18 08:53 Dose: 10 mg Hydroxyzine HCl (Atarax) 25 mg PO BID PRN PRN Reason: Anxiety Azithromycin 500 mg/ Sodium (Chloride) 250 mls @ 250 mls/hr IVPB DAILY [facility]; Protocol Last Admin: 11/20/18 10:33 Dose: 250 mls/hr Ceftriaxone Sodium 1 gm/ (Sodium Chloride) 100 mls @ 100 mls/hr IVPB 0900 [facility]; Protocol Last Admin: 11/20/18 08:55 Dose: 100 mls/hr Insulin Aspart (Novolog) 0 unit SC [facility]; Protocol Last Admin: 11/19/18 21:47 Dose: 4 unit Insulin Aspart (Novolog) 0 unit SC [facility]; Protocol Last Admin: 11/20/18 12:46 Dose: 8 units Insulin Glargine (Lantus) 40 unit SC [facility] Last Admin: 11/19/18 21:48 Dose: 40 units Metformin HCl (Glucophage) 1,000 mg PO BIDCC [facility] Last Admin: 11/20/18 08:52 Dose: 1,000 mg Methylprednisolone (Solu-Medrol) 40 mg IV Q8 [facility] Last Admin: 11/20/18 13:29 Dose: 40 mg Montelukast Sodium (Singulair) 10 mg PO [facility] Last Admin: 11/19/18 21:49 Dose: 10 mg Multivitamins (Hexavitamin) 1 tab PO DAILY [facility] Last Admin: 11/20/18 09:05 Dose: 1 tab Pantoprazole Sodium (Protonix Ec Tab) 40 mg PO DAILY [facility] Last Admin: 11/20/18 09:04 Dose: 40 mg Quetiapine Fumarate (Seroquel) 300 mg PO [facility] Last Admin: 11/19/18 21:49 Dose: 300 mg Rosuvastatin Calcium (Crestor) 10 mg PO HS [facility] Last Admin: 11/19/18 21:49 Dose: 10 mg Temazepam (Restoril) 15 mg PO HS PRN PRN Reason: Insomnia Thiamine HCl (Vitamin B1 Tab) 100 mg PO DAILY [facility] Last Admin: 11/20/18 09:05 Dose: 100 mg Ziprasidone (Geodon Cap) 40 mg PO Q12 [facility] Last Admin: 11/20/18 11:11 Dose: 40 mg - Labs Labs: 11/19/18 10:56 11/19/18 10:56 - Constitutional Appears: Well - Head Exam Head Exam: ATRAUMATIC, NORMAL INSPECTION, NORMOCEPHALIC - Eye Exam Eye Exam: EOMI, Normal appearance, PERRL Pupil Exam: NORMAL ACCOMODATION, PERRL - ENT Exam ENT Exam: Mucous Membranes Moist, Normal Exam - Neck Exam Neck Exam: Full ROM, Normal Inspection. absent: Lymphadenopathy - Respiratory Exam Respiratory Exam: Decreased Breath Sounds - Cardiovascular Exam Cardiovascular Exam: REGULAR RHYTHM, +S1, +S2 - GI/Abdominal Exam GI & Abdominal Exam: Soft, Diminished Bowel Sounds - Rectal Exam Rectal Exam: Deferred
[2018-11-20] MEDS: (Lantus) Insulin Glargine, Recombinant SC SCH (21:59)
[2018-11-21] MEDS: Albuterol-Ipratrop 3 mg / 0.5 (3 ml) UD INH SCH ×4 (01:58→19:34)
[2018-11-21] MEDS: (Novolog) Insulin Aspart, Recombinant 100 u/ml 10 ml vial SC SCH ×5 (02:26→21:24)
[2018-11-21] MEDS: MethylPREDNISolone 40 mg Vial IV SCH ×3 (05:16→21:26)
[2018-11-21] MEDS: Enoxaparin 40 mg Syringe SC SCH (10:10)
[2018-11-21] MEDS: Multiple Vitamins Tab PO SCH (10:12)
[2018-11-21] MEDS: Pantoprazole 40 mg EC Tab PO SCH (10:14)
[2018-11-21] MEDS: Azithromycin 500 MG in Sodium Chloride 0.9% 250 ML IVPB SCH (10:16)
[2018-11-21 16:23] VITALS: RESP 20
--- NOTE | 2018-11-21 18:11 | CP.PCM.PN ---
Subjective - Date & Time of Evaluation Date of Evaluation: 11/21/18 Time of Evaluation: 10:00 - Subjective Subjective: clinically same Objective - Vital Signs/Intake and Output Vital Signs (last 24 hours): Temp Pulse Resp BP Pulse Ox 97.1 F L 82 20 171/103 H 99 11/21/18 15:21 11/21/18 15:21 11/21/18 15:21 11/21/18 15:21 11/21/18 15:21 - Medications Medications: Current Medications Albuterol/Ipratropium (Duoneb 3 Mg/0.5 Mg (3 Ml) Ud) 3 ml INH RQ6 [facility] Last Admin: 11/21/18 13:26 Dose: Not Given Chlordiazepoxide (Librium) 25 mg PO Q8 PRN PRN Reason: Other Last Admin: 11/18/18 10:28 Dose: 25 mg Chlordiazepoxide (Librium) 25 mg PO BID [facility]; Taper Stop: 11/23/18 05:59 Last Admin: 11/21/18 17:29 Dose: 25 mg Clonidine HCl (Catapres) 0.1 mg PO Q4H PRN PRN Reason: Symptoms of alcohol withdrawl Enoxaparin Sodium (Lovenox) 40 mg SC DAILY [facility] Last Admin: 11/21/18 10:10 Dose: 40 mg Fluphenazine HCl (Prolixin) 5 mg PO Q12 [facility] Last Admin: 11/21/18 12:17 Dose: 5 mg Fluticasone/Vilanterol (Breo Ellipta 200-25 Mcg Inh) 1 puff INH RQ24 [facility] Last Admin: 11/18/18 11:02 Dose: Not Given Folic Acid (Folic Acid) 1 mg PO DAILY [facility] Last Admin: 11/21/18 10:15 Dose: 1 mg Gabapentin (Neurontin) 600 mg PO TID [facility] Last Admin: 11/21/18 17:29 Dose: 600 mg Glipizide (Glucotrol) 10 mg PO BRK [facility] Last Admin: 11/21/18 10:14 Dose: 10 mg Hydroxyzine HCl (Atarax) 25 mg PO BID PRN PRN Reason: Anxiety Azithromycin 500 mg/ Sodium (Chloride) 250 mls @ 250 mls/hr IVPB DAILY [facility]; Protocol Last Admin: 11/21/18 10:16 Dose: 250 mls/hr Ceftriaxone Sodium 1 gm/ (Sodium Chloride) 100 mls @ 100 mls/hr IVPB 0900 [facility]; Protocol Last Admin: 11/21/18 12:16 Dose: 100 mls/hr Insulin Aspart (Novolog) 0 unit SC [facility]; Protocol Last Admin: 11/19/18 21:47 Dose: 4 unit Insulin Aspart (Novolog) 0 unit SC [facility]; Protocol Last Admin: 11/21/18 17:27 Dose: 6 units Insulin Glargine (Lantus) [address] [facility] Last Admin: 11/20/18 21:59 Dose: 40 units Metformin HCl (Glucophage) 1,000 mg PO BIDCC [facility] Last Admin: 11/21/18 17:29 Dose: 1,000 mg Methylprednisolone (Solu-Medrol) 40 mg IV Q8 [facility] Last Admin: 11/21/18 14:24 Dose: 40 mg Montelukast Sodium (Singulair) 10 mg PO HS [facility] Last Admin: 11/20/18 22:06 Dose: 10 mg Multivitamins (Hexavitamin) 1 tab PO DAILY [facility] Last Admin: 11/21/18 10:12 Dose: 1 tab Pantoprazole Sodium (Protonix Ec Tab) 40 mg PO DAILY [facility] Last Admin: 11/21/18 10:14 Dose: 40 mg Quetiapine Fumarate (Seroquel) 300 mg PO HS [facility] Last Admin: 11/20/18 21:57 Dose: 300 mg Rosuvastatin Calcium (Crestor) 10 mg PO HS [facility] Last Admin: 11/20/18 21:57 Dose: 10 mg Temazepam (Restoril) 15 mg PO HS PRN PRN Reason: Insomnia Last Admin: 11/20/18 21:57 Dose: 15 mg Thiamine HCl (Vitamin B1 Tab) 100 mg PO DAILY [facility] Last Admin: 11/21/18 10:12 Dose: 100 mg Ziprasidone (Geodon Cap) 40 mg PO Q12 [facility] Last Admin: 11/21/18 10:13 Dose: 40 mg - Labs Labs: 11/19/18 10:56 11/19/18 10:56
--- NOTE | 2018-11-21 18:31 | CP.PCM.PN ---
Subjective - Date & Time of Evaluation Date of Evaluation: 11/21/18 Time of Evaluation: 18:31 - Subjective Subjective: Patient is seen and examined No events overnight Objective - Vital Signs/Intake and Output Vital Signs (last 24 hours): Temp Pulse Resp BP Pulse Ox 97.1 F L 82 20 171/103 H 99 11/21/18 15:21 11/21/18 15:21 11/21/18 15:21 11/21/18 15:21 11/21/18 15:21 - Medications Medications: Current Medications Albuterol/Ipratropium (Duoneb 3 Mg/0.5 Mg (3 Ml) Ud) 3 ml INH RQ6 [facility] Last Admin: 11/21/18 13:26 Dose: Not Given Chlordiazepoxide (Librium) 25 mg PO Q8 PRN PRN Reason: Other Last Admin: 11/18/18 10:28 Dose: 25 mg Chlordiazepoxide (Librium) 25 mg PO BID JOSE; Taper Stop: 11/23/18 05:59 Last Admin: 11/21/18 17:29 Dose: 25 mg Clonidine HCl (Catapres) 0.1 mg PO Q4H PRN PRN Reason: Symptoms of alcohol withdrawl Enoxaparin Sodium (Lovenox) 40 mg SC DAILY [facility] Last Admin: 11/21/18 10:10 Dose: 40 mg Fluphenazine HCl (Prolixin) 5 mg PO Q12 [facility] Last Admin: 11/21/18 12:17 Dose: 5 mg Fluticasone/Vilanterol (Breo Ellipta 200-25 Mcg Inh) 1 puff INH RQ24 [facility] Last Admin: 11/18/18 11:02 Dose: Not Given Folic Acid (Folic Acid) 1 mg PO DAILY [facility] Last Admin: 11/21/18 10:15 Dose: 1 mg Gabapentin (Neurontin) 600 mg PO TID [facility] Last Admin: 11/21/18 17:29 Dose: 600 mg Glipizide (Glucotrol) 10 mg PO BRK [facility] Last Admin: 11/21/18 10:14 Dose: 10 mg Hydroxyzine HCl (Atarax) 25 mg PO BID PRN PRN Reason: Anxiety Azithromycin 500 mg/ Sodium (Chloride) 250 mls @ 250 mls/hr IVPB DAILY JOSE; P rotocol Last Admin: 11/21/18 10:16 Dose: 250 mls/hr Ceftriaxone Sodium 1 gm/ (Sodium Chloride) 100 mls @ 100 mls/hr IVPB 0900 [facility]; Protocol Last Admin: 11/21/18 12:16 Dose: 100 mls/hr Insulin Aspart (Novolog) 0 unit SC [facility]; Protocol Last Admin: 11/19/18 21:47 Dose: 4 unit Insulin Aspart (Novolog) 0 unit SC [facility]; Protocol Last Admin: 11/21/18 17:27 Dose: 6 units Insulin Glargine (Lantus) 40 unit SC [facility] Last Admin: 11/20/18 21:59 Dose: 40 units Metformin HCl (Glucophage) 1,000 mg PO BIDCC [facility] Last Admin: 11/21/18 17:29 Dose: 1,000 mg Methylprednisolone (Solu-Medrol) 40 mg IV Q8 [facility] Last Admin: 11/21/18 14:24 Dose: 40 mg Montelukast Sodium (Singulair) 10 mg PO [facility] Last Admin: 11/20/18 22:06 Dose: 10 mg Multivitamins (Hexavitamin) 1 tab PO DAILY [facility] Last Admin: 11/21/18 10:12 Dose: 1 tab Pantoprazole Sodium (Protonix Ec Tab) 40 mg PO DAILY [facility] Last Admin: 11/21/18 10:14 Dose: 40 mg Quetiapine Fumarate (Seroquel) 300 mg PO HS [facility] Last Admin: 11/20/18 21:57 Dose: 300 mg Rosuvastatin Calcium (Crestor) 10 mg PO HS [facility] Last Admin: 11/20/18 21:57 Dose: 10 mg Temazepam (Restoril) 15 mg PO HS PRN PRN Reason: Insomnia Last Admin: 11/20/18 21:57 Dose: 15 mg Thiamine HCl (Vitamin B1 Tab) 100 mg PO DAILY [facility] Last Admin: 11/21/18 10:12 Dose: 100 mg Ziprasidone (Geodon Cap) 40 mg PO Q12 [facility] Last Admin: 11/21/18 10:13 Dose: 40 mg - Labs Labs: 11/19/18 10:56 11/19/18 10:56 - Head Exam Head Exam: NORMAL INSPECTION - Eye Exam Eye Exam: Normal appearance - ENT Exam ENT Exam: Mucous Membranes Moist - Respiratory Exam Respiratory Exam: Decreased Breath Sounds - Cardiovascular Exam Cardiovascular Exam: REGULAR RHYTHM, +S1, +S2 - GI/Abdominal Exam GI & Abdominal Exam: Soft, Normal Bowel Sounds - Extremities Exam Extremities Exam: Normal Inspection Assessment and Plan (1) Suicidal ideation Status: Acute (2) COPD (chronic obstructive pulmonary disease) Status: Chronic (3) Alcohol abuse Status: Acute (4) DM2 (diabetes mellitus, type 2) Status: Chronic (5) HTN (hypertension) Status: Chronic - Assessment and Plan (Free Text) Plan: Taper steroids off Breo Ellipta Bronchodilators Singulair DVT/GI prophalaxis
[2018-11-21] MEDS: (Lantus) Insulin Glargine, Recombinant SC SCH (21:25)
[2018-11-22] MEDS: Albuterol-Ipratrop 3 mg / 0.5 (3 ml) UD INH SCH ×2 (01:31→07:42)
[2018-11-22] MEDS: MethylPREDNISolone 40 mg Vial IV SCH (05:30)
[2018-11-22 08:04] VITALS: BP 160/95; TEMP 97.3; O2SAT 95
[2018-11-22] MEDS: (Novolog) Insulin Aspart, Recombinant 100 u/ml 10 ml vial SC SCH ×4 (08:15→12:49)
[2018-11-22] MEDS: Multiple Vitamins Tab PO SCH (08:15)
[2018-11-22] MEDS: Azithromycin 500 MG in Sodium Chloride 0.9% 250 ML IVPB SCH (10:12)
[2018-11-22] MEDS: Pantoprazole 40 mg EC Tab PO SCH (10:16)
[2018-11-22] MEDS: Enoxaparin 40 mg Syringe SC SCH (10:17)
--- NOTE | 2018-11-22 13:52 | CP.PCM.PN ---
Subjective - Date & Time of Evaluation Date of Evaluation: 11/22/18 Time of Evaluation: 13:52 Objective - Vital Signs/Intake and Output Vital Signs (last 24 hours): Temp Pulse Resp BP Pulse Ox 97.3 F L 94 H 20 160/95 H 95 11/22/18 07:00 11/22/18 07:00 11/22/18 07:00 11/22/18 07:00 11/22/18 07:00 - Medications Medications: Current Medications Albuterol/Ipratropium (Duoneb 3 Mg/0.5 Mg (3 Ml) Ud) 3 ml INH RQ6 [facility] Last Admin: 11/22/18 07:42 Dose: 3 ml Chlordiazepoxide (Librium) 25 mg PO Q8 PRN PRN Reason: Other Last Admin: 11/18/18 10:28 Dose: 25 mg Chlordiazepoxide (Librium) 25 mg PO DAILY [facility]; Taper Stop: 11/23/18 05:59 Last Admin: 11/22/18 10:16 Dose: 25 mg Clonidine HCl (Catapres) 0.1 mg PO Q4H PRN PRN Reason: Symptoms of alcohol withdrawl Enoxaparin Sodium (Lovenox) 40 mg SC DAILY [facility] Last Admin: 11/22/18 10:17 Dose: 40 mg Fluphenazine HCl (Prolixin) 5 mg PO Q12 [facility] Last Admin: 11/22/18 08:16 Dose: 5 mg Fluticasone/Vilanterol (Breo Ellipta 200-25 Mcg Inh) 1 puff INH RQ24 [facility] Last Admin: 11/18/18 11:02 Dose: Not Given Folic Acid (Folic Acid) 1 mg PO DAILY [facility] Last Admin: 11/22/18 10:16 Dose: 1 mg Gabapentin (Neurontin) 600 mg PO TID [facility] Last Admin: 11/22/18 10:16 Dose: 600 mg Glipizide (Glucotrol) 10 mg PO BRK [facility] Last Admin: 11/22/18 08:15 Dose: 10 mg Hydroxyzine HCl (Atarax) 25 mg PO BID PRN PRN Reason: Anxiety Azithromycin 500 mg/ Sodium (Chloride) 250 mls @ 250 mls/hr IVPB DAILY [facility]; Protocol Last Admin: 11/22/18 10:12 Dose: 250 mls/hr Ceftriaxone Sodium 1 gm/ (Sodium Chloride) 100 mls @ 100 mls/hr IVPB 0900 [facility]; Protocol Last Admin: 11/22/18 08:14 Dose: 100 mls/hr Insulin Aspart (Novolog) 0 unit SC [facility]; Protocol Last Admin: 11/22/18 12:49 Dose: Not Given Insulin Aspart (Novolog) 0 unit SC [facility]; Protocol Last Admin: 11/22/18 12:49 Dose: 8 units Insulin Glargine (Lantus) 40 unit SC [facility] Last Admin: 11/21/18 21:25 Dose: 40 units Metformin HCl (Glucophage) 1,000 mg PO BIDCC [facility] Last Admin: 11/22/18 08:14 Dose: 1,000 mg Methylprednisolone (Solu-Medrol) 40 mg IV Q8 [facility] Last Admin: 11/22/18 05:30 Dose: 40 mg Montelukast Sodium (Singulair) 10 mg PO HS [facility] Last Admin: 11/21/18 21:26 Dose: 10 mg Multivitamins (Hexavitamin) 1 tab PO DAILY [facility] Last Admin: 11/22/18 08:15 Dose: 1 tab Pantoprazole Sodium (Protonix Ec Tab) 40 mg PO DAILY [facility] Last Admin: 11/22/18 10:16 Dose: 40 mg Quetiapine Fumarate (Seroquel) 300 mg PO HS [facility] Last Admin: 11/21/18 21:26 Dose: 300 mg Rosuvastatin Calcium (Crestor) 10 mg PO HS [facility] Last Admin: 11/21/18 21:25 Dose: 10 mg Temazepam (Restoril) 15 mg PO HS PRN PRN Reason: Insomnia Last Admin: 11/20/18 21:57 Dose: 15 mg Thiamine HCl (Vitamin B1 Tab) 100 mg PO DAILY [facility] Last Admin: 11/22/18 10:16 Dose: 100 mg Ziprasidone (Geodon Cap) 40 mg PO Q12 [facility] Last Admin: 11/22/18 10:17 Dose: 40 mg - Labs Labs: 11/19/18 10:56 11/19/18 10:56 Assessment and Plan - Assessment and Plan (Free Text) Assessment: FOLLOW UP WITH DR Liberty ROSS IN HIS OFFICE ----CALL FOR APPOINTMENT FOLLOW UP WITH DR HUNTER IN HIS OFFICE -----CALL FOR APPOINTMENT CONTINUE HOME MEDICATION NEW PRESCRIPTION GIVEN AUGMENTIN Q12H FOR 5 DAYS MEDROL DOSE PACK DIRECTED FOLIC ACID ONE TAB DAILY VIT B1 ON E TAB DAILY [facility]OR[facility] BID FOR 5 DAYS MILTI VIT ONE TAB DAILY [facility] CALL DR Liberty ROSS OR GO TO THE EMERGENCY ROOM IF SYMPTOM RETURN OR WORSENING
[2018-11-22 13:55] VITALS: PULSE 95
--- NOTE | 2018-11-23 15:13 | PCM.PYCHPN ---
Psychiatric Progress Note - Psychiatric Progress Note Patient seen today, length of contact: 15 min Patient Chief Complaint: I am feeling much better Problems Identified/Issues Discussed: Patient seen and evaluated, chart reviewed and discussed the staff. Patient reports improvement in his mood and reports improvement in the withdrawal symptoms. He is taking medication and he denies any suicidal ideation or any homicidal ideation. He denies any auditory or visual hallucinations. Supportive therapy was given. Medication Change: Yes Medical Record Reviewed: Yes Mental Status Examination - Cognitive Function Orientation: Person, Place, Situation, Time Memory: Intact Attention: WNL Concentration: WNL Association: WNL Fund of Knowledge: WNL - Mood Mood: Anxious - Affect Affect: Broad - Speech Speech: Soft - Formal Thought Process Formal Thought Process: No Impairment - Suicidal Ideation Suicidal Ideation: No - Homicidal Ideation Homicidal Ideation: No Goal/Treatment Plan - Goal/Treatment Plan Need for Continued Stay: Other Progress Toward Problem(s) and Goals/Treatment Plan: Pt psychiatrically stable and clear for discharge - Smoking Cessation Smoking Cessation Initiated: No
== END 2018-11-22 13:56 | disposition home or self-care (01) | DRG 191 ==
LOC: C.ER 20:03 → SUPCPDRO 20:03 → C.9E 11-18 00:51 → C.6T 11-18 13:19
PROVIDERS: ADMIT Internal Medicine Nephrology; ATTEND Internal Medicine Nephrology
DX: J44.1 Chronic obstructive pulmonary disease with (acute) exacerbation (principal); R45.851 Suicidal ideations; F10.230 Alcohol dependence with withdrawal, uncomplicated; E11.65 Type 2 diabetes mellitus with hyperglycemia; E78.00 Pure hypercholesterolemia, unspecified; F17.210 Nicotine dependence, cigarettes, uncomplicated; F25.0 Schizoaffective disorder, bipolar type; G47.30 Sleep apnea, unspecified; Z87.01 Personal history of pneumonia (recurrent); Y90.8 Blood alcohol level of 240 mg/100 ml or more; F41.8 Other specified anxiety disorders; R63.4 Abnormal weight loss; Z79.4 Long term (current) use of insulin

== ENCOUNTER 2018-12-20 11:24 | Inpatient (IN) | payer BC ==
[2018-12-20 11:24] VITALS: BMI 33.5
[2018-12-20 11:42] VITALS: TEMP 98.7
--- NOTE | 2018-12-20 12:01 | C.PDOC ---
History Of Present Illness 53 y/o male,w/PMhx of diabetes, COPD, bipolar disorder, depression, anxiety, and ETOH abuse, presents to the ER complaining of suicidal ideation. Patient states that he wants to kill himself because he has been experiencing increasing stress at home and feels overwhelmed. Patient reports that he has history of suicide attempts with pill ingestion. He notes that he did not take any pills today. Admits to drinking today. Denies drug use, having homicidal ideation, hallucinations, hallucinations, tremors, seizures, drug use, CP, SOB, nausea, vomiting, abdominal pain, or any other associated complaints. Time Seen by Provider: 12/20/18 11:59 Chief Complaint (Nursing): Psychiatric Evaluation History Per: Patient History/Exam Limitations: no limitations Onset/Duration Of Symptoms: Days Current Symptoms Are (Timing): Still Present Severity: Moderate Past Medical History Reviewed: Historical Data, Nursing Documentation, Vital Signs Vital Signs: Last Vital Signs Temp 98.7 F 12/20/18 11:39 Pulse 75 12/20/18 11:39 Resp 20 12/20/18 11:39 BP 125/83 12/20/18 11:39 Pulse Ox 94 L 12/20/18 11:39 - Medical History PMH: Anxiety, Bipolar Disorder, COPD, Depression, Diabetes, Fractures, Gastritis, HTN, Hypercholesterolemia, Pneumonia, Seizures (ETOH related), Sleep Apnea (uses CPAP at home) Denies: Hepatitis (Patient denied), HIV (Patient denied), Chronic Kidney Disease, Sexually Transmitted Disease Surgical History: Tonsillectomy (as a child) - [facility] Procedures ALCOHOL DETOXIFICATION (10/07/13) DETOXIFICATION SERVICES FOR SUBSTANCE ABUSE TREATMENT (10/17/18) EXCISION OF LARGE INTESTINE, ENDO, DIAGN (09/01/17) EXCISION OF SMALL INTESTINE, ENDO, DIAGN (09/01/17) GROUP SENIOR TECHNICAL WRITER FOR SUBSTANCE ABUSE TREATMENT, PSYCHOEDUCATION (11/03/17) GROUP SENIOR TECHNICAL WRITER FOR SUBSTANCE ABUSE, COGNITIVE BEHAVIORAL (11/03/17) GROUP PSYCHOTHERAPY (10/17/18) INDIV PSYCHOTHERAPY FOR SUBSTANCE ABUSE TREATMENT, SUPPORT (11/03/17) INDIV PSYCHOTHERAPY FOR SUBSTANCE ABUSE, COGNITIV BEHAVIORAL (11/03/17) INDIV PSYCHOTHERAPY FOR SUBSTANCE ABUSE, PSYCHOEDUCATION (02/05/18) INDIVIDUAL PSYCHOTHERAPY, SUPPORTIVE (10/17/18) MEDICATION MANAGEMENT (10/17/18) OTHER ELECTROCONVULSIVE THERAPY (08/09/18) Family History: States: No Known Family Hx - Social History Hx Tobacco Use: Yes Hx Alcohol Use: Yes Hx Substance Use: No - Immunization History Hx Tetanus Toxoid Vaccination: No Hx Influenza Vaccination: Yes (2019) Hx Pneumococcal Vaccination: Yes (2017) Review Of Systems Except As Marked, All Systems Reviewed And Found Negative. Constitutional: Negative for: Fever, Chills Eyes: Negative for: Vision Change ENT: Negative for: Nose Congestion, Throat Pain Cardiovascular: Negative for: Chest Pain, Palpitations, Light Headedness Respiratory: Negative for: Cough, Shortness of Breath, Sputum Gastrointestinal: Negative for: Nausea, Vomiting, Abdominal Pain, Diarrhea, Constipation Genitourinary: Negative for: Dysuria, Frequency Musculoskeletal: Negative for: Neck Pain, Back Pain Skin: Negative for: Rash Neurological: Negative for: Weakness, Numbness, Seizures, Altered Mental Status, Headache, Dizziness Psych: Positive for: Anxiety, Depression, Suicidal ideation. Negative for: Psychosis, Withdrawal Physical Exam - Physical Exam Appears: Well, No Acute Distress Skin: Normal Color, Warm, Dry Head: Atraumatic, Normacephalic Eye(s): bilateral: Normal Inspection, PERRL, EOMI Nose: Normal Oral Mucosa: Moist Neck: Normal, Normal ROM, Supple, No Other (no meningeal signs) Chest: Symmetrical Cardiovascular: Rhythm Regular Respiratory: Decreased Breath Sounds (bilaterally), No Accessory Muscle Use, No Rales, No Rhonchi, Wheezing (bilateral intermittent expiratory wheezing) Gastrointestinal/Abdominal: Normal Exam, Soft, No Tenderness, No Guarding, No Rebound Back: Normal Inspection Extremity: Normal ROM, Capillary Refill (<2s) Pulses: Left Radial: Normal, Right Radial: Normal Neurological/Psych: Oriented x3, Normal Speech, Normal Motor, Normal Sensation Gait: Steady ED Course And Treatment - Laboratory Results Result Diagrams: 12/20/18 12:45 12/20/18 12:45 O2 Sat by Pulse Oximetry: 94 (RA) Pulse Ox Interpretation: Normal Medical Decision Making Medical Decision Making: Plan: --Labs --UA --Ducristyb --NEELIMA Turneral --1:1 Obs. 1300 Labwork reviewed, patient medically cleared for psychiatric evaluation. 1425 Advised by NEELIMA that patient is to be admitted under Dr. Verdin to psychiatric floor with diagnosis of Bipolar Disorder. Pt resting comfortably in stretcher with VSS in NAD, made aware of change in disposition. Disposition - Disposition Disposition: HOSPITALIZED Disposition Time: 14:25 Condition: STABLE - Clinical Impression Clinical Impression: Bipolar disorder - PA / EXCEPTIONAL STUDENT EDUCATION TEACHER / Resident Statement MD/DO has reviewed & agrees with the documentation as recorded. - Scribe Statement The provider has reviewed the documentation as recorded by the Betye Abel Johnson Provider Attestation All medical record entries made by the Ridge were at my direction and personally dictated by me. I have reviewed the chart and agree that the record accurately reflects my personal performance of the history, physical exam, medical decision making, and the department course for this patient. I have also personally directed, reviewed, and agree with the discharge instructions and disposition.
[2018-12-20] MEDS ORDERED: Albuterol-Ipratrop 3 mg / 0.5 (3 ml) UD INH STA (12:26)
[2018-12-20 12:55] LABS: BASO % 0.6 % (0.0-2.0); EOS # 0.1 K/uL (0.0-0.7); EOS % 1.3 % (0.0-4.0); HEMOGLOBIN 14.9 g/dL (12.0-18.0); LYMPH # 2.4 K/uL (1.0-4.3); LYMPH % 36.9 % (20.0-40.0); MEAN CELL VOLUME 93.7 fL (80.0-94.0); MEAN CORPUSCULAR HEMOGLOBIN 30.9 pg (27.0-31.0); MEAN PLATELET VOLUME 7.8 fL (7.2-11.7); MONO # 0.5 K/uL (0.0-0.8); NEUT # 3.6 K/uL (1.8-7.0); NEUT % 54.2 % (50.0-75.0); RBC 4.82 Mil/uL (4.40-5.90); RED CELL DISTRIBUTION WIDTH 15.4 % (11.5-14.5); WHITE BLOOD COUNT 6.6 K/uL (4.8-10.8)
[2018-12-20 12:56] LABS: SQUAMOUS EPITHIAL < 1 /hpf (0-5); URINE BILIRUBIN NEGATIVE (NEGATIVE); URINE BLOOD NEGATIVE (NEGATIVE); URINE CLARITY Clear (Clear); URINE COLOR Yellow (YELLOW); URINE GLUCOSE (UA) 2+ mg/dL (Normal); URINE LEUKOCYTE ESTERASE NEG Leu/uL (Negative); URINE PROTEIN 1+ mg/dL (NEGATIVE); URINE UROBILINOGEN NORMAL mg/dL (0.2-1.0)
[2018-12-20] MEDS ORDERED: Albuterol-Ipratrop 3 mg / 0.5 (3 ml) UD ONE (13:01)
[2018-12-20 13:12] LABS: ALB/GLOB RATIO 1.9 (1.0-2.1); ALBUMIN 4.6 g/dL (3.5-5.0); ALT/SGPT 53 U/L (21-72); AST/SGOT 51 U/L (17-59); BLOOD UREA NITROGEN 8 mg/dL (9-20); CALCIUM 9.2 mg/dl (8.6-10.4); GFR NON-AFRICAN AMERICAN > 60
[2018-12-20 13:21] LABS: BARBITURATES, UR NEGATIVE (NEGATIVE); BENZODIAZEPINES, UR NEGATIVE (NEGATIVE); OPIATES, UR NEGATIVE (NEGATIVE); PHENCYCLIDINE, UR NEGATIVE (NEGATIVE)
[2018-12-20] MEDS ORDERED: Glucagon Recombinant 1 mg Inj IM PRN (17:02)
[2018-12-20] MEDS ORDERED: (Novolog) Insulin Aspart, Recombinant 100 u/ml 10 ml vial SC SCH (17:06)
[2018-12-20] MEDS: Pantoprazole 40 mg EC Tab PO SCH (17:50)
[2018-12-20] MEDS: Magnesium Oxide 400 mg Tab UD PO SCH (19:25)
[2018-12-20] MEDS: Multiple Vitamins Tab PO SCH (19:25)
--- NOTE | 2018-12-20 19:43 | PCM.BM ---
<Elise Marinelli - Last Filed: 12/20/18 19:42> Treatment Plan Problems - Problems identified on initial assessmt Low motivation to change Date Initiated: 12/20/18 Time Initiated: 15:30 Assessment reference: NA Status: Active Suicidal Ideation Date Initiated: 12/20/18 Time Initiated: 15:30 Status: Monitor Treatment assets and liabiliti Patient Assests: good support system, financial stabiity, cognitively intact, cooperative, self-reliant, ADL independent Patient Liabilities: substance abuse (Alcohol ), medical problems (Diabetes) - Milieu Protocol Maintain good personal hygiene: daily Encourage regular showers, daily Remind patient to perform daily oral care, every shift Assist patient to perform ADL's Conduct patient checks and document Observation sheet: Q15 minutes Maintain personal safety: every shift Educate patient to report safety concerns to staff, every shift Monitor environment for contraband/sharps Medication safety: Monitor for expected outcome, potential side effects: every shift, Assess barriers to learning: every shift, Assess readiness for medication education: every shift <Moisés Menchaca - Last Filed: 12/21/18 11:35> - Diagnosis (1) Schizo affective schizophrenia Status: Acute Interventions: 12/21/18 11:35 * Assess/adjust medications daily and /or as needed * See patient on an individual basis 7x/week to assess status of hallucinations * Discuss risks, benefits, side effects and alternatives of medications * (2) Alcohol dependence Status: Acute Interventions: 12/21/18 11:35 * Assess 7x/week regarding severity of withdrawal * Educate regarding risks, benefits, side effects and alternatives of medications * Use Motivational Interviewing for abstinence * Use CBT for relapse prevention * Medication management for withdrawal symptoms * Encourage medication assisted treatment * <Ruchi Lee - Last Filed: 12/21/18 15:03> Family Contact Family involvement: Patient does not wish Family/SO involvement Family contact: Patient declines to allow family contact at present - Goals for Treatment Patient goals for treatment: "I [facility] to go [facility] Discharge/Continuing Care - Education Needs Education Needs: Patient Medication, Patient Diagnosis/Disease Process, Patient Coping Skills - Discharge Discharge Criteria: Free of Suicidal thoughts, Free of agitation, Normal sleep pattern, Ability to care for self, No longer exhibiting s/s of withdrawal, Reduction of target symptoms Discharge to:: Home, With Family - Treatment Team Participation Discussed with Family/SO: No Was Patient/Family/SO present at Treatment Team Meeting: Yes
[2018-12-20] MEDS: (Novolog) Insulin Aspart, Recombinant 100 u/ml 10 ml vial SC SCH (21:39)
[2018-12-20] MEDS: (Lantus) Insulin Glargine, Recombinant SC SCH (21:40)
[2018-12-20 21:51] VITALS: O2SAT 94
[2018-12-21] MEDS: (Novolog) Insulin Aspart, Recombinant 100 u/ml 10 ml vial SC SCH ×4 (08:29→21:28)
[2018-12-21] MEDS: Multiple Vitamins Tab PO SCH (09:13)
[2018-12-21] MEDS: Magnesium Oxide 400 mg Tab UD PO SCH ×2 (09:13→17:59)
[2018-12-21] MEDS: Pantoprazole 40 mg EC Tab PO SCH (09:13)
--- NOTE | 2018-12-21 11:28 | PCM.PSYCH ---
Initial Psychiatric Evaluation - Initial Psychiatric Evaluation Type of Admission: Voluntary Legal Status: Capacity Chief Complaint (in patient's own words): I relapsed on drinking, started hearing voices and developed suicidal ideation. History of Present Illness and Precipitating Events: This is a 53 years old male, who is , lives with his , unemployed, came to the hospital with depressed mood and suicidal ideation. Patient has history of multiple inpatient psychiatric hospitalizations, he was recently discharged from [facility] a few weeks ago. Patient reports that soon after discharge from the hospital he relapsed on drinking and started consuming up to 4 pints of liquor daily. As per the patient he was taking medications off and on. As per the patient since couple of days he started hearing voices, became increasingly depressed and poor sleep the night. Yesterday he developed suicidal ideation, so he came to the hospital to get help. He appeared disheveled and unkempt. Appears somewhat disorganized and internally preoccupied. He reports depressed mood, feelings of hopelessness, helplessness and poor sleep. He also reports at times irritability and agitation. Reports of hearing voices and reports of paranoia. He also reports of withdrawal symptoms from drinking including nausea, shakes, anxiety, headaches, sweating. He denies abusing any other drugs. Past medical history HTN, Asthma, DM Current Medications: Active Medications Generic Name Dose Route Start Last Admin Trade Name Sanjeevq PRN Reason Stop Dose Admin Chlordiazepoxide 25 mg 12/20/18 20:00 12/21/18 11:20 Librium PO 12/24/18 19:59 25 mg Q6 JOSE Administration Taper Clonidine HCl 0.1 mg 12/20/18 17:02 Catapres PO Q6H PRN withdrawal symptoms Dextrose 0 gm 12/20/18 17:02 Glutose 15 PO ONCE PRN Hypoglycemia Protocol Protocol Folic Acid 1 mg 12/20/18 19:00 12/21/18 09:13 Folic Acid PO 1 mg DAILY JOSE Administration Gabapentin 600 mg 12/20/18 18:00 12/21/18 09:14 Neurontin PO 600 mg TID JOSE Administration Glucagon 0 mg 12/20/18 17:02 Glucagen Diagnostic Kit IM STAT PRN Hypoglycemia Protocol Protocol Insulin Aspart 0 unit 12/20/18 22:00 12/21/18 11:21 Novolog SC 4 units ACHS JOSE Administration Protocol Insulin Glargine 40 unit 12/20/18 22:00 12/20/18 21:40 Lantus SC 40 units HS JOSE Administration Magnesium Oxide 400 mg 12/20/18 19:15 12/21/18 09:13 Mag-Ox PO 400 mg BID JOSE Administration Multivitamins 1 tab 12/20/18 18:58 12/21/18 09:13 Hexavitamin PO 1 tab DAILY JOSE Administration Pantoprazole Sodium 40 mg 12/20/18 17:15 12/21/18 09:13 Protonix Ec Tab PO 40 mg DAILY JOSE Administration Quetiapine Fumarate 300 mg 12/20/18 22:00 12/20/18 21:39 Seroquel PO 300 mg HS JOSE Administration Rosuvastatin Calcium 10 mg 12/20/18 22:00 12/20/18 21:39 Crestor PO 10 mg HS JOSE Administration Temazepam 15 mg 12/20/18 17:02 Restoril PO HS PRN Insomnia Thiamine HCl 100 mg 12/20/18 18:58 12/21/18 09:13 Vitamin B1 Tab PO 100 mg DAILY JOSE Administration Ziprasidone 20 mg 12/20/18 18:00 12/21/18 09:13 Geodon Cap PO 20 mg BID JOSE Administration Past Psychiatric History - Past Psychiatric History Previous Treatment History: Inpatient Pertinent Medical Hx (Current Medical&Sleep Prob, Allergies): Allergies Allergy/AdvReac Type Severity Reaction Status Date / Time amitriptyline [From Elavil] AdvReac ITCHING Verified 12/20/18 11:42 Simvastatin 40 mg PO DAILY 07/11/18 Insulin Glargine, Recombina [Lantus] 40 unit SC HS unit 08/03/18 Pantoprazole [Protonix EC Tab] 40 mg PO DAILY ect 08/03/18 QUEtiapine [Seroquel] 300 mg PO HS #30 tab 08/03/18 metFORMIN [glucOPHAGE] 1,000 mg PO BID tab 08/03/18 Atenolol [Tenormin] 50 mg PO DAILY #7 tab 08/24/18 Fluticasone/Salmeterol 500/50 [Advair Diskus 500/50] 1 puff INH Q12 #1 puff 08/24/18 Gabapentin [Neurontin] 600 mg PO TID #45 tab 08/24/18 GlipiZIDE [Glucotrol] 10 mg PO DAILY #7 tab 08/24/18 Zaleplon [Sonata] 10 mg PO HS #14 cap 08/24/18 Ziprasidone [Geodon Cap] 40 mg PO Q12 #60 cap 10/24/18 fluPHENAZine [Prolixin] 5 mg PO Q12 #60 tab 10/24/18 hydrOXYzine HCl [Atarax] 25 mg PO BID PRN #60 tab 10/24/18 Amoxicillin/Clavulanate [Augmentin 875 MG-125 MG] 1 tab PO Q12H 5 Days tab 11/22/18 Folic Acid 1 mg PO DAILY 30 Days tab 11/22/18 Methylprednisolone [Medrol Dose Pack (21 tabs)] 4 mg PO DAILY #21 mg 11/22/18 Montelukast [Singulair] 10 mg PO HS 30 Days tab 11/22/18 Multivitamins [Hexavitamin] 1 tab PO DAILY 30 Days tab 11/22/18 Saccharomyces Boulardii [Florastor] 250 mg PO BID 5 Days capsule 11/22/18 Thiamine [Vitamin B1 Tab] 100 mg PO DAILY 30 Days tab 11/22/18 Review of Systems - Review of Systems All systems: reviewed and no additional remarkable complaints except - Psychiatric Psychiatric: Anxiety, Auditory Hallucinations, Irritability, Paranoia, Suicidal Ideation Mental Status Examination - Personal Presentation Personal Presentation: Looks stated age - Affect Affect: Broad - Motor Activity Motor Activity: Psychomotor Agitation - Reliability in Providing Information Reliability in Providing Information: Poor, due to alteration in thoughts - Speech Speech: Disorganized - Mood Mood: Anxious - Formal Thought Process Formal Thought Process: Hallucinations, Delusions, Paranoia, Loosening of associations - Hallucinations/Delusions Hallucinations: Visual, Auditory Delusions: Persecution - Obsessions/Compulsions Obsessions: No Compulsions: No - Cognitive Functions Orientation: Person, Place, Situation, Time Sensorium: Alert Attention/Concentration: Attentive Abstract Thinking: [place] Estimate of Intelligence: Below average Judgement: Imparied, as evidence by: Poor judgement, Imparied, as evidence by: Lack of insight into illness - Risk Risk: Suicidal, Withdrawal, Diminished functioning - Strength & Assets Inventory Strength & Assets Inventory: Family support DSM 5 DX - DSM 5 DSM 5 Diagnosis: Schizoaffective disorder bipolar type Alcohol use disorder severe Alcohol withdrawal - Recommended/Plan of Treatment Treatment Recommendations and Plan of Treatment: Schizoaffective disorder bipolar type Alcohol use disorder severe Alcohol withdrawal -CBT -Psychoeducation and supportive therapy and group therapy -Librium for alcohol withdrawal -Withdrawal medication including multivitamin/thiamine/folic acid -Seroquel for insomnia -Hydroxyzine for Anxiety -Neurontin for augmentation -Geodon for psychosis -Temazepam for insomnia -Metformin for diabetes - Smoking Cessation Smoking Cessation Initiated: No
[2018-12-21] MEDS: (Lantus) Insulin Glargine, Recombinant SC SCH (21:25)
[2018-12-22 07:09] VITALS: RESP 20
[2018-12-22] MEDS: (Novolog) Insulin Aspart, Recombinant 100 u/ml 10 ml vial SC SCH ×4 (08:49→22:02)
[2018-12-22] MEDS: Multiple Vitamins Tab PO SCH (09:30)
[2018-12-22] MEDS: Pantoprazole 40 mg EC Tab PO SCH (09:30)
[2018-12-22] MEDS: Magnesium Oxide 400 mg Tab UD PO SCH ×2 (10:09→17:15)
[2018-12-22 16:10] VITALS: BP 139/89; PULSE 76
[2018-12-22] MEDS: (Lantus) Insulin Glargine, Recombinant SC SCH (21:52)
--- NOTE | 2018-12-23 00:51 | PCM.PYCHPN ---
Psychiatric Progress Note - Psychiatric Progress Note Patient seen today, length of contact: 15 min Patient Chief Complaint: I m hearing voices. Problems Identified/Issues Discussed: Patient seen and evaluated, chart reviewed and discussed with the staff. Patient still reports hearing voices and paranoia. He still appears disorganized and internally preoccupied. He reports irritability and agitation and reports withdrawal symptoms from drinking including anxiety, shakes, headaches, cramps and nausea. However he is taking medication but denies any side effects. He is asking for stronger medications for sleep. Symptoms are improving gradually but he needs to stay longer for further stabilization. Supportive therapy was given. Medication Change: Yes Medical Record Reviewed: Yes Mental Status Examination - Cognitive Function Orientation: Person, Place, Situation, Time Memory: Intact Attention: WNL Concentration: Poor Association: Loose Fund of Knowledge: WNL - Mood Mood: Anxious - Affect Affect: Broad - Speech Speech: Loud - Formal Thought Process Formal Thought Process: Hallucinations, Delusions, Paranoia, Loosening of associations - Suicidal Ideation Suicidal Ideation: No - Homicidal Ideation Homicidal Ideation: No Goal/Treatment Plan - Goal/Treatment Plan Need for Continued Stay: Remain at risks for inpatient hospitalization Progress Toward Problem(s) and Goals/Treatment Plan: Schizoaffective disorder bipolar type Alcohol use disorder severe Alcohol withdrawal -CBT -Psychoeducation and supportive therapy and group therapy -Librium for alcohol withdrawal -Withdrawal medication including multivitamin/thiamine/folic acid -Seroquel for insomnia -Hydroxyzine for Anxiety -Neurontin for augmentation -Geodon for psychosis -Temazepam for insomnia -Metformin for diabetes - Smoking Cessation Smoking Cessation Initiated: No
[2018-12-23] MEDS: (Novolog) Insulin Aspart, Recombinant 100 u/ml 10 ml vial SC SCH (08:29)
[2018-12-23] MEDS: Pantoprazole 40 mg EC Tab PO SCH (09:28)
[2018-12-23] MEDS: Multiple Vitamins Tab PO SCH (09:29)
[2018-12-23] MEDS: Magnesium Oxide 400 mg Tab UD PO SCH (09:30)
[2018-12-23] MEDS ORDERED: Pneumococcal 23-Valent Vaccine IM ONE (10:00)
--- NOTE | 2018-12-23 10:55 | PCM.PYCHDC ---
Mental Status Examination - Mental Status Examination Orientation: Person, Place, Situation, Time Memory: Intact Mood: Neutral Affect: Constricted Speech: Soft Attention: WNL Concentration: WNL Association: WNL Fund of Knowledge: WNL Formal Thought Process: No Impairment Description of patient's judgement and insight: good, fair Psychotic Thoughts and Behaviors: denies any AVH Suicidal Ideation: No Current Homicidal Ideation?: No Discharge Summary - Discharge Note Reason for Hospitalization: This is a 53 years old male, who is , lives with his , unemployed, came to the hospital with depressed mood and suicidal ideation. Patient has history of multiple inpatient psychiatric hospitalizations, he was recently discharged from [facility] a few weeks ago. Patient reports that soon after discharge from the hospital he relapsed on drinking and started consuming up to 4 pints of liquor daily. As per the patient he was taking medications off and on. As per the patient since couple of days he started hearing voices, became increasingly depressed and poor sleep the night. Yesterday he developed suicidal ideation, so he came to the hospital to get help. He appeared disheveled and unkempt. Appears somewhat disorganized and internally preoccupied. He reports depressed mood, feelings of hopelessness, helplessness and poor sleep. He also reports at times irritability and agitation. Reports of hearing voices and reports of paranoia. He also reports of withdrawal symptoms from drinking including nausea, shakes, anxiety, headaches, sweating. He denies abusing any other drugs. Laboratory Data: Abnormal Lab Results 12/22/18 12/22/18 12/22/18 11:37 16:07 19:50 POC Glucose (mg/dL) 338 H 260 H 285 H 12/23/18 07:52 POC Glucose (mg/dL) 316 H Consultations:: List each consultation separately and include: 1. Reason for request. 2. Findings. 3. Follow-up Summary of Hospital Course include:: 1. Description of specific treatment plan utilized for patients during their course of treatmen. 2. Summarize the time- course for resolution of acute symptoms and/or regressed behaviors. 3. Describe issues identified and worked on during hospitalization. 4. Describe medication utilized. 5. Describe medical problems identified and treated. 6. Reassessment of suicide risk Summary of Hospital Course: This is a 53 years old male, who is , lives with his , unemployed, came to the hospital with depressed mood and suicidal ideation. Patient has history of multiple inpatient psychiatric hospitalizations, he was recently discharged from [facility] a few weeks ago. Patient reports that soon after discharge from the hospital he relapsed on drinking and started consuming up to 4 pints of liquor daily. As per the patient he was taking medications off and on. As per the patient since couple of days he started hearing voices, became increasingly depressed and poor sleep the night. Ye sterday he developed suicidal ideation, so he came to the hospital to get help. He appeared disheveled and unkempt. Appears somewhat disorganized and internally preoccupied. He reports depressed mood, feelings of hopelessness, helplessness and poor sleep. He also reports at times irritability and agitation. Reports of hearing voices and reports of paranoia. He also reports of withdrawal symptoms from drinking including nausea, shakes, anxiety, headaches, sweating. He denies abusing any other drugs. Past medical history HTN, Asthma, DM - Diagnosis (1) Schizo affective schizophrenia Status: Acute (2) Alcohol dependence Status: Acute - Final Diagnosis (DSM 5) Condition upon Discharge: STABLE Disposition: HOME/ ROUTINE Follow-up Treatment Plan: Schizoaffective disorder bipolar type Alcohol use disorder severe Alcohol withdrawal -CBT -Psychoeducation and supportive therapy and group therapy -Librium for alcohol withdrawal -Withdrawal medication including multivitamin/thiamine/folic acid -Seroquel for insomnia -Hydroxyzine for Anxiety -Neurontin for augmentation -Geodon for psychosis -Temazepam for insomnia -Metformin for diabetes Prescriptions/Medication Reconciliation: Gabapentin [Neurontin] 600 mg PO TID #1 tab metFORMIN [glucOPHAGE] 1,000 mg PO BID #1 tab QUEtiapine [Seroquel] 300 mg PO HS #1 tab Temazepam [Restoril] 15 mg PO HS PRN #1 cap PRN Reason: Insomnia Ziprasidone [Geodon Cap] 40 mg PO BID #1 cap
== END 2018-12-23 10:31 | disposition home or self-care (01) | DRG 885 ==
LOC: C.ER 11:24 → C.5E 14:25
PROVIDERS: ADMIT Psychiatry & Neurology Psychiatry; ATTEND Psychiatry & Neurology Psychiatry
PROC: GZ3ZZZZ Medication Management (ICD-10-PCS; principal; 2018-12-20)
PROC: HZ89ZZZ Medication Management for Substance Abuse Treatment, Other Replacement Medication (ICD-10-PCS; 2018-12-20)
PROC: GZ56ZZZ Individual Psychotherapy, Supportive (ICD-10-PCS; 2018-12-20)
PROC: GZHZZZZ Group Psychotherapy (ICD-10-PCS; 2018-12-20)
DX: F25.0 Schizoaffective disorder, bipolar type (principal); F10.239 Alcohol dependence with withdrawal, unspecified; R45.851 Suicidal ideations; F41.9 Anxiety disorder, unspecified; E11.9 Type 2 diabetes mellitus without complications; I10 Essential (primary) hypertension; J44.9 Chronic obstructive pulmonary disease, unspecified; G47.00 Insomnia, unspecified; G47.30 Sleep apnea, unspecified; E78.00 Pure hypercholesterolemia, unspecified; Z87.891 Personal history of nicotine dependence; Z91.5 Personal history of self-harm; Z79.84 Long term (current) use of oral hypoglycemic drugs

== ENCOUNTER 2019-01-18 12:42 | Inpatient (IN) | payer BC ==
[2019-01-18 12:42] VITALS: BMI 33.5
[2019-01-18 13:36] LABS: BASO # 0.1 K/uL (0.0-0.2); BASO % 0.7 % (0.0-2.0); EOS # 0.2 K/uL (0.0-0.7); EOS % 2.2 % (0.0-4.0); HEMOGLOBIN 14.3 g/dL (12.0-18.0); LYMPH # 2.5 K/uL (1.0-4.3); MEAN CORPUSCULAR HEMOGLOBIN 30.5 pg (27.0-31.0); MEAN CORPUSCULAR HGB CONC 33.6 g/dL (33.0-37.0); MEAN PLATELET VOLUME 8.3 fL (7.2-11.7); MONO # 0.4 K/uL (0.0-0.8); MONO % 4.1 % (0.0-10.0); NRBC % 0.1 % (0.0-2.0); RBC 4.68 Mil/uL (4.40-5.90); RED CELL DISTRIBUTION WIDTH 15.2 % (11.5-14.5); WHITE BLOOD COUNT 9.1 K/uL (4.8-10.8)
[2019-01-18 13:39] LABS: SQUAMOUS EPITHIAL < 1 /hpf (0-5); URINE BILIRUBIN NEGATIVE (NEGATIVE); URINE BLOOD NEGATIVE (NEGATIVE); URINE CLARITY Clear (Clear); URINE COLOR Straw (YELLOW); URINE GLUCOSE (UA) NORMAL (Normal); URINE LEUKOCYTE ESTERASE NEG Leu/uL (Negative); URINE PROTEIN NEGATIVE (NEGATIVE); URINE UROBILINOGEN NORMAL mg/dL (0.2-1.0)
[2019-01-18 13:40] LABS: MEAN CELL VOLUME 90.8 fL (80.0-94.0)
[2019-01-18 13:47] LABS: ALB/GLOB RATIO 1.8 (1.0-2.1); ALBUMIN 4.4 g/dL (3.5-5.0); ALT/SGPT 35 U/L (21-72); AST/SGOT 40 U/L (17-59); BLOOD UREA NITROGEN 11 mg/dL (9-20); CALCIUM 10.2 mg/dl (8.6-10.4); GFR NON-AFRICAN AMERICAN > 60
[2019-01-18 13:59] LABS: BARBITURATES, UR NEGATIVE (NEGATIVE); BENZODIAZEPINES, UR NEGATIVE (NEGATIVE); OPIATES, UR NEGATIVE (NEGATIVE); PHENCYCLIDINE, UR NEGATIVE (NEGATIVE)
--- NOTE | 2019-01-18 15:30 | C.PDOC ---
History Of Present Illness 53 year old male presents to the ED for evaluation of suicidal ideation. Reports he was talking with insurance company on the phone when he expressed suicidal ideations, and the insurance called the police. Admits to drinking alcohol today. Admits to having suicidal plan "similar to previous 2 times" which entails overdosing on his HTN medications. Denies attempting overdose today. Denies any nausea, vomiting, HI, chest pain, shortness of breath, fever, chills, or any other symptoms. Chief Complaint (Nursing): Psychiatric Evaluation History Per: Patient History/Exam Limitations: no limitations Onset/Duration Of Symptoms: Hrs Current Symptoms Are (Timing): Still Present Suicide/Self Injury Attempted (Context): None Modifying Factor(s): Alcohol Associated Symptoms: Suicidal Thoughts, Suicidal Plan Additional History Per: Law Enforcement Past Medical History Reviewed: Historical Data, Nursing Documentation, Vital Signs Vital Signs: Last Vital Signs Temp 97.7 F 01/18/19 13:11 Pulse 105 H 01/18/19 13:11 Resp BP 141/90 01/18/19 13:11 Pulse Ox 95 01/18/19 13:11 - Medical History PMH: Anxiety, Bipolar Disorder, COPD, Depression, Diabetes, Fractures, Gastritis, HTN, Hypercholesterolemia, Pneumonia, Seizures (ETOH related), Sleep Apnea (uses CPAP at home) Denies: Hepatitis (Patient denied), HIV (Patient denied), Chronic Kidney Dise ase, Sexually Transmitted Disease Surgical History: Tonsillectomy (as a child) - [facility] Procedures ALCOHOL DETOXIFICATION (10/07/13) DETOXIFICATION SERVICES FOR SUBSTANCE ABUSE TREATMENT (10/17/18) EXCISION OF LARGE INTESTINE, ENDO, DIAGN (09/01/17) EXCISION OF SMALL INTESTINE, ENDO, DIAGN (09/01/17) GROUP BUSINESS OBJECTS DEVELOPER FOR SUBSTANCE ABUSE TREATMENT, PSYCHOEDUCATION (11/03/17) GROUP BUSINESS OBJECTS DEVELOPER FOR SUBSTANCE ABUSE, COGNITIVE BEHAVIORAL (11/03/17) GROUP PSYCHOTHERAPY (12/20/18) INDIV PSYCHOTHERAPY FOR SUBSTANCE ABUSE TREATMENT, SUPPORT (11/03/17) INDIV PSYCHOTHERAPY FOR SUBSTANCE ABUSE, COGNITIV BEHAVIORAL (11/03/17) INDIV PSYCHOTHERAPY FOR SUBSTANCE ABUSE, PSYCHOEDUCATION (02/05/18) INDIVIDUAL PSYCHOTHERAPY, SUPPORTIVE (12/20/18) MEDICATION MANAGEMENT (12/20/18) MEDS MGMT FOR SUBSTANCE ABUSE TREATMENT, OTH REPL MED (12/20/18) OTHER ELECTROCONVULSIVE THERAPY (08/09/18) Family History: States: No Known Family Hx - Social History Hx Tobacco Use: Yes Hx Alcohol Use: Yes Hx Substance Use: Yes - Immunization History Hx Tetanus Toxoid Vaccination: No Hx Influenza Vaccination: Yes (2018) Hx Pneumococcal Vaccination: Yes (2016) Review Of Systems Except As Marked, All Systems Reviewed And Found Negative. Constitutional: Negative for: Fever, Chills Cardiovascular: Negative for: Chest Pain Respiratory: Negative for: Cough, Shortness of Breath Gastrointestinal: Negative for: Nausea, Vomiting, Abdominal Pain, Diarrhea Musculoskeletal: Negative for: Back Pain Skin: Negative for: Rash Neurological: Negative for: Headache Psych: Positive for: Suicidal ideation Physical Exam - Physical Exam Appears: Non-toxic, No Acute Distress Skin: Warm, Dry, No Rash Head: Normacephalic Eye(s): bilateral: PERRL, EOMI Nose: Normal Oral Mucosa: Moist Neck: Supple Chest: Symmetrical Cardiovascular: Rhythm Regular Respiratory: No Rales, No Rhonchi, No Wheezing, Other (CTA B/L) Gastrointestinal/Abdominal: Soft, No Tenderness, No Guarding, No Rebound Extremity: Bilateral: No Pedal Edema, Normal Color And Temperature Neurological/Psych: Oriented x3, Normal Speech Gait: Steady ED Course And Treatment - Laboratory Results Result Diagrams: 01/18/19 13:26 01/18/19 13:26 Lab Results: Total Bilirubin 0.2 mg/dL (0.2-1.3) 01/18/19 13:26 AST 40 U/L (17-59) 01/18/19 13:26 ALT 35 U/L (21-72) 01/18/19 13:26 Alkaline Phosphatase 72 U/L (38-126) 01/18/19 13:26 Total Protein 6.9 g/dL (6.3-8.3) 01/18/19 13:26 Albumin 4.4 g/dL (3.5-5.0) 01/18/19 13:26 Globulin 2.5 gm/dL (2.2-3.9) 01/18/19 13:26 Albumin/Globulin Ratio 1.8 (1.0-2.1) 01/18/19 13:26 Urine Color Straw (YELLOW) 01/18/19 13:26 Urine Clarity Clear (Clear) 01/18/19 13:26 Urine pH 6.0 (5.0-8.0) 01/18/19 13:26 Ur Specific [place] 1.003 (1.003-1.030) 01/18/19 13:26 Urine Protein Negative mg/dL (NEGATIVE) 01/18/19 13:26 Urine Glucose (UA) Normal mg/dL (Normal) 01/18/19 13:26 Urine Ketones Negative mg/dL (NEGATIVE) 01/18/19 13:26 Urine Blood Negative (NEGATIVE) 01/18/19 13:26 Urine Nitrate Negative (NEGATIVE) 01/18/19 13:26 Urine Bilirubin Negative (NEGATIVE) 01/18/19 13:26 Urine Urobilinogen Normal mg/dL (0.2-1.0) 01/18/19 13:26 Ur Leukocyte Esterase Neg Bessy/uL (Negative) 01/18/19 13:26 Urine WBC (Auto) < 1 /hpf (0-5) 01/18/19 13:26 Urine RBC (Auto) < 1 /hpf (0-3) 01/18/19 13:26 Ur Squamous Epith Cells < 1 /hpf (0-5) 01/18/19 13:26 O2 Sat by Pulse Oximetry: 95 (RA) Pulse Ox Interpretation: Normal Medical Decision Making Medical Decision Making: Plan - Observation - Bloodwork - UA - Psych eval 1657 Patient is medically clear for Psych evaluation. [address] Verdin to [facility] for major depressive disorder. Disposition Counseled Patient/Family Regarding: Studies Performed, Diagnosis - Disposition Disposition: HOSPITALIZED Disposition Time: 17:31 Condition: STABLE - Clinical Impression Clinical Impression: Major depressive disorder, Alcohol intoxication - Scribe Statement The provider has reviewed the documentation as recorded by the Scribyohana Franklin All medical record entries made by the Scribe were at my direction and personally dictated by me. I have reviewed the chart and agree that the record accurately reflects my personal performance of the history, physical exam, medical decision making, and the department course for this patient. I have also personally directed, reviewed, and agree with the discharge instructions and disposition.
[2019-01-18 17:32] VITALS: O2SAT 95
--- NOTE | 2019-01-18 19:29 | PCM.BM ---
<Arleen Day - Last Filed: 01/18/19 19:27> Treatment Plan Problems - Problems identified on initial assessmt substance abuse Date Initiated: 01/18/19 Time Initiated: 19:31 Assessment reference: NA Status: Active anxiety/substance abuse Date Initiated: 01/18/19 Time Initiated: 19:31 Assessment reference: NA Status: Active Treatment assets and liabiliti Patient Assests: cooperative, educated, motivated, self-reliant, ADL independent, good support system, negotiates basic needs, financial stabiity, cognitively intact Patient Liabilities: substance abuse - Milieu Protocol Maintain good personal hygiene: daily Encourage regular showers, daily Remind patient to perform daily oral care, daily Assist patient to perform ADL's Conduct patient checks and document Observation sheet: Q15 minutes Maintain personal safety: every shift Educate patient to report safety concerns to staff, every shift Monitor environment for contraband/sharps Medication safety: Monitor for expected outcome, potential side effects: every shift, Assess barriers to learning: every shift, Assess readiness for medication education: every shift <Ruchi Lee - Last Filed: 01/20/19 12:58> Family Contact Family involvement: Patient does not wish Family/SO involvement Family contact: Patient declines to allow family contact at present - Goals for Treatment Patient goals for treatment: "I want to go to [facility]." Discharge/Continuing Care - Education Needs Education Needs: Patient Medication, Patient Diagnosis/Disease Process, Patient Coping Skills, Patient Placement options, Patient Community resources - Discharge Discharge Criteria: Free of Suicidal thoughts, Normal sleep pattern, Ability to care for self, No longer exhibiting s/s of withdrawal, Reduction of target symptoms Discharge to:: Home, With Family - Treatment Team Participation Discussed with Family/SO: No Was Patient/Family/SO present at Treatment Team Meeting: Yes <Moisés Menchaca - Last Filed: 01/21/19 00:05> - Diagnosis (1) Schizo affective schizophrenia Status: Acute Interventions: 01/21/19 00:05 * Assess/adjust medications daily and /or as needed * See patient on an individual basis 7x/week to assess status of hallucinations * Discuss risks, benefits, side effects and alternatives of medications * (2) Alcohol dependence Status: Acute Interventions: 01/21/19 00:05 * Assess 7x/week regarding severity of withdrawal * Educate regarding risks, benefits, side effects and alternatives of medications * Use Motivational Interviewing for abstinence * Use CBT for relapse prevention * Medication management for withdrawal symptoms * Encourage medication assisted treatment *
[2019-01-18] MEDS: (Lantus) Insulin Glargine, Recombinant SC SCH (21:34)
[2019-01-19] MEDS: Pantoprazole 40 mg EC Tab PO SCH (10:09)
[2019-01-19] MEDS: (Lantus) Insulin Glargine, Recombinant SC SCH ×2 (10:09→21:28)
--- NOTE | 2019-01-20 00:10 | PCM.PSYCH ---
Initial Psychiatric Evaluation - Initial Psychiatric Evaluation Type of Admission: Voluntary Legal Status: Capacity Chief Complaint (in patient's own words): I was feeling depressed and suicidal.' History of Present Illness and Precipitating Events: Patient is a 53 YO male, presented to the [facility] ED on 01/18/19 with suicidal ideations and depression. That is familiar with this patient. Patient has a long history of schizoaffective disorder and alcohol abuse. He appeared disheveled, unkempt, disorganized and internally preoccupied. He currently reports not being able to sleep through the night, stating he has been feeling this way for past few months. Patient stated current sleep medications did not help. He started 2 past suicide attempts, with overdosing on HTN medication Patient reports drinking alcohol, 2 pint everyday, his last drink was yesterday. He was at [facility] psych elias 2 months ago, and was discharged to out patient rehab. He reported staying in the facility for 2 weeks, before leaving due to not being able to sit all day because of his back pain. Also stating 14 hour days are too long. He reports using tobacco, pack per day, but denies other recreational drug use. Patient has an outpatient psychiatrist, whom he does not follow up with due to expensive copay. He has not been receiving antidepressant medication for the last year. Patient currently lives with his , and does not receive social security or disability because earns too much money. He reports irritability, agitation, racing thoughts and flight of ideas. He reports withdrawal symptoms from drinking including anxiety, headaches, shakes and sweating. Past medical history Hypertension, DM, hypercholesterolemia Current Medications: Active Medications Generic Name Dose Route Start Last Admin Trade Name Freq PRN Reason Stop Dose Admin Atenolol 25 mg 01/19/19 20:00 01/19/19 20:18 Tenormin PO 25 mg DAILY JOSE Administration Chlordiazepoxide 25 mg 01/19/19 00:00 01/19/19 17:15 Librium PO 01/22/19 23:59 25 mg TID JOSE Administration Taper Chlordiazepoxide 25 mg 01/18/19 19:34 01/19/19 10:10 Librium PO 25 mg Q4H PRN Administration Alcohol Withdrawal Folic Acid 1 mg 01/19/19 10:00 01/19/19 10:09 Folic Acid PO 1 mg DAILY JOSE Administration Glipizide 5 mg 01/19/19 10:00 01/19/19 17:15 Glucotrol PO 5 mg TID JOSE Administration Insulin Glargine 32 unit 01/18/19 22:00 01/19/19 21:28 Lantus SC 32 units AMHS JOSE Administration Metformin HCl 1,000 mg 01/19/19 10:00 01/19/19 17:15 Glucophage PO 1,000 mg BID JOSE Administration Pantoprazole Sodium 40 mg 01/19/19 10:00 01/19/19 10:09 Protonix Ec Tab PO 40 mg DAILY JOSE Administration Quetiapine Fumarate 200 mg 01/19/19 22:00 01/19/19 21:28 Seroquel PO 200 mg HS JOSE Administration Thiamine HCl 100 mg 01/19/19 10:00 01/19/19 10:09 Vitamin B1 Tab PO 100 mg DAILY JOSE Administration Trazodone HCl 50 mg 01/18/19 22:00 01/19/19 21:28 Desyrel PO 50 mg HS JOSE Administration Ziprasidone 20 mg 01/19/19 19:45 01/19/19 20:17 Geodon Cap PO 20 mg BID JOSE Administration Past Psychiatric History - Past Psychiatric History Previous Treatment History: Inpatient Pertinent Medical Hx (Current Medical&Sleep Prob, Allergies): Allergies Allergy/AdvReac Type Severity Reaction Status Date / Time amitriptyline [From Elavil] AdvReac ITCHING Verified 12/20/18 11:42 Pantoprazole [Protonix EC Tab] 40 mg PO DAILY ect 08/03/18 Folic Acid 1 mg PO DAILY 30 Days tab 11/22/18 Montelukast [Singulair] 10 mg PO HS 30 Days tab 11/22/18 Multivitamins [Hexavitamin] 1 tab PO DAILY 30 Days tab 11/22/18 Saccharomyces Boulardii [Florastor] 250 mg PO BID 5 Days capsule 11/22/18 Thiamine [Vitamin B1 Tab] 100 mg PO DAILY 30 Days tab 11/22/18 QUEtiapine [Seroquel] 300 mg PO HS #1 tab 12/23/18 Temazepam [Restoril] 15 mg PO HS PRN #1 cap 12/23/18 Ziprasidone [Geodon Cap] 40 mg PO BID #1 cap 12/23/18 metFORMIN [glucOPHAGE] 1,000 mg PO BID #1 tab 12/23/18 Atenolol 50 mg PO BID 01/18/19 Gabapentin [Neurontin] 600 mg PO BID 01/18/19 GlipiZIDE [Glucotrol] 10 mg PO TID 01/18/19 Review of Systems - Review of Systems All systems: reviewed and no additional remarkable complaints except - Psychiatric Psychiatric: Anxiety, Irritability, Mood Swings, Paranoia, Suicidal Ideation Mental Status Examination - Personal Presentation Personal Presentation: Looks stated age - Affect Affect: Broad - Motor Activity Motor Activity: Psychomotor Agitation - Reliability in Providing Information Reliability in Providing Information: Poor, due to alteration in thoughts, Poor, due to altered mood - Speech Speech: Disorganized - Mood Mood: Anxious - Formal Thought Process Formal Thought Process: Delusions, Paranoia, Loosening of associations, Flight of ideas - Hallucinations/Delusions Delusions: Persecution - Obsessions/Compulsions Obsessions: No Compulsions: No - Cognitive Functions Orientation: Person, Place, Situation, Time Sensorium: Alert Attention/Concentration: Attentive Abstract Thinking: [place] Estimate of Intelligence: Below average Judgement: Imparied, as evidence by: Poor judgement, Imparied, as evidence by: Lack of insight into illness - Risk Risk: Suicidal, Withdrawal, Diminished functioning - Strength & Assets Inventory Strength & Assets Inventory: Family support DSM 5 DX - DSM 5 DSM 5 Diagnosis: Schizoaffective disorder bipolar type Alcohol use disorder Alcohol withdrawal - Recommended/Plan of Treatment Treatment Recommendations and Plan of Treatment: Schizoaffective disorder bipolar type Alcohol use disorder Alcohol withdrawal DM HTN -CBT -Psychoeducation -Supportive therapy and group therapy -Librium taper for alcohol withdrawal -Seroquel for insomnia -Geodon for psychosis -Neurontin for augmentation -Continue medication for hypertension and diabetes mellitus - Smoking Cessation Smoking Cessation Initiated: No
[2019-01-20 06:44] VITALS: RESP 18; TEMP 98.2
[2019-01-20] MEDS: (Lantus) Insulin Glargine, Recombinant SC SCH ×2 (09:18→22:20)
[2019-01-20] MEDS: Pantoprazole 40 mg EC Tab PO SCH (09:19)
--- NOTE | 2019-01-21 00:04 | PCM.PYCHPN ---
Psychiatric Progress Note - Psychiatric Progress Note Patient seen today, length of contact: 15 min Patient Chief Complaint: I was feeling anxious.' Problems Identified/Issues Discussed: Patient was seen in neurology, chart reviewed and discussed the staff. Patient still reports anxiety and irritability. History reports racing thoughts or flight of ideas and agitation. He appears disorganized and internally preoccupied, however he denies any auditory hallucinations. He reports some withdrawal symptoms from drinking. He is taking medication but denies any side effects. Supportive therapy was provided Medication Change: Yes Medical Record Reviewed: Yes Mental Status Examination - Cognitive Function Orientation: Person, Place, Situation, Time Memory: Intact Attention: WNL Concentration: Poor Association: Loose Fund of Knowledge: Poor - Mood Mood: Anxious - Affect Affect: Broad - Speech Speech: Soft - Formal Thought Process Formal Thought Process: Delusions, Paranoia, Loosening of associations, Flight of ideas - Suicidal Ideation Suicidal Ideation: No - Homicidal Ideation Homicidal Ideation: No Goal/Treatment Plan - Goal/Treatment Plan Need for Continued Stay: Remain at risks for inpatient hospitalization Progress Toward Problem(s) and Goals/Treatment Plan: Schizoaffective disorder bipolar type Alcohol use disorder Alcohol withdrawal DM HTN -CBT -Psychoeducation -Supportive therapy and group therapy -Librium taper for alcohol withdrawal -Seroquel for insomnia -Geodon for psychosis -Neurontin for augmentation -Continue medication for hypertension and diabetes mellitus - Smoking Cessation Smoking Cessation Initiated: No
[2019-01-21] MEDS: (Lantus) Insulin Glargine, Recombinant SC SCH ×2 (09:48→21:53)
[2019-01-21] MEDS: Pantoprazole 40 mg EC Tab PO SCH (09:49)
[2019-01-21 15:42] VITALS: BP 128/87; PULSE 97
[2019-01-22] MEDS: (Lantus) Insulin Glargine, Recombinant SC SCH (09:01)
[2019-01-22] MEDS: Pantoprazole 40 mg EC Tab PO SCH (09:03)
== END 2019-01-22 13:45 | disposition left against medical advice (07) | DRG 885 ==
LOC: C.ER 12:42 → C.9E 17:32 → C.5E 17:54
PROVIDERS: ADMIT Psychiatry & Neurology Psychiatry; ATTEND Psychiatry & Neurology Psychiatry
PROC: GZHZZZZ Group Psychotherapy (ICD-10-PCS; principal; 2019-01-18)
PROC: HZ2ZZZZ Detoxification Services for Substance Abuse Treatment (ICD-10-PCS; 2019-01-18)
PROC: HZ52ZZZ Individual Psychotherapy for Substance Abuse Treatment, Cognitive-Behavioral (ICD-10-PCS; 2019-01-18)
PROC: HZ59ZZZ Individual Psychotherapy for Substance Abuse Treatment, Supportive (ICD-10-PCS; 2019-01-18)
PROC: HZ56ZZZ Individual Psychotherapy for Substance Abuse Treatment, Psychoeducation (ICD-10-PCS; 2019-01-18)
PROC: HZ42ZZZ Group Counseling for Substance Abuse Treatment, Cognitive-Behavioral (ICD-10-PCS; 2019-01-18)
PROC: HZ46ZZZ Group Counseling for Substance Abuse Treatment, Psychoeducation (ICD-10-PCS; 2019-01-18)
PROC: GZ58ZZZ Individual Psychotherapy, Cognitive-Behavioral (ICD-10-PCS; 2019-01-18)
PROC: GZ56ZZZ Individual Psychotherapy, Supportive (ICD-10-PCS; 2019-01-18)
DX: F25.0 Schizoaffective disorder, bipolar type (principal); F10.230 Alcohol dependence with withdrawal, uncomplicated; R45.851 Suicidal ideations; F10.220 Alcohol dependence with intoxication, uncomplicated; F41.9 Anxiety disorder, unspecified; J44.9 Chronic obstructive pulmonary disease, unspecified; E78.00 Pure hypercholesterolemia, unspecified; Y90.8 Blood alcohol level of 240 mg/100 ml or more; G47.00 Insomnia, unspecified; E11.9 Type 2 diabetes mellitus without complications; Z79.4 Long term (current) use of insulin; I10 Essential (primary) hypertension; G47.30 Sleep apnea, unspecified; Z91.5 Personal history of self-harm

== ENCOUNTER 2019-02-10 12:55 | Emergency (ER) | payer BC ==
[2019-02-10 12:56] VITALS: BMI 33.5
[2019-02-10 13:15] VITALS: RESP 18
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
[2019-02-10 14:40] LABS: BASO % 0.4 % (0.0-2.0); EOS # 0.2 K/uL (0.0-0.7); EOS % 1.9 % (0.0-4.0); HEMOGLOBIN 13.7 g/dL (12.0-18.0); LYMPH # 2.4 K/uL (1.0-4.3); LYMPH % 27.8 % (20.0-40.0); MEAN CELL VOLUME 89.1 fL (80.0-94.0); MEAN CORPUSCULAR HGB CONC 33.7 g/dL (33.0-37.0); MEAN PLATELET VOLUME 7.7 fL (7.2-11.7); MONO # 0.6 K/uL (0.0-0.8); MONO % 6.4 % (0.0-10.0); NEUT # 5.6 K/uL (1.8-7.0); NEUT % 63.5 % (50.0-75.0); NRBC % 0.1 % (0.0-2.0); RBC 4.58 Mil/uL (4.40-5.90); RED CELL DISTRIBUTION WIDTH 16.2 % (11.5-14.5); WHITE BLOOD COUNT 8.8 K/uL (4.8-10.8)
[2019-02-10 14:53] LABS: URINE BILIRUBIN NEGATIVE (NEGATIVE); URINE BLOOD NEGATIVE (NEGATIVE); URINE CLARITY Clear (Clear); URINE COLOR Straw (YELLOW); URINE GLUCOSE (UA) NORMAL (Normal); URINE LEUKOCYTE ESTERASE NEG Leu/uL (Negative); URINE PROTEIN NEGATIVE (NEGATIVE); URINE UROBILINOGEN NORMAL mg/dL (0.2-1.0)
[2019-02-10 14:56] LABS: ALB/GLOB RATIO 1.7 (1.0-2.1); ALBUMIN 4.6 g/dL (3.5-5.0); ALT/SGPT 48 U/L (21-72); AST/SGOT 35 U/L (17-59); BLOOD UREA NITROGEN 12 mg/dL (9-20); CALCIUM 9.4 mg/dl (8.6-10.4); GFR NON-AFRICAN AMERICAN > 60
[2019-02-10 15:06] LABS: BARBITURATES, UR NEGATIVE (NEGATIVE); OPIATES, UR NEGATIVE (NEGATIVE); PHENCYCLIDINE, UR NEGATIVE (NEGATIVE)
[2019-02-10 15:24] LABS: BENZODIAZEPINES, UR POSITIVE (NEGATIVE)
[2019-02-10 16:37] VITALS: BP 110/82; PULSE 82; TEMP 98.8; O2SAT 100
== END 2019-02-10 16:38 | disposition home or self-care (01) ==
LOC: C.ER 12:55
DX: F10.129 Alcohol abuse with intoxication, unspecified (principal); Y90.8 Blood alcohol level of 240 mg/100 ml or more; I10 Essential (primary) hypertension; E11.9 Type 2 diabetes mellitus without complications; F41.9 Anxiety disorder, unspecified; F31.9 Bipolar disorder, unspecified; F17.210 Nicotine dependence, cigarettes, uncomplicated
CPT/HCPCS: 80053; 81001; 82948; 83735; 84100; 85025; 99283; G0480

== ENCOUNTER 2019-02-22 16:06 | Emergency (ER) | payer BC ==
[2019-02-22 16:07] VITALS: BMI 33.5
[2019-02-22 16:29] VITALS: BP 130/70; PULSE 92; RESP 18; TEMP 98.7; O2SAT 93
[2019-02-22 17:03] LABS: BASO # 0.1 K/uL (0.0-0.2); BASO % 1.1 % (0.0-2.0); EOS # 0.2 K/uL (0.0-0.7); HEMOGLOBIN 14.5 g/dL (12.0-18.0); LYMPH # 2.4 K/uL (1.0-4.3); LYMPH % 34.6 % (20.0-40.0); MEAN CELL VOLUME 88.7 fL (80.0-94.0); MEAN CORPUSCULAR HEMOGLOBIN 29.6 pg (27.0-31.0); MEAN CORPUSCULAR HGB CONC 33.4 g/dL (33.0-37.0); MEAN PLATELET VOLUME 7.7 fL (7.2-11.7); MONO # 0.8 K/uL (0.0-0.8); MONO % 11.1 % (0.0-10.0); NEUT # 3.4 K/uL (1.8-7.0); NEUT % 50.2 % (50.0-75.0); NRBC % 0.1 % (0.0-2.0); RBC 4.88 Mil/uL (4.40-5.90); RED CELL DISTRIBUTION WIDTH 16.5 % (11.5-14.5); WHITE BLOOD COUNT 6.8 K/uL (4.8-10.8)
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
--- NOTE | 2019-02-22 17:32 | CT ---
Date of service: 02/22/2019 PROCEDURE: CT HEAD WITHOUT CONTRAST. HISTORY: head injury, ETOH COMPARISON: Noncontrast head CT performed 05/20/18 TECHNIQUE: Axial computed tomography images were obtained through the head/brain without intravenous contrast. Radiation dose: Total exam DLP = 1112.36 mGy-cm. This CT exam was performed using one or more of the following dose reduction techniques: Automated exposure control, adjustment of the mA and/or kV according to patient size, and/or use of iterative reconstruction technique. FINDINGS: Streak artifact limits evaluation of the skull base. HEMORRHAGE: No intracranial hemorrhage. BRAIN: Diffuse atrophy with prominence of the ventricles and sulci noted. No mass effect or edema. Re-identified 6 x 7 mm hyper dense extra-axial dural-based mass at the right temporal convexity, possibly meningioma. 2.9 x 2.2 cm posterior fossa cystic density present since 11/20/16, possibly arachnoid cyst or jenifer cisterna magna. The graham-white matter differentiation appears intact. Please note that MRI with diffusion imaging is more sensitive in the detection of acute ischemic event. VENTRICLES: No hydrocephalus. CALVARIUM: Unremarkable. PARANASAL SINUSES: Right frontal sinus anterior wall appears depressed possibly related to remote trauma. 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 Partially imaged mucosal thickening of the left maxillary sinus. No paranasal sinus fluid levels identified. MASTOID AIR CELLS: Unremarkable as visualized. No inflammatory changes. OTHER FINDINGS: Chronic appearing bilateral nasal bone fracture deformities. IMPRESSION: No evidence of acute intracranial hemorrhage, mass effect, or midline shift. Re-identified 6 x 7 mm hyper dense extra-axial dural-based mass at the right temporal convexity, possibly meningioma. 2.9 x 2.2 cm posterior fossa cystic density present since 11/20/16, possibly arachnoid cyst or jenifer cisterna magna. Right frontal sinus anterior wall appears depressed possibly related to remote trauma. 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 Partially imaged mucosal thickening of the left maxillary sinus. No paranasal sinus fluid levels identified. Chronic appearing bilateral nasal bone fracture deformities.
[2019-02-22 17:51] LABS: SQUAMOUS EPITHIAL < 1 /hpf (0-5); URINE BILIRUBIN NEGATIVE (NEGATIVE); URINE BLOOD NEGATIVE (NEGATIVE); URINE CLARITY Clear (Clear); URINE COLOR Straw (YELLOW); URINE GLUCOSE (UA) NORMAL (Normal); URINE LEUKOCYTE ESTERASE NEG Leu/uL (Negative); URINE PROTEIN NEGATIVE (NEGATIVE); URINE UROBILINOGEN NORMAL mg/dL (0.2-1.0)
[2019-02-22 18:12] LABS: ALB/GLOB RATIO 1.6 (1.0-2.1); ALBUMIN 4.6 g/dL (3.5-5.0); ALT/SGPT 57 U/L (21-72); AST/SGOT 57 U/L (17-59); BLOOD UREA NITROGEN 10 mg/dL (9-20); CALCIUM 9.6 mg/dl (8.6-10.4); GFR NON-AFRICAN AMERICAN > 60
[2019-02-22 18:34] LABS: BARBITURATES, UR NEGATIVE (NEGATIVE); BENZODIAZEPINES, UR NEGATIVE (NEGATIVE); OPIATES, UR NEGATIVE (NEGATIVE); PHENCYCLIDINE, UR NEGATIVE (NEGATIVE)
== END 2019-02-22 18:45 | disposition left against medical advice (07) ==
LOC: C.ER 16:06
DX: F10.129 Alcohol abuse with intoxication, unspecified (principal); Y90.8 Blood alcohol level of 240 mg/100 ml or more; S00.81XA Abrasion of other part of head, initial encounter; X58.XXXA Exposure to other specified factors, initial encounter
CPT/HCPCS: 70450; 80053; 81001; 82948; 83735; 84100; 85025; 99284; G0480

== ENCOUNTER 2019-03-22 12:00 | Emergency (ER) | payer BC ==
[2019-03-22 12:00] VITALS: BMI 33.5
[2019-03-22] MEDS ORDERED: Folic Acid 1 MG, Thiamine 100 MG, Multivitamin (MVI) 10 ML in Dextrose 5% In Water 1,00... IV SCH ×2 (12:45→13:30)
--- NOTE | 2019-03-22 12:51 | C.PDOC ---
History Of Present Illness Patient is a 53 year old male, kecia, who presents to the ED for evaluation after he was found sleeping on a homeowner's steps and was unable to be aroused. Patient has had multiple ED visits and admissions to [facility] for substance abuse, bipolar disorder, COPD, and suicidal thoughts. Additional information was unable to be obtained due to patient being groggy. Patient does admit to drinking vodka. Time Seen by Provider: 03/22/19 12:10 Chief Complaint (Nursing): Medical Clearance History Per: Patient History/Exam Limitations: no limitations Onset/Duration Of Symptoms: Hrs Recent travel outside of the [place]: No Additional History Per: Patient Past Medical History Reviewed: Historical Data, Nursing Documentation, Vital Signs Vital Signs: Last Vital Signs Temp 98.1 F 03/22/19 12:11 Pulse 84 03/22/19 12:11 Resp 18 03/22/19 12:11 BP 111/78 03/22/19 12:11 Pulse Ox 93 L 03/22/19 12:11 Primary Care Provider: Non [facility] Provider, - Medical History PMH: Anxiety, Bipolar Disorder, COPD, Depression, Diabetes, Fractures, Gastritis, HTN, Hypercholesterolemia, Pneumonia, Seizures (ETOH related), Sleep Apnea (uses CPAP at home) Denies: Hepatitis (Patient denied), HIV (Patient denied), Chronic Kidney Disease, Schizophrenia, Sexually Transmitted Disease Surgical History: Tonsillectomy (as a child) - [facility] Procedures ALCOHOL DETOXIFICATION (10/07/13) DETOXIFICATION SERVICES FOR SUBSTANCE ABUSE TREATMENT (01/18/19) EXCISION OF LARGE INTESTINE, ENDO, DIAGN (09/01/17) EXCISION OF SMALL INTESTINE, ENDO, DIAGN (09/01/17) GROUP STRATEGIC PARTNERSHIP SPECIALIST FOR SUBSTANCE ABUSE TREATMENT, PSYCHOEDUCATION (01/18/19) GROUP STRATEGIC PARTNERSHIP SPECIALIST FOR SUBSTANCE ABUSE, COGNITIVE BEHAVIORAL (01/18/19) GROUP PSYCHOTHERAPY (01/18/19) INDIV PSYCHOTHERAPY FOR SUBSTANCE ABUSE TREATMENT, SUPPORT (01/18/19) INDIV PSYCHOTHERAPY FOR SUBSTANCE ABUSE, COGNITIV BEHAVIORAL (01/18/19) INDIV PSYCHOTHERAPY FOR SUBSTANCE ABUSE, PSYCHOEDUCATION (01/18/19) INDIVIDUAL PSYCHOTHERAPY, COGNITIVE-BEHAVIORAL (01/18/19) INDIVIDUAL PSYCHOTHERAPY, SUPPORTIVE (01/18/19) MEDICATION MANAGEMENT (12/20/18) MEDS MGMT FOR SUBSTANCE ABUSE TREATMENT, OTH REPL MED (12/20/18) OTHER ELECTROCONVULSIVE THERAPY (08/09/18) Family History: States: Unknown Family Hx - Social History Hx Tobacco Use: Yes Hx Alcohol Use: Yes Hx Substance Use: Yes - Immunization History Hx Tetanus Toxoid Vaccination: No Hx Influenza Vaccination: Yes (2019) Hx Pneumococcal Vaccination: Yes (2017) Review Of Systems Review Of Systems: ROS cannot be obtained secondary to pt's inabilty to answer questions. Physical Exam - Physical Exam Appears: Non-toxic, No Acute Distress, Other (sleepy) Skin: Warm, Dry, Other (abrasions to knees bilaterally, right more than left ) Head: Atraumatic (no trauma to back of head ), Normacephalic Eye(s): bilateral: Other (pupils small) Lips: Swelling (lips and mouth ) Neck: Normal ROM, Supple Chest: Symmetrical, No Deformity Cardiovascular: Rhythm Regular, No Murmur Respiratory: Normal Breath Sounds, No Rales, No Rhonchi, No Wheezing Gastrointestinal/Abdominal: Soft, No Tenderness, Other (obese ) Neurological/Psych: Other (poorly responsive) ED Course And Treatment O2 Sat by Pulse Oximetry: 93 (on RA) Medical Decision Making Medical Decision Making: Plan: Labs Banana Bag UA Reeval as needed . Disposition - Disposition Disposition Time: 13:22 Condition: GUARDED Forms: [facility] (Albanian) - Clinical Impression Clinical Impression: Alcohol intoxication - Scribe Statement The provider has reviewed the documentation as recorded by the Scribe Esther Guzman All medical record entries made by the Scribe were at my direction and personally dictated by me. I have reviewed the chart and agree that the record accurately reflects my personal performance of the history, physical exam, medical decision making, and the department course for this patient. I have also personally directed, reviewed, and agree with the discharge instructions and disposition. Physician Patient Turnover Patient Signed Over To: Lala Holland Handoff Comments: intoxicated patient, pending labs, hydration and further evaluation
[2019-03-22 13:23] LABS: BASO % 0.4 % (0.0-2.0); EOS # 0.1 K/uL (0.0-0.7); EOS % 1.4 % (0.0-4.0); HEMOGLOBIN 14.3 g/dL (12.0-18.0); LYMPH % 26.2 % (20.0-40.0); MEAN CELL VOLUME 87.6 fL (80.0-94.0); MEAN CORPUSCULAR HEMOGLOBIN 29.6 pg (27.0-31.0); MEAN CORPUSCULAR HGB CONC 33.8 g/dL (33.0-37.0); MEAN PLATELET VOLUME 8.2 fL (7.2-11.7); MONO # 0.4 K/uL (0.0-0.8); MONO % 5.9 % (0.0-10.0); NEUT % 66.1 % (50.0-75.0); NRBC % 0.2 % (0.0-2.0); RBC 4.84 Mil/uL (4.40-5.90); RED CELL DISTRIBUTION WIDTH 16.6 % (11.5-14.5); WHITE BLOOD COUNT 7.6 K/uL (4.8-10.8)
[2019-03-22 13:25] LABS: SQUAMOUS EPITHIAL < 1 /hpf (0-5); URINE BILIRUBIN NEGATIVE (NEGATIVE); URINE BLOOD NEGATIVE (NEGATIVE); URINE CLARITY Hazy (Clear); URINE COLOR Yellow (YELLOW); URINE GLUCOSE (UA) NORMAL (Normal); URINE LEUKOCYTE ESTERASE NEG Leu/uL (Negative); URINE PROTEIN NEGATIVE (NEGATIVE); URINE UROBILINOGEN NORMAL mg/dL (0.2-1.0)
[2019-03-22 13:42] LABS: BARBITURATES, UR NEGATIVE (NEGATIVE); BENZODIAZEPINES, UR NEGATIVE (NEGATIVE); OPIATES, UR NEGATIVE (NEGATIVE); PHENCYCLIDINE, UR NEGATIVE (NEGATIVE)
[2019-03-22 13:48] LABS: ALB/GLOB RATIO 1.4 (1.0-2.1); ALBUMIN 4.6 g/dL (3.5-5.0); ALT/SGPT 35 U/L (21-72); AST/SGOT 65 U/L (17-59); BLOOD UREA NITROGEN 11 mg/dL (9-20); CALCIUM 8.5 mg/dl (8.6-10.4); GFR NON-AFRICAN AMERICAN > 60
[2019-03-22] MEDS ORDERED: Sodium Chloride 0.9% 2,000 ML IV ONE (19:16)
[2019-03-22 21:34] VITALS: PULSE 76; RESP 18
[2019-03-22 22:46] VITALS: BP 112/76; TEMP 98.2; O2SAT 99
== END 2019-03-22 22:46 | disposition home or self-care (01) ==
LOC: C.ER 12:00
DX: F10.129 Alcohol abuse with intoxication, unspecified (principal); Y90.8 Blood alcohol level of 240 mg/100 ml or more
CPT/HCPCS: 80053; 81001; 82948; 83735; 84100; 85025; 96361; 96365; 96372; 99285; G0480; J1630; J2060; J3411; J7030; J7070

== ENCOUNTER 2019-03-24 10:31 | Inpatient (IN) | payer BC ==
[2019-03-24 10:31] VITALS: BMI 33.5
[2019-03-24] MEDS ORDERED: Dextrose 50% SYRINGE Inj (50 ml) IV STA (10:40)
[2019-03-24 11:03] LABS: BASO % 0.2 % (0.0-2.0); HEMOGLOBIN 15.3 g/dL (12.0-18.0); LYMPH # 1.3 K/uL (1.0-4.3); LYMPH % 11.3 % (20.0-40.0); MEAN CELL VOLUME 87.4 fL (80.0-94.0); MEAN CORPUSCULAR HEMOGLOBIN 29.6 pg (27.0-31.0); MEAN CORPUSCULAR HGB CONC 33.9 g/dL (33.0-37.0); MEAN PLATELET VOLUME 7.8 fL (7.2-11.7); MONO # 0.6 K/uL (0.0-0.8); MONO % 4.9 % (0.0-10.0); NEUT # 9.5 K/uL (1.8-7.0); NEUT % 83.6 % (50.0-75.0); NRBC % 0.1 % (0.0-2.0); RBC 5.16 Mil/uL (4.40-5.90); RED CELL DISTRIBUTION WIDTH 16.8 % (11.5-14.5); WHITE BLOOD COUNT 11.4 K/uL (4.8-10.8)
[2019-03-24 11:08] LABS: INR 1.1; PARTIAL THROMBOPLASTIN TIME 36.2 SECONDS (21-34); PROTHROMBIN TIME 12.3 SECONDS (9.7-12.2)
[2019-03-24 11:20] LABS: ALB/GLOB RATIO 1.6 (1.0-2.1); ALBUMIN 4.8 g/dL (3.5-5.0); ALT/SGPT 49 U/L (21-72); AST/SGOT 109 U/L (17-59); BLOOD UREA NITROGEN 10 mg/dL (9-20); CALCIUM 9.1 mg/dl (8.6-10.4); GFR NON-AFRICAN AMERICAN > 60
[2019-03-24 11:21] LABS: CK-MB 11.3 ng/mL (0.0-3.38)
[2019-03-24] MEDS ORDERED: Sodium Chloride 0.9% 1,000 ML IV ONE (11:21)
--- NOTE | 2019-03-24 11:45 | CT ---
Date of service: 03/24/2019 PROCEDURE: CT HEAD WITHOUT CONTRAST. HISTORY: head injury COMPARISON: 02/22/2019 TECHNIQUE: Axial computed tomography images were obtained through the head/brain without intravenous contrast. Radiation dose: Total exam DLP = 1029.76 mGy-cm. This CT exam was performed using one or more of the following dose reduction techniques: Automated exposure control, adjustment of the mA and/or kV according to patient size, and/or use of iterative reconstruction technique. FINDINGS: HEMORRHAGE: No intracranial hemorrhage. BRAIN: No mass effect or edema. Minimal atrophy consistent with patient age. No chronic white matter ischemic change. 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 A previously described right anterior temporal extra-axial mass is felt to represent a vessel such as a dural vein. This can be seen on multiple contiguous sections demonstrating the course of this vessel. VENTRICLES: Unremarkable. No hydrocephalus. CALVARIUM: There is a depressed fracture of the right frontal bone with mild depression of the anterior wall of the frontal sinus. There is no callus seen bridging the right most aspect of this fracture. This is unchanged in appearance when compared to examination of 02/22/2019. This is unchanged since 11/13/2016. No other fracture elsewhere. There is right frontal parasagittal scalp contusion/hematoma. PARANASAL SINUSES: Unremarkable as visualized. No significant inflammatory changes. MASTOID AIR CELLS: Unremarkable as visualized. No inflammatory changes. OTHER FINDINGS: None. IMPRESSION: No intracranial hemorrhage. Chronic right frontal depressed fracture. There is overlying acute right frontal scalp contusion/hematoma. 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 Please note that the previously described extra-axial right anterior temporal mass represents a dural vein and can be seen on multiple contiguous sections demonstrating the course of this vessel.
--- NOTE | 2019-03-24 11:54 | CT ---
Date of service: 03/24/2019 PROCEDURE: CT MAXILLOFACIAL BONES WITHOUT CONTRAST HISTORY: facial/orbit injury after fall COMPARISON: None available. TECHNIQUE: Contiguous axial CT images of the maxillofacial bones were obtained. Coronal and sagittal reformats were generated. Radiation dose: Total exam DLP = 786.82 mGy-cm. This CT exam was performed using one or more of the following dose reduction techniques: Automated exposure control, adjustment of the mA and/or kV according to patient size, and/or use of iterative reconstruction technique. FINDINGS: NASAL BONES: No nasal fracture identified. ORBITS: Unremarkable. PARANASAL SINUSES/ MASTOIDS: Very small left frontal sinus osteoma. MAXILLA: Unremarkable. MANDIBLE/ TEMPOROMANDIBULAR JOINTS: Unremarkable. SKULL BASE: Unremarkable. TEMPORAL BONES: Middle ears and mastoid grossly unremarkable. OTHER FINDINGS: Chronic depressed right frontal calvarial fracture. Overlying soft tissue swelling consistent with scalp contusion/hematoma. IMPRESSION: Chronic depressed right frontal calvarial fracture. No change in appearance since 2017. No acute fracture. Right frontal scalp contusion/hematoma. No other acute abnormality.
[2019-03-24 11:59] LABS: SQUAMOUS EPITHIAL < 1 /hpf (0-5); URINE BACTERIA RARE (<OCC); URINE BILIRUBIN NEGATIVE (NEGATIVE); URINE BLOOD 2+ (NEGATIVE); URINE CLARITY Clear (Clear); URINE COLOR Straw (YELLOW); URINE GLUCOSE (UA) 2+ mg/dL (Normal); URINE LEUKOCYTE ESTERASE NEG Leu/uL (Negative); URINE PROTEIN NEGATIVE (NEGATIVE); URINE UROBILINOGEN NORMAL mg/dL (0.2-1.0)
[2019-03-24 12:23] LABS: BARBITURATES, UR NEGATIVE (NEGATIVE); BENZODIAZEPINES, UR NEGATIVE (NEGATIVE); OPIATES, UR NEGATIVE (NEGATIVE); PHENCYCLIDINE, UR NEGATIVE (NEGATIVE)
--- NOTE | 2019-03-24 12:31 | C.PDOC ---
History Of Present Illness Patient LORNA from home for evaluation, states he is having numbness/tingling of the left arm since yesterday. He admits to drinking alcohol chronically (including yesterday), and he admits to he fell down the stairs and hit his hea d/face and knees. Patient was found to be hypoglycemic in the field (accucheck 31), and was given glocose paste PO and glucagon IM x1. He denies chest pain, SOB, palpitations, fever, headache, dizziness, facial droop, slurred speech, extremtity weakness, visual changes. Time Seen by Provider: 03/24/19 10:31 Chief Complaint (Nursing): Weakness/Neurological Deficit History Per: Patient, EMS History/Exam Limitations: intoxication Onset/Duration Of Symptoms: Days Current Symptoms Are (Timing): Still Present Past Medical History Reviewed: Historical Data, Nursing Documentation, Vital Signs Vital Signs: Last Vital Signs Temp 97.8 F 03/24/19 10:36 Pulse 87 03/24/19 12:12 Resp 16 03/24/19 12:12 BP 120/73 03/24/19 12:12 Pulse Ox 98 03/24/19 12:12 Primary Care Provider: Rich Abdullahi - Medical History PMH: Anxiety, Bipolar Disorder, COPD, Depression, Diabetes, Fractures, Gastritis, HTN, Hypercholesterolemia, Pneumonia, Seizures (ETOH related), Sleep Apnea (uses CPAP at home) Denies: Sexually Transmitted Disease Surgical History: Tonsillectomy (as a child) - [facility] Procedures ALCOHOL DETOXIFICATION (10/07/13) DETOXIFICATION SERVICES FOR SUBSTANCE ABUSE TREATMENT (01/18/19) EXCISION OF LARGE INTESTINE, ENDO, DIAGN (09/01/17) EXCISION OF SMALL INTESTINE, ENDO, DIAGN (09/01/17) GROUP DIGITAL IMAGING TECHNICIAN FOR SUBSTANCE ABUSE TREATMENT, PSYCHOEDUCATION (01/18/19) GROUP DIGITAL IMAGING TECHNICIAN FOR SUBSTANCE ABUSE, COGNITIVE BEHAVIORAL (01/18/19) GROUP PSYCHOTHERAPY (01/18/19) INDIV PSYCHOTHERAPY FOR SUBSTANCE ABUSE TREATMENT, SUPPORT (01/18/19) INDIV PSYCHOTHERAPY FOR SUBSTANCE ABUSE, COGNITIV BEHAVIORAL (01/18/19) INDIV PSYCHOTHERAPY FOR SUBSTANCE ABUSE, PSYCHOEDUCATION (01/18/19) INDIVIDUAL PSYCHOTHERAPY, COGNITIVE-BEHAVIORAL (01/18/19) INDIVIDUAL PSYCHOTHERAPY, SUPPORTIVE (01/18/19) MEDICATION MANAGEMENT (12/20/18) MEDS MGMT FOR SUBSTANCE ABUSE TREATMENT, OTH REPL MED (12/20/18) OTHER ELECTROCONVULSIVE THERAPY (08/09/18) Family History: States: No Known Family Hx - Social History Hx Tobacco Use: Yes Hx Alcohol Use: Yes Hx Substance Use: Yes - Immunization History Hx Tetanus Toxoid Vaccination: No Hx Influenza Vaccination: Yes (2018) Hx Pneumococcal Vaccination: Yes (2016) Review Of Systems Constitutional: Negative for: Fever, Chills Cardiovascular: Negative for: Chest Pain, Palpitations Respiratory: Negative for: Shortness of Breath Gastrointestinal: Negative for: Nausea, Vomiting, Abdominal Pain, Diarrhea Skin: Positive for: Other Neurological: Positive for: Numbness (left arm). Negative for: Weakness, Incoordination, Confusion, Headache, Dizziness Physical Exam - Physical Exam Appears: Non-toxic, Unkempt, Other (appears intoxicated) Skin: Ecchymosis (left pierorbital/forehead) Head: Normacephalic Eye(s): bilateral: Normal Inspection, PERRL, EOMI Oral Mucosa: Moist Tongue: Normal Appearing, No Bleeding Lips: Normal Appearing, No Laceration Neck: No Midline Cervical Tenderness, No Paracervical Tenderness, No Step Off Deformity, Supple Cardiovascular: Rhythm Regular Respiratory: Normal Breath Sounds, No Rales, No Rhonchi, No Wheezing Gastrointestinal/Abdominal: Normal Exam, Bowel Sounds, Soft, No Tenderness Extremity: No Pedal Edema, No Calf Tenderness, Other (abrasions B/L knees ) Pulses: Left Dorsalis Pedis: Normal, Right Dorsalis Pedis: Normal Neurological/Psych: Oriented x3, No Normal Speech (mildly slurred (? due to int oxication)), Normal Cognition, Normal Cranial Nerves, No Cerebellar Signs, Normal Motor, No Normal Sensation (left arm) ED Course And Treatment - Laboratory Results Result Diagrams: 03/24/19 10:52 03/24/19 10:52 Lab Results: PT 12.3 SECONDS (9.7-12.2) H 03/24/19 10:52 INR 1.1 03/24/19 10:52 APTT 36.2 SECONDS (21-34) H 03/24/19 10:52 Total Bilirubin 0.5 mg/dL (0.2-1.3) 03/24/19 10:52 AST 109 U/L (17-59) H D 03/24/19 10:52 ALT 49 U/L (21-72) 03/24/19 10:52 Alkaline Phosphatase 70 U/L (38-126) 03/24/19 10:52 Total Protein 7.7 g/dL (6.3-8.3) 03/24/19 10:52 Albumin 4.8 g/dL (3.5-5.0) 03/24/19 10:52 Globulin 2.9 gm/dL (2.2-3.9) 03/24/19 10:52 Albumin/Globulin Ratio 1.6 (1.0-2.1) 03/24/19 10:52 Urine Color Straw (YELLOW) 03/24/19 11:36 Urine Clarity Clear (Clear) 03/24/19 11:36 Urine pH 6.0 (5.0-8.0) 03/24/19 11:36 Ur Specific Hernandez 1.010 (1.003-1.030) 03/24/19 11:36 Urine Protein Negative mg/dL (NEGATIVE) 03/24/19 11:36 Urine Glucose (UA) 2+ mg/dL (Normal) H 03/24/19 11:36 Urine Ketones 1+ mg/dL (NEGATIVE) H 03/24/19 11:36 Urine Blood 2+ (NEGATIVE) H 03/24/19 11:36 Urine Nitrate Negative (NEGATIVE) 03/24/19 11:36 Urine Bilirubin Negative (NEGATIVE) 03/24/19 11:36 Urine Urobilinogen Normal mg/dL (0.2-1.0) 03/24/19 11:36 Ur Leukocyte Esterase Neg Bessy/uL (Negative) 03/24/19 11:36 Urine WBC (Auto) 2 /hpf (0-5) 03/24/19 11:36 Ur Squamous Epith Cells < 1 /hpf (0-5) 03/24/19 11:36 Urine Bacteria Rare (<OCC) 03/24/19 11:36 O2 Sat by Pulse Oximetry: 98 - CT Scan/US CT HEAD Other Rad Studies (CT/US): Read By Radiologist, Radiology Report Reviewed CT/US Interpretation: Accession No. : [id number]. Patient Name / ID : DAWIT DEL TORO / [id number]. Exam Date : 03/24/2019 10:58:16 ( Approved ). S tudy Comment : Sex / Age : M / 53Y. Creator : Dianne Holbrook. Dictator : Martin Soto MD. Casing Puller : Field Applications Specialist : Martin Soto MD. Approver2 : Report Date : 03/24/2019 11:11:47. My Comment : . Date of service: 03/24/2019. PROCEDURE: CT HEAD WITHOUT CONTRAST. HISTORY: head injury. COMPARISON: 02/22/2019. TECHNIQUE: Axial computed tomography images were obtained through the head/brain without intravenous contrast. Radiation dose: Total exam DLP = 1029.76 mGy-cm. This CT exam was performed using one or more of the following dose reduction techniques: Automated exposure control, adjustment of the mA and/or kV according to patient size, and/or use of iterative reconstruction technique. FINDINGS: HEMORRHAGE: No intracranial hemorrhage. BRAIN: No mass effect or edema. Minimal atrophy consistent with patient age. No chronic white matter ischemic change. 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 A previously described right anterior temporal extra-axial mass is felt to represent a vessel such as a dural vein. This can be seen on multiple contiguous sections demonstrating the course of this vessel. VENTRICLES: Unre markable. No hydrocephalus. CALVARIUM: There is a depressed fracture of the right frontal bone with mild depression of the anterior wall of the frontal sinus. There is no callus seen bridging the right most aspect of this fracture. This is unchanged in appearance when compared to examination of 02/22/2019. This is unchanged since 11/13/2016. No other fracture elsewhere. There is right frontal parasagittal scalp contusion/hematoma. PARANASAL SINUSES: Unremarkable as visualized. No significant inflammatory changes. MASTOID AIR CELLS: Unremarkable as visualized. No inflammatory changes. OTHER FINDINGS: None. IMPRESSION: No intracranial hemorrhage. Chronic right frontal depressed fracture. There is overlying acute right frontal scalp contusion/hematoma. 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 Please note that the previously described extra-axial right anterior temporal mass represents a dural vein and can be seen on multiple contiguous sections demonstrating the course of this ves matthias. CT ORBITS Other Rad Studies (CT/US): Read By Radiologist, Radiology Report Reviewed CT/US Interpretation: Accession No. : [id number]. Patient Name / ID : DAWIT DEL TORO / [id number]. Exam Date : 03/24/2019 11:00:56 ( Approved ). St udy Comment : Sex / Age : M / 53Y. Creator : Dianne Holbrook. Dictator : Martin Soto MD. Casing Puller : Field Applications Specialist : Martin oSto MD. Approver2 : Report Date : 03/24/2019 11:11:58. My Comment : . Date of service: 03/24/2019. PROCEDURE: CT MAXILLOFACIAL BONES WITHOUT CONTRAST. HISTORY: facial/orbit injury after fall. COMPARISON: None available. TECHNIQUE: Contiguous axial CT images of the maxillofacial bones were obtained. Coronal and sagittal reformats were generated. Radiation dose: Total exam DLP = 786.82 mGy-cm. This CT exam was performed using one or more of the following dose reduction techniques: Automated exposure control, adjustment of the mA and/or kV according to patient size, and/or use of iterative reconstruction technique. FINDINGS: NASAL BONES: No nasal fracture identified. ORBITS: Unremarkable. PARANASAL SINUSES/ MASTOIDS: Very small left frontal sinus osteoma. MAXILLA: Unremarkable. MANDIBLE/ TEMPOROMANDIBULAR JOINTS: Unremarkable. SKULL BASE: Unremarkable. TEMPORAL BONES: Middle ears and mastoid grossly unremarkable. OTHER FINDINGS: Chronic depressed right frontal calvarial fracture. Overlying soft tissue swelling consistent with scalp contusion/hematoma. IMPRESSION: Chronic depressed right frontal calvarial fracture. No change in appearance since 2017. No acute fracture. Right frontal scalp contusion/hematoma. No other acute abnormality. Disposition - Disposition Forms: [employer] (Slovak)
[2019-03-24] MEDS ORDERED: Tetanus/Diphtheria Toxoids 0.5 ml Syringe IM ONE ×2 (13:21→13:52)
[2019-03-24] MEDS ORDERED: Sodium Chloride 0.9% 1,000 ML ONE (13:29)
[2019-03-24] MEDS ORDERED: Glucagon Recombinant 1 mg Inj IM PRN (14:24)
[2019-03-24] MEDS ORDERED: Dextrose 50% SYRINGE Inj (50 ml) IV PRN (14:24)
--- NOTE | 2019-03-24 14:33 | RAD ---
Date of service: 03/24/2019 HISTORY: SOB COMPARISON: Comparison chest dated 11/17/2018 TECHNIQUE: 1 view obtained. FINDINGS: LUNGS: Poor inspiration with low lung volumes crowded bronchovascular markings and minor bibasilar atelectasis. PLEURA: No significant pleural effusion identified, no pneumothorax apparent. CARDIOVASCULAR: No aortic atherosclerotic calcification present. Cardiomegaly. No pulmonary vascular congestion. OSSEOUS STRUCTURES: There appears to be calcification of the cortico -clavicular ligament. VISUALIZED UPPER ABDOMEN: Normal. OTHER FINDINGS: None. IMPRESSION: Poor inspiration with low lung volumes crowded bronchovascular markings and minor bibasilar atelectasis.
[2019-03-24] MEDS ORDERED: Multivitamin (MVI) 10 ML, Thiamine 100 MG, Folic Acid 1 MG in Sodium Chloride 0.9% 1,00... IV SCH (16:30)
[2019-03-24 17:10] VITALS: RESP 20
[2019-03-24] MEDS: (Novolin R) Insulin Human Regular 100 units/ml vial SC SCH ×2 (17:45→21:21)
[2019-03-24] MEDS: Folic Acid 1 MG, Thiamine 100 MG, Multivitamin (MVI) 10 ML in Dextrose 5% In Water 1,00... IV SCH (18:29)
--- NOTE | 2019-03-25 04:39 | CP.PCM.HP ---
Present on Admission - Present on Admission Any Indicators Present on Admission: No Past Patient History - Infectious Disease Hx of Infectious Diseases: None - Past Medical History & Family History Past Medical History?: Yes - Past Social History Smoking Status: Heavy Smoker > 10 Cigarettes Daily - CARDIAC Hx Hypercholesterolemia: Yes Hx Hypertension: Yes - PULMONARY Hx Chronic Obstructive Pulmonary Disease (COPD): Yes Hx Pneumonia: Yes Hx Sleep Apnea: Yes (uses CPAP at home) - NEUROLOGICAL Hx Seizures: Yes (ETOH related) - HEENT Hx HEENT Problems: Yes Other/Comment: HAD SEPTAL SURGERY DUE TO DEVIATION - RENAL Hx Chronic Kidney Disease: No - ENDOCRINE/METABOLIC Hx Endocrine Disorders: Yes Hx Diabetes Mellitus Type 2: Yes - HEMATOLOGICAL/ONCOLOGICAL Hx Human Immunodeficiency Virus (HIV): No (Patient denied) - INTEGUMENTARY Hx Dermatological Problems: No - MUSCULOSKELETAL/RHEUMATOLOGICAL Hx Fractures: Yes - GASTROINTESTINAL Hx Gastritis: Yes - GENITOURINARY/GYNECOLOGICAL Hx Sexually Transmitted Disorders: No - PSYCHIATRIC Hx Anxiety: Yes Hx Bipolar Disorder: Yes Hx Depression: Yes Hx Substance Use: Yes - SURGICAL HISTORY Hx Tonsillectomy: Yes (as a child) - ANESTHESIA Hx Anesthesia: Yes Hx Anesthesia Reactions: No Hx Malignant Hyperthermia: No Meds Allergies/Adverse Reactions: Allergies Allergy/AdvReac Type Severity Reaction Status Date / Time amitriptyline [From Elavil] AdvReac ITCHING Verified 03/24/19 10:34 Results - Vital Signs Recent Vital Signs: Last Vital Signs Temp 98.1 F 03/24/19 23:25 Pulse 81 03/25/19 04:04 Resp 20 03/24/19 23:25 BP 128/73 03/24/19 23:25 Pulse Ox 96 03/24/19 23:25 - Labs Result Diagrams: 03/24/19 10:52 03/24/19 10:52 Labs: Laboratory Results - last 24 hr 03/24/19 03/24/19 03/24/19 10:52 10:52 10:52 WBC 11.4 H RBC 5.16 Hgb 15.3 Hct 45.1 MCV 87.4 MCH 29.6 MCHC 33.9 RDW 16.8 H Plt Count 361 MPV 7.8 Neut % (Auto) 83.6 H Lymph % (Auto) 11.3 L Bryan % (Auto) 4.9 Eos % (Auto) 0.0 Baso % (Auto) 0.2 Neut # (Auto) 9.5 H Lymph # (Auto) 1.3 Bryan # (Auto) 0.6 Eos # (Auto) 0.0 Baso # (Auto) 0.0 PT 12.3 H INR 1.1 APTT 36.2 H Sodium 142 Potassium 4.2 Chloride 100 Carbon Dioxide 22 Anion Gap 24 H BUN 10 Creatinine 0.8 Est GFR ( Amer) > 60 Est GFR (Non-Af Amer) > 60 POC Glucose (mg/dL) Random Glucose 37 L* D Calcium 9.1 Total Bilirubin 0.5 AST 109 H D ALT 49 Alkaline Phosphatase 70 Total Creatine Kinase 4592 H CK-MB (Mass) 11.3 H Total Protein 7.7 Albumin 4.8 Globulin 2.9 Albumin/Globulin Ratio 1.6 TSH 3rd Generation 0.67 Urine Color Urine Clarity Urine pH Ur Specific [place] Urine Protein Urine Glucose (UA) Urine Ketones Urine Blood Urine Nitrate Urine Bilirubin Urine Urobilinogen Ur Leukocyte Esterase Urine WBC (Auto) Ur Squamous Epith Cells Urine Bacteria Urine Opiates Screen Urine Methadone Screen Ur Barbiturates Screen Ur Phencyclidine Scrn Ur Amphetamines Screen U Benzodiazepines Scrn U Oth Cocaine Metabols U Cannabinoids Screen Alcohol, Quantitative 290 H 03/24/19 03/24/19 03/24/19 11:19 11:36 11:36 WBC RBC Hgb Hct MCV MCH MCHC RDW Plt Count MPV Neut % (Auto) Lymph % (Auto) Bryan % (Auto) Eos % (Auto) Baso % (Auto) Neut # (Auto) Lymph # (Auto) Bryan # (Auto) Eos # (Auto) Baso # (Auto) PT INR APTT Sodium Potassium Chloride Carbon Dioxide Anion Gap BUN Creatinine Est GFR ( Amer) Est GFR (Non-Af Amer) POC Glucose (mg/dL) 192 H Random Glucose Calcium Total Bilirubin AST ALT Alkaline Phosphatase Total Creatine Kinase CK-MB (Mass) Total Protein Albumin Globulin Albumin/Globulin Ratio TSH 3rd Generation Urine Color Straw Urine Clarity Clear Urine pH 6.0 Ur Specific [place] 1.010 Urine Protein Negative Urine Glucose (UA) 2+ H Urine Ketones 1+ H Urine Blood 2+ H Urine Nitrate Negative Urine Bilirubin Negative Urine Urobilinogen Normal Ur Leukocyte Esterase Neg Urine WBC (Auto) 2 Ur Squamous Epith Cells < 1 Urine Bacteria Rare Urine Opiates Screen Negative Urine Methadone Screen Negative Ur Barbiturates Screen Negative Ur Phencyclidine Scrn Negative Ur Amphetamines Screen Negative U Benzodiazepines Scrn Negative U Oth Cocaine Metabols Negative U Cannabinoids Screen Negative Alcohol, Quantitative 03/24/19 03/24/19 17:02 21:18 WBC RBC Hgb Hct MCV MCH MCHC RDW Plt Count MPV Neut % (Auto) Lymph % (Auto) Bryan % (Auto) Eos % (Auto) Baso % (Auto) Neut # (Auto) Lymph # (Auto) Bryan # (Auto) Eos # (Auto) Baso # (Auto) PT INR APTT Sodium Potassium Chloride Carbon Dioxide Anion Gap BUN Creatinine Est GFR ( Amer) Est GFR (Non-Af Amer) POC Glucose (mg/dL) 230 H 194 H Random Glucose Calcium Total Bilirubin AST ALT Alkaline Phosphatase Total Creatine Kinase CK-MB (Mass) Total Protein Albumin Globulin Albumin/Globulin Ratio TSH 3rd Generation Urine Color Urine Clarity Urine pH Ur Specific [place] Urine Protein Urine Glucose (UA) Urine Ketones Urine Blood Urine Nitrate Urine Bilirubin Urine Urobilinogen Ur Leukocyte Esterase Urine WBC (Auto) Ur Squamous Epith Cells Urine Bacteria Urine Opiates Screen Urine Methadone Screen Ur Barbiturates Screen Ur Phencyclidine Scrn Ur Amphetamines Screen U Benzodiazepines Scrn U Oth Cocaine Metabols U Cannabinoids Screen Alcohol, Quantitative
[2019-03-25 07:18] LABS: ALB/GLOB RATIO 1.9 (1.0-2.1); ALBUMIN 4.3 g/dL (3.5-5.0); ALT/SGPT 48 U/L (21-72); AST/SGOT 100 U/L (17-59); BLOOD UREA NITROGEN 10 mg/dL (9-20); CALCIUM 8.5 mg/dl (8.6-10.4); GFR NON-AFRICAN AMERICAN > 60
[2019-03-25] MEDS: (Novolin R) Insulin Human Regular 100 units/ml vial SC SCH ×4 (07:18→21:30)
[2019-03-25 07:20] LABS: BASO % 0.3 % (0.0-2.0); EOS % 0.7 % (0.0-4.0); LYMPH # 1.4 K/uL (1.0-4.3); LYMPH % 24.1 % (20.0-40.0); MEAN CORPUSCULAR HEMOGLOBIN 29.5 pg (27.0-31.0); MEAN CORPUSCULAR HGB CONC 34.3 g/dL (33.0-37.0); MEAN PLATELET VOLUME 7.9 fL (7.2-11.7); MONO # 0.4 K/uL (0.0-0.8); NEUT # 3.9 K/uL (1.8-7.0); NEUT % 67.9 % (50.0-75.0); RBC 4.75 Mil/uL (4.40-5.90); RED CELL DISTRIBUTION WIDTH 16.4 % (11.5-14.5); WHITE BLOOD COUNT 5.7 K/uL (4.8-10.8)
[2019-03-25] MEDS: Multiple Vitamins Tab PO SCH (09:21)
[2019-03-25] MEDS ORDERED: Potassium Chloride 20 mEq ER Tab PO ONE (12:30)
[2019-03-25] MEDS ORDERED: Potassium Chloride 20 mEq/15 ml LIQ UD PO STA (14:36)
[2019-03-25] MEDS: Folic Acid 1 MG, Thiamine 100 MG, Multivitamin (MVI) 10 ML in Dextrose 5% In Water 1,00... IV SCH (17:32)
--- NOTE | 2019-03-25 19:42 | CP.PCM.PN ---
Subjective - Date & Time of Evaluation Date of Evaluation: 03/25/19 Time of Evaluation: 08:40 - Subjective Subjective: dict Objective - Vital Signs/Intake and Output Vital Signs (last 24 hours): Temp Pulse Resp BP Pulse Ox 97.5 F L 77 20 136/85 96 03/25/19 17:40 03/25/19 17:40 03/25/19 17:40 03/25/19 17:40 03/25/19 17:40 - Medications Medications: Current Medications Acetaminophen (Tylenol 325mg Tab) 325 mg PO Q6 PRN PRN Reason: Pain, moderate (4-7) Last Admin: 03/25/19 16:07 Dose: 325 mg Atenolol (Tenormin) 50 mg PO BID [facility] Last Admin: 03/25/19 17:31 Dose: 50 mg Clonidine HCl (Catapres) 0.1 mg PO Q4H PRN PRN Reason: Symptoms of alcohol withdrawl Folic Acid (Folic Acid) 1 mg PO DAILY [facility] Last Admin: 03/25/19 09:23 Dose: 1 mg Gabapentin (Neurontin) 600 mg PO BID [facility] Last Admin: 03/25/19 17:31 Dose: 600 mg Heparin Sodium (Porcine) (Heparin) 5,000 units SC Q8 [facility] Last Admin: 03/25/19 13:21 Dose: 5,000 units Folic Acid 1 mg/ Thiamine HCl 100 mg/ Multivitamins/Vitamin C 10 ml/ Dextrose 1,011.2 mls @ 100 mls/hr IV Q24H [facility] Stop: 03/27/19 17:01 Last Admin: 03/25/19 17:32 Dose: 100 mls/hr Insulin Human Regular (Novolin R) 0 unit SC ACHS [facility]; Protocol Last Admin: 03/25/19 17:37 Dose: Not Given Lorazepam (Ativan) 1 mg PO Q4H PRN PRN Reason: Symptoms of alcohol withdrawl Lorazepam (Ativan) 1 mg PO Q4 [facility]; Taper Stop: 03/30/19 11:59 Last Admin: 03/25/19 16:07 Dose: 1 mg Montelukast Sodium (Singulair) 10 mg PO HS [facility] Last Admin: 03/24/19 22:06 Dose: 10 mg Multivitamins (Hexavitamin) 1 tab PO DAILY [facility] Last Admin: 03/25/19 09:21 Dose: 1 tab Quetiapine Fumarate (Seroquel) 300 mg PO HS [facility] Last Admin: 03/24/19 22:06 Dose: 300 mg Temazepam (Restoril) 15 mg PO HS PRN PRN Reason: Insomnia Thiamine HCl (Vitamin B1 Tab) 100 mg PO DAILY [facility] Last Admin: 03/25/19 09:21 Dose: 100 mg Ziprasidone (Geodon Cap) 40 mg PO BID [facility] Last Admin: 03/25/19 17:31 Dose: 40 mg - Labs Labs: 03/25/19 06:57 03/25/19 06:57 PT 12.3 SECONDS (9.7-12.2) H 03/24/19 10:52 INR 1.1 03/24/19 10:52 APTT 36.2 SECONDS (21-34) H 03/24/19 10:52
--- NOTE | 2019-03-26 02:13 | PN ---
DATE: 03/25/2019 SUBJECTIVE: The patient is withdrawing. He is confused. He is agitated. He denies any shortness of breath. He has multiple bruises extensively. PHYSICAL EXAMINATION: VITAL SIGNS: Blood pressure 136/85, pulse 77, respiratory rate 20, temperature 98.5. LUNGS: Clear. CARDIOVASCULAR SYSTEM: S1 and S2, regular. ABDOMEN: Soft. ASSESSMENT: 1. Alcohol withdrawal delirium tremens. 2. Rhabdomyolysis with elevated creatine phosphokinase. 3. Alcoholism. 4. Dehydration. PLAN: Continue IV fluids. Monitor the patient. Ravin Loyd MD
[2019-03-26] MEDS: (Novolin R) Insulin Human Regular 100 units/ml vial SC SCH ×4 (08:12→21:39)
[2019-03-26] MEDS: Multiple Vitamins Tab PO SCH (10:00)
--- NOTE | 2019-03-26 15:57 | PCM.PSYCH ---
Initial Psychiatric Evaluation - Initial Psychiatric Evaluation Type of Admission: Voluntary Legal Status: Capacity Current Medications: Active Medications Generic Name Dose Route Start Last Admin Trade Name Freq PRN Reason Stop Dose Admin Acetaminophen 325 mg 03/25/19 15:07 03/25/19 16:07 Tylenol 325mg Tab PO 325 mg Q6 PRN Administration Pain, moderate (4-7) Atenolol 50 mg 03/24/19 18:00 03/26/19 10:00 Tenormin PO 50 mg BID JOSE Administration Clonidine HCl 0.1 mg 03/25/19 11:57 Catapres PO Q4H PRN Symptoms of alcohol withdrawl Folic Acid 1 mg 03/25/19 10:00 03/26/19 10:00 Folic Acid PO 1 mg DAILY JOSE Administration Gabapentin 600 mg 03/24/19 18:00 03/26/19 10:04 Neurontin PO 600 mg BID JOSE Administration Heparin Sodium (Porcine) 5,000 units 03/24/19 22:00 03/26/19 13:50 Heparin SC 5,000 units Q8 JOSE Administration Folic Acid 1 mg/ Thiamine HCl 1,011.2 mls @ 100 mls/hr 03/24/19 17:00 03/25/19 17:32 100 mg/ Multivitamins/Vitamin IV 03/27/19 17:01 100 mls/hr C 10 ml/ Dextrose Q24H JOSE Administration Insulin Human Regular 0 unit 03/24/19 16:30 03/26/19 12:14 Novolin R SC 3 units ACHS JOSE Administration Protocol Lorazepam 1 mg 03/25/19 11:57 Ativan PO Q4H PRN Symptoms of alcohol withdrawl Lorazepam 1 mg 03/25/19 12:00 03/26/19 12:14 Ativan PO 03/30/19 11:59 1 mg Q6 JOSE Administration Taper Montelukast Sodium 10 mg 03/24/19 22:00 03/25/19 21:25 Singulair PO 10 mg HS JOSE Administration Multivitamins 1 tab 03/25/19 10:00 03/26/19 10:00 Hexavitamin PO 1 tab DAILY JOSE Administration Quetiapine Fumarate 300 mg 03/24/19 22:00 03/25/19 21:26 Seroquel PO 300 mg HS JOSE Administration Temazepam 15 mg 03/24/19 16:42 Restoril PO HS PRN Insomnia Thiamine HCl 100 mg 03/25/19 10:00 03/26/19 10:00 Vitamin B1 Tab PO 100 mg DAILY JOSE Administration Ziprasidone 40 mg 03/24/19 18:00 03/26/19 10:00 Geodon Cap PO 40 mg BID JOSE Administration Past Psychiatric History - Past Psychiatric History Pertinent Medical Hx (Current Medical&Sleep Prob, Allergies): Allergies Allergy/AdvReac Type Severity Reaction Status Date / Time amitriptyline [From Elavil] AdvReac ITCHING Verified 03/24/19 10:34 Pantoprazole [Protonix EC Tab] 40 mg PO DAILY ect 08/03/18 Folic Acid 1 mg PO DAILY 30 Days tab 11/22/18 Montelukast [Singulair] 10 mg PO HS 30 Days tab 11/22/18 Multivitamins [Hexavitamin] 1 tab PO DAILY 30 Days tab 11/22/18 Saccharomyces Boulardii [Florastor] 250 mg PO BID 5 Days capsule 11/22/18 Thiamine [Vitamin B1 Tab] 100 mg PO DAILY 30 Days tab 11/22/18 QUEtiapine [Seroquel] 300 mg PO HS #1 tab 12/23/18 Temazepam [Restoril] 15 mg PO HS PRN #1 cap 12/23/18 Ziprasidone [Geodon Cap] 40 mg PO BID #1 cap 12/23/18 metFORMIN [glucOPHAGE] 1,000 mg PO BID #1 tab 12/23/18 Atenolol 50 mg PO BID 01/18/19 Gabapentin [Neurontin] 600 mg PO BID 01/18/19 GlipiZIDE [Glucotrol] 10 mg PO TID 01/18/19
[2019-03-26] MEDS: Folic Acid 1 MG, Thiamine 100 MG, Multivitamin (MVI) 10 ML in Dextrose 5% In Water 1,00... IV SCH (18:51)
--- NOTE | 2019-03-26 20:59 | CP.PCM.PN ---
Subjective - Date & Time of Evaluation Date of Evaluation: 03/26/19 Time of Evaluation: 09:40 - Subjective Subjective: dict Objective - Vital Signs/Intake and Output Vital Signs (last 24 hours): Temp Pulse Resp BP Pulse Ox 97.8 F 89 20 111/71 93 L 03/25/19 23:10 03/26/19 12:27 03/25/19 23:10 03/25/19 23:10 03/25/19 23:10 Intake and Output: 03/26/19 03/27/19 18:59 06:59 Intake Total 300 Output Total 800 Balance -500 - Medications Medications: Current Medications Acetaminophen (Tylenol 325mg Tab) 325 mg PO Q6 PRN PRN Reason: Pain, moderate (4-7) Last Admin: 03/25/19 16:07 Dose: 325 mg Atenolol (Tenormin) 50 mg PO BID [facility] Last Admin: 03/26/19 18:50 Dose: 50 mg Clonidine HCl (Catapres) 0.1 mg PO Q4H PRN PRN Reason: Symptoms of alcohol withdrawl Folic Acid (Folic Acid) 1 mg PO DAILY [facility] Last Admin: 03/26/19 10:00 Dose: 1 mg Gabapentin (Neurontin) 600 mg PO BID [facility] Last Admin: 03/26/19 18:50 Dose: 600 mg Heparin Sodium (Porcine) (Heparin) 5,000 units SC Q8 [facility] Last Admin: 03/26/19 13:50 Dose: 5,000 units Folic Acid 1 mg/ Thiamine HCl 100 mg/ Multivitamins/Vitamin C 10 ml/ Dextrose 1,011.2 mls @ 100 mls/hr IV Q24H [facility] Stop: 03/27/19 17:01 Last Admin: 03/26/19 18:51 Dose: 100 mls/hr Insulin Human Regular (Novolin R) 0 unit SC ACHS [facility]; Protocol Last Admin: 03/26/19 17:30 Dose: Not Given Lorazepam (Ativan) 1 mg PO Q4H PRN PRN Reason: Symptoms of alcohol withdrawl Lorazepam (Ativan) 1 mg PO Q6 [facility]; Taper Stop: 03/30/19 11:59 Last Admin: 03/26/19 18:51 Dose: 1 mg Montelukast Sodium (Singulair) 10 mg PO HS [facility] Last Admin: 03/25/19 21:25 Dose: 10 mg Multivitamins (Hexavitamin) 1 tab PO DAILY [facility] Last Admin: 03/26/19 10:00 Dose: 1 tab Quetiapine Fumarate (Seroquel) 300 mg PO HS [facility] Last Admin: 03/25/19 21:26 Dose: 300 mg Temazepam (Restoril) 15 mg PO HS PRN PRN Reason: Insomnia Thiamine HCl (Vitamin B1 Tab) 100 mg PO DAILY [facility] Last Admin: 03/26/19 10:00 Dose: 100 mg Ziprasidone (Geodon Cap) 40 mg PO BID [facility] Last Admin: 03/26/19 18:51 Dose: 40 mg - Labs Labs: 03/25/19 06:57 03/25/19 06:57 PT 12.3 SECONDS (9.7-12.2) H 03/24/19 10:52 INR 1.1 03/24/19 10:52 APTT 36.2 SECONDS (21-34) H 03/24/19 10:52
--- NOTE | 2019-03-26 23:34 | PN ---
DATE: 03/26/2019 SUBJECTIVE: The patient is feeling better. He is afebrile. No shortness of breath. He denies any nausea or vomiting. He is calm, he is quiet. PHYSICAL EXAMINATION: VITAL SIGNS: Blood pressure 130/80, pulse 72, respiratory rate 18, temperature 98. LUNGS: Clear. CARDIOVASCULAR SYSTEM: S1 and S2, regular. ABDOMEN: Soft. ASSESSMENT: 1. Rhabdomyolysis, alcohol withdrawal, delirium tremens. 2. Dehydration. 3. Diabetes. 4. Hypertension. PLAN: IV hydration, Accu-Cheks, sliding scale. DT precaution, Librium p.r.n. Monitor the patient. Ravin Loyd MD
[2019-03-27] MEDS: (Novolin R) Insulin Human Regular 100 units/ml vial SC SCH ×3 (08:04→17:01)
[2019-03-27 08:48] LABS: BASO % 0.3 % (0.0-2.0); EOS # 0.2 K/uL (0.0-0.7); EOS % 2.3 % (0.0-4.0); LYMPH # 1.5 K/uL (1.0-4.3); LYMPH % 18.2 % (20.0-40.0); MEAN CELL VOLUME 87.1 fL (80.0-94.0); MEAN CORPUSCULAR HEMOGLOBIN 29.4 pg (27.0-31.0); MEAN CORPUSCULAR HGB CONC 33.8 g/dL (33.0-37.0); MEAN PLATELET VOLUME 8.1 fL (7.2-11.7); MONO # 0.5 K/uL (0.0-0.8); MONO % 6.1 % (0.0-10.0); NEUT # 5.9 K/uL (1.8-7.0); NEUT % 73.1 % (50.0-75.0); NRBC % 0.1 % (0.0-2.0); RBC 5.11 Mil/uL (4.40-5.90); RED CELL DISTRIBUTION WIDTH 16.1 % (11.5-14.5)
[2019-03-27 08:54] LABS: ALB/GLOB RATIO 1.3 (1.0-2.1); ALT/SGPT 56 U/L (21-72); AST/SGOT 54 U/L (17-59); BLOOD UREA NITROGEN 12 mg/dL (9-20); CALCIUM 9.3 mg/dl (8.6-10.4); GFR NON-AFRICAN AMERICAN > 60
[2019-03-27] MEDS: Multiple Vitamins Tab PO SCH (10:15)
--- NOTE | 2019-03-27 10:22 | HP ---
CHIEF COMPLAINTS: Body pains, acute. HISTORY OF PRESENT ILLNESS: This is a 53-year-old white male who is alcoholic, he mostly stays in the streets. He drinks daily and the patient has diabetes. He is on oral anti-diabetic medication and the patient came to emergency room with numbness of the left arm along with that the patient claimed, he has been drinking in large quantities. He has been falling. He has multiple injuries on the body. He has extensive skin abrasions on bilateral knees. He denies any chest pain. He denies any palpitation. He has generalized weakness. He denies any polyuria, polydipsia, polyphagia. Denies any history of hematuria or pyuria. He denies any sneezing, itchy eyes, itchy nose. He has trauma and alteration of mental status at times when he gets drunk. There is no possible delusion noted. There is no history of polyuria, polydipsia, polyphagia. PAST MEDICAL HISTORY: He has type 2 diabetes, morbid obesity, hypertension and osteoarthritis. The patient has multiple falls and multiple injuries. . SOCIAL HISTORY: He smokes and he drinks. CURRENT MEDICATIONS: He is on multiple medications and compliance is unknown. He is on metformin, Geodon, thiamine, Restoril, Florastor, Seroquel, Protonix, vitamins, Singulair, Glucotrol, Neurontin, folic acid and atenolol. PHYSICAL EXAMINATION: GENERAL: A middle-aged gentleman poorly kempt with bruises with abrasions and a lot of erythema on bilateral knees. Multiple other injuries. VITAL SIGNS: Blood pressure 124/71, pulse 97, respiratory rate 20 and temperature 98.1. SKIN: The patient has wound as above. HEENT: Atraumatic and normocephalic. Negative PERRLA. Negative jaundice. Extraocular movements are intact. NECK: Supple. No JVD. No lymph nodes. No thyromegaly. CHEST WALL: Bilateral symmetrical expansion, no tenderness noted. LUNGS: Clear. No rales. No rhonchi. CARDIOVASCULAR: PMI not localized. S1 and S2, regular. No heave, no thrill. ABDOMEN: Soft and nontender. Bowel sounds positive. RECTAL: Enlarged prostate. EXTREMITIES: No clubbing, cyanosis or edema. CENTRAL NERVOUS SYSTEM: Awake, alert and oriented x3. Cranial nerves II through XII are normal. Power 5/5 x4. Plantars are downgoing. ASSESSMENT: 1. Hypoglycemia which is symptomatic which is due to medication including sugar medicine and combination with alcohol. 2. Alcoholism, alcohol intoxication, now alcohol withdrawal with multiple hospitalizations or alcohol related incidents. 3. Falls. 4. Type 2 diabetes, poorly controlled. PLAN: seen and examined. Ravin Loyd MD
[2019-03-27 16:11] VITALS: BP 144/92; TEMP 97.2; O2SAT 96
[2019-03-27] MEDS: Folic Acid 1 MG, Thiamine 100 MG, Multivitamin (MVI) 10 ML in Dextrose 5% In Water 1,00... IV SCH (17:22)
[2019-03-27] MEDS ORDERED: Bacitracin Ointment 30 GM TUBE TOP SCH (18:00)
[2019-03-27 19:12] VITALS: PULSE 91
--- NOTE | 2019-03-27 22:04 | CP.PCM.DIS ---
Provider - Provider Date of Admission: 03/25/19 15:06 Attending physician: Ravin Loyd MD Consults: 03/24/19 16:43 Psychiatry Consult Routine Comment: Consulting Provider: Magaly Verdin Consulting Physician: Magaly Verdin Reason for Consult: depression, alcohol 03/24/19 16:48 Wound Care [Nursing Referral for Wound Care] Routine Comment: Physician Instructions: Reason For Exam: wounds bilateral knee's 03/27/19 18:52 Podiatry Consult Routine Comment: Consulting Provider: Obdulio Finch Consulting Physician: Obdulio Finch Reason for Consult: onychomycosis Time Spent in preparation of Discharge (in minutes): 30 Hospital Course - Lab Results Lab Results: Micro Results 03/24/19 12:40 Blood Blood Culture - Preliminary NO GROWTH AFTER 3 DAYS 03/24/19 12:15 Blood Blood Culture - Preliminary NO GROWTH AFTER 3 DAYS Most Recent Lab Values WBC 8.0 K/uL (4.8-10.8) 03/27/19 08:24 RBC 5.11 Mil/uL (4.40-5.90) 03/27/19 08:24 Hgb 15.0 g/dL (12.0-18.0) 03/27/19 08:24 Hct 44.5 % (35.0-51.0) 03/27/19 08:24 MCV 87.1 fL (80.0-94.0) 03/27/19 08:24 MCH 29.4 pg (27.0-31.0) 03/27/19 08:24 MCHC 33.8 g/dL (33.0-37.0) 03/27/19 08:24 RDW 16.1 % (11.5-14.5) H 03/27/19 08:24 Plt Count 270 K/uL (130-400) 03/27/19 08:24 MPV 8.1 fL (7.2-11.7) 03/27/19 08:24 Neut % (Auto) 73.1 % (50.0-75.0) 03/27/19 08:24 Lymph % (Auto) 18.2 % (20.0-40.0) L 03/27/19 08:24 Glades % (Auto) 6.1 % (0.0-10.0) 03/27/19 08:24 Eos % (Auto) 2.3 % (0.0-4.0) 03/27/19 08:24 Baso % (Auto) 0.3 % (0.0-2.0) 03/27/19 08:24 Neut # (Auto) 5.9 K/uL (1.8-7.0) 03/27/19 08:24 Lymph # (Auto) 1.5 K/uL (1.0-4.3) 03/27/19 08:24 Glades # (Auto) 0.5 K/uL (0.0-0.8) 03/27/19 08:24 Eos # (Auto) 0.2 K/uL (0.0-0.7) 03/27/19 08:24 Baso # (Auto) 0.0 K/uL (0.0-0.2) 03/27/19 08:24 PT 12.3 SECONDS (9.7-12.2) H 03/24/19 10:52 INR 1.1 03/24/19 10:52 APTT 36.2 SECONDS (21-34) H 03/24/19 10:52 Sodium 134 mmol/L (132-148) 03/27/19 08:24 Potassium 4.0 mmol/L (3.6-5.2) 03/27/19 08:24 Chloride 97 mmol/L (98-107) L 03/27/19 08:24 Carbon Dioxide 28 mmol/L (22-30) 03/27/19 08:24 Anion Gap 13 (10-20) 03/27/19 08:24 BUN 12 mg/dL (9-20) 03/27/19 08:24 Creatinine 0.8 mg/dL (0.8-1.5) 03/27/19 08:24 Est GFR ( Amer) > 60 03/27/19 08:24 Est GFR (Non-Af Amer) > 60 03/27/19 08:24 POC Glucose (mg/dL) 225 mg/dL (65-110) H 03/27/19 16:46 Random Glucose 246 mg/dL (75-110) H D 03/27/19 08:24 Hemoglobin A1c 7.4 % (4.2-6.5) H 03/25/19 06:57 Calcium 9.3 mg/dl (8.6-10.4) 03/27/19 08:24 Phosphorus 4.6 mg/dL (2.5-4.5) H 03/27/19 08:24 Magnesium 1.3 mg/dL (1.6-2.3) L 03/27/19 08:24 Total Bilirubin 0.8 mg/dL (0.2-1.3) 03/27/19 08:24 AST 54 U/L (17-59) 03/27/19 08:24 ALT 56 U/L (21-72) 03/27/19 08:24 Alkaline Phosphatase 68 U/L (38-126) 03/27/19 08:24 Total Creatine Kinase 4489 U/L (55-170) H 03/25/19 16:15 CK-MB (Mass) 11.3 ng/mL (0.0-3.38) H 03/24/19 10:52 Total Protein 7.0 g/dL (6.3-8.3) 03/27/19 08:24 Albumin 4.0 g/dL (3.5-5.0) 03/27/19 08:24 Globulin 3.0 gm/dL (2.2-3.9) 03/27/19 08:24 Albumin/Globulin Ratio 1.3 (1.0-2.1) 03/27/19 08:24 TSH 3rd Generation 0.67 mIU/L (0.46-4.68) 03/24/19 10:52 Urine Color Straw (YELLOW) 03/24/19 11:36 Urine Clarity Clear (Clear) 03/24/19 11:36 Urine pH 6.0 (5.0-8.0) 03/24/19 11:36 Ur Specific Rolla 1.010 (1.003-1.030) 03/24/19 11:36 Urine Protein Negative mg/dL (NEGATIVE) 03/24/19 11:36 Urine Glucose (UA) 2+ mg/dL (Normal) H 03/24/19 11:36 Urine Ketones 1+ mg/dL (NEGATIVE) H 03/24/19 11:36 Urine Blood 2+ (NEGATIVE) H 03/24/19 11:36 Urine Nitrate Negative (NEGATIVE) 03/24/19 11:36 Urine Bilirubin Negative (NEGATIVE) 03/24/19 11:36 Urine Urobilinogen Normal mg/dL (0.2-1.0) 03/24/19 11:36 Ur Leukocyte Esterase Neg Bessy/uL (Negative) 03/24/19 11:36 Urine WBC (Auto) 2 /hpf (0-5) 03/24/19 11:36 Ur Squamous Epith Cells < 1 /hpf (0-5) 03/24/19 11:36 Urine Bacteria Rare (<OCC) 03/24/19 11:36 Urine Opiates Screen Negative (NEGATIVE) 03/24/19 11:36 Urine Methadone Screen Negative (NEGATIVE) 03/24/19 11:36 Ur Barbiturates Screen Negative (NEGATIVE) 03/24/19 11:36 Ur Phencyclidine Scrn Negative (NEGATIVE) 03/24/19 11:36 Ur Amphetamines Screen Negative (NEGATIVE) 03/24/19 11:36 U Benzodiazepines Scrn Negative (NEGATIVE) 03/24/19 11:36 U Oth Cocaine Metabols Negative (NEGATIVE) 03/24/19 11:36 U Cannabinoids Screen Negative (NEGATIVE) 03/24/19 11:36 Alcohol, Quantitative 290 mg/dl (0-10) H 03/24/19 10:52 Discharge Plan - Follow Up Plan Condition: GOOD Disposition: AGAINST MEDICAL ADVICE
--- NOTE | 2019-03-28 05:16 | DS ---
DISCHARGE DIAGNOSES: 1. Alcohol withdrawal, delirium tremens, recurrent falls due to the patient being drunk. 2. Diabetes. 3. Hypertension. 4. Obesity. HISTORY OF PRESENT ILLNESS AND HOSPITAL COURSE: This is a 53-year-old white male with history of obesity, alcoholism, alcoholic liver disease. He was admitted with alcohol intoxication, multiple recurrent falls with multiple bruises, injuries all over the body because of getting drunk. He was admitted to the floor, started on neuro checks, DT precautions, fall precaution. The patient was instructed to avoid alcohol. Outpatient followup with [facility]. The patient signed out against medical advice. Ravin Loyd MD
--- NOTE | 2019-03-29 22:31 | CARD ---
APPROVED REPORT Date of service: 03/24/2019 EKG Measurement Heart [id number] <Conclusion> Normal sinus rhythm Rightward axis Borderline ECG
== END 2019-03-27 19:42 | disposition left against medical advice (07) | DRG 894 ==
LOC: C.ER 10:31 → C.9E 14:22 → C.6T 14:42 → OBSVTOIN 03-25 15:06
PROVIDERS: ADMIT Internal Medicine; ATTEND Internal Medicine
DX: F10.231 Alcohol dependence with withdrawal delirium (principal); M62.82 Rhabdomyolysis; F10.229 Alcohol dependence with intoxication, unspecified; E86.0 Dehydration; E11.649 Type 2 diabetes mellitus with hypoglycemia without coma; I10 Essential (primary) hypertension; J44.9 Chronic obstructive pulmonary disease, unspecified; K70.9 Alcoholic liver disease, unspecified; R29.6 Repeated falls; S00.03XA Contusion of scalp, initial encounter; S80.211A Abrasion, right knee, initial encounter; F31.9 Bipolar disorder, unspecified; F17.200 Nicotine dependence, unspecified, uncomplicated; S80.212A Abrasion, left knee, initial encounter; W10.9XXA Fall (on) (from) unspecified stairs and steps, initial encounter; Y90.8 Blood alcohol level of 240 mg/100 ml or more; E78.00 Pure hypercholesterolemia, unspecified; G47.30 Sleep apnea, unspecified; E66.9 Obesity, unspecified; Z87.01 Personal history of pneumonia (recurrent)